=== PATIENT | male | born 1955 | race Caucasian/White ===

== ENCOUNTER 2021-12-15 17:49 | Emergency (ER) | payer OTHER, SELFPAY ==
[2021-12-15 18:06] VITALS: BP 190/102; PULSE 91; RESP 16; TEMP 36.4; O2SAT 98
--- NOTE | 2021-12-15 19:48 | XRR_ITS ---
PROCEDURE INFORMATION: Exam: XR Chest Exam date and time: 12/15/2021 7:48 PM Age: 66 years old Clinical indication: Cough and dyspnea; Additional info: Cough/ dyspnea TECHNIQUE: Imaging protocol: XR of the chest. Views: 1 view. COMPARISON: No relevant prior studies available. FINDINGS: Lungs: Unremarkable. No consolidation. Pleural spaces: Unremarkable. No pleural effusion. No pneumothorax. Heart/Mediastinum: Unremarkable. No cardiomegaly. Bones/joints: Unremarkable. XR/XR chest 1V portable [id number] IMPRESSION: No acute findings.
--- NOTE | 2021-12-15 19:53 | PC.NURSE ---
patient reports mild SOB starting today and states is here for COVID 19 test. denies other s/s. speech clear, sentences complete, respirations even equal and unlabored. NAD.
--- NOTE | 2021-12-15 20:02 | PC.NURSE ---
patient refused Tylenol.
--- NOTE | 2021-12-15 20:07 | ED_ITS ---
HPI - General Adult General: Chief complaint: COVID symptoms Stated complaint: covid exposure, sob Time Seen by Provider: 12/15/21 19:48 History of Present Illness: HPI: This is a [66] yo patient w/ hx of DM, HTN presenting to the ED with request for covid testing. Patient tells me that he has a new cough and is feeling light-headed and would like to be to tested for covid. Denies cough, malaise, generalized weakness, loss of taste, chest pain, N/V, diaphoresis, exertional shortness of breath, GI or other complaints. Denies any pleuritic chest pain, recent surgery/immobilization/travel, or hematemesis or hx of VTE in the past. Onset: earelier today Duration: ongoing today Location: home Severity: None Associated symptoms: Deny chest pain, dyspnea, nausea, rash, palpitations or vomiting Review of Systems Const: Denies: fever(s) or chills Eyes: Denies: change in vision ENMT: Denies: mouth pain Card: Denies: chest pain or palpitations Resp: Denies: dyspnea or non-productive cough GI: Denies: abdominal pain, nausea, vomiting or diarrhea : Denies: dysuria Musc: Denies: extremity pain Skin/Breast: Denies: rash or new lesions Neuro: Denies: weakness in extremities Psych: Reports: other (Normal mood) Marek/Lymph: Denies: easy bruising [facility] PFSH: Social History (Updated 12/15/21 @ 20:08 by Juanis Chacko MD) Alcohol intake: never Substance/Drug Use: never Physical Exam Const: COMMON NORMALS: alert HENMT: COMMON NORMALS: atraumatic HEAD & SCALP: atraumatic MOUTH: moist mucous membranes not abnormal Eye: COMMON NORMALS: EOMs intact bilaterally and conjunctivae normal CONJUNCTIVA: Yes conjunctivae normal Neck/C-Spine: COMMON NORMALS: full ROM and supple Resp: COMMON NORMALS: normal respiratory effort and clear to auscultation bilaterally AUSCULTATION: clear to auscultation bilaterally Cardio: COMMON NORMALS: regular rate RATE: regular rate GI: COMMON NORMALS: Soft to palpation and non-tender PALPATION: Yes Soft to palpation Extremity: COMMON NORMALS: full ROM Neuro: SENSORIUM/ORIENTATION: Yes alert MOTOR EXAM: No Abnormal motor strength present and Other motor observations present (no focal motor deficits) Psych: COMMON NORMALS: speech normal SPEECH: Yes normal speech MOOD & AFFECT: Yes euthymic mood Course Vital Signs: Vital signs: Vital Signs Temperature 97.6 F 12/15/21 18:06 Pulse Rate 91 12/15/21 18:06 Respiratory Rate 16 12/15/21 18:06 Blood Pressure 190/102 12/15/21 18:06 Pulse Oximetry 98 12/15/21 18:06 MDM - General Adult Medical Decision Making [66]yo patient presenting to the ED with request for covid test. HDS, no signs of hyoxia or lung findings. Workup: COVID antigen with PCR send out Intervention: Reassess [8:08pm] On reassessment, patient continues to in in respiratory distress. No signs of hypoxia. On ambulation, patient continues to have persistent O2 sat > 95%. Patient has been swabbed for the COVID PCR and has been formed that patient will have access to information on the patient portal. I have offered patient additional testing for other pathology today for possible cardiac and neurological causes of lightheadedness given his risk factors. However upon hearing this, patient refused to be evaluated in the emergency room and states that I just want to be tested for Covid and I want to go home. I have explained the risk of no further work-up today which include possible CA, possible stroke, even and other pathologies. Patient verbalized understanding that we not testing him for other pathology at this time. Patient is aware that the COVID PCR will come back in the next few days. Disposition: Discharge. Strict return instructions discussed at bedside including any signs of respiratory distress, dehydration, persistent fever, or any new or concerning symptoms. Patient in agreement with the plan and reassures me that the patient will follow up a primary care provider in 24-48 hrs for revaluation for any concerns or other issues. Lab Data Radiology Impressions Chest X-Ray 12/15/21 19:48 IMPRESSION: No acute findings. Laboratory Results Nasal/Oral COVID-19 PCR Cancelled 12/15/21 19:58 SARS-CoV-2 Ag (Rapid) Negative (Negative) 12/15/21 19:58 Discharge Plan Discharge Patient Disposition: Home Clinical Impression: Cough, Dyspnea Condition: Stable Discharge Orders: Discharge ED (Routine); Ordered 12/15/21 Ordered By: Yijia Mu Discharge Diet: Advance as tolerated Discharge Activity: Increase activity as tolerated Activity Restrictions/Additional Instructions: Come back to the emergency room if your symptoms worsen, have any shortness of breath, fever/chills, dehydration, inability tolerate food and drinks, any difficulty breathing, or any new or concerning complaints. Coding Level of Care Code ED Public Speaker for Devin Fwsadia Exam Comprehensive
[2021-12-15 20:33] LABS: SARS Covid-2 Antigen Negative (Negative)
[2021-12-18 17:56] LABS: Quest SARS-CoV-2 RNA NOT DETECTED (NOT DETECTED)
--- NOTE | 2021-12-19 14:21 | PC.NURSE ---
Notified of (-) COVID
== END 2021-12-15 20:36 | disposition home or self-care (01) ==
PROVIDERS: Emergency Provider Emergency Medicine
DX: R05.9 Cough, unspecified (principal); R06.00 Dyspnea, unspecified; Z20.822 Contact with and (suspected) exposure to COVID-19
CPT/HCPCS: 71045; 87426; 87635; 99283

== ENCOUNTER 2022-01-11 17:34 | Emergency (ER) | payer OTHER, SELFPAY ==
[2022-01-11 17:51] VITALS: BP 159/100; PULSE 96; RESP 18; TEMP 36.5; O2SAT 99; BMI 29.7
--- NOTE | 2022-01-11 21:36 | XRR_ITS ---
PROCEDURE INFORMATION: Exam: XR Chest Exam date and time: 01/11/2022 9:36 PM Age: 66 years old Clinical indication: Cough and shortness of breath; Patient HX: Cough with SOB. ; Additional info: Cough, SOB TECHNIQUE: Imaging protocol: XR of the chest. Views: 1 view. COMPARISON: 1. CR (CHEST, ) 12/15/2021 8:16 PM 2. Minimally increased peripheral pulmonary opacities bilaterally suggesting possible mild bilateral pneumonia. FINDINGS: Lungs: Unremarkable. No consolidation. Pleural spaces: Unremarkable. No pleural effusion. No pneumothorax. Heart/Mediastinum: Unremarkable. No cardiomegaly. Bones/joints: Unremarkable. XR/XR chest 1V portable [id number] IMPRESSION: Minimally increased peripheral pulmonary opacities bilaterally suggesting possible mild bilateral pneumonia.
--- NOTE | 2022-01-11 21:48 | ED_ITS ---
Documented by User: NICOLE De Paz 01/12/22 00:58 HPI - Nausea/Vomiting/Diarrhea General: Chief complaint: Nausea/Vomiting/Diarrhea Stated complaint: cough, sob Time Seen by Provider: 01/11/22 21:17 History of Present Illness: Patient states he has been sick for the last couple weeks. Patient states he did have a Covid test done 2 weeks ago was nega tive. Patient also says that he has been nauseated with some dry heaves over the last couple weeks had a little bit of diarrhea. No abdominal discomfort. Also been short of breath with a cough. Patient says he does not have insurance and that he needs to have Metformin prescription refilled. He says blood sugars when he has checked them over the last few months have been in the 160 the 190 range at times. Associated nausea: Yes Associated symtoms: Reports nausea; Denies chest pain or headache(s) Review of Systems Const: Denies: fever(s), chills or body aches Eyes: Denies: eye discomfort ENMT: Denies: throat pain Card: Denies: chest pain Resp: Reports: dyspnea GI: Reports: abdominal pain, nausea and vomiting Skin/Breast: Denies: rash Neuro: Denies: headache(s) Psych: Denies: depression or suicidal ideation [facility] ED PFSH: Social History (Updated 12/15/21 @ 20:08 by Juanis Chacko MD) Alcohol intake: never Physical Exam Const: COMMON NORMALS: no acute distress, patient oriented x3 and alert HENMT: COMMON NORMALS: normocephalic and external ears normal HEAD & SCALP: normocephalic EXTERNAL EAR: Yes external ears normal Eye: COMMON NORMALS: EOMs intact bilaterally Neck/C-Spine: COMMON NORMALS: no JVD Resp: COMMON NORMALS: normal respiratory effort and No use of accessory muscles Cardio: COMMON NORMALS: no JVD GI: INSPECTION: Yes normal to inspection Extremity: COMMON NORMALS: normal to inspection and full ROM Neuro: COMMON NORMALS: patient oriented x3 SENSORIUM/ORIENTATION: Yes alert Psych: COMMON NORMALS: mental status grossly normal Skin: COMMON NORMALS: no rashes or lesions noted GENERAL SKIN EXAM: no rashes or lesions noted Course Vital Signs: Vital signs: Vital Signs Temperature 97.7 F 01/11/22 17:51 Pulse Rate 98 01/12/22 00:20 Respiratory Rate 18 01/12/22 00:20 Blood Pressure 155/92 01/12/22 00:20 Pulse Oximetry 98 01/12/22 00:20 MDM - Nausea/Vomiting/Diarrhea Medical Decision Making Patient is making decision to leave AMA. I have shared patient's lab results and radiology results patient told that he has pneumonia and they also has acute kidney failure and that his kidneys are working at 1/5 are normal. Patient refuses IV fluids refuses admission to the hospital and wants to go home. I spoke with patient's friend who is on his PHI and also spoke to patient x2 and reiterated the need to be in hospital to have kidneys evaluated closely. Patient still refuses. I shared with Dr. Cooney patient's case. When I made a follow-up appointment at the [facility] for this week for patient given note they should be off work at least a week and strict instructions to follow-up here if he has worsening symptoms patient signed AMA form. I called patient at [facility] notify him that his Covid test was positive. I encourage patient to purchase a pulse oximeter and check his oxygen level at home. Offeredpatient monoclonal antibody if if he wanted to come back in, patient declined. Lab Data : 01/11/22 22:45 01/11/22 22:45 Radiology Impressions Chest X-Ray 01/11/22 21:36 IMPRESSION: Minimally increased peripheral pulmonary opacities bilaterally suggesting possible mild bilateral pneumonia. Laboratory Results WBC 2.7 10^3/uL (4.0-10.0) L 01/11/22 22:45 RBC 3.97 10^6/uL (4.1-5.3) L 01/11/22 22:45 Hgb 11.8 g/dL (11.7-16.6) 01/11/22 22:45 Hct 36.7 % (42.0-52.0) L 01/11/22 22:45 MCV 92.4 fl (80-94) 01/11/22 22:45 MCH 29.7 pg (28.0-34.0) 01/11/22 22:45 MCHC 32.2 g/dL (30.0-36.0) 01/11/22 22:45 RDW 13.7 % (12.1-15.1) 01/11/22 22:45 Plt Count 156 10^3/cmm (130-400) 01/11/22 22:45 MPV 11.0 fL (7.4-10.4) H 01/11/22 22:45 Neut % (Auto) 74.7 % 01/11/22 22:45 Lymph % (Auto) 11.7 % 01/11/22 22:45 Ceiba % (Auto) 12.4 % 01/11/22 22:45 Eos % (Auto) 0.4 % 01/11/22 22:45 Baso % (Auto) 0.4 % 01/11/22:45 Neut # (Auto) 2.05 10^3/uL (1.8-7.7) 01/11/22:45 Lymph # (Auto) 0.3 10^3/uL (0.8-4.8) L 01/11/22:45 Ceiba # (Auto) 0.3 10^3/uL (0.2-0.9) 01/11/22 22:45 Eos # (Auto) 0.0 10^3/uL (0.0-0.8) 01/11/22:45 Baso # (Auto) 0.0 10^3/uL (0.0-0.1) 01/11/22:45 Nucleated RBC % (auto) 0 % 01/11/22:45 Nucleated RBCs # 0.0 /100WBC 01/11/22 22:45 Sodium 137 mmol/L (136-145) 01/11/22 22:45 Potassium 4.6 mmol/L (3.5-5.1) 01/11/22:45 Chloride 102 mmol/L (98-107) 01/11/22 22:45 Carbon Dioxide 17 mmol/L (22-29) L 01/11/22 22:45 Anion Gap 22.6 (5-19) H 01/11/22 22:45 BUN 59 mg/dL (8-23) H 01/11/22 22:45 Creatinine 5.6 mg/dL (0.7-1.2) H* 01/11/22 22:45 GFR Calculation 10.3 mL/min (90-130) L 01/11/22 22:45 Glucose 139 mg/dL (65-115) H 02/25/22 22:45 Calculated Osmolality 303 mOsm/kg (285-295) H 01/11/22 22:45 Calcium 8.2 mg/dL (8.5-10.5) L 01/11/22 22:45 Total Bilirubin 0.3 mg/dL (0.15-1.2) 01/11/22 22:45 AST 14 U/L (0-40) 01/11/22 22:45 ALT 8 U/L (0-41) 01/11/22 22:45 Alkaline Phosphatase 130 IU/L (40-130) 01/11/22 22:45 Total Protein 7.0 g/dL (6.6-8.7) 01/11/22 22:45 Albumin 4.1 g/dL (3.5-5.2) 01/11/22 22:45 Globulin 2.9 g/dL (1.3-4.6) 01/11/22 22:45 Lipase 58 U/L (13-60) 01/11/22 22:45 Urine Color Yellow (Yellow) 01/11/22 23:20 Urine Appearance Clear (CLEAR) 01/11/22 23:20 Urine pH 5 (5-7) 01/11/22 23:20 Ur Specific Grover 1.015 (1.005-1.030) 01/11/22 23:20 Urine Protein 3+ (Negative) H 01/11/22 23:20 Urine Glucose (UA) Norm (Normal) 01/11/22 23:20 Urine Ketones Negative (Negative) 01/11/22 23:20 Urine Blood Neg (Negative) 01/11/22 23:20 Urine Nitrate Negative (Negative) 01/11/22 23:20 Urine Bilirubin Neg (Negative) 01/11/22 23:20 Urine Urobilinogen Norm mg/dL (Negative) 01/11/22 23:20 Ur Leukocyte Esterase Negative (Negative) 01/11/22 23:20 Urine RBC 0-4 /hpf (0-2) H 01/11/22 23:20 Urine WBC 0-4 /hpf (0-5) H 01/11/22 23:20 Ur Squamous Epith Cells 0-4 /hpf (0-5) H 01/11/22 23:20 Amorphous Sediment 1+ /hpf 01/11/22 23:20 Urine Bacteria Trace /hpf (NONE) 01/11/22 23:20 Coronavirus 229E (PCR) Not detected (NOT DETECT) 01/11/22 22:40 Influenza Type A Ag Negative (Negative) 01/11/22 22:40 Influenza Type B Ag Negative (Negative) 01/11/22 22:40 SARS-CoV-2 (PCR) Detected (NOT DETECT) A 01/11/22 22:40 Discharge Plan Discharge Patient Disposition: Left Against Medical Advice Clinical Impression: Pneumonia, Acute kidney failure, COVID-19 Condition: Stable Prescriptions: New Zithromax Z-Lionel 250 mg tablet See Rx Instructions .ROUTE .COMPLEX Qty: 6 0RF Rx Instructions: take 500 mg today (day 1), then 250 mg for 4 days (days 2-5) Discharge Orders: Discharge ED (Routine); Ordered 01/12/22 Ordered By: Ross Stevens Activity Restrictions/Additional Instructions: Make sure you follow-up in the clinic this coming week and have your kidneys rechecked. Also needs repeat checks x-ray. Make sure you drink plenty of fluids. If you have worsening symptoms please return to the ER. Stand Alone Forms: Work/School Release Coding Level of Care Code ED Engine Inspector for Chg Fwd Exam Comprehensive Documented by User: Agustín Cooney DO 01/12/22 01:15 HPI - Nausea/Vomiting/Diarrhea General: Chief complaint: Nausea/Vomiting/Diarrhea Stated complaint: cough, sob Time Seen by Provider: 01/11/22 21:17 PFSH ED PFSH: Social History (Updated 12/15/21 @ 20:08 by Juanis Chacko MD) Alcohol intake: never Course Vital Signs: Vital signs: Vital Signs Temperature 97.7 F 01/11/22 17:51 Pulse Rate 98 01/12/22 00:20 Respiratory Rate 18 01/12/22 00:20 Blood Pressure 155/92 01/12/22 00:20 Pulse Oximetry 98 01/12/22 00:20 MDM - Nausea/Vomiting/Diarrhea Medical Decision Making Patient is making decision to leave AMA. I have shared patient's lab results and radiology results patient told that he has pneumonia and they also has acute kidney failure and that his kidneys are working at 1/5 are normal. Patient refuses IV fluids refuses admission to the hospital and wants to go home. I spoke with patient's friend who is on his PHI and also spoke to patient x2 and reiterated the need to be in hospital to have kidneys evaluated closely. Patient still refuses. I shared with Dr. Cooney patient's case. When I made a follow-up appointment at the [facility] for this week for patient given note they should be off work at least a week and strict instructions to follow-up here if he has worsening symptoms patient signed AMA form. I called patient at [phone] notify him that his Covid test was positive. I encourage patient to purchase a pulse oximeter and check his oxygen level at home. Offeredpatient monoclonal antibody if if he wanted to come back in, patient declined. This patient was originally seen by NICOLE Stovall.? I agree with his history, evaluation, and treatment. Patient was urged multiple times to allow us to treat him in the hospital for acute renal failure, bilateral pneumonia, and likely Covid, later turning positive. He continued to adamantly decline. Lab Data : 01/11/22 22:45 01/11/22 22:45 Radiology Impressions Chest X-Ray 01/11/22 21:36 IMPRESSION: Minimally increased peripheral pulmonary opacities bilaterally suggesting possible mild bilateral pneumonia. Laboratory Results WBC 2.7 10^3/uL (4.0-10.0) L 01/11/22 22:45 RBC 3.97 10^6/uL (4.1-5.3) L 01/11/22 22:45 Hgb 11.8 g/dL (11.7-16.6) 01/11/22 22:45 Hct 36.7 % (42.0-52.0) L 01/11/22 22:45 MCV 92.4 fl (80-94) 01/11/22 22:45 MCH 29.7 pg (28.0-34.0) 01/11/22 22:45 MCHC 32.2 g/dL (30.0-36.0) 01/11/22 22:45 RDW 13.7 % (12.1-15.1) 01/11/22 22:45 Plt Count 156 10^3/cmm (130-400) 01/11/22 22:45 MPV 11.0 fL (7.4-10.4) H 01/11/22 22:45 Neut % (Auto) 74.7 % 01/11/22 22:45 Lymph % (Auto) 11.7 % 01/11/22 22:45 Ceiba % (Auto) 12.4 % 01/11/22 22:45 Eos % (Auto) 0.4 % 01/11/22 22:45 Baso % (Auto) 0.4 % 01/11/22:45 Neut # (Auto) 2.05 10^3/uL (1.8-7.7) 01/11/22:45 Lymph # (Auto) 0.3 10^3/uL (0.8-4.8) L 01/11/22:45 Ceiba # (Auto) 0.3 10^3/uL (0.2-0.9) 01/11/22 22:45 Eos # (Auto) 0.0 10^3/uL (0.0-0.8) 01/11/22:45 Baso # (Auto) 0.0 10^3/uL (0.0-0.1) 01/11/22:45 Nucleated RBC % (auto) 0 % 01/11/22:45 Nucleated RBCs # 0.0 /100WBC 01/11/22:45 Sodium 137 mmol/L (136-145) 01/11/22:45 Potassium 4.6 mmol/L (3.5-5.1) 01/11/22 22:45 Chloride 102 mmol/L (98-107) 01/11/22 22:45 Carbon Dioxide 17 mmol/L (22-29) L 01/11/22 22:45 Anion Gap 22.6 (5-19) H 01/11/22 22:45 BUN 59 mg/dL (8-23) H 01/11/22 22:45 Creatinine 5.6 mg/dL (0.7-1.2) H* 01/11/22 22:45 GFR Calculation 10.3 mL/min (90-130) L 01/11/22 22:45 Glucose 139 mg/dL (65-115) H 01/11/22 22:45 Calculated Osmolality 303 mOsm/kg (285-295) H 01/11/22 22:45 Calcium 8.2 mg/dL (8.5-10.5) L 01/11/22 22:45 Total Bilirubin 0.3 mg/dL (0.15-1.2) 01/11/22 22:45 AST 14 U/L (0-40) 01/11/22 22:45 ALT 8 U/L (0-41) 01/11/22 22:45 Alkaline Phosphatase 130 IU/L (40-130) 01/11/22 22:45 Total Protein 7.0 g/dL (6.6-8.7) 01/11/22 22:45 Albumin 4.1 g/dL (3.5-5.2) 01/11/22 22:45 Globulin 2.9 g/dL (1.3-4.6) 01/11/22 22:45 Lipase 58 U/L (13-60) 01/11/22 22:45 Urine Color Yellow (Yellow) 01/11/22 23:20 Urine Appearance Clear (CLEAR) 01/11/22 23:20 Urine pH 5 (5-7) 01/11/22 23:20 Ur Specific Grover 1.015 (1.005-1.030) 01/11/22 23:20 Urine Protein 3+ (Negative) H 01/11/22 23:20 Urine Glucose (UA) Norm (Normal) 01/11/22 23:20 Urine Ketones Negative (Negative) 01/11/22 23:20 Urine Blood Neg (Negative) 01/11/22 23:20 Urine Nitrate Negative (Negative) 01/11/22 23:20 Urine Bilirubin Neg (Negative) 01/11/22 23:20 Urine Urobilinogen Norm mg/dL (Negative) 01/11/22 23:20 Ur Leukocyte Esterase Negative (Negative) 01/11/22 23:20 Urine RBC 0-4 /hpf (0-2) H 01/11/22 23:20 Urine WBC 0-4 /hpf (0-5) H 01/11/22 23:20 Ur Squamous Epith Cells 0-4 /hpf (0-5) H 01/11/22 23:20 Amorphous Sediment 1+ /hpf 01/11/22 23:20 Urine Bacteria Trace /hpf (NONE) 01/11/22 23:20 Coronavirus 229E (PCR) Not detected (NOT DETECT) 01/11/22 22:40 Influenza Type A Ag Negative (Negative) 01/11/22 22:40 Influenza Type B Ag Negative (Negative) 01/11/22 22:40 SARS-CoV-2 (PCR) Detected (NOT DETECT) A 01/11/22 22:40 Discharge Plan Discharge Patient Disposition: Left Against Medical Advice Clinical Impression: Pneumonia, Acute kidney failure, COVID-19 Condition: Stable Prescriptions: New Zithromax Z-Lionel 250 mg tablet See Rx Instructions .ROUTE .COMPLEX Qty: 6 0RF Rx Instructions: take 500 mg today (day 1), then 250 mg for 4 days (days 2-5) Discharge Orders: Discharge ED (Routine); Ordered 01/12/22 Ordered By: Ross Stevens Activity Restrictions/Additional Instructions: Make sure you follow-up in the clinic this coming week and have your kidneys rechecked. Also needs repeat checks x-ray. Make sure you drink plenty of fluids. If you have worsening symptoms please return to the ER. Stand Alone Forms: Work/School Release Coding Level of Care Code ED Engine Inspector for Devin Fwd Exam Comprehensive
[2022-01-11] MEDS: ondansetron 2 mg/ML SDV 2 mL 4 MG IM (22:13)
[2022-01-11 22:35] VITALS: BP 155/96; PULSE 86; RESP 18; O2SAT 98
[2022-01-11 22:59] LABS: Basophils % 0.4 %; Eosinophils % 0.4 %; Hematocrit 36.7 % (42.0-52.0); Hemoglobin 11.8 g/dL (11.7-16.6); Lymphocytes # 0.3 10^3/uL (0.8-4.8); Lymphocytes % 11.7 %; Mean Corpuscular HGB Conc 32.2 g/dL (30.0-36.0); Mean Corpuscular Hemoglobin 29.7 pg (28.0-34.0); Mean Corpuscular Volume 92.4 fl (80-94); Monocytes # 0.3 10^3/uL (0.2-0.9); Monocytes % 12.4 %; Neutrophils # 2.05 10^3/uL (1.8-7.7); Neutrophils % 74.7 %; Nucleated Red Blood Cells % 0 %; Platelet Count 156 10^3/cmm (130-400); Red Blood Count 3.97 10^6/uL (4.1-5.3); Red Cell Distribution Width 13.7 % (12.1-15.1); White Blood Count 2.7 10^3/uL (4.0-10.0)
[2022-01-11 23:16] LABS: Influenza A by IFA Negative (Negative); Influenza B by IFA Negative (Negative)
[2022-01-11 23:17] LABS: Alanine Aminotransferase 8 U/L (0-41); Albumin Level 4.1 g/dL (3.5-5.2); Alkaline Phosphatase 130 IU/L (40-130); Anion Gap 22.6 (5-19); Aspartate Amino Transferase 14 U/L (0-40); Blood Urea Nitrogen 59 mg/dL (8-23); Calcium 8.2 mg/dL (8.5-10.5); Carbon Dioxide 17 mmol/L (22-29); Chloride 102 mmol/L (98-107); Globulin 2.9 g/dL (1.3-4.6); Glomerular Filtration Rate 10.3 mL/min (90-130); Glucose 139 mg/dL (65-115); Lipase 58 U/L (13-60); Osmolality Calculated 303 mOsm/kg (285-295); Potassium 4.6 mmol/L (3.5-5.1); Sodium 137 mmol/L (136-145); Total Bilirubin 0.3 mg/dL (0.15-1.2)
[2022-01-11] MEDS: azithromycin 250 mg Tablet 500 MG PO (23:50)
[2022-01-11] MEDS: dexamethasone 4 mg Tablet 10 MG PO (23:50)
[2022-01-11 23:59] LABS: Add Urine Microscopic? YES; Bilirubin Urine Neg (Negative); Blood Urine Neg (Negative); Glucose Urine UA Norm (Normal); Ketones Urine Negative (Negative); Leukocyte Esterase Urine Negative (Negative); Nitrate Urine Negative (Negative); Protein Urine 3+ (Negative); Specific Gravity, Urine 1.015 (1.005-1.030); Urine Appearance Clear (CLEAR); Urine Color Yellow (Yellow); Urobilinogen Urine Norm (Negative); pH Urine 5 (5-7)
[2022-01-12 00:03] LABS: Add Urine Culture? No; Amorphous Sediment Urine 1+ /hpf; Bacteria Urine TRACE /hpf; RBC Urine 0-4 /hpf (0-2); Squamous Epithelial Cell Urine 0-4 /hpf (0-5); WBC Urine 0-4 /hpf (0-5)
[2022-01-12 00:20] VITALS: BP 155/92; PULSE 98; RESP 18; O2SAT 98
[2022-01-12 00:37] LABS: Adenovirus Not Detected (NOT DETECT); Chlamydia Pneumoniae Not Detected (NOT DETECT); Coronavirus 229E,HKU1,NL63,OC4 Not Detected (NOT DETECT); Human Metapneumovirus Not Detected (NOT DETECT); Human Rhinovirus/Enterovirus Not Detected (NOT DETECT); Influenza A Not Detected (NOT DETECT); Influenza A H1 Not Detected (NOT DETECT); Influenza A H1-2009 Not Detected (NOT DETECT); Influenza A H3 Not Detected (NOT DETECT); Influenza B Not Detected (NOT DETECT); Mycoplasma Pneumoniae Not Detected (NOT DETECT); Parainfluenza Virus Type 1 Not Detected (NOT DETECT); Parainfluenza Virus Type 2 Not Detected (NOT DETECT); Parainfluenza Virus Type 3 Not Detected (NOT DETECT); Parainfluenza Virus Type 4 Not Detected (NOT DETECT); Respiratory Syncytial Virus A Not Detected (NOT DETECT); Respiratory Syncytial Virus B Not Detected (NOT DETECT); SARS-COV-2 Detected (NOT DETECT)
--- NOTE | 2022-01-16 12:10 | DCPLANNER ---
purchasing manager/sales had message to speak with patient about getting established with a primary care physician. purchasing manager/sales was unable to speak with patient at this time and unable to leave a voicemail for patient.
== END 2022-01-12 00:22 | disposition left against medical advice (07) ==
PROVIDERS: Emergency Provider Nurse Practitioner Family
DX: U07.1 COVID-19 (principal); J18.9 Pneumonia, unspecified organism; N17.9 Acute kidney failure, unspecified; Z53.21 Procedure and treatment not carried out due to patient leaving prior to being seen by health care provider
CPT/HCPCS: 36415; 71045; 80053; 81001; 81003; 83690; 85025; 87635; 87804; 96372; 99283; J2405; J8540; Q0144

== ENCOUNTER 2022-02-01 18:21 | Inpatient (IN) | payer SELFPAY ==
[2022-02-01] VITALS (7 sets, daily range): BP systolic 114–141; BP diastolic 71–89; PULSE 80–120; RESP 16–20; TEMP 36.3–36.4; O2SAT 95–99; BMI 27.7
--- NOTE | 2022-02-01 18:44 | XRR_ITS ---
PROCEDURE INFORMATION: Exam: XR Chest Exam date and time: 02/01/2022 5:54 PM Age: 66 years old Clinical indication: Shortness of breath; Additional info: SOB TECHNIQUE: Imaging protocol: XR of the chest. Views: 1 view. COMPARISON: CR (CHEST, ) 01/11/2022 9:58 PM FINDINGS: Lungs: Bibasilar left greater than right atelectasis versus minimal infiltrate. Pleural spaces: Unremarkable. No pleural effusion. No pneumothorax. Heart/Mediastinum: Unremarkable. No cardiomegaly. Bones/joints: Unremarkable. XR/XR chest 1V portable [id number] IMPRESSION: Bibasilar left greater than right atelectasis versus minimal infiltrate.
--- NOTE | 2022-02-01 19:05 | W.ED.SOB ---
HPI - SOB/Dyspnea General: Chief Complaint: Shortness of Breath/Dyspnea Stated Complaint: SOB Time Seen by Provider: 02/01/22 18:43 Source: patient Mode of arrival: ambulatory Limitations: no limitations History of Present Illness: HPI Narrative: 66-year-old male who states that over the last 2 weeks has been having some increasing shortness of breath with exertion. Mild cough denies any fever. States he has no history of heart or lung disease that he knows of is not a smoker. Denies any pain says at rest he has minimal dyspnea he has had some tachycardia and palpitations his pulse ox here is 100% on room air. Denies any recent injury. Associated symptoms: Deny abdominal pain, chest pain, fever(s), nausea or vomiting Review of Systems Const: Denies: fever(s), chills, body aches or change in appetite Eyes: Denies: blurry vision or eye discomfort ENMT: Denies: throat pain or dental pain Card: Denies: chest pain Resp: Reports: dyspnea GI: Denies: abdominal pain, nausea, vomiting or diarrhea : Denies: dysuria Musc: Denies: neck pain or back pain Skin/Breast: Denies: rash Neuro: Denies: headache(s) Psych: Denies: depression Marek/Lymph: Denies: easy bruising All/Imm: Denies: urticaria PFS ED PFSH: Medical History (Updated 02/01/22 @ 21:01 by Keely Alonzo MD) Hypertension Social History Alcohol intake: never Physical Exam Const: COMMON NORMALS: patient oriented x3 GENERAL APPEARANCE: in distress and ill appearing HENMT: COMMON NORMALS: normocephalic and atraumatic HEAD & SCALP: normocephalic and atraumatic Eye: COMMON NORMALS: Equal, round and reactive pupils present and EOMs intact bilaterally PUPIL: Yes Equal, round and reactive pupils present Neck/C-Spine: COMMON NORMALS: full ROM and supple Chest: COMMONS NORMALS: normal inspection of the chest and normal palpation of entire chest wall Resp: COMMON NORMALS: normal respiratory effort, No retractions, No use of accessory muscles and clear to auscultation bilaterally AUSCULTATION: clear to auscultation bilaterally Cardio: COMMON NORMALS: regular rhythm and No murmurs present (Cardio) RATE: tachycardic RHYTHM: regular rhythm GI: COMMON NORMALS: Normal to inspection, nondistended, normoactive bowel sounds present, Soft to palpation, non-tender and no masses PALPATION: Yes Soft to palpation Extremity: COMMON NORMALS: full ROM NARRATIVE EXTREMITY EXAM: 2+ edema Neuro: COMMON NORMALS: patient oriented x3, moves all extremities and no focal motor deficits Psych: COMMON NORMALS: mental status grossly normal, Normal thought process present and cooperative THOUGHT PROCESS: Normal thought process present Skin: COMMON NORMALS: no rashes or lesions noted and no wounds GENERAL SKIN EXAM: no rashes or lesions noted Course Vital Signs: Vital signs: Vital Signs Temperature 97.3 F L 02/01/22 18:33 Pulse Rate 103 H 02/01/22 20:08 Respiratory Rate 20 H 02/01/22 20:08 Blood Pressure 114/79 02/01/22 20:08 Pulse Oximetry 98 02/01/22 20:08 MDM - SOB/Dyspnea Medical Decision Making Patient presents here with acute on chronic kidney injury also fluid overload likely due to his renal failure. Spoke to hospitalist will admit to ICU at this time his potassium is normal does have some acidosis spoke to nephrology who is consulted as well. Patient's vital signs here been stable he is not requiring any oxygen. Lab Data : 02/01/22 19:05 02/01/22 19:05 Labs/Radiology: Radiology Impressions Chest X-Ray 02/01/22 18:44 IMPRESSION: Bibasilar left greater than right atelectasis versus minimal infiltrate. Laboratory Results WBC 6.0 10^3/uL (4.0-10.0) 02/01/22 19:05 RBC 4.16 10^6/uL (4.1-5.3) 02/01/22 19:05 Hgb 12.2 g/dL (11.7-16.6) 02/01/22 19:05 Hct 36.5 % (42.0-52.0) L 02/01/22 19:05 MCV 87.7 fl (80-94) 02/01/22 19:05 MCH 29.3 pg (28.0-34.0) 02/01/22 19:05 MCHC 33.4 g/dL (30.0-36.0) 02/01/22 19:05 RDW 13.6 % (12.1-15.1) 02/01/22 19:05 Plt Count 319 10^3/cmm (130-400) 02/01/22 19:05 MPV 10.2 fL (7.4-10.4) 02/01/22 19:05 Neut % (Auto) 81.7 % 02/01/22 19:05 Lymph % (Auto) 7.9 % 02/01/22 19:05 [place] % (Auto) 7.9 % 02/01/22 19:05 Eos % (Auto) 0.8 % 02/01/22 19:05 Baso % (Auto) 1.5 % 02/01/22 19:05 Neut # (Auto) 4.88 10^3/uL (1.8-7.7) 02/01/22 19:05 Lymph # (Auto) 0.5 10^3/uL (0.8-4.8) L 02/01/22 19:05 [place] # (Auto) 0.5 10^3/uL (0.2-0.9) 02/01/22 19:05 Eos # (Auto) 0.1 10^3/uL (0.0-0.8) 02/01/22 19:05 Baso # (Auto) 0.1 10^3/uL (0.0-0.1) 02/01/22 19:05 Nucleated RBC % (auto) 0 % 02/01/22 19:05 Nucleated RBCs # 0.0 /100WBC 02/01/22 19:05 D-Dimer 7.67 ug/mIFEU (0-0.59) H 02/01/22 19:05 Sodium 131 mmol/L (136-145) L 02/01/22 19:05 Potassium 5.0 mmol/L (3.5-5.1) 02/01/22 19:05 Chloride 95 mmol/L (98-107) L 02/01/22 19:05 Carbon Dioxide 13 mmol/L (22-29) L 02/01/22 19:05 Anion Gap 28.0 (5-19) H 02/01/22 19:05 BUN 124 mg/dL (8-23) H* D 02/01/22 19:05 Creatinine 10.7 mg/dL (0.7-1.2) H* 02/01/22 19:05 GFR Calculation 4.9 mL/min (90-130) L 02/01/22 19:05 Glucose 172 mg/dL (65-115) H 02/01/22 19:05 Calculated Osmolality 316 mOsm/kg (285-295) H 02/01/22 19:05 Calcium 8.5 mg/dL (8.5-10.5) 02/01/22 19:05 Total Bilirubin 0.4 mg/dL (0.15-1.2) 02/01/22 19:05 AST 15 U/L (0-40) 02/01/22 19:05 ALT 15 U/L (0-41) 02/01/22 19:05 Alkaline Phosphatase 128 IU/L (40-130) 02/01/22 19:05 Troponin T Baseline 79 ng/L (0-15) H 02/01/22 19:05 NT-Pro-B Natriuret Pep 47429 pg/mL (0-125) H 02/01/22 19:05 Total Protein 8.0 g/dL (6.6-8.7) 02/01/22 19:05 Albumin 3.9 g/dL (3.5-5.2) 02/01/22 19:05 Globulin 4.1 g/dL (1.3-4.6) 02/01/22 19:05 EKG Data EKG 1: I personally reviewed and interpreted this EKG as follows: EKG Interpretation Date: 02/01/22 EKG interpretation time: 20:01 Interpretation: sinus tach hr [address] or t wave abnormalities qrs 100 qtc 397 Critical Care Time Critical Care Time: Critical Care Time: Yes Total Critical Care Time: 35 Attestation: The high probability of a clinically significant, sudden or life threatening deterioration of the patient's [renal, pulm] system(s) required my full and direct attention, intervention and personal management. The critical care time is as shown. 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
[2022-02-01 19:20] LABS: Basophils # 0.1 10^3/uL (0.0-0.1); Basophils % 1.5 %; Eosinophils # 0.1 10^3/uL (0.0-0.8); Eosinophils % 0.8 %; Hematocrit 36.5 % (42.0-52.0); Hemoglobin 12.2 g/dL (11.7-16.6); Lymphocytes # 0.5 10^3/uL (0.8-4.8); Lymphocytes % 7.9 %; Mean Corpuscular HGB Conc 33.4 g/dL (30.0-36.0); Mean Corpuscular Hemoglobin 29.3 pg (28.0-34.0); Mean Corpuscular Volume 87.7 fl (80-94); Mean Platelet Volume 10.2 fL (7.4-10.4); Monocytes # 0.5 10^3/uL (0.2-0.9); Monocytes % 7.9 %; Neutrophils # 4.88 10^3/uL (1.8-7.7); Neutrophils % 81.7 %; Nucleated Red Blood Cells % 0 %; Platelet Count 319 10^3/cmm (130-400); Red Blood Count 4.16 10^6/uL (4.1-5.3); Red Cell Distribution Width 13.6 % (12.1-15.1)
[2022-02-01 19:41] LABS: D Dimer 7.67 ug/mIFEU (0-0.59)
[2022-02-01 19:46] LABS: Troponin(5th) Baseline 79 ng/L (0-15)
[2022-02-01 19:53] LABS: Alanine Aminotransferase 15 U/L (0-41); Albumin Level 3.9 g/dL (3.5-5.2); Alkaline Phosphatase 128 IU/L (40-130); Aspartate Amino Transferase 15 U/L (0-40); Calcium 8.5 mg/dL (8.5-10.5); Carbon Dioxide 13 mmol/L (22-29); Chloride 95 mmol/L (98-107); Globulin 4.1 g/dL (1.3-4.6); Glomerular Filtration Rate 4.9 mL/min (90-130); Glucose 172 mg/dL (65-115); NT Pro B Type Natriuretic Pept 24657 pg/mL (0-125); Sodium 131 mmol/L (136-145); Total Bilirubin 0.4 mg/dL (0.15-1.2)
[2022-02-01 20:01] LABS: Osmolality Calculated 316 mOsm/kg (285-295)
[2022-02-01 20:02] LABS: Blood Urea Nitrogen 124 mg/dL (8-23)
--- NOTE | 2022-02-01 20:44 | ECG_ITS ---
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 Measurements Intervals [place] Rate: 104 P: 31 RI: 147 QRS: -4 QRSD: 100 T: 134 QT: 337 QTc: 444 Interpretive Statements SINUS TACHYCARDIA LEFT VENTRICULAR HYPERTROPHY AND ST-T CHANGE [VOLTAGE CRITERIA PLUS ST/T ABNORMALITY] No previous ECG available for comparison Electronically Signed On 02-01-2022 22:47:29 CDT by Lester Moya M.D. [id number]
--- NOTE | 2022-02-01 21:32 | PM.HP ---
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 Has been dyspneic on exertion. Having mild cough. Came to ER for evaluation due to persistent fatigability. And presentation blood pressure 119/77, heart rate initially 120, down to 103. Saturation is 98% on room air. CBC unremarkable. D-dimer noted elevated 7.67. On chemistries noted to have worsening renal function, creatinine up to 10.7, BUN 124. Prior creatinine was 5.6, BUN 59 back on 01/11/2020. Potassium is 5. Bicarbonate 13 creatinine continue. Baseline troponin 79. Chest x-ray with bibasilar left greater than right atelectasis versus minimal infiltrate. He states previously did not want to initiate hemodialysis, but currently states he is considering proceeding with it. Review of Systems Const: Reports: fatigue; Denies: fever(s), chills or body aches Eyes: Denies: change in vision or eye redness ENMT: Denies: throat pain, oral sores or ear or mastoid pain Card: Reports: dyspnea on exertion; Denies: chest pain, edema or pre-syncope Resp: Reports: dyspnea; Denies: productive cough, change in phlegm color or hemoptysis GI: Denies: abdominal pain, nausea, vomiting, diarrhea, constipation, hematochezia or melena : Denies: flank pain, difficulty urinating, urinary frequency or hematuria Musc: Denies: back pain, joint swelling or joint redness Skin/Breast: Denies: rash, sores or new lesions Neuro: Denies: headache(s), numbness in extremities, weakness in extremities, dizziness, confusion or seizure-like activity Endo: Denies: polyuria or polydipsia Marek/Lymph: Denies: easy bleeding or purpura All/Imm: Denies: urticaria, throat swelling or tongue swelling Medications/Allergies Home Medications Medication Instructions Recorded Confirmed Last Taken Type azithromycin 250 mg tablet See Rx Instructions .ROUTE 01/12/22 Unknown Rx (Zithromax Z-Lionel) .COMPLEX #6 tab Allergies Allergy/AdvReac Type Severity Reaction Status Date / Time No Known Allergies Allergy Verified 12/15/21 18:08 PFSH Acute PFSH: Medical History CKD (chronic kidney disease) Hypertension Surgical History No pertinent past surgical history Family History Other No significant family history Social History (Updated 02/01/22 @ 21:38 by Isac Lua MD) Smoking and tobacco status: never smoked Alcohol intake: never Substance/Drug Use: never Lives independently: Yes Household members: none Marital status details: Rather estranged with daughter Current occupational status: other Details: Recently employed, stopped working when started feeling unwell several wks Vitals/I&O/Wt Last Vital Signs Temp 97.3 F L 02/01/22 18:33 Pulse 103 H 02/01/22 20:08 Resp 20 H 02/01/22 20:08 BP 114/79 02/01/22 20:08 Pulse Ox 98 02/01/22 20:08 Weight last 48 hrs Weight 90.265 kg Physical Exam Const: COMMON NORMALS: no acute distress and patient oriented x3 GENERAL APPEARANCE: frail appearing OTHER: [place] Generally weak HENMT: COMMON NORMALS: oropharynx normal Neck/C-Spine: COMMON NORMALS: no JVD Resp: COMMON NORMALS: normal respiratory effort and clear to auscultation bilaterally AUSCULTATION: clear to auscultation bilaterally Cardio: COMMON NORMALS: no JVD, regular rhythm, S1 normal heart sound present, S2 normal heart sound present and No murmurs present (Cardio) RHYTHM: regular rhythm HEART SOUNDS: S1 normal heart sound present and S2 normal heart sound present GI: COMMON NORMALS: Normal to inspection, nondistended, normoactive bowel sounds present, Soft to palpation and non-tender PALPATION: Yes Soft to palpation Extremity: COMMON NORMALS: no joint enlargement and no pedal edema Neuro: COMMON NORMALS: patient oriented x3 and moves all extremities Skin: COMMON NORMALS: no rashes or lesions noted GENERAL SKIN EXAM: no rashes or lesions noted Data : 02/01/22 19:05 02/01/22 19:05 Micro: Microbiology 02/01/22 20:48 Blood Culture - Preliminary Blood SPECIMEN COLLECTED 02/01/22 20:40 Blood Culture - Preliminary Blood SPECIMEN COLLECTED A&P Assessment and plan (1) Acute kidney injury superimposed on CKD: Creatinine up to 10.7, BUN 124. Metabolic acidosis with bicarb 13, and a 28. Potassium is 5. BUN is elevated but this is unreliable in the setting of renal failure. Does not appear fluid overloaded at this time. Appreciate nephrology consultation, no urgent hemodialysis tonight, pending more detailed assessment tomorrow. Status: Acute (2) Elevated d-dimer: Discussed with him and his friend, this may be secondary to renal failure, however, cannot exclude PE given recent immobility, dyspnea, tachycardia, so blood pressure. Discussed options going forward, he is agreeable for empiric anticoagulation with heparin drip at this time. Assessment additionally with VQ scan when it becomes available tomorrow, not risking CT angiogram at this time. Additionally will assess with TTE, venous duplex. Status: Acute (3) Tachycardia: Additional assessment possible PE as above. Possibly metabolic driven with acute on chronic renal failure. Status: Acute (4) Pulmonary infiltrate on chest x-ray: Nonspecific pulmonary traits on chest x-ray. Possibly recovering from pneumonia, states completed Z-Lionel a week ago. He is afebrile, no leukocytosis. Mild if any cough residual. Possibly residual infiltrates. Possible atelectasis. Requested I-S. Additional work-up for possible PE as above. Status: Acute (5) Metabolic acidosis: Secondary acute on chronic renal failure. Pending nephrology assessment with consideration of initiation of dialysis which she states now would consider. Status: Acute (6) Troponin level elevated: Denies chest pain or pressure. Complete troponin EKG series. Suspect currently is demand ischemia also in the setting of acute on chronic renal failure. With history of hypertension, with renal failure, once out of acute illness consider additional risk stratification. Status: Acute Plan History of HTN History of CKD Physical deconditioning: Recently has been very weak, deconditioned, once renal failure is being addressed, consider also obtaining PT assessment. He had to stop working several weeks ago. 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 Attestations Medical Necessity Statement*: Admission of over 2 midnights is anticipated for assessment of management of acute on chronic renal failure, likely needing dialysis, metabolic acidosis, assessment for possible PE, additional assessment of deconditioning and functional capacity, disposition planning. Coding Level of Care Code Acute Manganese Heater for g Fwd Exam Comprehensive Diagnoses Acute kidney injury superimposed on CKD N17.9; N18.9 Elevated d-dimer R79.89 Tachycardia R00.0 Pulmonary infiltrate on chest x-ray R91.8 Metabolic acidosis E87.2 Troponin level elevated R77.8
[2022-02-01 21:37] LABS: Troponin 5 2HR 80.31 ng/L (0-15)
[2022-02-01 21:38] LABS: Troponin 5 2HR Delta 1.31 ABS# (0-10)
--- NOTE | 2022-02-01 23:45 | PC.NURSE ---
Personal Belongings Belongings include: pants, shirt, socks, shoes, cell phone, keys, comb, and money. Money amount $108.00, compromised of 5 twenty dollar bills, 1 five dollar bill, and 3 one dollar bills. Nurse asked several times if patient wanted money secured in pyxis, patient denied and stated he wanted it left with him. Money left at patient bedside in patient's pants pocket, per request.
[2022-02-02] VITALS (45 sets, daily range): BP systolic 120–151; BP diastolic 73–99; PULSE 70–102; RESP 12–26; TEMP 36.1–36.8; O2SAT 93–100; BMI 21.9
--- NOTE | 2022-02-02 00:20 | PC.NURSE ---
Physician Communication Order received from Dr. Lua to perform bladder scan now. Bladder scan completed resulting in >706ml of urine detected. Dr. Lua notified and order received to place a robb catheter. Robb catheter placed with a return of 450 ml of urine. Patient tolerated procedure well with mild complaints of discomfort. CAUTI education provided; patient verbalized understanding.
[2022-02-02] MEDS: heparin drip 25,000 UNIT/500 ML PREMIX 25 UNIT IV (00:37)
--- NOTE | 2022-02-02 00:44 | ECG_ITS ---
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 Measurements Intervals [place] Rate: 83 P: 48 SC: 148 QRS: 13 QRSD: 102 T: 176 QT: 384 QTc: 453 Interpretive Statements SINUS RHYTHM ST DEVIATION AND MODERATE T-WAVE ABNORMALITY, CONSIDER ANTEROLATERAL ISCHEMIA [-0.1+ mV T-WAVE IN V3-V6] Compared to ECG 02/01/2022 20:01:10 T-wave abnormality now present Possible ischemia now present Sinus tachycardia no longer present Left ventricular hypertrophy no longer present ST (T wave) deviation no longer present Electronically Signed On 02-03-2022 17:30:18 CDT by Janeen Morales M.D. [email or web address]
[2022-02-02] MEDS: heparin 5,000 unit/mL INJ 1 mL IV ×2 (00:46→12:28)
[2022-02-02] MEDS: acetaminophen 325 mg Tablet 650 MG PO ×3 (00:47→16:09)
[2022-02-02 01:09] LABS: Troponin 5 6HR 81.29 ng/L (0-15)
[2022-02-02 01:19] LABS: Troponin 5 6HR Delta 2.29 ng/L (0-12)
--- NOTE | 2022-02-02 05:30 | USR_ITS ---
PROCEDURE INFORMATION: Exam: US Retroperitoneal; Complete; Kidneys and Bladder Exam date and time: 02/02/2022 7:14 AM Age: 66 years old Clinical indication: Abnormal findings; Abnormal lab test; Abnormal kidney function lab tests; Abdominal tenderness; Additional info: Renal failure TECHNIQUE: Imaging protocol: Real-time ultrasound of the retroperitoneum with image documentation. Complete exam focused on the kidneys and bladder. COMPARISON: No relevant prior studies available. FINDINGS: Right kidney: Normal. No stones. No hydronephrosis. 4.9 cm x 4.5 cm x 8.3 cm Left kidney: Normal. No stones. No hydronephrosis. 8.17 cm x 4.7 cm x 3.7 cm a are Urinary bladder: Decompressed. US/US renal BI* [id number] IMPRESSION: 1. Unremarkable kidneys . 2. Urinary bladder is decompressed.
--- NOTE | 2022-02-02 05:35 | PC.NURSE ---
NPO During telenephrology consult, verbal order received for NPO diet from Dr. Del Toro. Order placed and patient educated on NPO status; patient verbalized understanding.
[2022-02-02] MEDS: lactated ringers 1,000 ML 75 ML IV ×2 (06:03→20:34)
[2022-02-02 07:24] LABS: Creatinine Urine, Random 128 mg/dL (39-259)
[2022-02-02 07:31] LABS: Add Urine Microscopic? YES; Bilirubin Urine Neg (Negative); Blood Urine Trace (Negative); Glucose Urine UA Norm (Normal); Ketones Urine Negative (Negative); Leukocyte Esterase Urine Negative (Negative); Nitrate Urine Negative (Negative); Protein Urine 1+ (Negative); Specific Gravity, Urine 1.025 (1.005-1.030); Urine Appearance Clear (CLEAR); Urine Color Yellow (Yellow); Urobilinogen Urine Norm (Negative); pH Urine 5 (5-7)
[2022-02-02 07:32] LABS: Add Urine Culture? No; Amorphous Sediment Urine 1+ /hpf; Bacteria Urine TRACE /hpf; RBC Urine RARE /hpf (0-2)
--- NOTE | 2022-02-02 07:33 | PC.NURSE ---
Labwork/Heparin drip Lab personnel and several nurses attempted to draw blood for morning labs unsuccessfully. Dr. Lua notified of being unable to complete morning labs, including a PTT ordered per protocol for patient's heparin drip. Verbal order received to pause heparin drip due to no PTT result. Heparin drip paused.
--- NOTE | 2022-02-02 08:00 | XRR_ITS ---
PROCEDURE INFORMATION: Exam: XR Thoracic Spine Exam date and time: 02/02/2022 9:56 AM Age: 66 years old Clinical indication: Pain in thoracic spine TECHNIQUE: Imaging protocol: XR of the thoracic spine. Views: 3 views. COMPARISON: CR (CHEST, ) 02/01/2022 5:54 PM FINDINGS: Bones/joints: There is osteopenia and osteoarthritis seen. No acute bone abnormalities seen. Normal alignment. Soft tissues: Unremarkable. XR/XR thoracic spine 3V* [id number] IMPRESSION: 1. Dorsal spine osteopenia and osteoarthritis. 2. Otherwise No acute bone abnormality.
--- NOTE | 2022-02-02 08:00 | XRR_ITS ---
PROCEDURE INFORMATION: Exam: XR Lumbosacral Spine Exam date and time: 02/02/2022 9:56 AM Age: 66 years old Clinical indication: Low back pain TECHNIQUE: Imaging protocol: XR of the lumbosacral spine. Views: 2 or 3 views. COMPARISON: US renal BI* [id number] 02/02/2022 7:14 AM FINDINGS: Bones/joints: Normal. No acute fracture. Normal alignment. Soft tissues: Unremarkable. XR/XR lumbar spine 2-3V* [id number] IMPRESSION: No acute findings.
[2022-02-02] MEDS: sodium bicarbonate 650 mg Tablet PO ×3 (09:17→20:02)
[2022-02-02] MEDS: tamsulosin 0.4 mg Capsule PO (09:17)
[2022-02-02 09:18] LABS: Urine Random Sodium 20 mmol/L
--- NOTE | 2022-02-02 09:50 | PC.NURSE ---
Right peripheral IV inserted, US guided by ED nurse.
[2022-02-02 11:12] LABS: Basophils # 0.1 10^3/uL (0.0-0.1); Basophils % 1.1 %; Eosinophils % 0.5 %; Hemoglobin 11.4 g/dL (11.7-16.6); Lymphocytes # 0.5 10^3/uL (0.8-4.8); Lymphocytes % 8.3 %; Mean Corpuscular HGB Conc 32.6 g/dL (30.0-36.0); Mean Corpuscular Hemoglobin 29.1 pg (28.0-34.0); Mean Corpuscular Volume 89.3 fl (80-94); Mean Platelet Volume 11.1 fL (7.4-10.4); Monocytes # 0.5 10^3/uL (0.2-0.9); Monocytes % 8.5 %; Neutrophils # 4.52 10^3/uL (1.8-7.7); Neutrophils % 81.2 %; Nucleated Red Blood Cells % 0 %; Platelet Count 245 10^3/cmm (130-400); Red Blood Count 3.92 10^6/uL (4.1-5.3); Red Cell Distribution Width 13.9 % (12.1-15.1); White Blood Count 5.6 10^3/uL (4.0-10.0)
[2022-02-02 11:19] LABS: Partial Thromboplastin Time 27.7 SECONDS (23.9-36.7)
--- NOTE | 2022-02-02 11:41 | P.CONIM_ITS ---
Providers/Reason For Consult Consulting Physician/Specialty*: Nephrology Reason for Consult*: Renal Failure Attending Physician: Real Ortega DO History of Present Illness History of Present Illness Thank for consultation, today had the pleasure reviewing this 66-year-old gentleman for evaluation of renal failure. He presented to our facility yesterday evening with general fatigue, malaise, progressive deterioration for the last couple of weeks. Recently had an upper respiratory tract infection requiring a Z-Lionel but otherwise has been no recent changes to medications, fvia-oxd-gbhvydk medications, exposures or any new or potentially nephrotoxic substances. In December he had presented to the emergency room after feeling unwell for a week was noted that he was hypoglycemic at that time. Notable labs demonstrated a serum creatinine of 5.6 mg/dL, he signed out AGAINST MEDICAL ADVICE on that one occasion. On presentation he had an elevated serum creatinine of 10.7 mg/dL, bicarb of 13, potassium 5. No extremity edema, shortness of breath or other hypervolemic symptoms. Apart from his generalized fatigue and malaise, no other specific uremic symptoms including myoclonus, dysgeusia, nausea or vomiting, confusion etc. In the ICU a Ramos catheter was placed, now 800 mL drained. Hemodynamics are stable, last blood pressure 126/75. Renal ultrasound scan demonstrated relatively unremarkable kidneys with no evidence of obstruction. Medications/Allergies Home Medications Medication Instructions Recorded Confirmed Last Taken Type No Known Home Medications 02/02/22 02/02/22 Unknown History Allergies Allergy/AdvReac Type Severity Reaction Status Date / Time No Known Allergies Allergy Verified 12/15/21 18:08 Current Medications Generic Name Dose Route Start Last Admin Trade Name Avery PRN Reason Stop Dose Admin Acetaminophen 650 mg 02/01/22 23:28 02/02/22 09:16 Acetaminophen 325 Mg Tablet PO 650 mg Q6H PRN Administration Mild/Mod Pain Or Temp >/= 101 Heparin Sodium (Porcine) 0 unit 02/01/22 23:28 02/02/22 00:46 Heparin 5,000 Unit/Ml Inj 1 Ml IV 4,500 unit PRN PRN Administration Heparin weight-base protocol Protocol Heparin Sodium/Sodium Chloride 25,000 unit in 500 mls @ 0 mls/hr 02/01/22 23:28 02/02/22 06:55 Heparin Drip IV 0 unit/kg/hr .Q0M MARQUEZ 0 mls/hr Titration Protocol Per Protocol Lactated Ringer's 1,000 mls @ 75 mls/hr 02/02/22 05:30 02/02/22 06:54 Lactated Ringers IV 75 mls/hr .[id number] MARQUEZ Infusion Sodium Bicarbonate 650 mg 02/02/22 09:00 02/02/22 09:17 Sodium Bicarbonate 650 Mg Tablet PO 650 mg TID MARQUEZ Administration Tamsulosin HCl 0.4 mg 02/02/22 09:00 02/02/22 09:17 Tamsulosin 0.4 Mg Capsule PO 0.4 mg DAILY MARQUEZ Administration PFSH Acute PFSH: Medical History CKD (chronic kidney disease) Hypertension Surgical History No pertinent past surgical history Family History Other No significant family history Social History (Updated 02/01/22 @ 21:38 by Isac Lua MD) Smoking and tobacco status: never smoked Alcohol intake: never Lives independently: Yes Household members: none Marital status details: Rather estranged with daughter Current occupational status: other Details: Recently employed, stopped working when started feeling unwell several wks Vitals/I&O/Wt Last Vital Signs Temp 97.6 F 02/02/22 04:00 Pulse 75 02/02/22 07:00 Resp 15 02/02/22 06:30 BP 126/75 02/02/22 07:00 Pulse Ox 99 02/02/22 07:00 02/01/22 02/02/22 02/02/22 22:59 06:59 14:59 Intake Total 638.75 / 638.75 Output Total 800 / 800 Balance -161.25 / -161.25 Weight last 48 hrs Weight 71.486 kg Weight 90.265 kg Physical Exam Urinary Catheter Management: Ramos: Cath Placed During This Visit: yes Reason for Continuing Indwelling Catheter: Accurate Measurement of Urinary Output in Critically Ill Patients Urinary Catheter Date of Insertion: 02/02/22 Urinary Catheter Time of Insertion: 01:41 Data : 02/02/22 10:49 02/01/22 19:05 Micro: Microbiology 02/01/22 20:48 Blood Culture - Preliminary Blood SPECIMEN COLLECTED 02/01/22 20:40 Blood Culture - Preliminary Blood SPECIMEN COLLECTED A&P Assessment and plan (1) Acute kidney injury superimposed on CKD: Status: Acute Plan 1. Renal failure Most likely diagnosis is longstanding obstructive uropathy, however, I would have expected to have seen some evidence of this on the renal ultrasound scan although this is after Ramos catheter would have decompressed urinary system. His lab work in December demonstrated a serum creatinine of 5 EGFR of 10 mL/min, this is not reassuring may indicate an advanced chronic kidney disease. There may be an element of prerenal azotemia and I do think it is worth giving some gentle IV hydration. No acute indication for dialysis, I do wish to give him an opportunity to recover from renal function without dialysis. Close monitoring, strict ins and outs, daily renal panel. No additional imaging is required Urinalysis with urinary sodium, creatinine, fractional excretion of sodium, uric acid, TSH, CPK to be done. Dose medication for GFR less than 15 Avoid usual nephrotoxic agents 2. Chemistry Significant anion gap metabolic acidosis, likely secondary to uremia. Will check lactic acid. We will give some sodium bicarb orally lactated Ringer's IV fluid. 3. Obstructive uropathy Catheter is currently in place We will check PSA He may have to leave his Ramos catheter in for some time. Thank for consultation, as always it is a pleasure to follow these patients with you Greater than 25 minutes spent in evaluation and management of his care Noe Del Toro MD, nephro Coding Level of Care Code Acute Occupational Therapy Technician for Devin Murray Diagnoses Acute kidney injury superimposed on CKD N17.9; N18.9
[2022-02-02 11:49] LABS: Alanine Aminotransferase 13 U/L (0-41); Albumin Level 3.6 g/dL (3.5-5.2); Alkaline Phosphatase 119 IU/L (40-130); Calcium 8.3 mg/dL (8.5-10.5); Carbon Dioxide 13 mmol/L (22-29); Chloride 97 mmol/L (98-107); Creatine Phosphokinase 55 U/L (39-308); Globulin 3.8 g/dL (1.3-4.6); Glucose 90 mg/dL (65-115); Sodium 131 mmol/L (136-145); Total Bilirubin 0.4 mg/dL (0.15-1.2); Total Protein 7.4 g/dL (6.6-8.7); Uric Acid 13.2 mg/dL (3.4-7.0)
--- NOTE | 2022-02-02 11:50 | PC.NURSE ---
Family and/or friend on contact list contacted per Dr Ortega's request. Spoke with his friend Susana Villarreal, she stated she just went by a couple times here lately to check on him and encouraged him to seek medical treatment, otherwise she does not know much about his history. She is at work at this time. His Aunt,Taylor Dunn, called. Spoke with her, pt has been sick for a while she and his daughter has been trying to get him to go to doctor for a while. He is usually quick thinking and clear minded per Aunt. His daughter is Nell Zhong, lives near [facility] in [place]. Phone number: [phone]
--- NOTE | 2022-02-02 12:17 | P.PN_ITS ---
Subjective Subjective: Pt is poor historian. Talked with aunt Marry Dunn from [place] who calls every couple of weeks. She states she has been trying to get pt to go to hospital or doctor for weeks. Daughter is in [facility]. Appearently she also has been trying. She tells us his poor cognition is new and normally he is sharp. Pt compains of back pain that is better now Vitals/I&O/Wt Last Vital Signs Temp 97.6 F 02/02/22 04:00 Pulse 75 02/02/22 07:00 Resp 15 02/02/22 06:30 BP 126/75 02/02/22 07:00 Pulse Ox 99 02/02/22 07:00 02/01/22 02/02/22 02/02/22 22:59 06:59 14:59 Intake Total 638.75 / 638.75 0 / 0 Output Total 800 / 800 Balance -161.25 / -161.25 0 / 0 Weight last 48 hrs Weight 71.486 kg Weight 90.265 kg Physical Exam Urinary Catheter Management: Robb: Cath Placed During This Visit: yes Reason for Continuing Indwelling Catheter: Accurate Measurement of Urinary Output in Critically Ill Patients Urinary Catheter Date of Insertion: 02/02/22 Urinary Catheter Time of Insertion: 01:41 Data : 02/02/22 10:49 02/02/22 10:49 Micro: Microbiology 02/01/22 20:48 Blood Culture - Preliminary Blood SPECIMEN COLLECTED 02/01/22 20:40 Blood Culture - Preliminary Blood SPECIMEN COLLECTED A&P Assessment and plan (1) Acute kidney injury: New. Renal US shows normal kidneys. D/W Dr. Del Toro, suspect obstructive disorder. Maintain robb and urology consult. No need for HD. Status: Acute (2) Hypertension: ? pt not on home meds Status: Acute (3) Diabetes: per history? Pt not on any home meds Status: Acute (4) Pulmonary infiltrate on chest x-ray: vs atelectasis. no abx for now. breathing treatments, IS Status: Acute (5) DVT of lower extremity (deep venous thrombosis): likely secondary to history of covid. due to MIKHAIL left with heparin iv. Once kidneys are improving may change to dose adjusted lovenox. Status: Acute (6) History of COVID-19: Dx 01/11 howver, pt left AMA and never knew final PCR result. Status: Acute (7) Acute confusion: cognitive dsyfunction likely from MIKHAIL anticipate improvement Status: Acute Plan Hydration robb, likely discharge with robb urology consult inpt vs outpt thoracic and lumbar spine no acute disease, osteopenia and DJD heparin gtt for DVT ? PE,no need for definitive diagnosis since treating with AC, would likely treat for 6 months. Attestations Medical Necessity Statement*: acute confusion, blood clots and MIKHAIL, concern for acute deterioation or sudden Coding Level of Care Code Acute Heater Furnace for g Fwd Diagnoses Acute kidney injury N17.9 Hypertension I10 Diabetes E11.9 Pulmonary infiltrate on chest x-ray R91.8 DVT of lower extremity (deep venous thrombosis) I82.409 History of COVID-19 Z86.16 Acute confusion R41.0
[2022-02-02 12:36] LABS: Osmolality Calculated 310 mOsm/kg (285-295)
[2022-02-02 12:37] LABS: Anion Gap 26.3 (5-19); Aspartate Amino Transferase 14 U/L (0-40); Potassium 5.3 mmol/L (3.5-5.1)
[2022-02-02 12:39] LABS: Blood Urea Nitrogen 121 mg/dL (8-23); Phosphorus 9.3 mg/dL (2.5-4.5)
[2022-02-02] MEDS: lactated ringers 1,000 ML 250 ML IV (16:03)
--- NOTE | 2022-02-02 18:23 | PC.NURSE ---
Shift Note: Pt has rested in bed throughout shift. Spinal xrays completed. Pt has complained on back pain today, Acetaminophen administered twice. ED nurse came to ICU this am and new IV established, able to get labs from IV site. Heparin gtt restarted. Friends and Aunt listed on contact info, called and updated about pt's condition. Poor urine output 200ml but clear with no sediment noted. Frequent safety and comfort rounds continue. Orders and/or nursing care completed as indicated. Patient monitored for response to intervention and treatment(s). Education provided includes sodium bicarb, acetaminophen, Flomax and IS use.. Patient and/or advertising sales representative verbalized understanding of medications and plan of care. Pt needs reinforcement. Will continue to monitor.
--- NOTE | 2022-02-02 20:25 | PC.NURSE ---
Lactated Ringers Order for Lactated Ringer's to administer at 250 ml/hour had a duration of [address] Del Toro contacted for further fluid orders. Verbal order received for lactated ringer's to administer at 75 ml/hr continuously. Medication administered per JAN.
[2022-02-02 21:34] LABS: Partial Thromboplastin Time > 250.0 SECONDS (23.9-36.7)
--- NOTE | 2022-02-02 21:41 | PC.NURSE ---
PTT/Heparin Drip At 2009, patient's ptt result came back critical at >250. Dr. Lua notified; verbal order received to redraw ptt now and pause heparin drip until further results. New ptt draw resulted critically at >250 once again at 2133. Dr. Lua notified of verified result and telephone order received to continue to hold heparin drip and redraw ptt in 4 hours. Orders carried out as indicated.
--- NOTE | 2022-02-02 23:28 | USCV_ITS ---
Robert Montano Age: 66 Gender: M : 1955 Exam Date: 02/02/2022 07:27 Ordering Phys: Isac Lua MD Technologist: Exam Location: [facility] Indication: bilat edema PROCEDURES: The venous duplex Doppler examination of both lower extremities was performed in the standard fashion. The following venous structures were evaluated: common femoral vein, profunda vein, proximal portion of the greater saphenous vein, superficial femoral vein, and the popliteal vein. In addition, the posterior tibial and peroneal trunk were evaluated. FINDINGS: Rt leg dvt in rt femoral vein. lt leg had old dvt in lt fem vein with recanalazion Right femoral venous wound with noncompressible Echodensities are noted in the left femoral vein with partial compressibility. Other veins were found to be easily compressible with the spontaneous blood flow CONCLUSIONS 1.Features of possible acute deep veins thrombosis involving the right femoral vein causing total occlusion. The popliteal, peroneal and posterior tibial veins were found to be patent. 2. Features suggestive of old venous thrombosis with some recanalization the left femoral vein. The popliteal, peroneal and the posterior tibial veins on the left leg were found to be patent. No similar previous studies available for comparison Dr Janeen Morales MD [facility] (Electronically Signed) Final Date: 02 February 2022 12:41 S
--- NOTE | 2022-02-02 23:28 | USCV_ITS ---
Robert Montano Age: 66 Gender: M : 1955 Exam Date: 02/02/2022 07:01 Ordering Phys: Isac Lua MD Technologist: Exam Location: [facility] Indication: elevated d dimer BP: 126 / 75 HR: 79 Rhythm: Sinus Technical Quality: Adequate MEASUREMENTS (Male / Female) Normal Values 2D ECHO LV Diastolic Diameter PLAX 4.5 cm 4.2 - 5.9 / 3.9 - 5.3 cm LV Systolic Diameter PLAX 3.2 cm IVS Diastolic Thickness 0.9 cm 0.6 - 1.0 / 0.6 - 0.9 cm IVS Systolic Thickness 1.5 cm LVPW Diastolic Thickness 1.1 cm 0.6 - 1.0 / 0.6 - 0.9 cm LVPW Systolic Thickness 1.3 cm LVOT Diameter 2.1 cm LV Ejection Fraction 2D Teich 56.9 % LV Ejection Fraction MOD 2C 51.1 % LV Ejection Fraction 2C AL 51.1 % LA Diameter 4.5 cm Aorta at Sinotubular Diameter 3.1 cm M-MODE Aortic Annulus Diameter 3.6 cm LA Ao Ratio MM 1.2 MV E Point Septal Separation 1.7 cm DOPPLER AV Peak Velocity 110.0 cm/s LVOT Peak Velocity 86.0 cm/s AV Area Cont Eq vti 3.0 cm squared AV Area Cont Eq pk 2.7 cm squared MV Area PHT 5.0 cm squared Mitral E to A Ratio 0.5 MV E' Velocity 24.0 cm/s Mitral E to MV E' Ratio 6.7 Mitral E to LV E' Lateral Ratio 5.6 Mitral E to LV E' Septal Ratio 8.4 TR Peak Velocity 73.0 cm/s TR Peak Gradient 2.1 mmHg FINDINGS Left Ventricle Mild left ventricular hypertrophy. Diffuse hypokinesia of the left ventricle with an ejection fraction of around 40%.Grade I/IV diastolic dysfunction (abnormal relaxation filling pattern), normal to mildly elevated filling pressures. Right Ventricle The right ventricle is normal in size and function. Right Atrium The right atrium is normal in size. Left Atrium Mildly increased left atrial size. Mitral Valve Thickened mitral valve. Mild mitral annular calcification. Aortic Valve Thickened aortic valve. Tricuspid Valve No gross abnormalities noted Pulmonic Valve Pulmonic valve not well visualized. Pericardium Normal pericardium without effusion. Aorta Normal ascending aorta dimension. CONCLUSIONS Diffuse hypokinesia of the left ventricle with an ejection fraction of around 40%.Grade I/IV diastolic dysfunction (abnormal relaxation filling pattern), normal to mildly elevated filling pressures. Mild concentric left tubular hypertrophy Thickened aortic and mitral valves. There is no pericardial effusion. There are no intracardiac masses. No previous study is available for comparison. Dr Janeen Morales MD [facility] (Electronically Signed) Final Date: 02 February 2022 12:07 S
[2022-02-03] VITALS (24 sets, daily range): BP systolic 111–149; BP diastolic 60–84; PULSE 69–92; RESP 10–25; TEMP 36.4–36.5; O2SAT 94–97; BMI 22.6
[2022-02-03] MEDS: acetaminophen 325 mg Tablet 650 MG PO ×3 (00:05→10:17)
[2022-02-03 02:38] LABS: Partial Thromboplastin Time 40.9 SECONDS (23.9-36.7)
[2022-02-03 02:45] LABS: Calcium 7.7 mg/dL (8.5-10.5); Carbon Dioxide 16 mmol/L (22-29); Chloride 101 mmol/L (98-107); Glomerular Filtration Rate 5.3 mL/min (90-130); Glucose 92 mg/dL (65-115); Osmolality Calculated 309 mOsm/kg (285-295); Sodium 133 mmol/L (136-145)
[2022-02-03 02:47] LABS: Blood Urea Nitrogen 107 mg/dL (8-23)
--- NOTE | 2022-02-03 03:05 | PC.NURSE ---
Heparin Drip Patient's PTT resulted at 40.9. Dr. Lua contacted for further orders; telephone order received to restart heparin drip at 13 units/kg/hr with no bolus. Medication restarted per JAN.
[2022-02-03 04:15] LABS: Glucose Point of Care 87 mg/dL (70-110)
[2022-02-03] MEDS: heparin drip 25,000 UNIT/500 ML PREMIX 23.47 UNIT IV (06:47)
--- NOTE | 2022-02-03 07:12 | PM.PN ---
Subjective Subjective: denies symptoms. sob. weak. nausea. no garcia or cp Medications: Reviewed: Yes Medication Review Details: Current Medications Acetaminophen (Acetaminophen 325 Mg Tablet) 650 mg PO Q6H PRN PRN Reason: Mild/Mod Pain Or Temp >/= 101 Last Admin: 02/03/22 06:05 Dose: 650 mg Documented by: Albuterol/Ipratropium (Ipratropium-Albuterol 3 Ml Neb) 3 ml INHALATION Q6H PRN PRN Reason: SHORTNESS OF BREATH Heparin Sodium (Porcine) (Heparin 5,000 Unit/Ml Inj 1 Ml) 0 unit IV PRN PRN; Protocol PRN Reason: Heparin weight-base protocol Last Admin: 02/02/22 12:28 Dose: 4,500 unit Documented by: Heparin Sodium/Sodium Chloride (Heparin Drip) 25,000 unit in 500 mls @ 0 mls/hr IV .Q0M [facility]; Protocol Last Admin: 02/03/22 06:47 Dose: 13 unit/kg/hr, 23.47 mls/hr Documented by: Lactated Ringer's (Lactated Ringers) 1,000 mls @ 75 mls/hr IV .[id number] [facility] Last Admin: 02/02/22 20:34 Dose: 75 mls/hr Documented by: Sodium Bicarbonate (Sodium Bicarbonate 650 Mg Tablet) 650 mg PO TID [facility] Last Admin: 02/02/22 20:02 Dose: 650 mg Documented by: Tamsulosin HCl (Tamsulosin 0.4 Mg Capsule) 0.4 mg PO DAILY [facility] Last Admin: 02/02/22 09:17 Dose: 0.4 mg Documented by: Vitals/I&O/Wt Last Vital Signs Temp 97.7 F 02/03/22 04:00 Pulse 80 02/03/22 06:00 Resp 15 02/03/22 06:00 BP 131/75 02/03/22 06:00 Pulse Ox 97 02/03/22 06:00 02/02/22 02/03/22 02/03/22 22:59 06:59 14:59 Intake Total 2290.75 / 3050.75 270.5 / 3321.25 Output Total 200 / 200 775 / 975 Balance 2090.75 / 2850.75 -504.5 / 2346.25 Weight last 48 hrs Weight 73.482 kg Weight 71.486 kg Weight 90.265 kg Physical Exam Narrative: comfortable in bed, NARD vss heent- nc/at, eomi, anicteric neck- no jvp lung wheezes, crackles heart- reg, no rub abd soft, nt, nd, +bs ext no edema neuro- a,a, o x 3, no asterixis Urinary Catheter Management: Ramos: Cath Placed During This Visit: yes Reason for Continuing Indwelling Catheter: Accurate Measurement of Urinary Output in Critically Ill Patients Urinary Catheter Date of Insertion: 02/02/22 Urinary Catheter Time of Insertion: 01:41 Data : 02/02/22 10:49 02/03/22 01:50 Micro: Microbiology 02/01/22 20:48 Blood Culture - Preliminary Blood NEGATIVE TO DATE 02/01/22 20:40 Blood Culture - Preliminary Blood NEGATIVE TO DATE A&P Assessment and plan (1) MIKHAIL (acute kidney injury): see below Status: Acute Plan 66 yr old male 1. progressive renal failure- likely ESRD. i recommended to start dialysis -renal us 8.3 cm kidneys low ur na and wbc in urine -cr was 5.6 in dec 2021. cr now 10- likely esrd -if pt consents to dialysis then please cll surgeron for permacath 2. hgb okay for esrd 3. check vit d, pth. add phos binders 4 monitor bp 5. met acidosis d/c ivf and cont po bicarb seen and examined w/ RN telehealth visit- seen and examined w/ RN time spent 30 min Attestations Medical Necessity Statement*: mikhail to ESRD Time Spent in Patient Care: 16 - 35 minutes (>than 50% of time spent in counselling and/or direct pt care on unit). Coding Level of Care Code Acute Softlines Supervisor for Devin Murray Diagnoses MIKHAIL (acute kidney injury) N17.9
[2022-02-03] MEDS: tamsulosin 0.4 mg Capsule PO (08:57)
[2022-02-03] MEDS: sevelamer 800 mg Tablet 1600 MG PO ×3 (08:57→20:54)
[2022-02-03] MEDS: sodium bicarbonate 650 mg Tablet PO ×3 (08:57→20:54)
--- NOTE | 2022-02-03 09:08 | PC.NURSE ---
Attempted to called patient's aunt to dialysis consent, unable to reach at this time.
--- NOTE | 2022-02-03 09:09 | PC.NURSE ---
Dialysis consent Dr. Wilson explaining and asking patient if he would consent to dialysis. Patient indicates multiple times that he doesn't want dialysis unless it is absolutely needed but ultimately refused. Patient is confused to date and time. Attempting to call next of kin.
[2022-02-03 10:11] LABS: Basophils # 0.1 10^3/uL (0.0-0.1); Basophils % 1.1 %; Eosinophils % 0.7 %; Hematocrit 31.4 % (42.0-52.0); Hemoglobin 10.5 g/dL (11.7-16.6); Lymphocytes # 0.4 10^3/uL (0.8-4.8); Lymphocytes % 6.9 %; Mean Corpuscular HGB Conc 33.4 g/dL (30.0-36.0); Mean Corpuscular Hemoglobin 29.2 pg (28.0-34.0); Mean Corpuscular Volume 87.5 fl (80-94); Mean Platelet Volume 10.7 fL (7.4-10.4); Monocytes # 0.6 10^3/uL (0.2-0.9); Monocytes % 10.6 %; Neutrophils # 4.39 10^3/uL (1.8-7.7); Neutrophils % 80.2 %; Nucleated Red Blood Cells % 0 %; Platelet Count 208 10^3/cmm (130-400); Red Blood Count 3.59 10^6/uL (4.1-5.3); Red Cell Distribution Width 13.7 % (12.1-15.1); White Blood Count 5.5 10^3/uL (4.0-10.0)
[2022-02-03 10:34] LABS: Partial Thromboplastin Time 108.9 SECONDS (23.9-36.7)
[2022-02-03 10:41] LABS: Uric Acid 11.6 mg/dL (3.4-7.0)
--- NOTE | 2022-02-03 11:00 | PC.NURSE ---
Refused dialysis Both patient and aunt, Taylor Dunn, refused dialysis at this time. This nurse personally called and spoke with patient's aunt and explained in detail the severity of not receiving dialysis. Both patient aunt verbalized understanding that without dialysis the patient could .
[2022-02-03 11:05] LABS: Hepatitis C Virus Antibody Non-Reactive (Nonreactive)
--- NOTE | 2022-02-03 13:09 | P.PN_ITS ---
Subjective Subjective: Patient was seen and examined this morning, continues to be alert awake oriented to self, denies any shortness of breath, chest pain nausea vomiting, was complaining of back pain. 1L urine output in last 24 hours , BUN and serum creatinine is slowly improving. Family was reached out today, regarding his poor prognosis without being on dialysis. They are currently of the opinion that he do not want to be on dialysis. Medications: Medication Review Details: Generic Name Dose Route Start Last Admin Trade Name Avery PRN Reason Stop Dose Admin Acetaminophen 650 mg 02/01/22 23:28 02/03/22 10:17 Acetaminophen 32 5 Mg Tablet PO 650 mg Q6H PRN Administration Mild/Mod Pain Or Temp >/= 101 Sevelamer Carbonat e 1,600 mg 02/03/22 09:00 02/03/22 08:57 Sevelamer 800 Mg Tablet PO 1,600 mg TID MARQUEZ Administration Sodium Bicarbonate 650 mg 02/02/22 09:00 02/03/22 08:57 Sodium Bicarbona te 650 Mg Tablet PO 650 mg TID MARQUEZ Administration Tamsulosin HCl 0.4 mg 02/02/22 09:00 02/03/22 08:57 Tamsulosin 0.4 M g Capsule PO 0.4 mg DAILY MARQUEZ Administration Vitals/I&O/Wt Last Vital Signs Temp 97.7 F 02/03/22 04:00 Pulse 74 02/03/22 12:00 Resp 12 02/03/22 12:00 BP 124/72 02/03/22 12:00 Pulse Ox 97 02/03/22 12:00 02/02/22 02/03/22 02/03/22 22:59 06:59 14:59 Intake Total 2290.75 / 3050.75 270.5 / 3321.25 318.524 / 318.524 Output Total 200 / 200 775 / 975 Balance 2090.75 / 2850.75 -504.5 / 2346.25 318.524 / 318.524 Weight last 48 hrs Weight 73.482 kg Weight 71.486 kg Weight 90.265 kg Physical Exam Narrative: Alert awake oriented not in acute distress. HENMT: COMMON NORMALS: normocephalic and atraumatic HEAD & SCALP: normocephalic and atraumatic Chest: CHEST: Yes Symmetrical chest wall rise Resp: COMMON NORMALS: normal respiratory effort, No retractions, No use of accessory muscles and clear to auscultation bilaterally EFFORT & INSPECTION: Yes symmetric chest movement AUSCULTATION: clear to auscultation bilaterally Cardio: COMMON NORMALS: regular rate, regular rhythm, S1 normal heart sound present, S2 normal heart sound present, No gallops present (Cardio), No murmurs present (Cardio), No rub (Cardio) and Peripheral pulses 2+ throughout RATE: regular rate RHYTHM: regular rhythm HEART SOUNDS: S1 normal heart sound present and S2 normal heart sound present PERIPHERAL PULSES: Peripheral pulses 2+ throughout GI: COMMON NORMALS: Normal to inspection, nondistended, normoactive bowel sounds present, Soft to palpation, non-tender, No hepatosplenomegaly present and no masses AUSCULTATION: Yes normoactive bowel sounds PALPATION: Yes Soft to palpation and Yes No hepatosplenomegaly present RECTAL EXAM: Yes deferred Extremity: COMMON NORMALS: no clubbing, cyanosis or edema and no pedal edema Urinary Catheter Management: Robb: Cath Placed During This Visit: yes Reason for Continuing Indwelling Catheter: Accurate Measurement of Urinary Output in Critically Ill Patients Urinary Catheter Date of Insertion: 02/02/22 Urinary Catheter Time of Insertion: 01:41 Data : 02/03/22 09:57 02/03/22 01:50 Micro: Microbiology 02/01/22 20:48 Blood Culture - Preliminary Blood NEGATIVE TO DATE 02/01/22 20:40 Blood Culture - Preliminary Blood NEGATIVE TO DATE A&P Assessment and plan (1) Acute kidney injury: New. Renal US shows normal kidneys. D/W Dr. Del Toro, suspect obstructive disorder. Maintain robb and urology consult. No need for HD. Status: Acute (2) Hypertension: ? pt not on home meds Status: Acute (3) Diabetes: per history? Pt not on any home meds Status: Acute (4) Pulmonary infiltrate on chest x-ray: vs atelectasis. no abx for now. breathing treatments, IS Status: Acute (5) DVT of lower extremity (deep venous thrombosis): likely secondary to history of covid. due to MIKHAIL left with heparin iv. Once kidneys are improving may change to dose adjusted lovenox. Status: Acute (6) History of COVID-19: Dx 01/11 howver, pt left AMA and never knew final PCR result. Status: Acute (7) Acute confusion: cognitive dsyfunction likely from MIKHAIL anticipate improvement Status: Acute Plan 66 y o m with pmh hypertension , CKD stage IV , COVID-19 was brought in with chief complaint of persistent fatigability. Currently being managed for. #MIKHAIL on worsening CKD stage IV : Likely end-stage renal disease: Renal ultrasound: Unremarkable kidneys . Monitor BMP Continue sodium bicarbonate tablets 60 mg p.o. 3 times daily Continue Renvela 1600 mg po TID Monitor intake output charting Avoid nephrotoxic's Currently Robb in place Family has decided against dialysis We will give a voiding trial prior to discharge #Acute DVT: Bilateral lower extremity Doppler vein: Rt leg dvt in rt femoral vein.? lt leg had old dvt in lt fem ?vein with recanalazion. Initially on heparin drip, has been discontinued Currently on Eliquis. Will need at least 6 months of anticoagulation #CODE STATUS: Full code #DVT PPX : Needed on Eliquis Attestations Medical Necessity Statement*: Patient is in hospital for management of end- stage renal disease Time Spent in Patient Care: Greater than 35 minutes (>than 50% of time spent in counselling and/or direct pt care on unit) . Critical Care Time: 40 Other Attestations: The high probability of a clinically significant, sudden or life threatening deterioration of the patient's [] system(s) required my full and direct attention, intervention and personal management. The critical care time is as shown. This time is in addition to time spent performing any reported procedures but includes the following: [x] Data and vital sign review and interpretation [x] Patient assessment, examination and intervention [x] Documentation [x] Medication orders and management Coding Level of Care Code Acute Cable Tool Driller for [facility] Fwd Exam Detailed Diagnoses Acute kidney injury N17.9 Hypertension I10 Diabetes E11.9 Pulmonary infiltrate on chest x-ray R91.8 DVT of lower extremity (deep venous thrombosis) I82.409 History of COVID-19 Z86.16 Acute confusion R41.0
[2022-02-03] MEDS: ondansetron 2 mg/ML SDV 2 mL 4 MG IVP (20:54)
[2022-02-03] MEDS: apixaban 5 mg Tablet 10 MG PO (20:57)
[2022-02-04] VITALS (30 sets, daily range): BP systolic 103–148; BP diastolic 65–86; PULSE 72–107; RESP 10–25; TEMP 36.6–37.1; O2SAT 94–98
[2022-02-04] MEDS: acetaminophen 325 mg Tablet 650 MG PO ×2 (01:24→08:20)
[2022-02-04 04:31] LABS: Basophils # 0.1 10^3/uL (0.0-0.1); Eosinophils % 0.2 %; Hematocrit 30.7 % (42.0-52.0); Hemoglobin 9.9 g/dL (11.7-16.6); Lymphocytes # 0.4 10^3/uL (0.8-4.8); Mean Corpuscular HGB Conc 32.2 g/dL (30.0-36.0); Mean Corpuscular Hemoglobin 28.7 pg (28.0-34.0); Monocytes # 0.5 10^3/uL (0.2-0.9); Monocytes % 8.3 %; Neutrophils # 5.07 10^3/uL (1.8-7.7); Neutrophils % 84.2 %; Nucleated Red Blood Cells % 0 %; Platelet Count 217 10^3/cmm (130-400); Red Blood Count 3.45 10^6/uL (4.1-5.3); Red Cell Distribution Width 13.7 % (12.1-15.1)
[2022-02-04 05:09] LABS: Alanine Aminotransferase 12 U/L (0-41); Albumin Level 3.1 g/dL (3.5-5.2); Alkaline Phosphatase 110 IU/L (40-130); Anion Gap 19.4 (5-19); Aspartate Amino Transferase 12 U/L (0-40); Calcium 7.7 mg/dL (8.5-10.5); Calcium 7.9 mg/dL (8.5-10.5); Carbon Dioxide 17 mmol/L (22-29); Chloride 95 mmol/L (98-107); Globulin 3.3 g/dL (1.3-4.6); Glomerular Filtration Rate 5.7 mL/min (90-130); Glucose 74 mg/dL (65-115); Magnesium 1.9 mg/dL (1.7-2.3); Osmolality Calculated 294 mOsm/kg (285-295); Phosphorus 7.5 mg/dL (2.5-4.5); Potassium 5.4 mmol/L (3.5-5.1); Sodium 126 mmol/L (136-145); Total Bilirubin 0.3 mg/dL (0.15-1.2); Total Protein 6.4 g/dL (6.6-8.7)
[2022-02-04 05:12] LABS: Parathyroid Hormone 293.9 pg/mL (15-65)
[2022-02-04 05:21] LABS: Blood Urea Nitrogen 105 mg/dL (8-23)
[2022-02-04 05:28] LABS: Ferritin 902 ng/mL (30-400); Iron 44 ug/dL (59-158); Percent Saturation 42.7 % (20-50); Total Iron Binding Capacity 103 mcg/dl; Unsaturated Iron Binding 59 ug/dL (112-347)
[2022-02-04 05:44] LABS: 25 Hydroxy Vitamin D 6 ng/mL (30-100)
[2022-02-04] MEDS: apixaban 5 mg Tablet 10 MG PO (08:20)
[2022-02-04] MEDS: sevelamer 800 mg Tablet 1600 MG PO ×3 (08:20→21:12)
[2022-02-04] MEDS: tamsulosin 0.4 mg Capsule PO (08:20)
[2022-02-04] MEDS: sodium bicarbonate 650 mg Tablet PO ×3 (08:20→21:12)
[2022-02-04] MEDS: insulin regular-human 5 UNIT in SYRINGE 1 EACH IVP (09:08)
[2022-02-04] MEDS: oxyCODONE-APAP 5-325 mg Tablet 1 TAB PO ×3 (09:20→21:14)
--- NOTE | 2022-02-04 09:31 | PC.NURSE ---
Refused dialysis This nurse was in room with both Dr. Khoury and Dr. Wilson during morning rounds. Patient was offered dialysis both times and refused both times. Patient AAOx3 (doesn't know year but knows it is January and is Friday).
--- NOTE | 2022-02-04 09:33 | PM.PN ---
Subjective Subjective: weak, sob, nausea, itching, poor appetite Medications: Reviewed: Yes Medication Review Details: Current Medications Acetaminophen (Acetaminophen 325 Mg Tablet) 650 mg PO Q6H PRN PRN Reason: Mild/Mod Pain Or Temp >/= 101 Last Admin: 02/04/22 08:20 Dose: 650 mg Documented by: Albuterol/Ipratropium (Ipratropium-Albuterol 3 Ml Neb) 3 ml INHALATION Q6H PRN PRN Reason: SHORTNESS OF BREATH Apixaban (Apixaban 5 Mg Tablet) 10 mg PO BID@0900,2100 [facility] Last Admin: 02/04/22 08:20 Dose: 10 mg Documented by: Ondansetron HCl (Ondansetron 2 Mg/Ml Sdv 2 Ml) 4 mg IVP Q4H PRN PRN Reason: NAUSEA AND VOMITING Last Admin: 02/03/22 20:54 Dose: 4 mg Documented by: Oxycodone/Acetaminophen (Oxycodone-Apap 5-325 Mg Tablet) 1 tab PO Q6H PRN PRN Reason: MODERATE PAIN Last Admin: 02/04/22 09:20 Dose: 1 tab Documented by: Sevelamer Carbonate (Sevelamer 800 Mg Tablet) 1,600 mg PO TID [facility] Last Admin: 02/04/22 08:20 Dose: 1,600 mg Documented by: Sodium Bicarbonate (Sodium Bicarbonate 650 Mg Tablet) 650 mg PO TID [facility] Last Admin: 02/04/22 08:20 Dose: 650 mg Documented by: Tamsulosin HCl (Tamsulosin 0.4 Mg Capsule) 0.4 mg PO DAILY [facility] Last Admin: 02/04/22 08:20 Dose: 0.4 mg Documented by: Vitals/I&O/Wt Last Vital Signs Temp 98.6 F 02/04/22 05:15 Pulse 97 02/04/22 08:47 Resp 20 H 02/04/22 09:20 BP 141/67 02/04/22 08:00 Pulse Ox 96 02/04/22 09:20 02/03/22 02/04/22 02/04/22 22:59 06:59 14:59 Intake Total 520 / 900.535 420 / 420 Output Total 625 / 625 400 / 1025 Balance -105 / 275.535 -400 / -124.465 420 / 420 Weight last 48 hrs Weight 73.482 kg Physical Exam Narrative: comfortable in bed, NARD vss heent- nc/at, eomi, anicteric neck- no jvp lung wheezes, crackles at bases heart- reg, no rub abd soft, nt, nd, +bs ext no edema neuro- a,a, o x 3, no asterixis Urinary Catheter Management: Ramos: Cath Placed During This Visit: yes Reason for Continuing Indwelling Catheter: Accurate Measurement of Urinary Output in Critically Ill Patients Urinary Catheter Date of Insertion: 02/02/22 Urinary Catheter Time of Insertion: 01:41 Data : 02/04/22 03:47 02/04/22 03:47 A&P Assessment and plan (1) MIKHAIL (acute kidney injury): see below Status: Acute Plan 66 yr old male 1. progressive renal failure- likely ESRD. i discussed w/ the pt the benefits of dialysis -yesterday he and his family nia no. -this morning, as pt is sob, weak, nausea- he is now considering dialysis -renal us 8.3 cm kidneys low ur na and wbc in urine -cr was 5.6 in dec 2021. cr 10-improved to 9.3 mg/dl- likely esrd vs CKD stage 5 -if pt consents to dialysis then please call surgeon for permacath 2. hgb okay for esrd percent sat 42%, ferritin 902 3. check vit d, pth. add phos binders 4 monitor bp- stable 5. met acidosis - cont po bicarb 6. hyponatremia- from renal failure- monitor 7. hyperuricemia- allopurinol seen and examined w/ RN telehealth visit- seen and examined w/ RN time spent 30 min Attestations Medical Necessity Statement*: per medicine- renal failure, hyponatremia, hyperkalemia Time Spent in Patient Care: 16 - 35 minutes (>than 50% of time spent in counselling and/or direct pt care on unit). Coding Level of Care Code Acute Manufacturing Lab Technician for [facility] Diagnoses MIKHAIL (acute kidney injury) N17.9
--- NOTE | 2022-02-04 09:53 | PC.CHAP ---
Pastoral Care Encounter/Spiritual Assessment Type of Contact [] Declined wheat cleaner visit [] Patient/Family/Request visit [] Outpatient visit [] Follow-up visit [] Physician referral [] Code/Alert [x] Routine visit [] Staff referral [] Actively dying [] Patient sleeping [] Family support [] [] Out of room [] Palliative care [] [] Receiving care in room [] Pre-surgical visit [] Trauma [] Long length of stay [x] ICU visit [] Other: Relational/Emotional Strength [] Patient feels connected with others/family/visitors/staff [] Distress [] Loneliness/isolation [] Abandonment Spirituality of Patient [] Person of Twila [] Attends Roman Catholic of their Twila [] Believes in Prayer [] Reads Bible or Worship materials [] There are Spiritual issues to be addressed Metal Treater Interventions [x] Prayer [x] Active listening [x] Non-anxious presence [x] Spiritual/emotional support [] Crisis/trauma care [] Spiritual counseling [] Bereavement support [] Provided bereavement packet [] Provided Bible/devotional materials [] Provided toy/stuffed animal, coloring book to patient or family member [] Provided Communion [] Anointing/[place] [] Salvation [x] Completed spiritual assessment [] Other: Impact on Illness or Injury [] Angry [] Fearful [] Anxious [] Often cries [] Exhaustion [] Unable to work [] Unable to attend scientologist [] Unable to walk/stand [] Unable to read [] Unable to drive [] Unable to eat/drink [] Unable to sleep [] Unable to be with family [] Patient intubated [] Other: Summary setting up in chair... seems a little fearful.. wants to go home.. Time spent with patient 5 min
--- NOTE | 2022-02-04 11:12 | PM.PN ---
Subjective Subjective: Patient was seen and examined this morning, was complaining of back pain, looks fatigued, is drowsy, Possibility of dialysis was again discussed with him, currently denying dialysis. Medications: Medication Review Details: Generic Name Dose Route Start Last Admin Trade Name Avery PRN Reason Stop Dose Admin Acetaminophen 650 mg 02/01/22 23:28 02/03/22 10:17 Acetaminophen 32 5 Mg Tablet PO 650 mg Q6H PRN Administration Mild/Mod Pain Or Temp >/= 101 Sevelamer Carbonat e 1,600 mg 02/03/22 09:00 02/03/22 08:57 Sevelamer 800 Mg Tablet PO 1,600 mg TID MARQUEZ Administration Sodium Bicarbonate 650 mg 02/02/22 09:00 02/03/22 08:57 Sodium Bicarbona te 650 Mg Tablet PO 650 mg TID MARQUEZ Administration Tamsulosin HCl 0.4 mg 02/02/22 09:00 02/03/22 08:57 Tamsulosin 0.4 M g Capsule PO 0.4 mg DAILY MARQUEZ Administration Vitals/I&O/Wt Last Vital Signs Temp 98.6 F 02/04/22 05:15 Pulse 99 02/04/22 10:00 Resp 18 02/04/22 10:00 BP 137/79 02/04/22 10:00 Pulse Ox 94 02/04/22 10:00 02/03/22 02/04/22 02/04/22 22:59 06:59 14:59 Intake Total 520 / 900.535 420 / 420 Output Total 625 / 625 400 / 1025 Balance -105 / 275.535 -400 / -124.465 420 / 420 Weight last 48 hrs Weight 73.482 kg Physical Exam Narrative: Alert awake oriented not in acute distress. HENMT: COMMON NORMALS: normocephalic and atraumatic HEAD & SCALP: normocephalic and atraumatic Chest: CHEST: Yes Symmetrical chest wall rise Resp: COMMON NORMALS: normal respiratory effort, No retractions, No use of accessory muscles and clear to auscultation bilaterally EFFORT & INSPECTION: Yes symmetric chest movement AUSCULTATION: clear to auscultation bilaterally Cardio: COMMON NORMALS: regular rate, regular rhythm, S1 normal heart sound present, S2 normal heart sound present, No gallops present (Cardio), No murmurs present (Cardio), No rub (Cardio) and Peripheral pulses 2+ throughout RATE: regular rate RHYTHM: regular rhythm HEART SOUNDS: S1 normal heart sound present and S2 normal heart sound present PERIPHERAL PULSES: Peripheral pulses 2+ throughout GI: COMMON NORMALS: Normal to inspection, nondistended, normoactive bowel sounds present, Soft to palpation, non-tender, No hepatosplenomegaly present and no masses AUSCULTATION: Yes normoactive bowel sounds PALPATION: Yes Soft to palpation and Yes No hepatosplenomegaly present RECTAL EXAM: Yes deferred Extremity: COMMON NORMALS: no clubbing, cyanosis or edema and no pedal edema Urinary Catheter Management: Robb: Cath Placed During This Visit: yes Reason for Continuing Indwelling Catheter: Accurate Measurement of Urinary Output in Critically Ill Patients Urinary Catheter Date of Insertion: 02/02/22 Urinary Catheter Time of Insertion: 01:41 Data : 02/04/22 03:47 02/04/22 03:47 A&P Assessment and plan (1) Acute kidney injury: New. Renal US shows normal kidneys. D/W Dr. Del Toro, suspect obstructive disorder. Maintain robb and urology consult. No need for HD. Status: Acute (2) Hypertension: ? pt not on home meds Status: Acute (3) Diabetes: per history? Pt not on any home meds Status: Acute (4) Pulmonary infiltrate on chest x-ray: vs atelectasis. no abx for now. breathing treatments, IS Status: Acute (5) DVT of lower extremity (deep venous thrombosis): likely secondary to history of covid. due to MIKHAIL left with heparin iv. Once kidneys are improving may change to dose adjusted lovenox. Status: Acute (6) History of COVID-19: Dx 01/11 howver, pt left AMA and never knew final PCR result. Status: Acute (7) Acute confusion: cognitive dsyfunction likely from MIKHAIL anticipate improvement Status: Acute Plan 66 y o m with pmh hypertension , CKD stage IV , COVID-19 was brought in with chief complaint of persistent fatigability. Currently being managed for. #MIKHAIL on worsening CKD stage IV : Likely end-stage renal disease: Renal ultrasound: Unremarkable kidneys . Monitor BMP Continue sodium bicarbonate tablets 60 mg p.o. 3 times daily Continue Renvela 1600 mg po TID Monitor intake output charting Avoid nephrotoxic's Currently Robb in place Family has decided against dialysis We will give a voiding trial prior to discharge #Hyponatremia: Likely secondary to underlying end-stage renal disease Continue to monitor BMP Encourage p.o. intake #Hyperkalemia: Gave dextrose and insulin Monitor BMP #Anemia of renal disease: Serum iron 44 , TIBC 103 , percent saturation: 42 , serum ferritin 902 Continue to monitor hemoglobin #Vitamin D deficiency:: 25 hydroxy vitamin D: 6 Will initiate vitamin D replacement #Acute DVT: Bilateral lower extremity Doppler vein: Rt leg dvt in rt femoral vein.? lt leg had old dvt in lt fem ?vein with recanalazion. Initially on heparin drip, has been discontinued Currently on Eliquis. Will need at least 6 months of anticoagulation #DVT PPX : Needed on Eliquis #Disposition: Patient wants to return to home.He stays alone, extremely weak and frail. Physical therapy evaluation ordered. #CODE STATUS: Full code Attestations Medical Necessity Statement*: Patient is to be in hospital for management of above defined problems. Time Spent in Patient Care: Greater than 35 minutes (>than 50% of time spent in counselling and/or direct pt care on unit). Coding Level of Care Code Acute Hazmat Technician for [facility] Fwd Exam Detailed Diagnoses Acute kidney injury N17.9 Hypertension I10 Diabetes E11.9 Pulmonary infiltrate on chest x-ray R91.8 DVT of lower extremity (deep venous thrombosis) I82.409 History of COVID-19 Z86.16 Acute confusion R41.0
--- NOTE | 2022-02-04 15:40 | PC.PT ---
Despite encouragement patient declines out of bed at this time, and not agreeable to later today either, will reattempt tomorrow, states he is too weak, discussed will not get stronger staying in the bed.
[2022-02-04] MEDS: apixaban 5 mg Tablet PO (21:12)
[2022-02-04] MEDS: ondansetron 2 mg/ML SDV 2 mL 4 MG IVP (21:18)
--- NOTE | 2022-02-04 21:31 | PC.NURSE ---
Patient is nausated right after taking evening pills. Asked if the pills felt like they were stuck. Patient was sure that was not the case. Asked if it was due to not having anything on his stomach and once again he stated no. Dispite being nauseated he wanted his pain pill. He is down at the bottom of the bed complaining of back pain. Offered to pull him up to the top of bed and turn him and once again he refused. Asked if there was anything he need and he reported no.
[2022-02-05] VITALS (21 sets, daily range): BP systolic 113–153; BP diastolic 63–90; PULSE 70–95; RESP 14–23; TEMP 36.8–37.3; O2SAT 89–95; BMI 23.5
[2022-02-05] MEDS: ondansetron 2 mg/ML SDV 2 mL 4 MG IVP ×3 (02:53→13:22)
[2022-02-05] MEDS: oxyCODONE-APAP 5-325 mg Tablet 1 TAB PO ×2 (02:58→20:18)
[2022-02-05 05:12] LABS: Basophils % 0.4 %; Eosinophils # 0.1 10^3/uL (0.0-0.8); Eosinophils % 0.7 %; Hematocrit 29.9 % (42.0-52.0); Hemoglobin 9.8 g/dL (11.7-16.6); Lymphocytes # 0.3 10^3/uL (0.8-4.8); Lymphocytes % 4.4 %; Mean Corpuscular HGB Conc 32.8 g/dL (30.0-36.0); Mean Corpuscular Hemoglobin 28.7 pg (28.0-34.0); Mean Corpuscular Volume 87.7 fl (80-94); Monocytes # 0.7 10^3/uL (0.2-0.9); Monocytes % 10.1 %; Neutrophils # 6.14 10^3/uL (1.8-7.7); Neutrophils % 84.1 %; Nucleated Red Blood Cells % 0 %; Platelet Count 223 10^3/cmm (130-400); Red Blood Count 3.41 10^6/uL (4.1-5.3); Red Cell Distribution Width 13.8 % (12.1-15.1); White Blood Count 7.3 10^3/uL (4.0-10.0)
[2022-02-05 05:35] LABS: Alanine Aminotransferase 9 U/L (0-41); Albumin Level 2.9 g/dL (3.5-5.2); Alkaline Phosphatase 110 IU/L (40-130); Anion Gap 20.8 (5-19); Aspartate Amino Transferase 11 U/L (0-40); Calcium 8.1 mg/dL (8.5-10.5); Carbon Dioxide 18 mmol/L (22-29); Chloride 98 mmol/L (98-107); Globulin 3.7 g/dL (1.3-4.6); Glomerular Filtration Rate 6.5 mL/min (90-130); Glucose 124 mg/dL (65-115); Magnesium 1.8 mg/dL (1.7-2.3); Osmolality Calculated 308 mOsm/kg (285-295); Phosphorus 5.9 mg/dL (2.5-4.5); Potassium 5.8 mmol/L (3.5-5.1); Sodium 131 mmol/L (136-145); Total Bilirubin 0.3 mg/dL (0.15-1.2); Total Protein 6.6 g/dL (6.6-8.7)
[2022-02-05 05:42] LABS: Blood Urea Nitrogen 109 mg/dL (8-23)
--- NOTE | 2022-02-05 07:56 | PM.PN ---
Subjective Subjective: feeling better. no n/v/d. is urinating w/ robb. no garcia or cp Medications: Reviewed: Yes Medication Review Details: Current Medications Acetaminophen (Acetaminophen 325 Mg Tablet) 650 mg PO Q6H PRN PRN Reason: Mild/Mod Pain Or Temp >/= 101 Last Admin: 02/04/22 08:20 Dose: 650 mg Documented by: Albuterol/Ipratropium (Ipratropium-Albuterol 3 Ml Neb) 3 ml INHALATION Q6H PRN PRN Reason: SHORTNESS OF BREATH Apixaban (Apixaban 5 Mg Tablet) 5 mg PO BID@0900,2100 [facility] Last Admin: 02/04/22 21:12 Dose: 5 mg Documented by: Ondansetron HCl (Ondansetron 2 Mg/Ml Sdv 2 Ml) 4 mg IVP Q4H PRN PRN Reason: NAUSEA AND VOMITING Last Admin: 02/05/22 02:53 Dose: 4 mg Documented by: Oxycodone/Acetaminophen (Oxycodone-Apap 5-325 Mg Tablet) 1 tab PO Q6H PRN PRN Reason: MODERATE PAIN Last Admin: 02/05/22 02:58 Dose: 1 tab Documented by: Sevelamer Carbonate (Sevelamer 800 Mg Tablet) 1,600 mg PO TID [facility] Last Admin: 02/04/22 21:12 Dose: 1,600 mg Documented by: Sodium Bicarbonate (Sodium Bicarbonate 650 Mg Tablet) 650 mg PO TID [facility] Last Admin: 02/04/22 21:12 Dose: 650 mg Documented by: Tamsulosin HCl (Tamsulosin 0.4 Mg Capsule) 0.4 mg PO DAILY [facility] Last Admin: 02/04/22 08:20 Dose: 0.4 mg Documented by: Vitals/I&O/Wt Last Vital Signs Temp 98.5 F 02/05/22 00:00 Pulse 79 02/05/22 06:00 Resp 23 H 02/05/22 06:00 BP 139/75 02/05/22 06:00 Pulse Ox 92 02/05/22 06:00 02/04/22 02/05/22 02/05/22 22:59 06:59 14:59 Intake Total 480 / 950.05 Output Total 625 / 625 400 / 1025 Balance -145 / 325.05 -400 / -74.95 Weight last 48 hrs Weight 74.843 kg Physical Exam Narrative: comfortable in bed, NARD vss heent- nc/at, eomi, anicteric neck- no jvp lung- dec b/l wheezes heart- reg, no rub abd soft, nt, nd, +bs ext no edema neuro- a,a, o x 3, no asterixis Urinary Catheter Management: Robb: Cath Placed During This Visit: yes Reason for Continuing Indwelling Catheter: Acute Urinary Retention or Obstruction Urinary Catheter Date of Insertion: 02/02/22 Urinary Catheter Time of Insertion: 01:41 Data : 02/05/22 04:26 02/05/22 04:26 A&P Assessment and plan (1) MIKHAIL (acute kidney injury): see below Status: Acute Plan 66 yr old male 1. progressive renal failure- from obstructive uropathy -pt wants to avoid dialysis -renal us 8.3 cm kidneys low ur na and wbc in urine -cr was 5.6 in dec 2021. cr 10-improved to89.3 mg/dl- likely CKD stage 5 -will use lasix as needed 1b. hyperkalemia- rx w/ kayexalate and low k diet 2. hgb okay for ckd stage 5 percent sat 42%, ferritin 902 3. replace vit d, -repeat pth in 6 weeks -phos improving, as cr improves and w/ phos binders 4 monitor bp- stable 5. met acidosis - cont po bicarb 6. hyponatremia- from renal failure- monitor- is improving 7. hyperuricemia- allopurinol seen and examined w/ RN telehealth visit- seen and examined w/ RN time spent 30 min Attestations Medical Necessity Statement*: per medicine- mikhail, hyperkalemia Time Spent in Patient Care: 16 - 35 minutes (>than 50% of time spent in counselling and/or direct pt care on unit). Coding Level of Care Code Acute Machine Zipper Trimmer for [facility] Diagnoses MIKHAIL (acute kidney injury) N17.9
[2022-02-05] MEDS: sodium polystyrene sulfonate 15 gm/60 mL Btl 30 GM PO (08:25)
[2022-02-05] MEDS: FUROsemide 10 mg/mL SDV 2mL 20 MG IVP (08:27)
[2022-02-05] MEDS: apixaban 5 mg Tablet PO ×2 (09:50→20:18)
[2022-02-05] MEDS: sevelamer 800 mg Tablet 1600 MG PO ×3 (09:50→20:18)
[2022-02-05] MEDS: allopurinol 100 mg Tablet PO (09:50)
[2022-02-05] MEDS: tamsulosin 0.4 mg Capsule PO (09:51)
[2022-02-05] MEDS: sodium bicarbonate 650 mg Tablet PO ×3 (09:51→20:18)
--- NOTE | 2022-02-05 13:54 | P.PN_ITS ---
Subjective Subjective: Patient was seen and examined this morning, was complaining of significant weakness, because of which she has not been able to participate with physical therapy. Medications: Medication Review Details: Generic Name Dose Route Start Last Admin Trade Name Avery PRN Reason Stop Dose Admin Acetaminophen 650 mg 02/01/22 23:28 02/03/22 10:17 Acetaminophen 32 5 Mg Tablet PO 650 mg Q6H PRN Administration Mild/Mod Pain Or Temp >/= 101 Sevelamer Carbonat e 1,600 mg 02/03/22 09:00 02/03/22 08:57 Sevelamer 800 Mg Tablet PO 1,600 mg TID MARQUEZ Administration Sodium Bicarbonate 650 mg 02/02/22 09:00 02/03/22 08:57 Sodium Bicarbona te 650 Mg Tablet PO 650 mg TID MARQUEZ Administration Tamsulosin HCl 0.4 mg 02/02/22 09:00 02/03/22 08:57 Tamsulosin 0.4 M g Capsule PO 0.4 mg DAILY MARQUEZ Administration Vitals/I&O/Wt Last Vital Signs Temp 98.5 F 02/05/22 12:00 Pulse 86 02/05/22 12:00 Resp 16 02/05/22 12:00 BP 137/86 02/05/22 12:00 Pulse Ox 95 02/05/22 12:00 02/04/22 02/05/22 02/05/22 22:59 06:59 14:59 Intake Total 480 / 950.05 160 / 160 Output Total 625 / 625 400 / 1025 0 / 0 Balance -145 / 325.05 -400 / -74.95 160 / 160 Weight last 48 hrs Weight 74.843 kg Physical Exam Narrative: Alert awake oriented not in acute distress. HENMT: COMMON NORMALS: normocephalic and atraumatic HEAD & SCALP: normocephalic and atraumatic Chest: CHEST: Yes Symmetrical chest wall rise Resp: COMMON NORMALS: normal respiratory effort, No retractions, No use of accessory muscles and clear to auscultation bilaterally EFFORT & INSPECTION: Yes symmetric chest movement AUSCULTATION: clear to auscultation bilaterally Cardio: COMMON NORMALS: regular rate, regular rhythm, S1 normal heart sound present, S2 normal heart sound present, No gallops present (Cardio), No murmurs present (Cardio), No rub (Cardio) and Peripheral pulses 2+ throughout RATE: regular rate RHYTHM: regular rhythm HEART SOUNDS: S1 normal heart sound present and S2 normal heart sound present PERIPHERAL PULSES: Peripheral pulses 2+ throughout GI: COMMON NORMALS: Normal to inspection, nondistended, normoactive bowel sounds present, Soft to palpation, non-tender, No hepatosplenomegaly present and no masses AUSCULTATION: Yes normoactive bowel sounds PALPATION: Yes Soft to palpation and Yes No hepatosplenomegaly present RECTAL EXAM: Yes deferred Extremity: COMMON NORMALS: no clubbing, cyanosis or edema and no pedal edema Urinary Catheter Management: Robb: Cath Placed During This Visit: yes Reason for Continuing Indwelling Catheter: Acute Urinary Retention or Obstruction Urinary Catheter Date of Insertion: 02/02/22 Urinary Catheter Time of Insertion: 01:41 Data : 02/05/22 04:26 02/05/22 04:26 A&P Assessment and plan (1) Acute kidney injury: New. Renal US shows normal kidneys. D/W Dr. Del Toro, suspect obstructive disorder. Maintain robb and urology consult. No need for HD. Status: Acute (2) Hypertension: ? pt not on home meds Status: Acute (3) Diabetes: per history? Pt not on any home meds Status: Acute (4) Pulmonary infiltrate on chest x-ray: vs atelectasis. no abx for now. breathing treatments, IS Status: Acute (5) DVT of lower extremity (deep venous thrombosis): likely secondary to history of covid. due to MIKHAIL left with heparin iv. Once kidneys are improving may change to dose adjusted lovenox. Status: Acute (6) History of COVID-19: Dx 01/11 howver, pt left AMA and never knew final PCR result. Status: Acute (7) Acute confusion: cognitive dsyfunction likely from MIKHAIL anticipate improvement Status: Acute Plan 66 y o m with pmh hypertension , CKD stage IV , COVID-19 was brought in with chief complaint of persistent fatigability. Currently being managed for. #MIKHAIL on worsening CKD stage IV : Likely end-stage renal disease: Renal ultrasound: Unremarkable kidneys . Monitor BMP Continue sodium bicarbonate tablets 60 mg p.o. 3 times daily Continue Renvela 1600 mg po TID Monitor intake output charting Avoid nephrotoxic's Currently Robb in place Family has decided against dialysis We will give a voiding trial prior to discharge #Hyponatremia: Likely secondary to underlying end-stage renal disease Continue to monitor BMP Encourage p.o. intake #Hyperkalemia: Has received Kayexalate Monitor BMP #History of gout: Allopurinol 100 mg p.o. daily #Anemia of renal disease: Serum iron 44 , TIBC 103 , percent saturation: 42 , serum ferritin 902 Continue to monitor hemoglobin #Vitamin D deficiency:: 25 hydroxy vitamin D: 6 Will initiate vitamin D replacement #Acute DVT: Bilateral lower extremity Doppler vein: Rt leg dvt in rt femoral vein.? lt leg had old dvt in lt fem ?vein with recanalazion. Initially on heparin drip, has been discontinued Currently on Eliquis. Will need at least 6 months of anticoagulation #DVT PPX : Needed on Eliquis #Disposition: Patient wants to return to home.He stays alone, extremely weak and frail.Patient has no insurance, not want to go to [facility], wants to go home. Please see social work case manager notes for details regarding disposition.Physical therapy evaluation ordered. #CODE STATUS: Full code Attestations Medical Necessity Statement*: Patient is to be in hospital for management of above defined problems. Time Spent in Patient Care: Greater than 35 minutes (>than 50% of time spent in counselling and/or direct pt care on unit) . Coding Level of Care Code Acute Corrective Therapy Aide Teacher for Devin Fwsadia Exam Detailed Diagnoses Acute kidney injury N17.9 Hypertension I10 Diabetes E11.9 Pulmonary infiltrate on chest x-ray R91.8 DVT of lower extremity (deep venous thrombosis) I82.409 History of COVID-19 Z86.16 Acute confusion R41.0
--- NOTE | 2022-02-05 15:58 | PC.NURSE ---
1430 Got patient up to bedside commode, says needs to have a BM. Sat there approx. 10 minutes and unable to have any results. Dave from PT here to ambulate patient, patient refused, saying he's just too exhausted and wore out to walk, even after much encouragement. Back to bed, having nausea.
[2022-02-05 16:38] LABS: Anti-Nuclear Antibody Screen NEGATIVE (NEGATIVE)
[2022-02-05 21:26] LABS: Glucose Point of Care 159 mg/dL (70-110)
[2022-02-06] VITALS (10 sets, daily range): BP systolic 143–156; BP diastolic 76–84; PULSE 80–97; RESP 16–19; TEMP 36.5–37; O2SAT 92–95
[2022-02-06 05:53] LABS: Basophils % 0.7 %; Eosinophils # 0.1 10^3/uL (0.0-0.8); Eosinophils % 1.5 %; Hematocrit 30.6 % (42.0-52.0); Hemoglobin 10.2 g/dL (11.7-16.6); Lymphocytes # 0.5 10^3/uL (0.8-4.8); Mean Corpuscular HGB Conc 33.3 g/dL (30.0-36.0); Mean Corpuscular Hemoglobin 29.6 pg (28.0-34.0); Mean Corpuscular Volume 88.7 fl (80-94); Mean Platelet Volume 10.8 fL (7.4-10.4); Monocytes # 0.7 10^3/uL (0.2-0.9); Monocytes % 11.4 %; Neutrophils # 4.64 10^3/uL (1.8-7.7); Neutrophils % 77.6 %; Nucleated Red Blood Cells % 0 %; Platelet Count 241 10^3/cmm (130-400); Red Blood Count 3.45 10^6/uL (4.1-5.3); Red Cell Distribution Width 14.1 % (12.1-15.1)
[2022-02-06 06:08] LABS: Glucose Point of Care 108 mg/dL (70-110)
[2022-02-06 06:08] LABS: Alanine Aminotransferase 9 U/L (0-41); Albumin Level 3.1 g/dL (3.5-5.2); Alkaline Phosphatase 106 IU/L (40-130); Anion Gap 19.2 (5-19); Aspartate Amino Transferase 9 U/L (0-40); Calcium 8.3 mg/dL (8.5-10.5); Carbon Dioxide 21 mmol/L (22-29); Chloride 97 mmol/L (98-107); Globulin 3.4 g/dL (1.3-4.6); Glomerular Filtration Rate 6.1 mL/min (90-130); Glucose 96 mg/dL (65-115); Magnesium 1.8 mg/dL (1.7-2.3); Osmolality Calculated 307 mOsm/kg (285-295); Phosphorus 6.9 mg/dL (2.5-4.5); Potassium 5.2 mmol/L (3.5-5.1); Sodium 132 mmol/L (136-145); Total Bilirubin 0.4 mg/dL (0.15-1.2); Total Protein 6.5 g/dL (6.6-8.7)
[2022-02-06 06:12] LABS: Blood Urea Nitrogen 105 mg/dL (8-23)
[2022-02-06] MEDS: sodium bicarbonate 650 mg Tablet PO ×3 (10:35→21:03)
[2022-02-06] MEDS: allopurinol 100 mg Tablet PO (10:35)
[2022-02-06] MEDS: sevelamer 800 mg Tablet 1600 MG PO ×3 (10:35→21:04)
[2022-02-06] MEDS: tamsulosin 0.4 mg Capsule PO (10:35)
[2022-02-06] MEDS: apixaban 5 mg Tablet PO ×2 (10:35→21:03)
--- NOTE | 2022-02-06 12:38 | P.PN_ITS ---
Subjective Subjective: states he feels better and wants to go home. denies n/v/f/c/garcia/d/sob Medications: Reviewed: Yes Medication Review Details: Current Medications Acetaminophen (Acetaminophen 325 Mg Tablet) 650 mg PO Q6H PRN PRN Reason: Mild/Mod Pain Or Temp >/= 101 Last Admin: 02/04/22 08:20 Dose: 650 mg Documented by: Albuterol/Ipratropium (Ipratropium-Albuterol 3 Ml Neb) 3 ml INHALATION Q6H PRN PRN Reason: SHORTNESS OF BREATH Allopurinol (Allopurinol 100 Mg Tablet) 100 mg PO DAILY [facility] Last Admin: 02/06/22 10:35 Dose: 100 mg Documented by: Apixaban (Apixaban 5 Mg Tablet) 5 mg PO BID@0900,2100 [facility] Last Admin: 02/06/22 10:35 Dose: 5 mg Documented by: Ondansetron HCl (Ondansetron 2 Mg/Ml Sdv 2 Ml) 4 mg IVP Q4H PRN PRN Reason: NAUSEA AND VOMITING Last Admin: 02/05/22 13:22 Dose: 4 mg Documented by: Oxycodone/Acetaminophen (Oxycodone-Apap 5-325 Mg Tablet) 1 tab PO Q6H PRN PRN Reason: MODERATE PAIN Last Admin: 02/05/22 20:18 Dose: 1 tab Documented by: Sevelamer Carbonate (Sevelamer 800 Mg Tablet) 1,600 mg PO TID [facility] Last Admin: 02/06/22 10:35 Dose: 1,600 mg Documented by: Sodium Bicarbonate (Sodium Bicarbonate 650 Mg Tablet) 650 mg PO TID [facility] Last Admin: 02/06/22 10:35 Dose: 650 mg Documented by: Tamsulosin HCl (Tamsulosin 0.4 Mg Capsule) 0.4 mg PO DAILY [facility] Last Admin: 02/06/22 10:35 Dose: 0.4 mg Documented by: Vitals/I&O/Wt Last Vital Signs Temp 97.7 F 02/06/22 04:00 Pulse 84 02/06/22 11:44 Resp 18 02/06/22 11:44 BP 148/76 02/06/22 11:44 Pulse Ox 93 02/06/22 11:44 02/05/22 02/06/22 02/06/22 22:59 06:59 14:59 Intake Total 560 / 720 550 / 1270 Output Total 975 / 975 350 / 1325 Balance -415 / -255 200 / -55 Weight last 48 hrs Weight 76.748 kg Weight 76.566 kg Weight 74.843 kg Physical Exam Narrative: comfortable in bed, NARD vss heent- nc/at, eomi, anicteric neck- no jvp lung- rt wheezes, left clear heart- reg, no rub abd soft, nt, nd, +bs ext no edema neuro- a,a, o x 3, no asterixis Urinary Catheter Management: Ramos: Cath Placed During This Visit: yes Reason for Continuing Indwelling Catheter: Acute Urinary Retention or Obstruction Urinary Catheter Date of Insertion: 02/02/22 Urinary Catheter Time of Insertion: 01:41 Data : 02/06/22 05:30 02/06/22 05:30 A&P Assessment and plan (1) MIKHAIL (acute kidney injury): see below Status: Acute Plan 66 yr old male 1. progressive renal failure/ CKD stage 5- from obstructive uropathy -pt wants to avoid dialysis- he understands that he may without dialysis -renal us 8.3 cm kidneys low ur na and wbc in urine -cr was 5.6 in dec 2021. cr 10-improved to 8.3 now up to 8.8 mg/dl- likely CKD stage 5 -hold lasix for now 1b. hyperkalemia- improving w/ kayexalate and low k diet 2. hgb okay for ckd stage 5 percent sat 42%, ferritin 902 3. replace vit d, -repeat pth in 6 weeks -phos improving, as cr improves and w/ phos binders 4 htn- avoid edilberto-i/ arb 5. met acidosis - cont po bicarb 6. hyponatremia- from renal failure- monitor- is improving 8. DVT of lower extrmeities- NOAC h/o COVID 7. hyperuricemia- allopurinol as pt does not want HD, he understands that he may w/o HD- renal okay for d/c seen and examined w/ RN telehealth visit- seen and examined w/ RN time spent 30 min Attestations Medical Necessity Statement*: per medicine Time Spent in Patient Care: 16 - 35 minutes (>than 50% of time spent in counselling and/or direct pt care on unit) . Coding Level of Care Code Acute Flight Control Manager for Chg Fwd Diagnoses MIKHAIL (acute kidney injury) N17.9
[2022-02-06] MEDS: amlodipine 5 mg Tablet 2.5 MG PO (13:26)
[2022-02-06 17:08] LABS: Glucose Point of Care 128 mg/dL (70-110)
[2022-02-06 21:03] LABS: Glucose Point of Care 227 mg/dL (70-110)
--- NOTE | 2022-02-06 21:52 | P.PN_ITS ---
Subjective Subjective: Fells better, adamant to go home,have encouraged him to work with PT. Medications: Medication Review Details: Generic Name Dose Route Start Last Admin Trade Name Avery PRN Reason Stop Dose Admin Acetaminophen 650 mg 02/01/22 23:28 02/03/22 10:17 Acetaminophen 32 5 Mg Tablet PO 650 mg Q6H PRN Administration Mild/Mod Pain Or Temp >/= 101 Sevelamer Carbonat e 1,600 mg 02/03/22 09:00 02/03/22 08:57 Sevelamer 800 Mg Tablet PO 1,600 mg TID MARQUEZ Administration Sodium Bicarbonate 650 mg 02/02/22 09:00 02/03/22 08:57 Sodium Bicarbona te 650 Mg Tablet PO 650 mg TID MARQUEZ Administration Tamsulosin HCl 0.4 mg 02/02/22 09:00 02/03/22 08:57 Tamsulosin 0.4 M g Capsule PO 0.4 mg DAILY MARQUEZ Administration Vitals/I&O/Wt Last Vital Signs Temp 98.0 F 02/06/22 20:00 Pulse 97 02/06/22 20:00 Resp 19 H 02/06/22 20:00 BP 146/76 02/06/22 20:00 Pulse Ox 95 02/06/22 20:00 02/06/22 02/06/22 02/06/22 06:59 14:59 22:59 Intake Total 550 / 1270 360 / 360 340 / 700 Output Total 350 / 1325 600 / 600 100 / 700 Balance 200 / -55 -240 / -240 240 / 0 Weight last 48 hrs Weight 76.748 kg Weight 76.566 kg Weight 74.843 kg Physical Exam Narrative: Alert awake oriented not in acute distress. HENMT: COMMON NORMALS: normocephalic and atraumatic HEAD & SCALP: normocephalic and atraumatic Chest: CHEST: Yes Symmetrical chest wall rise Resp: COMMON NORMALS: normal respiratory effort, No retractions, No use of accessory muscles and clear to auscultation bilaterally EFFORT & INSPECTION: Yes symmetric chest movement AUSCULTATION: clear to auscultation bilaterally Cardio: COMMON NORMALS: regular rate, regular rhythm, S1 normal heart sound present, S2 normal heart sound present, No gallops present (Cardio), No murmurs present (Cardio), No rub (Cardio) and Peripheral pulses 2+ throughout RATE: regular rate RHYTHM: regular rhythm HEART SOUNDS: S1 normal heart sound present and S2 normal heart sound present PERIPHERAL PULSES: Peripheral pulses 2+ throughout GI: COMMON NORMALS: Normal to inspection, nondistended, normoactive bowel sounds present, Soft to palpation, non-tender, No hepatosplenomegaly present and no masses AUSCULTATION: Yes normoactive bowel sounds PALPATION: Yes Soft to palpation and Yes No hepatosplenomegaly present RECTAL EXAM: Yes deferred Extremity: COMMON NORMALS: no clubbing, cyanosis or edema and no pedal edema Urinary Catheter Management: Robb: Cath Placed During This Visit: yes Reason for Continuing Indwelling Catheter: Acute Urinary Retention or Obstruction Urinary Catheter Date of Insertion: 02/02/22 Urinary Catheter Time of Insertion: 01:41 Data : 02/06/22 05:30 02/06/22 05:30 Micro: Microbiology 02/01/22 20:48 Blood Culture - Final Blood NO GROWTH AFTER 5 DAYS 02/01/22 20:40 Blood Culture - Final Blood NO GROWTH AFTER 5 DAYS A&P Assessment and plan (1) Acute kidney injury: New. Renal US shows normal kidneys. D/W Dr. Del Toro, suspect obstructive disorder. Maintain robb and urology consult. No need for HD. Status: Acute (2) Hypertension: ? pt not on home meds Status: Acute (3) Diabetes: per history? Pt not on any home meds Status: Acute (4) Pulmonary infiltrate on chest x-ray: vs atelectasis. no abx for now. breathing treatments, IS Status: Acute (5) DVT of lower extremity (deep venous thrombosis): likely secondary to history of covid. due to MIKHAIL left with heparin iv. Once kidneys are improving may change to dose adjusted lovenox. Status: Acute (6) History of COVID-19: Dx 01/11 howver, pt left AMA and never knew final PCR result. Status: Acute (7) Acute confusion: cognitive dsyfunction likely from MIKHAIL anticipate improvement Status: Acute Plan 66 y o m with pmh hypertension , CKD stage IV , COVID-19 was brought in with chief complaint of persistent fatigability. Currently being managed for. #MIKHAIL on worsening CKD stage IV : Likely end-stage renal disease: Renal ultrasound: Unremarkable kidneys . Monitor BMP Continue sodium bicarbonate tablets 60 mg p.o. 3 times daily Continue Renvela 1600 mg po TID Monitor intake output charting Avoid nephrotoxic's Currently Robb in place Family has decided against dialysis We will give a voiding trial prior to discharge #Hyponatremia: Likely secondary to underlying end-stage renal disease Continue to monitor BMP Encourage p.o. intake #Hyperkalemia: Has received Kayexalate Monitor BMP #History of gout: Allopurinol 100 mg p.o. daily #Anemia of renal disease: Serum iron 44 , TIBC 103 , percent saturation: 42 , serum ferritin 902 Continue to monitor hemoglobin #Vitamin D deficiency:: 25 hydroxy vitamin D: 6 Will initiate vitamin D replacement #Acute DVT: Bilateral lower extremity Doppler vein: Rt leg dvt in rt femoral vein.? lt leg had old dvt in lt fem ?vein with recanalazion. Initially on heparin drip, has been discontinued Currently on Eliquis. Will need at least 6 months of anticoagulation #DVT PPX : Needed on Eliquis #Disposition: Patient wants to return to home.He stays alone, extremely weak and frail.Patient has no insurance, not want to go to [facility], wants to go home. Please see social work manager notes for details regarding disposition.Physical therapy evaluation ordered. #CODE STATUS:Limited Resuscitation Attestations Medical Necessity Statement*: Patient needs to be in hospital for the managment of above defined problems. Coding Level of Care Code Acute Measurement Department Chief Clerk for Devin Murray Diagnoses Acute kidney injury N17.9 Hypertension I10 Diabetes E11.9 Pulmonary infiltrate on chest x-ray R91.8 DVT of lower extremity (deep venous thrombosis) I82.409 History of COVID-19 Z86.16 Acute confusion R41.0
[2022-02-07] VITALS: BP 112/73; PULSE 83; RESP 17; TEMP 36.6; O2SAT 97
[2022-02-07 04:00] VITALS: BP 157/83; PULSE 81; RESP 19; TEMP 36.4; O2SAT 96
[2022-02-07] MEDS: ondansetron 2 mg/ML SDV 2 mL 4 MG IVP (05:23)
[2022-02-07 05:32] LABS: Basophils % 0.7 %; Eosinophils # 0.1 10^3/uL (0.0-0.8); Hemoglobin 9.8 g/dL (11.7-16.6); Lymphocytes # 0.5 10^3/uL (0.8-4.8); Lymphocytes % 7.8 %; Mean Corpuscular HGB Conc 32.7 g/dL (30.0-36.0); Mean Corpuscular Hemoglobin 28.7 pg (28.0-34.0); Mean Corpuscular Volume 87.7 fl (80-94); Mean Platelet Volume 10.3 fL (7.4-10.4); Monocytes # 0.7 10^3/uL (0.2-0.9); Monocytes % 11.3 %; Neutrophils # 4.77 10^3/uL (1.8-7.7); Neutrophils % 77.7 %; Nucleated Red Blood Cells % 0 %; Platelet Count 257 10^3/cmm (130-400); Red Blood Count 3.42 10^6/uL (4.1-5.3); Red Cell Distribution Width 13.7 % (12.1-15.1); White Blood Count 6.1 10^3/uL (4.0-10.0)
[2022-02-07 05:49] LABS: Alanine Aminotransferase 7 U/L (0-41); Albumin Level 2.7 g/dL (3.5-5.2); Alkaline Phosphatase 100 IU/L (40-130); Anion Gap 18.8 (5-19); Aspartate Amino Transferase 9 U/L (0-40); Carbon Dioxide 22 mmol/L (22-29); Chloride 93 mmol/L (98-107); Globulin 3.9 g/dL (1.3-4.6); Glomerular Filtration Rate 6.6 mL/min (90-130); Glucose 135 mg/dL (65-115); Magnesium 1.6 mg/dL (1.7-2.3); Osmolality Calculated 300 mOsm/kg (285-295); Phosphorus 5.1 mg/dL (2.5-4.5); Potassium 4.8 mmol/L (3.5-5.1); Sodium 129 mmol/L (136-145); Total Bilirubin 0.3 mg/dL (0.15-1.2); Total Protein 6.6 g/dL (6.6-8.7)
[2022-02-07 05:53] LABS: Blood Urea Nitrogen 96 mg/dL (8-23)
[2022-02-07 06:20] LABS: Glucose Point of Care 141 mg/dL (70-110)
--- NOTE | 2022-02-07 07:38 | P.PN_ITS ---
Subjective Subjective: weak, but improving. no n/v/f/c/garcia/d/leg pains Medications: Reviewed: Yes Medication Review Details: Current Medications Acetaminophen (Acetaminophen 325 Mg Tablet) 650 mg PO Q6H PRN PRN Reason: Mild/Mod Pain Or Temp >/= 101 Last Admin: 02/04/22 08:20 Dose: 650 mg Documented by: Albuterol/Ipratropium (Ipratropium-Albuterol 3 Ml Neb) 3 ml INHALATION Q6H PRN PRN Reason: SHORTNESS OF BREATH Allopurinol (Allopurinol 100 Mg Tablet) 100 mg PO DAILY [facility] Last Admin: 02/06/22 10:35 Dose: 100 mg Documented by: Amlodipine Besylate (Amlodipine 5 Mg Tablet) 2.5 mg PO DAILY [facility] Last Admin: 02/06/22 13:26 Dose: 2.5 mg Documented by: Apixaban (Apixaban 5 Mg Tablet) 5 mg PO BID@0900,2100 [facility] Last Admin: 02/06/22 21:03 Dose: 5 mg Documented by: Ondansetron HCl (Ondansetron 2 Mg/Ml Sdv 2 Ml) 4 mg IVP Q4H PRN PRN Reason: NAUSEA AND VOMITING Last Admin: 02/07/22 05:23 Dose: 4 mg Documented by: Oxycodone/Acetaminophen (Oxycodone-Apap 5-325 Mg Tablet) 1 tab PO Q6H PRN PRN Reason: MODERATE PAIN Last Admin: 02/05/22 20:18 Dose: 1 tab Documented by: Sevelamer Carbonate (Sevelamer 800 Mg Tablet) 1,600 mg PO TID [facility] Last Admin: 02/06/22 21:04 Dose: 1,600 mg Documented by: Sodium Bicarbonate (Sodium Bicarbonate 650 Mg Tablet) 650 mg PO TID [facility] Last Admin: 02/06/22 21:03 Dose: 650 mg Documented by: Tamsulosin HCl (Tamsulosin 0.4 Mg Capsule) 0.4 mg PO DAILY [facility] Last Admin: 02/06/22 10:35 Dose: 0.4 mg Documented by: Vitals/I&O/Wt Last Vital Signs Temp 97.5 F L 02/07/22 04:00 Pulse 81 02/07/22 04:00 Resp 19 H 02/07/22 04:00 BP 157/83 02/07/22 04:00 Pulse Ox 96 02/07/22 04:00 02/06/22 02/07/22 02/07/22 22:59 06:59 14:59 Intake Total 340 / 700 700 / 1400 Output Total 100 / 700 Balance 240 / 0 700 / 700 Weight last 48 hrs Weight 76.476 kg Weight 76.748 kg Weight 76.566 kg Physical Exam Narrative: comfortable, sitting up, NARD vss heent- nc/at, eomi, anicteric neck- no jvp lung- clear b/l heart- reg, no rub abd soft, nt, nd, +bs ext no edema neuro- a,a, o x 3, no asterixis Urinary Catheter Management: Ramos: Cath Placed During This Visit: yes Reason for Continuing Indwelling Catheter: Acute Urinary Retention or Obstructio n Urinary Catheter Date of Insertion: 02/02/22 Urinary Catheter Time of Insertion: 01:41 Data : 02/07/22 05:10 02/07/22 05:10 Micro: Microbiology 02/01/22 20:48 Blood Culture - Final Blood NO GROWTH AFTER 5 DAYS 02/01/22 20:40 Blood Culture - Final Blood NO GROWTH AFTER 5 DAYS A&P Assessment and plan (1) MIKHAIL (acute kidney injury): see below Status: Acute Plan 66 yr old male 1. progressive renal failure/ CKD stage 5- from obstructive uropathy -pt wants to avoid dialysis- he understands that he may without dialysis -renal us 8.3 cm kidneys low ur na and wbc in urine -cr was 5.6 in dec 2021. cr 10-improved to 8.2 mg/dl- likely CKD stage 5 -no emergent need for HD 2. hyperkalemia- improved w/ kayexalate and low k diet 3. hgb okay for ckd stage 5 percent sat 42%, ferritin 902 -if hgb drops below 9, then ITALO 4. replace vit d, -repeat pth in 6 weeks -phos improving, as cr improves and w/ phos binders 5. replace magnesium 6 htn- avoid edilberto-i/ arb -start norvasc 5 mg daily 7. met acidosis - cont po bicarb 8. hyponatremia- from renal failure- monitor- and free water restrict 9. DVT of lower extrmeities- NOAC 10 .h/o COVID 11. hyperuricemia- allopurinol as pt does not want HD, he understands the risks of not having dialysis- renal okay for d/c seen and examined w/ RN telehealth visit- seen and examined w/ RN time spent 30 min Attestations Medical Necessity Statement*: per medicine Time Spent in Patient Care: 16 - 35 minutes (>than 50% of time spent in counselling and/or direct pt care on unit) . Coding Level of Care Code Acute Field Support Engineer for Devin Murray Diagnoses MIKHAIL (acute kidney injury) N17.9
[2022-02-07 08:00] VITALS: BP 129/80; PULSE 90; RESP 18; TEMP 36.9; O2SAT 93
[2022-02-07] MEDS: sevelamer 800 mg Tablet 1600 MG PO ×2 (08:07→16:34)
[2022-02-07] MEDS: allopurinol 100 mg Tablet PO (08:07)
[2022-02-07] MEDS: sodium bicarbonate 650 mg Tablet PO ×2 (08:08→16:34)
[2022-02-07] MEDS: apixaban 5 mg Tablet PO (08:08)
[2022-02-07] MEDS: amlodipine 5 mg Tablet PO (08:08)
[2022-02-07] MEDS: tamsulosin 0.4 mg Capsule PO (08:08)
[2022-02-07 08:11] VITALS: PULSE 82; RESP 16; O2SAT 93
--- NOTE | 2022-02-07 10:11 | P.DS_ITS ---
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 Has been dyspneic on exertion.? Having mild cough.? Came to ER for evaluation due to persistent fatigability.? And presentation blood pressure 119/77, heart rate initially 120, down to 103.? Saturation is 98% on room air.? CBC unremarkable.? D-dimer noted elevated 7.67.? On chemistries noted to have worsening renal function, creatinine up to 10.7, BUN 124.? Prior creatinine was 5.6, BUN 59 back on 01/11/2020.? Potassium is 5.? Bicarbonate 13 creatinine continue. Baseline troponin 79. Chest x-ray with bibasilar left greater than right atelectasis versus minimal infiltrate. Hospital course: During the hospital stay patient was managed for MIKHAIL and progressively worsening CKD stage V, with progressive renal failure 2/2 obstructive uropathy, during the hospital stay patient was advised to undergo hemodialysis, due to overall poor prognosis without hemodialysis, patient is not agreeable to go on dialysis He understands the risk associated with it, patient was continued on conservative management, No emergent need for hemodialysis, serum creatinine was improving, hyperkalemia correction was undertaken, other electrolyte abnormality correction was also done, patient was started on p.o. bicarb as well as sevelamer, for metabolic acidosis as well as hyperphosphatemia, Patient was also started on oral vitamin D supplement for vitamin D deficiency, patient was also diagnosed with acute DVT during the hospital stay: Bilateral lower extremity Doppler vein: Rt leg dvt in rt femoral vein.? lt leg had old dvt in lt fem ?vein with recanalazion.Initially on heparin drip, which was later discontinued and he was switched to Eliquis. He was discharged on p.o. Eliquis 5 mg twice daily for 6 months. Patient was adamant on going home, he was working with physical therapy, was requiring a walker, currently he is weak, Possibility of prison placement was discussed with him but due to multiple challenges and patient's wish to go home, group home placement was not achieved. Patient is being discharged to home.He will follow with his primary care physician as well as nephrology as an outpatient. Physical Exam Narrative: Alert awake oriented not in acute distress. HENMT: COMMON NORMALS: normocephalic and atraumatic HEAD & SCALP: normocephalic and atraumatic Chest: CHEST: Yes Symmetrical chest wall rise Resp: COMMON NORMALS: normal respiratory effort, No retractions, No use of accessory muscles and clear to auscultation bilaterally EFFORT & INSPECTION: Yes symmetric chest movement AUSCULTATION: clear to auscultation bilaterally Cardio: COMMON NORMALS: regular rate, regular rhythm, S1 normal heart sound present, S2 normal heart sound present, No gallops present (Cardio), No murmurs present (Cardio), No rub (Cardio) and Peripheral pulses 2+ throughout RATE: regular rate RHYTHM: regular rhythm HEART SOUNDS: S1 normal heart sound present and S2 normal heart sound present PERIPHERAL PULSES: Peripheral pulses 2+ throughout GI: COMMON NORMALS: Normal to inspection, nondistended, normoactive bowel sounds present, Soft to palpation, non-tender, No hepatosplenomegaly present and no masses AUSCULTATION: Yes normoactive bowel sounds PALPATION: Yes Soft to palpation and Yes No hepatosplenomegaly present RECTAL EXAM: Yes deferred Extremity: COMMON NORMALS: no clubbing, cyanosis or edema and no pedal edema Urinary Catheter Management: Ramos: Cath Placed During This Visit: yes Reason for Continuing Indwelling Catheter: Acute Urinary Retention or Obstruction Urinary Catheter Date of Insertion: 02/02/22 Urinary Catheter Time of Insertion: 01:41 Discharge Data Studies Completed and Pending Completed Studies During Hospitalization Category Date Time Status XR chest 1V portable [id number] Stat Exams 02/01/22 18:44 Completed XR lumbar spine 2-3V* [id number] Routine Exams 02/02/22 08:00 Completed XR thoracic spine 3V* [id number] Routine Exams 02/02/22 08:00 [place] [id number] Routine Ultrasound 02/02/22 23:28 Completed CV. echo complete* [id number] Routine Ultrasound 02/02/22 23:28 Completed US renal BI* [id number] Urgent Ultrasound 02/02/22 05:30 Completed Pending at discharge Category Date Time Status DERECK Screen w/ Reflex Routine Lab 02/03/22 09:57 Results Anti-Neutrophil Cytoplasmic AB Routine Lab 02/03/22 09:57 Results Complete Blood Count w/Auto AM LABS Lab 02/08/22 04:00 Ordered Complete Blood Count w/Auto AM LABS Lab 02/09/22 04:00 Ordered Comprehensive Metabolic Panel AM LABS Lab 02/08/22 04:00 Ordered Comprehensive Metabolic Panel AM LABS Lab 02/09/22 04:00 Ordered Glomerular Basement AB IGG Routine Lab 02/03/22 09:57 Results Magnesium AM LABS Lab 02/08/22 04:00 Ordered Magnesium AM LABS Lab 02/09/22 04:00 Ordered Phosphorus AM LABS Lab 02/08/22 04:00 Ordered Phosphorus AM LABS Lab 02/09/22 04:00 Ordered Radiology Impressions Chest X-Ray 02/01/22 18:44 IMPRESSION: Bibasilar left greater than right atelectasis versus minimal infiltrate. Renal Ultrasound 02/02/22 05:30 IMPRESSION: 1. Unremarkable kidneys . 2. Urinary bladder is decompressed. Lumbar Spine X-Ray 02/02/22 08:00 IMPRESSION: No acute findings. Thoracic Spine X-Ray 02/02/22 08:00 IMPRESSION: 1. Dorsal spine osteopenia and osteoarthritis. 2. Otherwise No acute bone abnormality. Laboratory Results WBC 6.1 10^3/uL (4.0-10.0) 02/07/22 05:10 RBC 3.42 10^6/uL (4.1-5.3) L 02/07/22 05:10 Hgb 9.8 g/dL (11.7-16.6) L 02/07/22 05:10 Hct 30.0 % (42.0-52.0) L 02/07/22 05:10 MCV 87.7 fl (80-94) 02/07/22 05:10 MCH 28.7 pg (28.0-34.0) 02/07/22 05:10 MCHC 32.7 g/dL (30.0-36.0) 02/07/22 05:10 RDW 13.7 % (12.1-15.1) 02/07/22 05:10 Plt Count 257 10^3/cmm (130-400) 02/07/22 05:10 MPV 10.3 fL (7.4-10.4) 02/07/22 05:10 Neut % (Auto) 77.7 % 02/07/22 05:10 Lymph % (Auto) 7.8 % 02/07/22 05:10 [place] % (Auto) 11.3 % 02/07/22 05:10 Eos % (Auto) 2.0 % 02/07/22 05:10 Baso % (Auto) 0.7 % 02/07/22 05:10 Neut # (Auto) 4.77 10^3/uL (1.8-7.7) 02/07/22 05:10 Lymph # (Auto) 0.5 10^3/uL (0.8-4.8) L 02/07/22 05:10 [place] # (Auto) 0.7 10^3/uL (0.2-0.9) 02/07/22 05:10 Eos # (Auto) 0.1 10^3/uL (0.0-0.8) 02/07/22 05:10 Baso # (Auto) 0.0 10^3/uL (0.0-0.1) 02/07/22 05:10 Nucleated RBC % (auto) 0 % 02/07/22 05:10 Nucleated RBCs # 0.0 /100WBC 02/07/22 05:10 APTT 108.9 SECONDS (23.9-36.7) H D 02/03/22 09:57 D-Dimer 7.67 ug/mIFEU (0-0.59) H 02/01/22 19:05 Sodium 129 mmol/L (136-145) L 02/07/22 05:10 Potassium 4.8 mmol/L (3.5-5.1) 02/07/22 05:10 Chloride 93 mmol/L (98-107) L 02/07/22 05:10 Carbon Dioxide 22 mmol/L (22-29) 02/07/22 05:10 Anion Gap 18.8 (5-19) 02/07/22 05:10 BUN 96 mg/dL (8-23) H* 02/07/22 05:10 Creatinine 8.2 mg/dL (0.7-1.2) H* 02/07/22 05:10 GFR Calculation 6.6 mL/min (90-130) L 02/07/22 05:10 Glucose 135 mg/dL (65-115) H 02/07/22 05:10 POC Glucose 141 mg/dL (70-110) H 02/07/22 06:13 Calculated Osmolality 300 mOsm/kg (285-295) H 02/07/22 05:10 Uric Acid 11.6 mg/dL (3.4-7.0) H 02/03/22 09:57 Calcium 8.0 mg/dL (8.5-10.5) L 02/07/22 05:10 Phosphorus 5.1 mg/dL (2.5-4.5) H 02/07/22 05:10 Magnesium 1.6 mg/dL (1.7-2.3) L 02/07/22 05:10 Iron 44 ug/dL (59-158) L 02/04/22 03:47 TIBC 103 mcg/dl 02/04/22 03:47 % Saturation 42.7 % (20-50) 02/04/22 03:47 Unsat Iron Binding 59 ug/dL (112-347) L 02/04/22 03:47 Ferritin 902 ng/mL (30-400) H 02/04/22 03:47 Total Bilirubin 0.3 mg/dL (0.15-1.2) 02/07/22 05:10 AST 9 U/L (0-40) 02/07/22 05:10 ALT 7 U/L (0-41) 02/07/22 05:10 Alkaline Phosphatase 100 IU/L (40-130) 02/07/22 05:10 Creatine Kinase 55 U/L (39-308) 02/02/22 10:49 Troponin T Baseline 79 ng/L (0-15) H 02/01/22 19:05 Troponin T 120 Minute 80.31 ng/L (0-15) H 02/01/22 20:40 Delta Troponin T 1.31 ABS# (0-10) 02/01/22 20:40 Troponin T Hi Sens 6Hr 81.29 ng/L (0-15) H 02/02/22 00:30 Troponin T Hi Sens 6Hr Delta 2.29 ng/L (0-12) 02/02/22 00:30 NT-Pro-B Natriuret Pep 14228 pg/mL (0-125) H 02/01/22 19:05 Total Protein 6.6 g/dL (6.6-8.7) 02/07/22 05:10 Albumin 2.7 g/dL (3.5-5.2) L 02/07/22 05:10 Globulin 3.9 g/dL (1.3-4.6) 02/07/22 05:10 Prostate Specific Ag 1.450 ng/mL (0-4) 02/02/22 10:49 25-OH Vitamin D Total 6 ng/mL (30-100) L 02/04/22 03:47 TSH 1.20 uIU/mL (0.27-4.20) 02/02/22 10:49 PTH Intact 293.9 pg/mL (15-65) H 02/04/22 03:47 Calcium (PTH Intact) 7.7 mg/dL (8.5-10.5) L 02/04/22 03:47 Urine Color Yellow (Yellow) 02/02/22 06:10 Urine Appearance Clear (CLEAR) 02/02/22 06:10 Urine pH 5 (5-7) 02/02/22 06:10 Ur Specific [place] 1.025 (1.005-1.030) 02/02/22 06:10 Urine Protein 1+ (Negative) H 02/02/22 06:10 Urine Glucose (UA) Norm (Normal) 02/02/22 06:10 Urine Ketones Negative (Negative) 02/02/22 06:10 Urine Blood Trace (Negative) H 02/02/22 06:10 Urine Nitrate Negative (Negative) 02/02/22 06:10 Urine Bilirubin Neg (Negative) 02/02/22 06:10 Urine Urobilinogen Norm mg/dL (Negative) 02/02/22 06:10 Ur Leukocyte Esterase Negative (Negative) 02/02/22 06:10 Urine RBC Rare /hpf (0-2) 02/02/22 06:10 Urine WBC 10-15 /hpf (0-5) H 02/02/22 06:10 Ur Squamous Epith Cells None /hpf (0-5) 02/02/22 06:10 Amorphous Sediment 1+ /hpf 02/02/22 06:10 Urine Bacteria Trace /hpf (NONE) 02/02/22 06:10 Ur Random Sodium 20 mmol/L 02/02/22 06:10 Urine Creatinine 128 mg/dL (39-259) 02/02/22 06:10 DERECK Screen Negative (NEGATIVE) 02/03/22 09:57 Hepatitis C Antibody Non-reactive (Nonreactive) 02/03/22 09:57 Vitals Last Vital Signs Temp 98.4 F 02/07/22 08:00 Pulse 82 02/07/22 08:11 Resp 16 02/07/22 08:11 BP 129/80 02/07/22 08:00 Pulse Ox 93 02/07/22 08:11 Discharge Plan Discharge Patient Disposition: Home Condition: Fair Prescriptions: New amlodipine 5 mg Tablet 5 mg PO DAILY 30 Days Qty: 30 3RF allopurinol 100 mg Tablet 100 mg PO DAILY 30 Days Qty: 30 3RF tamsulosin 0.4 mg Capsule 0.4 mg PO DAILY 30 Days Qty: 30 0RF sodium bicarbonate 650 mg Tablet 650 mg PO TID 30 Days Qty: 90 3RF sevelamer carbonate 800 mg Tablet 1,600 mg PO TID 30 Days Qty: 180 3RF Eliquis 5 mg Tablet 5 mg PO BID@0900,2100 30 Days Qty: 60 3RF cholecalciferol (vitamin D3) 125 mcg (5,000 unit) capsule 125 mcg PO DAILY 30 Days Qty: 30 1RF Discharge Orders: Discharge Order (Routine); Ordered 02/07/22 Ordered By: Jim Wilson Referrals: Jhon Braun MD [Referring] - 2 weeks Lynne Mccann FNP [Nurse Practitioner] - 02/21/22 1:00 pm Discharge Activity: Increase activity as tolerated Patient Instructions: Allopurinol (By mouth), Amlodipine (By mouth), Tamsulosin (By mouth), Sevelamer (By mouth), Sodium Bicarbonate (By mouth), Apixaban (By mouth), Deep Vein Thrombosis (DC), Opioid Safety Discharge Attestations Time Spent in Discharge Care*: greater than 30 min Specific Discharge Activities: educating patient, educating and/or supporting family/caregiver, discussing with shelter case manager/social workers/dc planners, documenting/other paperwork and evaluating patient/reviewing data Quality Metrics Clinical Quality Measures [ No reported AMI, CVA or VTE this stay] Coding Level of Care Code Acute Chg FW DC note Exam Detailed Diagnoses MIKHAIL (acute kidney injury) N17.9
[2022-02-07 13:41] LABS: Glomerular Bsmt Membrane IGG <1.0 AI
[2022-02-07 14:37] LABS: ANCA Screen NEGATIVE (NEGATIVE)
[2022-02-07 16:00] VITALS: BP 150/89; PULSE 90; RESP 18; TEMP 36.5; O2SAT 90
--- NOTE | 2022-02-07 16:43 | PC.NURSE ---
pt. refused to take coat off to do BP.
[2022-02-07 17:52] VITALS: BP 150/89; PULSE 90; RESP 18; TEMP 36.5; O2SAT 90
== END 2022-02-07 17:52 | disposition home or self-care (01) | DRG 683 ==
LOC: ER 21:01 → ICU 21:13 → MEDSURG 02-05 20:54
PROVIDERS: Internal Medicine; Internal Medicine Nephrology; Physician Assistant; Admitting Provider Internal Medicine; Emergency Provider Emergency Medicine; Visit Provider Internal Medicine
DX: N17.9 Acute kidney failure, unspecified (principal); I12.0 Hypertensive chronic kidney disease with stage 5 chronic kidney disease or end stage renal disease; E87.2 Acidosis; I82.411 Acute embolism and thrombosis of right femoral vein; E87.0 Hyperosmolality and hypernatremia; N18.5 Chronic kidney disease, stage 5; R33.9 Retention of urine, unspecified; Z87.01 Personal history of pneumonia (recurrent); M54.50 Low back pain, unspecified; M47.814 Spondylosis without myelopathy or radiculopathy, thoracic region; N13.9 Obstructive and reflux uropathy, unspecified; Z86.16 Personal history of COVID-19; Z86.718 Personal history of other venous thrombosis and embolism; R91.8 Other nonspecific abnormal finding of lung field; E87.5 Hyperkalemia; D63.1 Anemia in chronic kidney disease; Z91.19 Patient's noncompliance with other medical treatment and regimen; R73.9 Hyperglycemia, unspecified; E55.9 Vitamin D deficiency, unspecified
CPT/HCPCS: 36415; 36416; 51702; 51798; 71045; 72072; 72100; 76770; 80048; 80053; 80069; 81001; 82306; 82310; 82550; 82575; 82728; 82962; 83516; 83520; 83540; 83550; 83735; 83880; 83970; 84100; 84153; 84300; 84443; 84484; 84550; 85025; 85378; 85730; 86038; 86803; 87040; 92507; 92523; 93005; 93306; 93970; 97116; 97161; 97530; 99285; J1644; J1815; J1940; J2405; J3475; Q3014

== ENCOUNTER 2022-02-18 17:35 | Inpatient (IN) | payer MEDICAID, SELFPAY ==
[2022-02-18 17:41] VITALS: BP 111/74; PULSE 109; RESP 18; TEMP 35.9; O2SAT 99; BMI 25.0
--- NOTE | 2022-02-18 17:57 | ECG_ITS ---
[facility] Test Date: 2022-02-18 Pat Name: Robert Montano Department: Room: Gender: Male Policy Value Calculator: : 1955 Requested By: Keely Alonzo Order Number: [id number] Walt MD: Dakota Denson M.D. Measurements Intervals [place] Rate: 93 P: 45 NC: 142 QRS: 7 QRSD: 102 T: 116 QT: 362 QTc: 451 Interpretive Statements SINUS RHYTHM MODERATE T-WAVE ABNORMALITY, CONSIDER LATERAL ISCHEMIA [-0.1+ mV T-WAVE IN I/aVL/V5/V6] Compared to ECG 02/02/2022 00:50:07 No significant changes Electronically Signed On 02-19-2022 9:19:01 CDT by Dakota Denson M.D. [email or web address]
[2022-02-18 18:09] VITALS: BP 123/75; PULSE 97; RESP 16; O2SAT 99
[2022-02-18 18:10] LABS: Glucose Point of Care 165 mg/dL (70-110)
--- NOTE | 2022-02-18 18:20 | W.ED.GENADLT ---
HPI - General Adult General: Chief complaint: Weakness Stated complaint: Weakness, Kidney issues Time Seen by Provider: 02/18/22 18:01 History of Present Illness: Patient is a 66-year-old male history of CKD/ESRD presenting to the emergency room for worsening generalized weakness and concern for his kidney. Patient was recently admitted to the hospital evaluated by nephrology and discharged on 02/07/2022. At that time, patient refused to get dialyzed. However since then, patient reports increasing fatigue and finally decided to see if he can qualify for dialysis. Patient worse mild shortness of breath but denies any chest pain nausea/vomiting, diarrhea melena she is here. Patient denies any fever or chills Onset: chronic Duration:ongoing Location:home Severity:moderate/severe Associated symptoms: Deny chest pain, dyspnea, nausea, rash, palpitations or vomiting Review of Systems Const: Reports: fatigue and other (+generalized weakness); Denies: fever(s) or chills Eyes: Denies: change in vision ENMT: Denies: mouth pain Card: Denies: chest pain or palpitations Resp: Denies: dyspnea or non-productive cough GI: Denies: abdominal pain, nausea, vomiting or diarrhea : Denies: dysuria Musc: Denies: extremity pain Skin/Breast: Denies: rash or new lesions Neuro: Denies: weakness in extremities Psych: Reports: other (Normal mood) Marek/Lymph: Denies: easy bruising PFSH ED PFSH: Medical History Acute confusion Acute kidney injury Acute kidney injury superimposed on CKD MIKHAIL (acute kidney injury) CKD (chronic kidney disease) Diabetes DVT of lower extremity (deep venous thrombosis) Elevated d-dimer Fluid overload History of COVID-19 Hypertension Metabolic acidosis Pulmonary infiltrate on chest x-ray Tachycardia Troponin level elevated Surgical History No pertinent past surgical history Family History Other No significant family history Social History Smoking and tobacco status: never smoked Alcohol intake: never Lives independently: Yes Household members: none Marital status details: Rather estranged with daughter Current occupational status: other Details: Recently employed, stopped working when started feeling unwell several wks Physical Exam Const: COMMON NORMALS: alert HENMT: COMMON NORMALS: atraumatic HEAD & SCALP: atraumatic MOUTH: moist mucous membranes not abnormal Eye: COMMON NORMALS: EOMs intact bilaterally and conjunctivae normal CONJUNCTIVA: Yes conjunctivae normal Neck/C-Spine: COMMON NORMALS: full ROM and supple Resp: COMMON NORMALS: normal respiratory effort and clear to auscultation bilaterally AUSCULTATION: clear to auscultation bilaterally Cardio: COMMON NORMALS: regular rate RATE: regular rate GI: COMMON NORMALS: Soft to palpation and non-tender PALPATION: Yes Soft to palpation Extremity: COMMON NORMALS: full ROM Neuro: SENSORIUM/ORIENTATION: Yes alert MOTOR EXAM: No Abnormal motor strength present and Other motor observations present (no focal motor deficits) Psych: COMMON NORMALS: speech normal SPEECH: Yes normal speech MOOD & AFFECT: Yes euthymic mood Course Vital Signs: Vital signs: Vital Signs Temperature 96.6 F L 02/18/22 17:41 Pulse Rate 97 02/18/22 18:09 Respiratory Rate 16 02/18/22 18:09 Blood Pressure 123/75 02/18/22 18:09 Pulse Oximetry 99 02/18/22 18:09 [facility] - General Adult Medical Decision Making 66-year-old male with a history of CKD/ESRD presenting to the emergency room with dyspnea and worsening generalized weakness and fatigue. On exam, patient is AAO x3, GCS 15. Creatinine of 6.5 today. EKG not showing signs of hyperkalemia. Potassium within normal limit. Sodium of 126. Patient is agreeable to dialysis. Case was discussed with Dr. Khoury who agrees with inpatient dialysis. Disposition: admission Lab Data : 02/18/22 18:14 02/18/22 19:02 Laboratory Results WBC 7.8 10^3/uL (4.0-10.0) 02/18/22 18:14 RBC 3.80 10^6/uL (4.1-5.3) L 02/18/22 18:14 Hgb 11.1 g/dL (11.7-16.6) L 02/18/22 18:14 Hct 34.5 % (42.0-52.0) L 02/18/22 18:14 MCV 90.8 fl (80-94) 02/18/22 18:14 MCH 29.2 pg (28.0-34.0) 02/18/22 18:14 MCHC 32.2 g/dL (30.0-36.0) 02/18/22 18:14 RDW 14.1 % (12.1-15.1) 02/18/22 18:14 Plt Count 421 10^3/cmm (130-400) H 02/18/22 18:14 MPV 10.7 fL (7.4-10.4) H 02/18/22 18:14 Neut % (Auto) 81.4 % 02/18/22 18:14 Lymph % (Auto) 9.9 % 02/18/22 18:14 [place] % (Auto) 6.3 % 02/18/22 18:14 Eos % (Auto) 0.5 % 02/18/22 18:14 Baso % (Auto) 1.5 % 02/18/22 18:14 Neut # (Auto) 6.35 10^3/uL (1.8-7.7) 02/18/22 18:14 Lymph # (Auto) 0.8 10^3/uL (0.8-4.8) 02/18/22 18:14 [place] # (Auto) 0.5 10^3/uL (0.2-0.9) 02/18/22 18:14 Eos # (Auto) 0.0 10^3/uL (0.0-0.8) 02/18/22 18:14 Baso # (Auto) 0.1 10^3/uL (0.0-0.1) 02/18/22 18:14 Nucleated RBC % (auto) 0 % 02/18/22 18:14 Nucleated RBCs # 0.0 /100WBC 02/18/22 18:14 Sodium 126 mmol/L (136-145) L 02/18/22 19:02 Potassium 3.8 mmol/L (3.5-5.1) 02/18/22 19:02 Chloride 90 mmol/L (98-107) L 02/18/22 19:02 Carbon Dioxide 22 mmol/L (22-29) 02/18/22 19:02 Anion Gap 17.8 (5-19) 02/18/22 19:02 BUN 58 mg/dL (8-23) H 02/18/22 19:02 Creatinine 6.5 mg/dL (0.7-1.2) H* 02/18/22 19:02 GFR Calculation 8.7 mL/min (90-130) L 02/18/22 19:02 Glucose 137 mg/dL (65-115) H 02/18/22 19:02 POC Glucose 165 mg/dL (70-110) H 02/18/22 18:07 Calculated Osmolality 280 mOsm/kg (285-295) L 02/18/22 19:02 Calcium 8.7 mg/dL (8.5-10.5) 02/18/22 19:02 Total Bilirubin 0.4 mg/dL (0.15-1.2) 02/18/22 19:02 AST 9 U/L (0-40) 02/18/22 19:02 ALT 6 U/L (0-41) 02/18/22 19:02 Alkaline Phosphatase 123 IU/L (40-130) 02/18/22 19:02 Total Protein 7.2 g/dL (6.6-8.7) 02/18/22 19:02 Albumin 3.3 g/dL (3.5-5.2) L 02/18/22 19:02 Globulin 3.9 g/dL (1.3-4.6) 02/18/22 19:02 Discharge Plan Discharge Patient Disposition: Admitted As Inpatient Clinical Impression: ESRD needing dialysis Condition: Stable Coding Level of Care Code ED Child Support Specialist for Devin Fwd Exam Comprehensive
[2022-02-18 18:31] LABS: Basophils # 0.1 10^3/uL (0.0-0.1); Basophils % 1.5 %; Eosinophils % 0.5 %; Hematocrit 34.5 % (42.0-52.0); Hemoglobin 11.1 g/dL (11.7-16.6); Lymphocytes # 0.8 10^3/uL (0.8-4.8); Lymphocytes % 9.9 %; Mean Corpuscular HGB Conc 32.2 g/dL (30.0-36.0); Mean Corpuscular Hemoglobin 29.2 pg (28.0-34.0); Mean Corpuscular Volume 90.8 fl (80-94); Mean Platelet Volume 10.7 fL (7.4-10.4); Monocytes # 0.5 10^3/uL (0.2-0.9); Monocytes % 6.3 %; Neutrophils # 6.35 10^3/uL (1.8-7.7); Neutrophils % 81.4 %; Nucleated Red Blood Cells % 0 %; Platelet Count 421 10^3/cmm (130-400); Red Cell Distribution Width 14.1 % (12.1-15.1); White Blood Count 7.8 10^3/uL (4.0-10.0)
--- NOTE | 2022-02-18 19:13 | PC.PHAR ---
PT UNABLE TO VERIFY NAMES OF HIS MEDICATIONS. DAUGHTER STATES HE TAKES EVERYTHING THAT WAS SHOWING ON EXTERNAL MED LIST THAT WAS RECENTLY FILLED.
[2022-02-18 19:35] LABS: Alanine Aminotransferase 6 U/L (0-41); Albumin Level 3.3 g/dL (3.5-5.2); Alkaline Phosphatase 123 IU/L (40-130); Anion Gap 17.8 (5-19); Aspartate Amino Transferase 9 U/L (0-40); Blood Urea Nitrogen 58 mg/dL (8-23); Calcium 8.7 mg/dL (8.5-10.5); Carbon Dioxide 22 mmol/L (22-29); Chloride 90 mmol/L (98-107); Globulin 3.9 g/dL (1.3-4.6); Glomerular Filtration Rate 8.7 mL/min (90-130); Glucose 137 mg/dL (65-115); Osmolality Calculated 280 mOsm/kg (285-295); Potassium 3.8 mmol/L (3.5-5.1); Sodium 126 mmol/L (136-145); Total Bilirubin 0.4 mg/dL (0.15-1.2); Total Protein 7.2 g/dL (6.6-8.7)
--- NOTE | 2022-02-18 20:09 | P.CONIM_ITS ---
Providers/Reason For Consult Consulting Physician/Specialty*: deepthi bonilla md / telenephrology Reason for Consult*: CKD, hyponatremia Requesting Physician: Dr Chacko History of Present Illness History of Present Illness Robert Montano is a 66 year old male recent admission for MIKHAIL on CKD stage 5. At that point he refused HD and went home on 02/07/22 w/ a cr of 8.2. he returns now weak, lethargic, ataxia, loss of balance, + weight loss, itching, poor appetite. He states he spoke to his friends and is now accepting of dialysis. He returned to the ER. Review of Systems Narrative: weak, weight oss, poor taste, metallic taste, poor appetite, insominia, weak. 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 + diarrhea. no edema. no itching. Medications/Allergies Home Medications Medication Instructions Recorded Confirmed Last Taken Type allopurinol 100 mg tablet 100 mg PO DAILY 30 Days #30 tab 02/07/22 02/18/22 02/17/22 Rx amlodipine 5 mg tablet 5 mg PO DAILY 30 Days #30 tab 02/07/22 02/18/22 02/17/22 Rx apixaban 5 mg tablet (Eliquis) 5 mg PO BID@0900,2100 30 Days #60 02/07/22 02/18/22 02/17/22 Rx tab cholecalciferol (vitamin D3) 125 125 mcg PO DAILY 30 Days #30 cap 02/07/22 02/18/22 02/17/22 Rx mcg (5,000 unit) capsule sevelamer carbonate 800 mg tablet 1,600 mg PO TID 30 Days #180 tab 02/07/22 02/18/22 02/17/22 Rx sodium bicarbonate 650 mg tablet 650 mg PO TID 30 Days #90 tab 02/07/22 02/18/22 02/17/22 Rx tamsulosin 0.4 mg capsule 0.4 mg PO DAILY 30 Days #30 cap 02/07/22 02/18/22 02/17/22 Rx Allergies Allergy/AdvReac Type Severity Reaction Status Date / Time No Known Allergies Allergy Verified 02/18/22 19:13 PFSH Acute PFSH: Medical History (Updated 02/18/22 @ 20:15 by Rober Bonilla MD) Acute confusion Acute kidney injury Acute kidney injury superimposed on CKD MIKHAIL (acute kidney injury) CKD (chronic kidney disease) Diabetes DVT of lower extremity (deep venous thrombosis) Elevated d-dimer Fluid overload History of COVID-19 Hypertension Metabolic acidosis Pulmonary infiltrate on chest x-ray Tachycardia Troponin level elevated Surgical History No pertinent past surgical history Family History Other No significant family history Social History Smoking and tobacco status: never smoked Alcohol intake: never Lives independently: Yes Household members: none Marital status details: Rather estranged with daughter Current occupational status: other Details: Recently employed, stopped working when started feeling unwell several wks Vitals/I&O/Wt Last Vital Signs Temp 96.6 F L 02/18/22 17:41 Pulse 97 02/18/22 18:09 Resp 16 02/18/22 18:09 BP 123/75 02/18/22 18:09 Pulse Ox 99 02/18/22 18:09 Weight last 48 hrs Weight 72.575 kg Physical Exam Narrative: elderly man, comfortable in bed, NARD vss heent- nc/at, eomi, anicteric neck supple lungs clear heart reg abd soft, nt, nd, + bs ext no edema neuro- a,a, o x 3, no asterixis Data : 02/18/22 18:14 02/18/22 19:02 A&P Assessment and plan (1) Acute kidney injury superimposed on CKD: 66 yr old man 1. CKD likely stage 5. cr has improved since d/c. however, pt c/o weakness, uremia, weight loss -monitor chem 7 -attempt to collect a 24 hr ur cr clearance - hold NOAC- as pt will likely need HD soon -repeat ua -repeat renal us -may be volume depleted given hyponatremia, hgb 11 and improved bicarbonate 1b. renal- bone- mineral- metabolism- heck vit d, pth, and phosphorus 2. hyponatremia- check tsh, cortisol checj ur na osm, cr -start ivf 3. weakness as cr improving and on NOAC- consider head CT 4.? htn-BP well controlled avoid edilberto-i/ arb 5. recent DVT of lower extrmeities- -02-02-22- us-.Features of possible acute deep veins thrombosis involving the ?right femoral vein causing total occlusion.? The popliteal, ?peroneal and posterior tibial veins were found to be patent. 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 The popliteal, peroneal ?and the posterior tibial veins on the left leg were found to be ?patent. please hold NOAC as may need a dialysis catheter. can use heparin drip 6 .h/o COVID 7. hyperuricemia- check muric acid on allopurinol seen and examined w/ RN- telehealth visit informed consent for telehealth obtained time spent 50 min Status: Acute Plan see above Consult Attestations Medical Necessity Statement: renal failure, weakness Time Spent in Patient Care: Greater than 35 minutes (>than 50% of time spent in counselling and/or direct pt care on unit) . Coding Level of Care Code Acute Foreign Language Instructor for Devin Murray Diagnoses Acute kidney injury superimposed on CKD N17.9; N18.9
--- NOTE | 2022-02-18 20:22 | XRR_ITS ---
PROCEDURE INFORMATION: Exam: XR Chest Exam date and time: 02/18/2022 8:33 PM Age: 66 years old Clinical indication: Shortness of breath; Additional info: SOB TECHNIQUE: Imaging protocol: XR of the chest. Views: 2 views. COMPARISON: CR (CHEST, ) 02/01/2022 5:54 PM FINDINGS: Lungs: No acute infiltrate. Pleural spaces: Unremarkable. No pleural effusion. No pneumothorax. Heart/Mediastinum: Unremarkable. No cardiomegaly. Bones/joints: Unremarkable. Other findings: Persisting bilateral peripheral fibrosis. XR/XR chest 2V insp/exp [id number] IMPRESSION: 1. No acute findings 2. Peripheral fibrosis
[2022-02-18 20:51] VITALS: BP 142/86; PULSE 87; RESP 16; O2SAT 98
[2022-02-18 20:56] VITALS: BP 142/86; PULSE 80; RESP 16; O2SAT 98
[2022-02-18 21:07] LABS: Thyroid Stimulating Hormone 1.58 uIU/mL (0.27-4.20); Uric Acid 6.7 mg/dL (3.4-7.0)
[2022-02-18] MEDS: sodium chloride 0.9% 1,000 ML 100 ML IV (21:44)
[2022-02-18] MEDS: sevelamer 800 mg Tablet 1600 MG PO (21:45)
[2022-02-18] MEDS: sodium bicarbonate 650 mg Tablet PO (21:45)
--- NOTE | 2022-02-18 22:15 | PM.CONSULT ---
Providers/Reason For Consult Consulting Physician/Specialty*: Hospital medicine Reason for Consult*: Medical management Attending Physician: Francy Jacobs MD History of Present Illness History of Present Illness The patient is a 66-year-old male who presents with chief [place] back pain and feeling fatigued. He states he has been feeling unwell since February 07, 2022 since he was discharged from this hospital. During the hospitalization he declined hemodialysis. In the 2 weeks leading up to his hospitalization he admits to nausea, dyspnea, dyspnea on exertion, dizziness. He denies fever, rigors, vomiting, cough, wheeze, abdominal pain, diarrhea, myalgia, chest pain, lightheadedness, diaphoresis, palpitations, sense of rapid heartbeat, sensation of irregular heartbeat. He denies peripheral edema however he endorses decreased urine output. He presents for further evaluation Review of Systems General: Reports: 10 or more systems reviewed and unremarkable except in HPI and below Medications/Allergies Home Medications Medication Instructions Recorded Confirmed Last Taken Type allopurinol 100 mg tablet 100 mg PO DAILY 30 Days #30 tab 02/07/22 02/18/22 02/17/22 Rx amlodipine 5 mg tablet 5 mg PO DAILY 30 Days #30 tab 02/07/22 02/18/22 02/17/22 Rx apixaban 5 mg tablet (Eliquis) 5 mg PO BID@0900,2100 30 Days #60 02/07/22 02/18/22 02/17/22 Rx tab cholecalciferol (vitamin D3) 125 125 mcg PO DAILY 30 Days #30 cap 02/07/22 02/18/22 02/17/22 Rx mcg (5,000 unit) capsule sevelamer carbonate 800 mg tablet 1,600 mg PO TID 30 Days #180 tab 02/07/22 02/18/22 02/17/22 Rx sodium bicarbonate 650 mg tablet 650 mg PO TID 30 Days #90 tab 02/07/22 02/18/22 02/17/22 Rx tamsulosin 0.4 mg capsule 0.4 mg PO DAILY 30 Days #30 cap 02/07/22 02/18/22 02/17/22 Rx Allergies Allergy/AdvReac Type Severity Reaction Status Date / Time No Known Allergies Allergy Verified 02/18/22 19:13 Current Medications Generic Name Dose Route Start Last Admin Trade Name Freq PRN Reason Stop Dose Admin Sodium Chloride 1,000 mls @ 100 mls/hr 02/18/22 20:30 02/18/22 21:44 Sodium Chloride 0.9% IV 100 mls/hr .Q10H MARQUEZ Administration Sevelamer Carbonate 1,600 mg 02/18/22 21:29 02/18/22 21:45 Sevelamer 800 Mg Tablet PO 1,600 mg TID MARQUEZ Administration Sodium Bicarbonate 650 mg 02/18/22 21:29 02/18/22 21:45 Sodium Bicarbonate 650 Mg Tablet PO 650 mg TID MARQUEZ Administration PFSH Acute PFSH: Medical History Acute confusion Acute kidney injury Acute kidney injury superimposed on CKD MIKHAIL (acute kidney injury) CKD (chronic kidney disease) Diabetes DVT of lower extremity (deep venous thrombosis) Elevated d-dimer Fluid overload History of COVID-19 Hypertension Metabolic acidosis Pulmonary infiltrate on chest x-ray Tachycardia Troponin level elevated Surgical History No pertinent past surgical history Family History Other No significant family history Social History Smoking and tobacco status: never smoked Alcohol intake: never Lives independently: Yes Household members: none Marital status details: Rather estranged with daughter Current occupational status: other Details: Recently employed, stopped working when started feeling unwell several wks Vitals/I&O/Wt Last Vital Signs Temp 96.6 F L 02/18/22 17:41 Pulse 80 02/18/22 20:56 Resp 16 02/18/22 20:56 BP 142/86 02/18/22 20:56 Pulse Ox 98 02/18/22 20:56 Weight last 48 hrs Weight 72.575 kg Physical Exam Const: COMMON NORMALS: no acute distress, average body habitus, patient oriented x3, no limitations, healthy appearing, alert and well nourished GENERAL APPEARANCE: ill appearing HENMT: COMMON NORMALS: normocephalic, atraumatic, hearing grossly normal bilaterally, external ears normal, EAC's normal, TM's normal bilaterally, Normal external nose present, Normal nasal mucous membranes and turbinates present, moist oral mucous membranes, oropharynx normal, dentition normal and gingiva normal HEAD & SCALP: normocephalic and atraumatic FACE & SINUS: normal facial exam NOSE: Normal external nose present and Normal nasal mucous membranes and turbinates present EXTERNAL EAR: Yes external ears normal EXTERNAL AUDITORY CANAL: EAC's normal TYMPANIC MEMBRANE: TM's normal bilaterally MOUTH: Normal oral and palatal mucosa present Eye: COMMON NORMALS: Equal, round and reactive pupils present, EOMs intact bilaterally, conjunctivae normal, no scleral icterus, no papilledema, normal visual means by confrontation and fundi normal bilaterally GENERAL EYE: appearance normal, both eyes and all related structures VISUAL ACUITY: Yes acuity normal ALIGNMENT: Yes alignment normal CONJUNCTIVA: Yes conjunctivae normal SCLERA: sclerae normal CORNEA: Yes corneas normal PUPIL: Yes Equal, round and reactive pupils present DIRECT OPHTHALMOSCOPY: Yes no papilledema and Yes fundi normal bilaterally Neck/C-Spine: COMMON NORMALS: full ROM, no lymphadenopathy, supple, no meningeal signs, no JVD, Thyroid normal and No carotid bruits THYROID: Thyroid normal CERVICAL SPINE: Yes cervical ROM normal Chest: COMMONS NORMALS: normal inspection of the chest, normal palpation of entire chest wall, normal inspection of the breasts and normal palpation of the breasts Resp: COMMON NORMALS: normal respiratory effort, No retractions, No use of accessory muscles, clear to auscultation bilaterally and percussion normal AUSCULTATION: clear to auscultation bilaterally PERCUSSION: percussion normal Cardio: COMMON NORMALS: no JVD, regular rate, regular rhythm, S1 normal heart sound present, S2 normal heart sound present, No gallops present (Cardio), No clicks present (Cardio), No murmurs present (Cardio), No rub (Cardio) and Peripheral pulses 2+ throughout RATE: regular rate RHYTHM: regular rhythm HEART SOUNDS: S1 normal heart sound present and S2 normal heart sound present PERIPHERAL PULSES: Peripheral pulses 2+ throughout GI: COMMON NORMALS: Normal to inspection, nondistended, normoactive bowel sounds present, Soft to palpation, non-tender, No hepatosplenomegaly present, no masses and no bruits PALPATION: Yes Soft to palpation and Yes No hepatosplenomegaly present : COMMON NORMALS: Yes no CVA tenderness, Yes normal external exam, Yes Testes normal, Yes scrotum normal, Yes no scrotal swelling and Yes No hernias present BLADDER/KIDNEY EXAM: Yes no CVA tenderness Back/Pelvis: COMMON NORMALS: no CVA tenderness THORACIC SPINE/UPPER BACK: Yes normal to inspection LUMBAR SPINE/LOWER BACK: Yes normal to inspection Extremity: GENERAL: Yes normal exam except as noted Neuro: COMMON NORMALS: patient oriented x3 SENSORIUM/ORIENTATION: Yes alert MENINGEAL SIGNS: Yes no meningeal signs CRANIAL NERVES: Yes CN normal except as noted MOTOR EXAM: 5/5 motor strength present throughout DEEP TENDON REFLEXES: Right triceps reflex intensity grade: 2+, Left triceps reflex intensity grade: 2+, Rt Biceps (C5, C6): 2+, Left biceps reflex intensity grade: 2+, Right brachioradialis reflex intensity grade: 2+, Left brachioradialis reflex intensity grade: 2+, Right patellar reflex intensity grade: 2+, Left patellar reflex intensity grade: 2+, Right ankle reflex intensity grade: 2+ and Left ankle reflex intensity grade: 2+ PUPIL EXAM: Normal pupillary reactivity/response: bilateral, Dilated: bilateral, Pinpoint: bilateral, Mid position: bilateral, Sluggish: bilateral and Fixed/non-reactive: bilateral Psych: COMMON NORMALS: mental status grossly normal, Normal thought process present, cooperative, normal affect, speech normal, activity/motor behavior normal, denies hallucinations, denies homicidal ideation and denies suicidal ideation SPEECH: Yes normal speech THOUGHT PROCESS: Normal thought process present Skin: COMMON NORMALS: no rashes or lesions noted, no wounds, turgor normal, no jaundice, no petechiae and no mottling GENERAL SKIN EXAM: no rashes or lesions noted and turgor normal Data : 02/18/22 18:14 02/18/22 19:02 A&P Assessment and plan (1) Acute kidney injury superimposed on CKD: Status: Acute Plan End stage renal disease for which patient will likely initiate hemodialysis. Will follow up on nephrology's findings recommendations. Will monitor serum electrolytes including BMP, magnesium, phosphorus level intermittently. 25 hydroxy vitamin D level pending. Strict I/O. Daily weight. Bilateral renal ultrasound pending. IV normal saline 100 ML's per hour plus sodium bicarbonate 650 Mill grams by mouth 3 times a day plus Renvela 1600 Mill grams by mouth 3 times a day plus vitamin D 5000 international units by mouth daily Hyperparathyroidism. PTH level pending Hyponatremia. We will monitor sodium level intermittently. [place] level pending. IV normal saline at 100 ML's per hour Gout. Allopurinol 100 Mill grams by mouth daily Thrombocytosis. We will monitor platelet count intermittently BPH. Flomax 0.4 Mill grams by mouth daily Anemia, chronic, history of iron deficiency. Will monitor hemoglobin with CBC intermittently. Ferritin, iron panel, fecal occult blood pending CHF, ejection fraction 40% with grade 1 diastolic dysfunction. Echocardiogram pending Diabetes. Will check fasting glucose every before meals and at bedtime and provide insulin sliding scale Hypertension. Norvasc 5 Mill grams by mouth daily History of DVT. Oral anticoagulation being held at this time in anticipation of AV fistula versus tunneled dialysis catheter placement History of leaving AGAINST MEDICAL ADVICE Medical noncompliance as witnessed by patient leaving AGAINST MEDICAL ADVICE. The patient becomes regarding medical compliance DVT Proflex is. Bilateral JASON lucreo Consult Attestations Medical Necessity Statement: This consultation is medically necessary as witnessed by performance of this consultation report Coding Level of Care Code Acute Maintenance Department Technician for Devin Murray Diagnoses Acute kidney injury superimposed on CKD N17.9; N18.9
[2022-02-18 23:14] LABS: Hepatitis B Surface AB 3.5 (11.5-1000); Hepatitis C Virus Antibody Non-Reactive (Nonreactive)
[2022-02-18 23:18] VITALS: BP 132/76; PULSE 86; RESP 16; TEMP 37.2; O2SAT 96
--- NOTE | 2022-02-18 23:45 | PC.NURSE ---
Addendum entered by Clementine Churchill RN 02/19/22 06:25: Patient stated that I need my metformin and steroids to keep my diabetes under control. Addendum entered by Clementine Churchill RN 02/19/22 06:11: Refusing JASON Clay Original Note: Patient arrived to floor via WC with street clothes on and states, I will change later to that referring to gown. AAOx4, VSS, educated on plan of care during admission, room is clean and clutter free, no c/o pain. No skin concerns, no needs at this time. 2345: requesting pain medication for back. Physician notified and orders placed.
[2022-02-18] MEDS: HYDROcodone-acetaminophen 5-325 mg Tablet 1 TAB PO (23:52)
[2022-02-19 05:06] LABS: Basophils # 0.1 10^3/uL (0.0-0.1); Basophils % 2.2 %; Eosinophils # 0.2 10^3/uL (0.0-0.8); Eosinophils % 2.7 %; Hematocrit 30.1 % (42.0-52.0); Hemoglobin 9.4 g/dL (11.7-16.6); Lymphocytes # 0.9 10^3/uL (0.8-4.8); Lymphocytes % 14.2 %; Mean Corpuscular HGB Conc 31.2 g/dL (30.0-36.0); Mean Corpuscular Hemoglobin 29.1 pg (28.0-34.0); Mean Corpuscular Volume 93.2 fl (80-94); Mean Platelet Volume 9.8 fL (7.4-10.4); Monocytes # 0.6 10^3/uL (0.2-0.9); Monocytes % 9.5 %; Neutrophils # 4.28 10^3/uL (1.8-7.7); Neutrophils % 71.2 %; Nucleated Red Blood Cells % 0 %; Platelet Count 353 10^3/cmm (130-400); Red Blood Count 3.23 10^6/uL (4.1-5.3); Red Cell Distribution Width 13.8 % (12.1-15.1)
[2022-02-19 05:26] LABS: Alanine Aminotransferase 7 U/L (0-41); Albumin Level 2.9 g/dL (3.5-5.2); Alkaline Phosphatase 112 IU/L (40-130); Anion Gap 17.8 (5-19); Aspartate Amino Transferase 9 U/L (0-40); Blood Urea Nitrogen 55 mg/dL (8-23); Calcium 8.3 mg/dL (8.5-10.5); Carbon Dioxide 22 mmol/L (22-29); Chloride 96 mmol/L (98-107); Ferritin 648 ng/mL (30-400); Globulin 3.7 g/dL (1.3-4.6); Glomerular Filtration Rate 8.8 mL/min (90-130); Glucose 106 mg/dL (65-115); Iron 54 ug/dL (59-158); Magnesium 1.7 mg/dL (1.7-2.3); Osmolality Calculated 290 mOsm/kg (285-295); Percent Saturation 41.5 % (20-50); Phosphorus 4.7 mg/dL (2.5-4.5); Potassium 3.8 mmol/L (3.5-5.1); Sodium 132 mmol/L (136-145); Total Bilirubin 0.3 mg/dL (0.15-1.2); Total Iron Binding Capacity 130 mcg/dl; Total Protein 6.6 g/dL (6.6-8.7); Unsaturated Iron Binding 76 ug/dL (112-347)
[2022-02-19 05:33] LABS: Cortisol Random 8.13 ug/dL (2.47-19.5)
[2022-02-19 05:36] LABS: Calcium 8.2 mg/dL (8.5-10.5)
[2022-02-19 05:38] LABS: 25 Hydroxy Vitamin D 5 ng/mL (30-100)
[2022-02-19 06:06] LABS: Parathyroid Hormone 250.3 pg/mL (15-65)
[2022-02-19] MEDS: sodium chloride 0.9% 1,000 ML 100 ML IV (06:09)
[2022-02-19 08:00] VITALS: BP 149/64; PULSE 78; RESP 16; TEMP 36.8; O2SAT 96
--- NOTE | 2022-02-19 08:18 | PM.PN ---
Subjective Subjective: feels better. was on metformin at home. he is asking for steroids. no n/v/f/c/garcia/d/sob at rest Medications: Reviewed: Yes Medication Review Details: Current Medications Allopurinol (Allopurinol 100 Mg Tablet) 100 mg PO DAILY [facility] Amlodipine Besylate (Amlodipine 5 Mg Tablet) 5 mg PO DAILY [facility] Dextrose (Dextrose 50% Syringe 50 Ml) 25 ml IVP ONCE PRN; Protocol PRN Reason: hypoglycemia protocol Dextrose (Dextrose 50% Syringe 50 Ml) 50 ml IVP PRN PRN; Protocol PRN Reason: hypoglycemia protocol Glucagon (Glucagon 1 Mg/Ml Inj 1 Ml) 1 mg IM ONCE PRN; Protocol PRN Reason: Adult Acute Hypoglycemia Prot. Sodium Chloride (Sodium Chloride 0.9%) 1,000 mls @ 100 mls/hr IV .Q10H [facility] Last Admin: 02/19/22 06:09 Dose: 100 mls/hr Documented by: Dextrose ([email or web address]) 500 mls @ 100 mls/hr IV ONCE PRN; Protocol PRN Reason: Adult Acute Hypoglycemia Prot Insulin Human Lispro (Insulin Lispro 100 Unit/1 Ml) 0 unit SUBCUT AC&BEDTIME [facility]; Protocol Last Admin: 02/19/22 06:20 Dose: Not Given Documented by: Multivitamins (D-Igzchar-Rfbojaf C Tablet) 1 each PO DAILY [facility] Sevelamer Carbonate (Sevelamer 800 Mg Tablet) 1,600 mg PO TID [facility] Last Admin: 02/18/22 21:45 Dose: 1,600 mg Documented by: Sodium Bicarbonate (Sodium Bicarbonate 650 Mg Tablet) 650 mg PO TID [facility] Last Admin: 02/18/22 21:45 Dose: 650 mg Documented by: Tamsulosin HCl (Tamsulosin 0.4 Mg Capsule) 0.4 mg PO DAILY [facility] Vitamin D (Cholecalciferol (Vitamin D3) 5,000 Unit Tablet) 5,000 unit PO DAILY [facility] Vitals/I&O/Wt Last Vital Signs Temp 98.9 F 02/18/22 23:18 Pulse 86 02/18/22 23:18 Resp 16 02/18/22 23:18 BP 132/76 02/18/22 23:18 Pulse Ox 96 02/18/22 23:18 02/18/22 02/19/22 02/19/22 22:59 06:59 14:59 Intake Total 300 / 300 1041.667 / 1341.667 Output Total 0 / 0 Balance 300 / 300 1041.667 / 1341.667 Weight last 48 hrs Weight 72.575 kg Physical Exam Narrative: elderly man, comfortable in bed, NARD vss heent- nc/at, eomi, anicteric neck supple lungs clear heart reg abd soft, nt, nd, + bs ext no edema neuro- a,a, o x 3, no asterixis Data : 02/19/22 04:23 02/19/22 04:23 A&P Assessment and plan (1) Acute kidney injury superimposed on CKD: 66 yr old man 1. CKD likely stage 5. cr has improved since d/c. however, pt c/o weakness, uremia, weight loss -monitor chem 7 -attempt to collect a 24 hr ur cr clearance - hold NOAC- as pt will likely need HD soon -repeat ua -repeat renal us -pending -no emergent need for HD -ideal would be to place a [place]- [place] [facility] [place] 2. renal- bone- mineral- metabolism- check vit d, pth 250- calcitriol -normal phosphorus 3. hyponatremia- check tsh, cortisol checj ur na osm, cr -improved w/ IVF- monitor off ivf 4. CHF- EF of 40%- d/c ivf and monitor 5.? htn-BP well controlled avoid edilberto-i/ arb 6. recent DVT of lower extrmeities- -02-02-22- us-.Features of possible acute deep veins thrombosis involving the ?right femoral vein causing total occlusion.? The popliteal, ?peroneal and posterior tibial veins were found to be patent. 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 The popliteal, peroneal ?and the posterior tibial veins on the left leg were found to be ?patent. please hold NOAC as may need a dialysis catheter. can use heparin drip 7. anemia- ferritin 648, % sat 41- use epo 8 .h/o COVID 9. hyperuricemia- check muric acid on allopurinol 10. no metformin w/ CKD stage 5 seen and examined w/ RN- telehealth visit time spent 30 min Status: Acute Plan see above Attestations Medical Necessity Statement*: renal failure, hyponatremia, anemia Time Spent in Patient Care: 16 - 35 minutes (>than 50% of time spent in counselling and/or direct pt care on unit). Coding Level of Care Code Acute Civil Laboratory Technician for Devin Murray Diagnoses Acute kidney injury superimposed on CKD N17.9; N18.9
[2022-02-19] MEDS: sevelamer 800 mg Tablet 1600 MG PO ×3 (10:39→22:06)
[2022-02-19] MEDS: amlodipine 5 mg Tablet PO (10:40)
[2022-02-19] MEDS: allopurinol 100 mg Tablet PO (10:40)
[2022-02-19] MEDS: b-complex-vitamin c Tablet 1 EACH PO (10:41)
[2022-02-19] MEDS: sodium bicarbonate 650 mg Tablet PO ×3 (10:41→22:06)
[2022-02-19] MEDS: tamsulosin 0.4 mg Capsule PO (10:41)
[2022-02-19 10:53] LABS: Glucose Point of Care 103 mg/dL (70-110)
[2022-02-19 11:25] VITALS: BP 123/63; PULSE 74; RESP 18; TEMP 36.4; O2SAT 99
--- NOTE | 2022-02-19 12:55 | P.PN_ITS ---
Subjective Subjective: There is plan to monitor his urine output, creatinine with 24-hour urine collection He might need dialysis catheter during this hospitalization, however hold anticoagulating agent for now Nephro recommendations appreciated Creatinine 6.4 Minimal urine output, anuric Vitals/I&O/Wt Last Vital Signs Temp 97.6 F 02/19/22 11:25 Pulse 74 02/19/22 11:25 Resp 18 02/19/22 11:25 BP 123/63 02/19/22 11:25 Pulse Ox 99 02/19/22 11:25 02/18/22 02/19/22 02/19/22 22:59 06:59 14:59 Intake Total 300 / 300 1041.667 / 1341.667 715 / 715 Output Total 0 / 0 Balance 300 / 300 1041.667 / 1341.667 715 / 715 Weight last 48 hrs Weight 72.575 kg Weight 72.575 kg Physical Exam Narrative: Patient lying comfortably in his bed Euvolemic No signs of edema Nonfocal neuro exam Saturating well on room air S1, S2 Abdomen soft Very pleasant cooperative during my evaluation EOMI, PERRLA Awake and alert Data : 02/19/22 04:23 02/19/22 04:23 A&P Assessment and plan (1) Acute kidney injury superimposed on CKD: Status: Acute (2) ESRD needing dialysis: Status: Acute Plan Acute on chronic kidney disease Creatinine 6.4 Patient is anuric Monitoring urine output for next 24 hours Nephro recommendations reviewed and appreciated Nephro recommended AV fistula formation, but in the interim if he requires dialysis we will arrange that while he is here, hold off on anticoagulating agent Mineral and electrolyte replenishment as per nephro recommendations Plan to continue monitoring his electrolytes off IV fluids EF 40% Avoid BARON and ARB at this point, For his back pain and diabetes patient was stating that he should get metformin and steroids both of these medications are contraindicated at this point considering his poor kidney function DVT, hold anticoagulating agent for now Hemoglobin stable engineering design manager updated, patient does not have insurance, applied for financial assistance during last visit Renal diet SCDs Attestations Medical Necessity Statement*: Continue medical management Time Spent in Patient Care: 20 Coding Level of Care Code Acute Network Technology Instructor for g Fwd Diagnoses Acute kidney injury superimposed on CKD N17.9; N18.9 ESRD needing dialysis N18.6; Z99.2
[2022-02-19 13:57] LABS: Estmated Average Glucose 128; Hemoglobin A1C 6.1 % (4.0-6.0)
[2022-02-19 15:38] VITALS: BP 128/71; PULSE 82; RESP 16; TEMP 36.4; O2SAT 100
[2022-02-19 17:28] LABS: Glucose Point of Care 150 mg/dL (70-110)
[2022-02-19] MEDS: insulin lispro 100 unit/1 mL SUBCUT ×2 (17:45→22:06)
[2022-02-19 19:57] VITALS: BP 125/76; PULSE 79; RESP 16; TEMP 36.7; O2SAT 99
--- NOTE | 2022-02-19 20:22 | US_ITS ---
WS: [id number] RENAL ULTRASOUND HISTORY: kunal COMPARISON: 02/02/2022 TECHNIQUE: 2-D and color Doppler imaging of the kidney submitted. Right kidney: 7.6 cm x 5.1 cm x 5.0 cm. Atrophied kidney with diffuse increased echogenicity. Loss of the cortical medullary differentiation. No obstruction or solid mass. There are a few small cortical cysts, largest measures 1.1 cm at its m aximum diameter in the mid kidney. Left kidney: 8.4 cm x 4.1 cm x 4.7 cm. Atrophied kidney with diffuse increased echogenicity. No hydronephrosis or solid mass identified. Aorta: Mild atherosclerosis. Urinary Bladder: Normally distended urinary bladder. No intraluminal filling defect. Prostate gland i s very mildly prominent. Prostate measures 3.0 x 2.4 x 4.5 cm. No encroachment into the bladder. US/US renal BI* [id number] IMPRESSION: 1. Bilateral small kidneys with atrophy. 2. Moderate chronic medical renal disease. No hydronephrosis.
--- NOTE | 2022-02-19 20:22 | USCV_ITS ---
Robert Montano Age: 66 Gender: M : 1955 Exam Date: 02/19/2022 08:02 Ordering Phys: Rober Khoury MD Technologist: Taniya Mcnulty [place] [facility] [place]ication: sob and chf BP: 132 / 76 HR: 73 Rhythm: Sinus Technical Quality: Adequate MEASUREMENTS (Male / Female) Normal Values 2D ECHO LV Diastolic Diameter PLAX 5.3 cm 4.2 - 5.9 / 3.9 - 5.3 cm LV Systolic Diameter PLAX 5.1 cm LV Chamber Size 4.3 cm IVS Diastolic Thickness 1.4 cm 0.6 - 1.0 / 0.6 - 0.9 cm IVS Systolic Thickness 1.6 cm LVPW Diastolic Thickness 1.9 cm 0.6 - 1.0 / 0.6 - 0.9 cm LVPW Systolic Thickness 1.6 cm RV Chamber Size 4.3 cm LVOT Diameter 2.0 cm LV Ejection Fraction 2D Teich 17.6 % LV Ejection Fraction MOD 2C 48.0 % LV Ejection Fraction 2C AL 48.1 % LA Diameter 4.2 cm LA Width 3.2 cm LA Height 4.6 cm RA Width 3.3 cm RA Height 4.0 cm Aorta at Sinotubular Diameter 3.9 cm M-MODE Aortic Annulus Diameter 4.0 cm LA Ao Ratio MM 1.0 MV E Point Septal Separation 1.3 cm DOPPLER AV Peak Velocity 89.0 cm/s LVOT Peak Velocity 76.0 cm/s AV Area Cont Eq vti 4.0 cm squared AV Area Cont Eq pk 2.7 cm squared MV Area PHT 8.1 cm squared Mitral E to A Ratio 0.5 MV E' Velocity 26.5 cm/s Mitral E to MV E' Ratio 10.2 Mitral E to LV E' Lateral Ratio 9.6 Mitral E to LV E' Septal Ratio 10.9 TR Peak Velocity 136.8 cm/s TR Peak Gradient 7.5 mmHg TR Mean Velocity 108.2 cm/s TR Mean Gradient 5.0 mmHg TR Velocity Time Integral 43.3 cm TV Peak E Velocity 53.0 cm/s Right Atrial Pressure 3.0 mmHg Pulmonary Artery Systolic Pressu 10.5 mmHg PV Peak Velocity 73.0 cm/s RV Acceleration Time 0.2 s RV Ejection Time 0.3 s RV AcT/ET 0.5 FINDINGS Left Ventricle Mildly increased left ventricular cavity size. Moderately decreased left ventricular systolic function. Left ventricular ejection fraction is estimated at 30 %. Moderate global hypokinesis. Grade I diastolic dysfunction (abnormal relaxation filling pattern), normal to mildly elevated filling pressures. Abnormal septal motion consistent with conduction abnormality. Right Ventricle Normal right ventricular size and systolic function. RVSP could not be calculated due to incomplete tricuspid regurgitation velocity profile. Right Atrium Normal right atrial size. Left Atrium Mildly increased left atrial size. Mitral Valve Mild mitral annular calcification. Structurally normal mitral valve. No mitral valve stenosis. Trace mitral valve regurgitation. Aortic Valve Structurally normal trileaflet aortic valve. No aortic valve stenosis. No aortic valve regurgitation. Tricuspid Valve Structurally normal tricuspid valve. No significant tricuspid valve regurgitation. Pulmonic Valve Pulmonic valve not well visualized. No pulmonary valve stenosis. Trace pulmonary valve regurgitation. Pericardium No pericardial effusion. Aorta Normal-sized aortic root. CONCLUSIONS 1. Mildly increased left ventricular cavity size. Moderately decreased left ventricular systolic function. Left ventricular ejection fraction is estimated at 30 %. Moderate global hypokinesis. Grade I diastolic dysfunction (abnormal relaxation filling pattern), normal to mildly elevated filling pressures. Abnormal septal motion consistent with conduction abnormality. 2. Normal right ventricular size and systolic function. 3. Mildly increased left atrial size. 4. When compared to previous echocardiogram dated 02/02/2022, left ventricle systolic function seems to have decreased. Gloria Watson MD (Electronically Signed) Final Date: 19 February 2022 13:11 S
--- NOTE | 2022-02-19 20:29 | PC.NURSE ---
Pt. laying in bed, comfortable, no needs or complaints expressed at this time.
[2022-02-19 23:45] LABS: Glucose Point of Care 91 mg/dL (70-110)
[2022-02-19 23:45] LABS: Glucose Point of Care 132 mg/dL (70-110)
[2022-02-19 23:45] LABS: Glucose Point of Care 127 mg/dL (70-110)
[2022-02-19 23:52] VITALS: BP 144/76; PULSE 82; RESP 16; TEMP 36.6; O2SAT 99
[2022-02-20 00:50] LABS: Total Volume Urine 1100 ml
[2022-02-20 01:05] LABS: Urine Creatinine 94 mg/dL (39-259)
[2022-02-20 04:00] VITALS: PULSE 77; RESP 16; TEMP 36.6; O2SAT 99
[2022-02-20 05:16] LABS: Basophils # 0.1 10^3/uL (0.0-0.1); Basophils % 1.1 %; Eosinophils # 0.2 10^3/uL (0.0-0.8); Eosinophils % 2.4 %; Hematocrit 29.7 % (42.0-52.0); Hemoglobin 9.5 g/dL (11.7-16.6); Lymphocytes % 13.3 %; Mean Corpuscular Hemoglobin 29.1 pg (28.0-34.0); Mean Corpuscular Volume 90.8 fl (80-94); Mean Platelet Volume 9.6 fL (7.4-10.4); Monocytes # 0.5 10^3/uL (0.2-0.9); Monocytes % 7.5 %; Neutrophils # 5.44 10^3/uL (1.8-7.7); Neutrophils % 75.4 %; Nucleated Red Blood Cells % 0 %; Platelet Count 357 10^3/cmm (130-400); Red Blood Count 3.27 10^6/uL (4.1-5.3); Red Cell Distribution Width 13.7 % (12.1-15.1); White Blood Count 7.2 10^3/uL (4.0-10.0)
[2022-02-20 05:32] LABS: Alanine Aminotransferase 6 U/L (0-41); Albumin Level 3.2 g/dL (3.5-5.2); Alkaline Phosphatase 117 IU/L (40-130); Anion Gap 16.1 (5-19); Aspartate Amino Transferase 9 U/L (0-40); Blood Urea Nitrogen 53 mg/dL (8-23); Calcium 8.3 mg/dL (8.5-10.5); Carbon Dioxide 25 mmol/L (22-29); Chloride 94 mmol/L (98-107); Globulin 2.9 g/dL (1.3-4.6); Glomerular Filtration Rate 8.7 mL/min (90-130); Glucose 84 mg/dL (65-115); Magnesium 1.7 mg/dL (1.7-2.3); Osmolality Calculated 286 mOsm/kg (285-295); Phosphorus 4.8 mg/dL (2.5-4.5); Potassium 4.1 mmol/L (3.5-5.1); Sodium 131 mmol/L (136-145); Total Bilirubin 0.3 mg/dL (0.15-1.2); Total Protein 6.1 g/dL (6.6-8.7); Uric Acid 6.3 mg/dL (3.4-7.0)
[2022-02-20 06:45] LABS: Glucose Point of Care 91 mg/dL (70-110)
[2022-02-20 08:00] VITALS: BP 123/72; PULSE 82; RESP 18; TEMP 36.8; O2SAT 98
--- NOTE | 2022-02-20 08:11 | PM.PN ---
Subjective Subjective: feels better. wants to go home. states he will do dialysis when life or Medications: Reviewed: Yes Medication Review Details: Current Medications Allopurinol (Allopurinol 100 Mg Tablet) 100 mg PO DAILY [facility] Last Admin: 02/19/22 10:40 Dose: 100 mg Documented by: Amlodipine Besylate (Amlodipine 5 Mg Tablet) 5 mg PO DAILY [facility] Last Admin: 02/19/22 10:40 Dose: 5 mg Documented by: Dextrose (Dextrose 50% Syringe 50 Ml) 25 ml IVP ONCE PRN; Protocol PRN Reason: hypoglycemia protocol Dextrose (Dextrose 50% Syringe 50 Ml) 50 ml IVP PRN PRN; Protocol PRN Reason: hypoglycemia protocol Epoetin Shashi (Epoetin Shashi 10,000 Unit/Ml Inj) 10,000 unit SUBCUT WEEKLY [facility] Glucagon (Glucagon 1 Mg/Ml Inj 1 Ml) 1 mg IM ONCE PRN; Protocol PRN Reason: Adult Acute Hypoglycemia Prot. Dextrose (D5w) 500 mls @ 100 mls/hr IV ONCE PRN; Protocol PRN Reason: Adult Acute Hypoglycemia Prot Insulin Human Lispro (Insulin Lispro 100 Unit/1 Ml) 0 unit SUBCUT AC&BEDTIME [facility]; Protocol Last Admin: 02/19/22 22:06 Dose: 3 unit Documented by: Multivitamins (V-Fcotlyt-Xplxygp C Tablet) 1 each PO DAILY [facility] Last Admin: 02/19/22 10:41 Dose: 1 each Documented by: Sevelamer Carbonate (Sevelamer 800 Mg Tablet) 1,600 mg PO TID [facility] Last Admin: 02/19/22 22:06 Dose: 1,600 mg Documented by: Sodium Bicarbonate (Sodium Bicarbonate 650 Mg Tablet) 650 mg PO TID [facility] Last Admin: 02/19/22 22:06 Dose: 650 mg Documented by: Tamsulosin HCl (Tamsulosin 0.4 Mg Capsule) 0.4 mg PO DAILY [facility] Last Admin: 02/19/22 10:41 Dose: 0.4 mg Documented by: Vitals/I&O/Wt Last Vital Signs Temp 97.8 F 02/20/22 04:00 Pulse 77 02/20/22 04:00 Resp 16 02/20/22 04:00 BP 144/76 02/19/22 23:52 Pulse Ox 99 02/20/22 04:00 02/19/22 02/20/22 02/20/22 22:59 06:59 14:59 Intake Total 145 / 860 Output Total 550 / 550 175 / 725 Balance -405 / 310 -175 / 135 Weight last 48 hrs Weight 72.575 kg Weight 72.575 kg Physical Exam Narrative: comfortable in bed, NARD vss heent- nc/at, eomi, anicteric neck supple lungs clear heart reg abd soft, nt, nd, + bs ext no edema neuro- a,a, o x 3, no asterixis Data : 02/20/22 04:49 02/20/22 04:49 A&P Assessment and plan (1) Acute kidney injury superimposed on CKD: 66 yr old man 1. CKD likely stage 5. cr has improved since d/c to likely new baseline of 6.5 -i recommend a AVF. pt does not seem to want to get one -i explained that w/o a AVF he will need a permacath when we initiate HD- and higher risk of infection.\ - no emergent indication for HD at this time -monitor chem 7, uop -renal us w/ atrophic kidmeys 2. renal- bone- mineral- metabolism- check vit d 5- replete, pth 250- calcitriol -normal phosphorus 3. hyponatremia- check tsh, cortisol stable 4. CHF- EF of 30%- down from 40%. once on HD, can start an ARB 5.? htn-BP well controlled avoid edilberto-i/ arb 6. recent DVT of lower extrmeities- -02-02-22- us-.Features of possible acute deep veins thrombosis involving the ?right femoral vein causing total occlusion.? The popliteal, ?peroneal and posterior tibial veins were found to be patent. 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 The popliteal, peroneal ?and the posterior tibial veins on the left leg were found to be ?patent. 7. anemia- ferritin 648, % sat 41- use epo 8 .h/o COVID 9. hyperuricemia- uric acid 6.3- controlled on allopurinol 10. no metformin w/ CKD stage 5 seen and examined w/ RN- telehealth visit time spent 30 min Status: Acute Plan see above Attestations Medical Necessity Statement*: ckd stage 5, anemia Time Spent in Patient Care: 16 - 35 minutes (>than 50% of time spent in counselling and/or direct pt care on unit). Coding Level of Care Code Acute Resident Caregiver for Chg Fwd Diagnoses Acute kidney injury superimposed on CKD N17.9; N18.9
--- NOTE | 2022-02-20 09:27 | P.PN_ITS ---
Subjective Subjective: Poor ejection fraction 30% kidney GFR around 12 Patient is agreeable to start dialysis, he is agreeable for tunneled dialysis catheter placement, will call general surgeon I did speak with Dr. Aranda as well Once dialysis catheter has been placed we will call cardiology for further investigation I did speak with his friend after his permission, patient is living in a very poor home condition, there is no other family member, her aunt lives in [place], he is estranged from his daughter Vitals/I&O/Wt Last Vital Signs Temp 97.8 F 02/20/22 04:00 Pulse 77 02/20/22 04:00 Resp 16 02/20/22 04:00 BP 144/76 02/19/22 23:52 Pulse Ox 99 02/20/22 04:00 02/19/22 02/20/22 02/20/22 22:59 06:59 14:59 Intake Total 145 / 860 Output Total 550 / 550 175 / 725 Balance -405 / 310 -175 / 135 Weight last 48 hrs Weight 72.575 kg Weight 72.575 kg Physical Exam Narrative: Pleasant cooperative patient Laying comfortable Looks euvolemic S1, S2 Abdomen soft Saturating well on room air No signs of edema Appropriate mood and affect Capacity to make decision intact Data : 02/20/22 04:49 02/20/22 04:49 A&P Assessment and plan (1) Acute kidney injury superimposed on CKD: Status: Acute (2) Cardiomyopathy: Status: Acute Plan Patient is agreeable for dialysis, will vascular surgeon for tunneled dialysis catheter placement Dr. Aranda notified Patient does not want to go to [place] for AV fistula placement We will update block and case maker No active hyperkalemia, fluid overload, patient has made 750 mL in last 24 hours he is not oliguric, no acute indication for hemodialysis however considering GFR of 12, if we discharged him he will come back within few days and at that time he might need urgent intervention which we are trying to prevent get tunnel catheter placed during this admission, he will also need cardiac work-up for cardiomyopathy, patient is denying previous TN or CHF He lives alone, home conditions are poor, estranged from his daughter, and lives in [place], there are 2 friends who would check on him, very poor social structure for this patient which will make his disposition and outpatient hemodialysis a challenge, this was discussed with the patient and his friend Attestations Medical Necessity Statement*: Continue medical management Time Spent in Patient Care: 20mins Coding Level of Care Code Acute Engineering Operator for Chg Fwd Diagnoses Acute kidney injury superimposed on CKD N17.9; N18.9 Cardiomyopathy I42.9
[2022-02-20] MEDS: sevelamer 800 mg Tablet 1600 MG PO ×3 (10:37→20:21)
[2022-02-20] MEDS: tamsulosin 0.4 mg Capsule PO (10:37)
[2022-02-20] MEDS: b-complex-vitamin c Tablet 1 EACH PO (10:37)
[2022-02-20] MEDS: sodium bicarbonate 650 mg Tablet PO ×3 (10:38→20:21)
[2022-02-20] MEDS: allopurinol 100 mg Tablet PO (10:38)
[2022-02-20] MEDS: amlodipine 5 mg Tablet PO (10:38)
[2022-02-20 12:00] VITALS: BP 133/71; PULSE 79; RESP 18; TEMP 36.8; O2SAT 96
[2022-02-20] MEDS: insulin lispro 100 unit/1 mL SUBCUT (12:27)
[2022-02-20 16:00] VITALS: BP 133/71; PULSE 81; RESP 16; TEMP 36.8; O2SAT 95
--- NOTE | 2022-02-20 19:02 | PM.CONSULT ---
Providers/Reason For Consult Consulting Physician/Specialty*: Davon King MD Reason for Consult*: Hemodialysis access Requesting Physician: Dr. Jacobs Attending Physician: Francy Jacobs MD History of Present Illness History of Present Illness Chief Complaint: I am okay with dialysis History of present illness: Mr.Raymond Rhys Montano is a 66 year old male With multiple medical comorbidities including but not limited diabetes mellitus type 2, hypertension, arrhythmias and history of refusing previous placement of hemodialysis catheter at previous hospitalization. With a current ejection fraction 30%. MIKHAIL on CKD stage 5.Per nephrology evaluation. General surgery was consulted for placement of tunneled hemodialysis catheter Review of Systems General: Reports: 10 or more systems reviewed and unremarkable except in HPI and below Medications/Allergies Home Medications Medication Instructions Recorded Confirmed Last Taken Type allopurinol 100 mg tablet 100 mg PO DAILY 30 Days #30 tab 02/07/22 02/18/22 02/17/22 Rx amlodipine 5 mg tablet 5 mg PO DAILY 30 Days #30 tab 02/07/22 02/18/22 02/17/22 Rx apixaban 5 mg tablet (Eliquis) 5 mg PO BID@0900,2100 30 Days #60 02/07/22 02/18/22 02/17/22 Rx tab cholecalciferol (vitamin D3) 125 125 mcg PO DAILY 30 Days #30 cap 02/07/22 02/18/22 02/17/22 Rx mcg (5,000 unit) capsule sevelamer carbonate 800 mg tablet 1,600 mg PO TID 30 Days #180 tab 02/07/22 02/18/22 02/17/22 Rx sodium bicarbonate 650 mg tablet 650 mg PO TID 30 Days #90 tab 02/07/22 02/18/22 02/17/22 Rx tamsulosin 0.4 mg capsule 0.4 mg PO DAILY 30 Days #30 cap 02/07/22 02/18/22 02/17/22 Rx Allergies Allergy/AdvReac Type Severity Reaction Status Date / Time No Known Allergies Allergy Verified 02/22/22 13:56 Current Medications Generic Name Dose Route Start Last Admin Trade Name Freq PRN Reason Stop Dose Admin Allopurinol 100 mg 02/19/22 09:00 02/20/22 10:38 Allopurinol 100 Mg Tablet PO 100 mg DAILY [facility] Administration Amlodipine Besylate 5 mg 02/19/22 09:00 02/20/22 10:38 Amlodipine 5 Mg Tablet PO 5 mg DAILY [facility] Administration Insulin Human Lispro 0 unit 02/19/22 07:00 02/20/22 18:41 Insulin Lispro 100 Unit/1 Ml SUBCUT Not Given AC&BEDTIME [facility] Protocol Multivitamins 1 each 02/19/22 09:00 02/20/22 10:37 M-Skhyufr-Uxijzfs C Tablet PO 1 each DAILY [facility] Administration Sevelamer Carbonate 1,600 mg 02/18/22 21:29 02/20/22 15:55 Sevelamer 800 Mg Tablet PO 1,600 mg TID [facility] Administration Sodium Bicarbonate 650 mg 02/18/22 21:29 02/20/22 15:55 Sodium Bicarbonate 650 Mg Tablet PO 650 mg TID [facility] Administration Tamsulosin HCl 0.4 mg 02/19/22 09:00 02/20/22 10:37 Tamsulosin 0.4 Mg Capsule PO 0.4 mg DAILY [facility] Administration PFSH Acute PFSH: Medical History Acute confusion Acute kidney injury Acute kidney injury superimposed on CKD MIKHAIL (acute kidney injury) CKD (chronic kidney disease) Diabetes DVT of lower extremity (deep venous thrombosis) Elevated d-dimer Fluid overload History of COVID-19 Hypertension Metabolic acidosis Pulmonary infiltrate on chest x-ray Tachycardia Troponin level elevated Surgical History No pertinent past surgical history Family History Other No significant family history Social History Smoking and tobacco status: never smoked Alcohol intake: never Lives independently: Yes Household members: none Marital status details: Rather estranged with daughter Current occupational status: other Details: Recently employed, stopped working when started feeling unwell several wks Vitals/I&O/Wt Last Vital Signs Temp 98.3 F 02/20/22 16:00 Pulse 81 02/20/22 16:00 Resp 16 02/20/22 16:00 BP 133/71 02/20/22 16:00 Pulse Ox 95 02/20/22 16:00 02/20/22 02/20/22 02/20/22 06:59 14:59 22:59 Intake Total 838 / 838 Output Total 175 / 725 Balance -175 / 135 838 / 838 Weight last 48 hrs Weight 160 lb 6 oz Weight 160 lb Physical Exam Const: COMMON NORMALS: no acute distress and patient oriented x3 GENERAL APPEARANCE: cooperative ORIENTATION/CONSCIOUSNESS: Yes awake, Yes oriented to person, Yes oriented to place and Yes oriented to time HENMT: COMMON NORMALS: normocephalic HEAD & SCALP: normocephalic Eye: COMMON NORMALS: Equal, round and reactive pupils present and no scleral icterus PUPIL: Yes Equal, round and reactive pupils present Lymph: LYMPHATIC: no lymphadenopathy noted Chest: COMMONS NORMALS: normal inspection of the chest Resp: COMMON NORMALS: normal respiratory effort and clear to auscultation bilaterally AUSCULTATION: clear to auscultation bilaterally Cardio: COMMON NORMALS: S1 normal heart sound present and S2 normal heart sound present; negative for No murmurs present (Cardio) HEART SOUNDS: S1 normal heart sound present and S2 normal heart sound present GI: COMMON NORMALS: Soft to palpation; negative for No hepatosplenomegaly present INSPECTION: Yes normal to inspection PALPATION: Yes Soft to palpation, No Firmness to palpation present (GI), No Tenderness to palpation present (GI), No Guarding due to palpation present (GI), No Rigid due to palpation and No No hepatosplenomegaly present Neuro: COMMON NORMALS: patient oriented x3 SENSORIUM/ORIENTATION: Yes oriented to person, Yes oriented to place and Yes oriented to time Psych: COMMON NORMALS: mental status grossly normal Skin: COMMON NORMALS: no rashes or lesions noted GENERAL SKIN EXAM: no rashes or lesions noted Data : 02/21/22 04:32 02/22/22 01:40 A&P Assessment and plan (1) Acute kidney injury superimposed on CKD: Plan of care; After thorough history physical examination and reviewing the chart and reviweing the images with my personal intrepretation.I counseled the patient for tunneled hemodialysis catheter placement, indications, risks including possibility of , stroke, heart attack, major bleeding, infection, pneumonia, organ failure, failure to benefit, prolonged hospital stay, pain after the procedure pneumothorax that may require Chest tube(s) placement and potential injury of major vascular structures that may require Thoractomy, benefits,indications and alternatives were all discussed with the patient, patient understands and is interested to proceed. Rationale was carefully and clearly discussed with the patient.Appropriate informed consent have been reviewed and signed. Pending medical clearance to proceed with placement of the hemodialysis catheter. Status: Acute Coding Level of Care Code Acute Cluster Bore Operator for [facility] Fwd Exam Comprehensive Diagnoses Acute kidney injury superimposed on CKD N17.9; N18.9
[2022-02-20 20:00] VITALS: BP 129/71; PULSE 85; RESP 18; TEMP 37; O2SAT 99
[2022-02-20 20:20] LABS: Glucose Point of Care 97 mg/dL (70-110)
[2022-02-20 20:20] LABS: Glucose Point of Care 160 mg/dL (70-110)
[2022-02-20 20:32] LABS: Glucose Point of Care 135 mg/dL (70-110)
[2022-02-21] VITALS: BP 123/70; PULSE 79; RESP 16; TEMP 36.6; O2SAT 97
[2022-02-21 04:00] VITALS: BP 126/79; PULSE 77; RESP 18; TEMP 36.7; O2SAT 97
[2022-02-21 05:06] LABS: Basophils # 0.1 10^3/uL (0.0-0.1); Basophils % 1.2 %; Eosinophils # 0.2 10^3/uL (0.0-0.8); Eosinophils % 3.8 %; Hematocrit 29.9 % (42.0-52.0); Hemoglobin 9.4 g/dL (11.7-16.6); Lymphocytes # 0.9 10^3/uL (0.8-4.8); Lymphocytes % 14.5 %; Mean Corpuscular HGB Conc 31.4 g/dL (30.0-36.0); Mean Corpuscular Hemoglobin 29.1 pg (28.0-34.0); Mean Corpuscular Volume 92.6 fl (80-94); Mean Platelet Volume 9.7 fL (7.4-10.4); Monocytes # 0.5 10^3/uL (0.2-0.9); Monocytes % 7.5 %; Neutrophils # 4.33 10^3/uL (1.8-7.7); Neutrophils % 72.5 %; Nucleated Red Blood Cells % 0 %; Platelet Count 348 10^3/cmm (130-400); Red Blood Count 3.23 10^6/uL (4.1-5.3); Red Cell Distribution Width 13.9 % (12.1-15.1)
[2022-02-21 05:24] LABS: Alanine Aminotransferase 6 U/L (0-41); Albumin Level 3.1 g/dL (3.5-5.2); Alkaline Phosphatase 115 IU/L (40-130); Anion Gap 15.5 (5-19); Aspartate Amino Transferase 11 U/L (0-40); Blood Urea Nitrogen 53 mg/dL (8-23); Calcium 8.2 mg/dL (8.5-10.5); Carbon Dioxide 26 mmol/L (22-29); Chloride 97 mmol/L (98-107); Globulin 2.8 g/dL (1.3-4.6); Glucose 90 mg/dL (65-115); Magnesium 1.7 mg/dL (1.7-2.3); Osmolality Calculated 292 mOsm/kg (285-295); Phosphorus 4.2 mg/dL (2.5-4.5); Potassium 4.5 mmol/L (3.5-5.1); Sodium 134 mmol/L (136-145); Total Bilirubin 0.2 mg/dL (0.15-1.2); Total Protein 5.9 g/dL (6.6-8.7)
[2022-02-21 06:17] LABS: Glucose Point of Care 119 mg/dL (70-110)
[2022-02-21 07:20] VITALS: BP 131/70; PULSE 81; RESP 18; TEMP 36.5; O2SAT 97
--- NOTE | 2022-02-21 08:10 | P.PN_ITS ---
Subjective Subjective: no new complaints. Medications: Reviewed: Yes Medication Review Details: Current Medications Allopurinol (Allopurinol 100 Mg Tablet) 100 mg PO DAILY [facility] Last Admin: 02/20/22 10:38 Dose: 100 mg Documented by: Amlodipine Besylate (Amlodipine 5 Mg Tablet) 5 mg PO DAILY [facility] Last Admin: 02/20/22 10:38 Dose: 5 mg Documented by: Dextrose (Dextrose 50% Syringe 50 Ml) 25 ml IVP ONCE PRN; Protocol PRN Reason: hypoglycemia protocol Dextrose (Dextrose 50% Syringe 50 Ml) 50 ml IVP PRN PRN; Protocol PRN Reason: hypoglycemia protocol Epoetin Shashi (Epoetin Shashi 10,000 Unit/Ml Inj) 10,000 unit SUBCUT WEEKLY [facility] Glucagon (Glucagon 1 Mg/Ml Inj 1 Ml) 1 mg IM ONCE PRN; Protocol PRN Reason: Adult Acute Hypoglycemia Prot. Dextrose (D5w) 500 mls @ 100 mls/hr IV ONCE [facility]N; Protocol PRN Reason: Adult Acute Hypoglycemia Prot Insulin Human Lispro (Insulin Lispro 100 Unit/1 Ml) 0 unit SUBCUT AC&BEDTIME [facility]; Protocol Last Admin: 02/21/22 06:38 Dose: Not Given Documented by: Multivitamins (N-Xuqdlud-Tpicgrp C Tablet) 1 each PO DAILY [facility] Last Admin: 02/20/22 10:37 Dose: 1 each Documented by: Sevelamer Carbonate (Sevelamer 800 Mg Tablet) 1,600 mg PO TID [facility] Last Admin: 02/20/22 20:21 Dose: 1,600 mg Documented by: Sodium Bicarbonate (Sodium Bicarbonate 650 Mg Tablet) 650 mg PO TID [facility] Last Admin: 02/20/22 20:21 Dose: 650 mg Documented by: Tamsulosin HCl (Tamsulosin 0.4 Mg Capsule) 0.4 mg PO DAILY [facility] Last Admin: 02/20/22 10:37 Dose: 0.4 mg Documented by: Vitals/I&O/Wt Last Vital Signs Temp 97.7 F 02/21/22 07:20 Pulse 81 02/21/22 07:20 Resp 18 02/21/22 07:20 BP 131/70 02/21/22 07:20 Pulse Ox 97 02/21/22 07:20 02/20/22 02/21/22 02/21/22 22:59 06:59 14:59 Intake Total 360 / 1198 500 / 1698 0 / 0 Output Total 500 / 500 325 / 825 100 / 100 Balance -140 / 698 175 / 873 -100 / -100 Weight last 48 hrs Weight 72.745 kg Weight 72.575 kg Physical Exam Narrative: comfortable in bed, NARD vss heent- nc/at, eomi, anicteric neck supple lungs clear heart reg abd soft, nt, nd, + bs ext no edema neuro- a,a, o x 3, no asterixis Data : 02/21/22 04:32 02/21/22 04:32 A&P Assessment and plan (1) Acute kidney injury superimposed on CKD: 66 yr old man 1. CKD likely stage 5. -pt has a low EF. in order to investigate his CHF and maximize his therapy- we will start HD. Pt consents -then Cardiac cindy, followed bu outpta AVF. hd x 2 hrs 3k, remove min fluid. repeat HD on Sat -monitor chem 7, uop -renal us w/ atrophic kidneys 2. renal- bone- mineral- metabolism- check vit d 5- replete, pth 250- zemplar on hd -normal phosphorus 3. hyponatremia- normal tsh, -cortisol a little low. consider cosyntropin stim tets. however his na is improving 4. CHF- EF of 30%- down from 40%. once on HD, can start an ARB 5.? htn-BP well controlled 6. recent DVT of lower extrmeities- -02-02-22- us-.Features of possible acute deep veins thrombosis involving the ?right femoral vein causing total occlusion.? The popliteal, ?peroneal and posterior tibial veins were found to be patent. 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 The popliteal, peroneal ?and the posterior tibial veins on the left leg were found to be ?patent. 7. anemia- ferritin 648, % sat 41- use epo 8 .h/o COVID 9. hyperuricemia- uric acid 6.3- controlled on allopurinol 10. no metformin w/ CKD stage 5 seen and examined w/ RN- telehealth visit time spent 30 min Status: Acute Plan see above Attestations Medical Necessity Statement*: ckd, anemia, chf Time Spent in Patient Care: 16 - 35 minutes (>than 50% of time spent in counselling and/or direct pt care on unit) . Coding Level of Care Code Acute Respiratory Physician for Chg Fwd Diagnoses Acute kidney injury superimposed on CKD N17.9; N18.9
[2022-02-21] MEDS: b-complex-vitamin c Tablet 1 EACH PO (08:30)
[2022-02-21] MEDS: amlodipine 5 mg Tablet PO (08:30)
[2022-02-21] MEDS: tamsulosin 0.4 mg Capsule PO (08:30)
[2022-02-21] MEDS: sevelamer 800 mg Tablet PO ×3 (08:30→20:59)
[2022-02-21] MEDS: allopurinol 100 mg Tablet PO (08:30)
--- NOTE | 2022-02-21 08:34 | PC.NURSE ---
Patient arguing with nurse about NPO status and asking for Sprite or Coke instead of sips of water with medications. Patient again educated on need to be NPO for surgery.
[2022-02-21 09:19] LABS: Hepatitis B Surface Antigen Non-Reactive (Nonreactive)
[2022-02-21 09:21] LABS: Hepatitis B Surface AB < 3.5 (11.5-1000)
[2022-02-21 10:57] VITALS: BP 122/70; PULSE 76; RESP 16; TEMP 36.9; O2SAT 98
--- NOTE | 2022-02-21 12:15 | ECG_ITS ---
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 Interpretive Statements NAME OF STUDY: LEXISCAN SESTAMIBI STRESS TEST INDICATION: Reduced LV function PROCEDURE: At the baseline, the blood pressure was 89/50 mmHg with a heart rate of 92 bpm. The electrocardiogram showed normal sinus rhythm, normal axis. Poor anterior R wave progression. Nonspecific T wave inversion in lead I and aVL. The Lexiscan was infused over a period of 20 seconds. A total of 0.4 milligrams of Lexiscan was infused. The stress phase was continued for a total of 5 minutes. Heart rate at the end of the stress phase was 88 bpm with a blood pressure of 106/53 mmHg. The EKG at the peak infusion revealed sinus rhythm with no significant ST-T wave changes. The study was terminated to protocol completion. Isolated PVCs noted in early recovery. Sestamibi was injected 20 seconds after the Lexiscan infusion. Blood pressure at the end of the recovery phase was 110/57 mmHg with a heart rate of 86 beats per minute. CONCLUSION: 1. No significant EKG changes with the LexiScan infusion. 2. No LexiScan induced chest pain or cardiac arrhythmia. 3. Normal blood pressure and heart rate response. 4. Sestamibi/sestamibi perfusion scan pending; see separate report. Electronically Signed On 02-22-2022 13:47:31 CDT by Gloria Watson M.D. [id number]
--- NOTE | 2022-02-21 12:15 | PM.PN ---
Subjective Subjective: This morning we were not able to place hemodialysis catheter because Dr. King had an emergency in the ER at the time when there was plan for dialysis catheter placement I will go ahead and schedule him for stress test tomorrow morning, we can place dialysis catheter either tomorrow or Friday Patient was not happy for being n.p.o. today Vitals/I&O/Wt Last Vital Signs Temp 98.5 F 02/21/22 10:57 Pulse 76 02/21/22 10:57 Resp 16 02/21/22 10:57 BP 122/70 02/21/22 10:57 Pulse Ox 98 02/21/22 10:57 02/20/22 02/21/22 02/21/22 22:59 06:59 14:59 Intake Total 360 / 1198 500 / 1698 20 20 Output Total 500 / 500 325 / 825 250 / 250 Balance -140 / 698 175 / 873 -230 / -230 Weight last 48 hrs Weight 72.603 kg Weight 72.745 kg Physical Exam Narrative: Patient is now in good mood today, however nonfocal neuro exam S1, S2 Euvolemic Abdomen soft Laying flat Watching television No signs of fluid overload Hemodynamically stable Saturating well on room air Data : 02/21/22 04:32 02/21/22 04:32 A&P Assessment and plan (1) Cardiomyopathy: Status: Acute (2) Acute kidney injury superimposed on CKD: Status: Acute (3) ESRD needing dialysis: Status: Acute Plan Cardiomyopathy No signs of heart failure, will do stress test tomorrow morning to see if there is any signs of coronary ischemia, if there are no signs of coronary ischemia we might be able to avoid angiogram that might be devastating considering his GFR 12% No active signs of fluid overload Acute on chronic renal disease Patient is not oliguric, making more than 700 mL daily, creatinine has plateaued Plan for tunneled dialysis catheter placement probably on Friday, No acute indication Social dynamics: Patient lives alone, estranged from his daughter, no other family member around, and is in [place], We have applied for Medicaid Patient is willing to drive himself to the dialysis center 3 times a week if needed Patient is full code Start his diet today, n.p.o. after midnight We will do stress test tomorrow morning DVT prophylaxis I will give heparin Attestations Medical Necessity Statement*: Continue medical management Time Spent in Patient Care: 30mins Coding Level of Care Code Acute City Planning Engineer for Chg Fwd Diagnoses Cardiomyopathy I42.9 Acute kidney injury superimposed on CKD N17.9; N18.9 ESRD needing dialysis N18.6; Z99.2
[2022-02-21 12:27] LABS: Urine Appearance Clear (CLEAR); Urine Color Yellow (Yellow); pH Urine 8 (5-7)
[2022-02-21 12:28] LABS: Bilirubin Urine Neg (Negative); Blood Urine Neg (Negative); Glucose Urine UA Norm (Normal); Ketones Urine Negative (Negative); Leukocyte Esterase Urine Negative (Negative); Nitrate Urine Negative (Negative); Protein Urine 1+ (Negative); Sulfosalicylic Acid Urine Positive (Negative); Urobilinogen Urine Norm (Negative)
[2022-02-21 12:30] LABS: Potassium, Radom Urine 7 mmol/L; Urine Creatinine 51 mg/dL (39-259); Urine Random Chloride 43 mmol/L; Urine Random Sodium 72 mmol/L
--- NOTE | 2022-02-21 13:59 | PC.NURSE ---
Confirmed with surgery that patient will go to surgery 02/22/22 and not 02/21/22. Patient given tray of food at 1400.
[2022-02-21] MEDS: heparin 5,000 unit/mL INJ 1 mL 5000 UNIT SUBCUT (14:04)
[2022-02-21 15:29] VITALS: BP 110/63; PULSE 92; RESP 16; TEMP 36.9; O2SAT 97
--- NOTE | 2022-02-21 16:23 | PC.NURSE ---
Report given to ANGE Vasques.
[2022-02-21] MEDS: insulin lispro 100 unit/1 mL SUBCUT (18:42)
[2022-02-21 20:00] VITALS: BP 128/67; PULSE 86; RESP 14; TEMP 36.6; O2SAT 98
[2022-02-21 21:46] LABS: Glucose Point of Care 87 mg/dL (70-110)
[2022-02-21 21:46] LABS: Glucose Point of Care 95 mg/dL (70-110)
[2022-02-21 21:46] LABS: Glucose Point of Care 272 mg/dL (70-110)
[2022-02-22] VITALS (9 sets, daily range): BP systolic 109–151; BP diastolic 57–78; PULSE 73–87; RESP 12–20; TEMP 36.5–36.8; O2SAT 96–99
--- NOTE | 2022-02-22 | NMCV_ITS ---
NM salas perf SPECT r/s* [id number] Robert Montano Age: 66 Gender: M : 1955 Exam Date: 02/22/2022 07:06 Ordering Phys: Francy Jacobs MD Technologist: ZAN Steinberg Exam Location: [facility] Indications: CHEST PAIN STRESS TEST [facility] IMAGE PROTOCOL Rest/Stress 1 Lexiscan Day Radiopharmaceutical Dose (mCi) Administration Site Administered by Rest: Tc-99m 10.8 IV ZAN Ortiz Sestamibi Stress:Tc-99m 32.8 IV ZAN Ortiz Sestamibi Rest: 22-Feb-2022 60 Discovery 630 Stress: 22-Feb-2022 30 Discovery 630 0.4mg Lexiscan. Supine position only as patient was unable to lay prone. SPECT RESULTS Technical Quality: Excellent Raw Data Analysis: Normal Image Corrections: No attenuation or motion correction applied Summed Stress Score: 6 Summed Rest Score: 6 Summed Difference Score: 1 PERFUSION FINDINGS Small sized perfusion abnormality of mild severity of mid to apical inferior, mid to apical inferolateral wall on rest with subtle reversibility in apical lateral wall on supine stress images. FUNCTIONAL RESULTS (calculated via Gated SPECT) Stress Image LV EF (%): 38 Stress EDV (mL):168 TID: 0.95 Stress ESV (mL):104 FUNCTIONAL FINDINGS: The left ventricle is normal in size. Transient Ischemia Dilatation of 0.95. The left ventricular ejection fraction is moderately reduced with a value of 38%. There is moderately decreased wall thickening. Increase end-diastolic and end-systolic volumes. IMPRESSIONS 1. Small sized perfusion abnormality of mid to apical inferior, mid to apical inferolateral dash with subtle reversibility in apical lateral wall. 2. This may represent old myocardial infarction in right coronary artery/circumflex artery territory with minimal yaima-infarct. 3. The left ventricular ejection fraction is moderately reduced with a value of 38%. 4. There is moderately decreased wall thickening. 5. EKG portion of the study will be reported separately. 6. No prior similar studies to compare. Gloria Watson MD (Electronically Signed) Final Date: 22 February 2022 13:43 S
[2022-02-22] MEDS: heparin 5,000 unit/mL INJ 1 mL 5000 UNIT SUBCUT (00:39)
[2022-02-22 02:38] LABS: Alanine Aminotransferase 6 U/L (0-41); Alkaline Phosphatase 116 IU/L (40-130); Anion Gap 14.1 (5-19); Aspartate Amino Transferase 10 U/L (0-40); Blood Urea Nitrogen 61 mg/dL (8-23); Calcium 8.1 mg/dL (8.5-10.5); Carbon Dioxide 25 mmol/L (22-29); Chloride 96 mmol/L (98-107); Glomerular Filtration Rate 8.7 mL/min (90-130); Glucose 113 mg/dL (65-115); Magnesium 1.6 mg/dL (1.7-2.3); Osmolality Calculated 288 mOsm/kg (285-295); Phosphorus 3.4 mg/dL (2.5-4.5); Potassium 5.1 mmol/L (3.5-5.1); Sodium 130 mmol/L (136-145); Total Bilirubin 0.2 mg/dL (0.15-1.2)
[2022-02-22 06:42] LABS: Glucose Point of Care 131 mg/dL (70-110)
[2022-02-22] MEDS: regadenoson 0.4 Mg/5 ml Syringe IVP (08:17)
--- NOTE | 2022-02-22 09:22 | P.PN_ITS ---
Subjective Subjective: Patient came back from stress test Plan for hemodialysis catheter placement on Friday as per Dr. King Creatinine 6.5 potassium 5.1 Urine output 400 mL Vitals/I&O/Wt Last Vital Signs Temp 98.3 F 02/22/22 04:00 Pulse 87 02/22/22 08:52 Resp 12 02/22/22 04:00 BP 110/57 02/22/22 08:52 Pulse Ox 97 02/22/22 04:00 02/21/22 02/22/22 02/22/22 22:59 06:59 14:59 Intake Total 980 / 1440 Output Total 125 / 550 100 / 650 Balance 855 / 890 -100 / 790 Weight last 48 hrs Weight 72.603 kg Weight 72.745 kg Physical Exam Narrative: Laying supine S1, S2 Euvolemic Nonfocal neuro exam Saturating well on room air Hemodynamically stable Nonlabored breathing Data : 02/21/22 04:32 02/22/22 01:40 A&P Assessment and plan (1) Cardiomyopathy: Status: Acute (2) Acute kidney injury superimposed on CKD: Status: Acute (3) ESRD needing dialysis: Status: Acute Plan Acute on chronic kidney disease There is plan to get tunnel dialysis catheter on Friday, will start cardiology work-up depending on a cardiac stress test however he does have cardiomyopathy with EF 30%, with his current creatinine level today stress test will help us decide whether he would benefit from coronary angiogram or not however it might be needed for diagnostic purposes if patient is agreeable No active chest pain Never had any AL in the past, nonischemic cardiomyopathy? We will consult cardiology after dialysis catheter placement No acute indication for dialysis Urine output 400 mL, creatinine 6.5, potassium is normal, he is not hypervolemic or acidotic Poor social support network, assistant case manager working diligently on this case Resume his diet, will make him n.p.o. after midnight Hold DVT prophylaxis We will follow up with Dr. King and nephrology Full code Attestations Medical Necessity Statement*: Tunneled dialysis catheter placement tomorrow Time Spent in Patient Care: 20mins Coding Level of Care Code Acute Steam Shovelman for g Fwd Diagnoses Cardiomyopathy I42.9 Acute kidney injury superimposed on CKD N17.9; N18.9 ESRD needing dialysis N18.6; Z99.2
[2022-02-22] MEDS: tamsulosin 0.4 mg Capsule PO (09:43)
[2022-02-22] MEDS: b-complex-vitamin c Tablet 1 EACH PO (09:43)
[2022-02-22] MEDS: amlodipine 5 mg Tablet PO (09:44)
[2022-02-22] MEDS: allopurinol 100 mg Tablet PO (09:44)
[2022-02-22] MEDS: sevelamer 800 mg Tablet PO ×3 (09:44→21:03)
--- NOTE | 2022-02-22 11:02 | P.PN_ITS ---
Subjective Subjective: Mr. Montano feels okay today with no specific new symptoms. He does have chronic back pain and this is his main complaint. It is uncomfortable for him. He claims to be passing his urine okay although we do know that he has a history of obstructive uropathy. No extremity edema, shortness of breath or other hypervolemic symptoms. No obvious uremic symptoms. He denies chest pain, palpitations. He just returned from his stress test. Vitals/I&O/Wt Last Vital Signs Temp 98.3 F 02/22/22 04:00 Pulse 87 02/22/22 08:52 Resp 12 02/22/22 04:00 BP 110/57 02/22/22 08:52 Pulse Ox 97 02/22/22 04:00 02/21/22 02/22/22 02/22/22 22:59 06:59 14:59 Intake Total 980 / 1440 Output Total 125 / 550 100 / 650 130 / 130 Balance 855 / 890 -100 / 790 -130 / -130 Weight last 48 hrs Weight 72.603 kg Physical Exam Narrative: Constitutional: Awake, comfortable HEENT: Wet mucosa, no jvp, non icteric Lungs: Bilaterally clear without discernible wheeze, rales in all lung zones CVS: S1 S2, no murmurs Abdo: Soft, BS ok Ext 4: Minimal edema, peripheral perfusion with no cyanosis Neurological: Grossly non-focal Data : 02/21/22 04:32 02/22/22 01:40 A&P Assessment and plan (1) Acute kidney injury superimposed on CKD: Status: Acute Plan 1. Stage V chronic kidney disease No acute indication for hemodialysis today, however, he is in the range now w here we should stop this as part of his comprehensive outpatient management strategy. I understand he will get a tunneled dialysis catheter tomorrow morning and I will start him with very gentle dialysis tomorrow just for 2 hours to avoid disequilibrium with progressive up titration of dialysis intensity. Dose medication for GFR less than 15 Strict I's and O's Bladder scan after he voids today. Outpatient dialysis to be set up by hospice case manager 2. Ischemic cardiomyopathy Stress test performed today, results currently pending. Further management per cardiology based on this result. 3. Chemistry Noncritical aberration, continue to monitor 4. Hemodynamics These appear stable 5. Anemia of chronic kidney disease Iron levels appear at goal, currently on EPO weekly. Noe Del Toro MD Nephrology [phone] Patient seen and examined via telemedicine, with the assistance of the bedside RN > 25 min spent in evaluation and mgmt of patient Attestations Medical Necessity Statement*: Eval for stage 5 CKD Coding Level of Care Code Acute Narcotics Agent for Chg Fwd Diagnoses Acute kidney injury superimposed on CKD N17.9; N18.9
[2022-02-22 12:41] LABS: Glucose Point of Care 194 mg/dL (70-110)
[2022-02-22] MEDS: insulin lispro 100 unit/1 mL SUBCUT (12:53)
[2022-02-22] MEDS: oxyCODONE 5 mg IR Tab/Cap PO (13:25)
[2022-02-22 17:30] LABS: Glucose Point of Care 87 mg/dL (70-110)
[2022-02-22 21:15] LABS: Glucose Point of Care 117 mg/dL (70-110)
[2022-02-22 21:15] LABS: Glucose Point of Care 151 mg/dL (70-110)
[2022-02-23] VITALS (15 sets, daily range): BP systolic 80–146; BP diastolic 47–76; PULSE 72–88; RESP 16–20; TEMP 36.1–37.1; O2SAT 90–97
--- NOTE | 2022-02-23 | SCC_ITS ---
Procedure done: 1. Placement of 16 [place] 23/28 cm long AshSplit tunneled hemodialysis catheter right internal jugular vein 2. Fluoroscopic guidance and interpretation for placement of catheter 3. Ultrasound guidance to access the right internal jugular vein 66.9 seconds of fluoroscopic guidance, for a cumulative dose of 4.98 mGy, was provided to Dr. King by the radiology department. C-arm images of the chest were saved for the patient's permanent record. [facility]
[2022-02-23 04:50] LABS: Alanine Aminotransferase 6 U/L (0-41); Albumin Level 3.1 g/dL (3.5-5.2); Alkaline Phosphatase 116 IU/L (40-130); Aspartate Amino Transferase 12 U/L (0-40); Blood Urea Nitrogen 62 mg/dL (8-23); Calcium 8.6 mg/dL (8.5-10.5); Carbon Dioxide 25 mmol/L (22-29); Chloride 99 mmol/L (98-107); Globulin 2.8 g/dL (1.3-4.6); Glomerular Filtration Rate 8.8 mL/min (90-130); Glucose 98 mg/dL (65-115); Magnesium 1.8 mg/dL (1.7-2.3); Osmolality Calculated 294 mOsm/kg (285-295); Phosphorus 3.2 mg/dL (2.5-4.5); Sodium 133 mmol/L (136-145); Total Bilirubin 0.2 mg/dL (0.15-1.2); Total Protein 5.9 g/dL (6.6-8.7)
--- NOTE | 2022-02-23 06:35 | PM.PN ---
Subjective Subjective: Patient was seen and examined and undergone a stress test yesterday that showed IMPRESSIONS ?1. Small sized perfusion abnormality of mid to apical inferior, mid to apical ?inferolateral dash with subtle reversibility in apical lateral wall. ?2. This may represent old myocardial infarction in right coronary ?artery/circumflex artery territory with minimal yaima-infarct. ?3. The left ventricular ejection fraction is moderately reduced with a value of ?38%. ?4. There is moderately decreased wall thickening. ?5. EKG portion of the study will be reported separately. ?6. No prior similar studies to compare. Per hospitalist service patient will go for angiogram after getting the hemodialysis access Medications: Reviewed: Yes Vitals/I&O/Wt Last Vital Signs Temp 98.0 F 02/23/22 06:20 Pulse 78 02/23/22 06:20 Resp 18 02/23/22 06:20 BP 143/76 02/23/22 06:20 Pulse Ox 97 02/23/22 06:20 02/22/22 02/22/22 02/23/22 14:59 22:59 06:59 Intake Total 300 / 300 480 / 780 Output Total 405 / 405 200 / 605 1000 / 1605 Balance -105 / -105 -200 / -305 -520 / -825 Weight last 48 hrs Weight 165 lb 8 oz Weight 160 lb 1 oz Physical Exam Narrative: Patient is conscious alert oriented X3 No apparent distress BMI 26 Head and neck examination PERRLA no masses no cervical lymphadenopathy no jaundice Abdomen nontender nondistended soft no organomegaly guarding or rigidity/no signs of peritonitis Extremities no cyanosis no clubbing no edema Data : 02/21/22 04:32 02/23/22 03:42 A&P Assessment and plan (1) Acute kidney injury superimposed on CKD: Plan of care; After thorough history physical examination and reviewing the chart and reviweing the images with my personal intrepretation.I counseled the patient for tunneled hemodialysis catheter placement, indications, risks including possibility of , stroke, heart attack, major bleeding, infection, pneumonia, organ failure, failure to benefit, prolonged hospital stay, pain after the procedure pneumothorax that may require Chest tube(s) placement and potential injury of major vascular structures that may require Thoractomy, benefits,indications and alternatives were all discussed with the patient, patient understands and is interested to proceed. Rationale was carefully and clearly discussed with the patient.Appropriate informed consent have been reviewed and signed. Status: Acute Attestations Medical Necessity Statement*: Per admitting service Coding Level of Care Code Acute Hosting Engineer for Beng Fwd Diagnoses Acute kidney injury superimposed on CKD N17.9; N18.9
[2022-02-23 06:42] LABS: Glucose Point of Care 104 mg/dL (70-110)
--- NOTE | 2022-02-23 06:44 | P.ANESASSM_ITS ---
Pre-Anesthetic Assessment Height/Weight: Height 1.7 m Weight 75.07 kg Temp Pulse Resp BP Pulse Ox 98.0 F 78 18 143/76 97 02/23/22 06:20 02/23/22 06:20 02/23/22 06:20 02/23/22 06:20 02/23/22 06:20 Preop Diagnosis: end-stage renal disease Operation Date: 02/23/22 08:00 Proposed Procedures p Dialysis Catheter Insertion(Not Applicable) - Davon King MD Familial anesthetic complications: None Was Beta Marcelino taken within 24 hours: N/A Was Clonidine taken within 24 hours: N/A Last intake: Intake Last Liquid Date 02/20/22 Last Liquid Time 23:59 Last Solid Date 02/20/22 Last Solid Time 18:00 Social No alcohol and No tobacco Exam alert, oriented x 3, clear to auscultation bilaterally and regular rate & rhythm Airway Mallampati: Class III Dentition: other (multiple missing) Pulmonary hx covid 19, pneumonia CV/HEM cardiomyopathy perfusion IMPRESSIONS ?1. Small sized perfusion abnormality of mid to apical inferior, mid to apical ?inferolateral dash with subtle reversibility in apical lateral wall. ?2. This may represent old myocardial infarction in right coronary ?artery/circumflex artery territory with minimal yaima-infarct. ?3. The left ventricular ejection fraction is moderately reduced with a value of ?38%. ?4. There is moderately decreased wall thickening. ?5. EKG portion of the study will be reported separately. ?6. No prior similar studies to compare. Stress test CONCLUSION: 1. No significant EKG changes with the LexiScan infusion. 2. No LexiScan induced chest pain or cardiac arrhythmia. 3. Normal blood pressure and heart rate response. 4. Sestamibi/sestamibi perfusion scan pending; see separate report. Echo CONCLUSIONS ?1. Mildly increased left ventricular cavity size. Moderately ?decreased left ventricular systolic function. Left ventricular ?ejection fraction is estimated at 30 %.? Moderate global ?hypokinesis.? Grade I diastolic dysfunction (abnormal relaxation ?filling pattern), normal to mildly elevated filling pressures. ?Abnormal septal motion consistent with conduction abnormality. ?2. Normal right ventricular size and systolic function. ?3. Mildly increased left atrial size. ?4. When compared to previous echocardiogram dated 02/02/2022, ?left ventricle systolic function seems to have decreased. ESRD Metabolic Diabetes Mellitus Neuropsych Transient Ischemic Attack Anesthetic Plan ASA status: 4 Anesthesia: MAC Risk of > 500 ml blood loss (7ml/kg in children): No Medications/Allergies Home Medications Medication Instructions Recorded Confirmed Last Taken Type allopurinol 100 mg tablet 100 mg PO DAILY 30 Days #30 tab 02/07/22 02/18/22 02/17/22 Rx amlodipine 5 mg tablet 5 mg PO DAILY 30 Days #30 tab 02/07/22 02/18/22 02/17/22 Rx apixaban 5 mg tablet (Eliquis) 5 mg PO BID@0900,2100 30 Days #60 02/07/22 02/18/22 02/17/22 Rx tab cholecalciferol (vitamin D3) 125 125 mcg PO DAILY 30 Days #30 cap 02/07/22 02/18/22 02/17/22 Rx mcg (5,000 unit) capsule sevelamer carbonate 800 mg tablet 1,600 mg PO TID 30 Days #180 tab 02/07/22 02/18/22 02/17/22 Rx sodium bicarbonate 650 mg tablet 650 mg PO TID 30 Days #90 tab 02/07/22 02/18/22 02/17/22 Rx tamsulosin 0.4 mg capsule 0.4 mg PO DAILY 30 Days #30 cap 02/07/22 02/18/22 02/17/22 Rx Allergies Allergy/AdvReac Type Severity Reaction Status Date / Time No Known Allergies Allergy Verified 02/22/22 13:56 Current Medications Generic Name Dose Route Start Last Admin Trade Name Freq PRN Reason Stop Dose Admin Allopurinol 100 mg 02/19/22 09:00 02/22/22 09:44 Allopurinol 100 Mg Tablet PO 100 mg DAILY MARQUEZ Administration Amlodipine Besylate 5 mg 02/19/22 09:00 02/22/22 09:44 Amlodipine 5 Mg Tablet PO 5 mg DAILY MARQUEZ Administration Heparin Sodium (Porcine) 5,000 unit 02/21/22 12:30 02/22/22 00:39 Heparin 5,000 Unit/Ml Inj 1 Ml SUBCUT 5,000 unit Q12H MARQUEZ Administration Insulin Human Lispro 0 unit 02/19/22 07:00 02/23/22 06:18 Insulin Lispro 100 Unit/1 Ml SUBCUT Not Given AC&BEDTIME PENDING SALE TO [facility] Protocol Multivitamins 1 each 02/19/22 09:00 02/22/22 09:43 N-Rpxmzit-Fhbxkee C Tablet PO 1 each DAILY MARQUEZ Administration Sevelamer Carbonate 800 mg 02/21/22 09:00 02/22/22 21:03 Sevelamer 800 Mg Tablet PO 800 mg TID MARQUEZ Administration Tamsulosin HCl 0.4 mg 02/19/22 09:00 02/22/22 09:43 Tamsulosin 0.4 Mg Capsule PO 0.4 mg DAILY MARQUEZ Administration Additional Medication Information Current Medications Allopurinol (Allopurinol 100 Mg Tablet) 100 mg PO DAILY PENDING SALE TO [facility] Last Admin: 02/20/22 10:38 Dose: 100 mg Documented by: Amlodipine Besylate (Amlodipine 5 Mg Tablet) 5 mg PO DAILY PENDING SALE TO [facility] Last Admin: 02/20/22 10:38 Dose: 5 mg Documented by: Dextrose (Dextrose 50% Syringe 50 Ml) 25 ml IVP ONCE PRN; Protocol PRN Reason: hypoglycemia protocol Dextrose (Dextrose 50% Syringe 50 Ml) 50 ml IVP PRN PRN; Protocol PRN Reason: hypoglycemia protocol Epoetin Shashi (Epoetin Shashi 10,000 Unit/Ml Inj) 10,000 unit SUBCUT WEEKLY PENDING SALE TO [facility] Glucagon (Glucagon 1 Mg/Ml Inj 1 Ml) 1 mg IM ONCE PRN; Protocol PRN Reason: Adult Acute Hypoglycemia Prot. Dextrose (D5w) 500 mls @ 100 mls/hr IV ONCE PRN; Protocol PRN Reason: Adult Acute Hypoglycemia Prot Insulin Human Lispro (Insulin Lispro 100 Unit/1 Ml) 0 unit SUBCUT AC&BEDTIME MARQUEZ; Protocol Last Admin: 02/21/22 06:38 Dose: Not Given Documented by: Multivitamins (U-Kyabdmr-Jwoaitb C Tablet) 1 each PO DAILY PENDING SALE TO [facility] Last Admin: 02/20/22 10:37 Dose: 1 each Documented by: Sevelamer Carbonate (Sevelamer 800 Mg Tablet) 1,600 mg PO TID PENDING SALE TO [facility] Last Admin: 02/20/22 20:21 Dose: 1,600 mg Documented by: Sodium Bicarbonate (Sodium Bicarbonate 650 Mg Tablet) 650 mg PO TID PENDING SALE TO [facility] Last Admin: 02/20/22 20:21 Dose: 650 mg Documented by: Tamsulosin HCl (Tamsulosin 0.4 Mg Capsule) 0.4 mg PO DAILY PENDING SALE TO [facility] Last Admin: 02/20/22 10:37 Dose: 0.4 mg Documented by: [facility] Anesthesia Medical History Acute confusion Acute kidney injury Acute kidney injury superimposed on CKD MIKHAIL (acute kidney injury) CKD (chronic kidney disease) Diabetes DVT of lower extremity (deep venous thrombosis) Elevated d-dimer Fluid overload History of COVID-19 Hypertension Metabolic acidosis Pulmonary infiltrate on chest x-ray Tachycardia Troponin level elevated Surgical History No pertinent past surgical history Family History Other No significant family history Social History Smoking and tobacco status: never smoked Alcohol intake: never Lives independently: Yes Household members: none Marital status details: Rather estranged with daughter Current occupational status: other Details: Recently employed, stopped working when started feeling unwell several wks Data Anesthesia : 02/21/22 04:32 02/23/22 03:42 BMP 02/22/22 02/23/22 01:40 03:42 Sodium 130 L 133 L Potassium 5.1 5.0 Chloride 96 L 99 Carbon Dioxide 25 25 BUN 61 H 62 H Creatinine 6.5 H* 6.4 H* Glucose 113 98 Calcium 8.1 L 8.6 Liver Function 02/22/22 02/23/22 Range/Units 01:40 03:42 Total Bilirubin 0.2 0.2 (0.15-1.2) mg/dL AST 10 12 (0-40) U/L ALT 6 6 (0-41) U/L Alkaline Phosphatase 116 116 (40-130) IU/L Albumin 3.0 L 3.1 L (3.5-5.2) g/dL Urine 02/21/22 Range/Units 11:40 Urine Color Yellow (Yellow) Urine Appearance Clear (CLEAR) Urine pH 8 H (5-7) Ur Specific [place] 1.010 (1.005-1.030) Urine Protein 1+ H (Negative) Urine Glucose (UA) Norm (Normal) Urine Ketones Negative (Negative) Urine Nitrate Negative (Negative) Urine Bilirubin Neg (Negative) Ur Leukocyte Esterase Negative (Negative) Urine RBC None (0-2) /hpf Urine WBC None (0-5) /hpf Cardiac Studies: Echocardiogram 02/19/22 Sestamibi Stress Test (Cardiology) 02/21/22
--- NOTE | 2022-02-23 07:00 | SC_ITS ---
WS: [id number] C-ARM RADIOGRAPHS CHEST; 3 IMAGES HISTORY: dialysis cath placement COMPARISON: None available. Intraoperative imaging during dialysis catheter placement. Talus is catheter enters through the RIGHT jugular vein with tips in the mid to distal SVC. SC/C-arm [place] for CVA [id number] IMPRESSION: Intraoperative imaging during dialysis catheter placement.
[2022-02-23] MEDS: lidocaine 2% INJ 20 mL INJECTION (07:26)
[2022-02-23] MEDS: heparin, porcine 1,000 unit/mL INJ 10 mL 10000 UNIT INJECTION (07:51)
--- NOTE | 2022-02-23 08:33 | PM.OP ---
Operative Report Date of procedure: February 23, 2022 Pre-op diagnosis: Preop Diagnosis end-stage renal disease Procedure done: 1. Placement of 16 [place] 23/28 cm long AshSplit tunneled hemodialysis catheter right internal jugular vein 2. Fluoroscopic guidance and interpretation for placement of catheter 3. Ultrasound guidance to access the right internal jugular vein Implants: Placement of 16 [place] 23/28 cm long AshSplit tunneled hemodialysis catheter right internal jugular vein Surgeon: Davon King MD Astronomy Professor: proof technician helper Estela Gentile circulating nurse Anesthesia: MAC (airfreight operations agent Robbie Irvin) Estimated blood loss: 10 Procedure: Patient was identified in the holding area and taken to the operative room and placed in supine position ,both arms were tucked,Time-out was done verifying the patient's name/date of /planned procedure and destination after the procedure, all were in agreement.SCDs confirmed to be functioning, intubated by anesthesia ,patient was given prophylactic antibiotics administered per protocol, and beta [place] protocol was confirmed, appropriate positioning of the patient was done by me. Medications were reviewed to assess for anticoagulant usage. Risks and benefits and prevention of central line associated blood stream infection (CLABSI) were discussed with the patient/CPOA, and a consent was obtained. Monitors were in place and monitored throughout the procedure. All necessary supplies were available prior to start. Hand hygiene was completed prior to starting. Maximum barrier technique was utilized including a sterile gown, sterile gloves with a hat and mask. Site was was prepped with [chlorhexidine] and a full body drape was placed. 5 mL of 2% lidocaine was injected into the skin with a 25 gauge needle. Prep& drape was done under the usual sterile technique of upper chest right and left as well as the neck both sides, lidocaine 2% was injected at the site of the stick, under ultrasound guidance there was no intraluminal thrombosis of the internal jugular vein. Per my personal interpretation started by right internal jugular vein stick that retrieved venous blood after multiple attempts as the patient was little bit dehydrated in spite of having him in Trendelenburg position I was able to retrieve venous blood,and a guidewire was then threaded without any difficulty and under the guidance of fluoroscopy position was confirmed to be in the IVC, there was no PVC changes, at that point the guidewire was secured to the drapes with a hemostat and the needle was taken out, attention was then deviated towards creation of an insert for the HD catheter at the right upper chest, were lidocaine 2% was injected using an 11 blade knife skin incision was created dissection using a hemostat to create an entrance and for the HD catheter to be inserted were it was connected to a tunneler, and the tunneler was used to accommodate the catheter of the HD catheter to be delivered through the incision first created at the site of the stick ,which is at the right side of the neck, a small mejia was created with 11 blade knife to allow delivery of the catheter outside the wound ,at that point under fluoroscopy,serial dilators were done that come in the in the KIT, followed by that a dilator with the sheath introduced onto the guidewire ,the dilator and the wire were retrieved and the catheter of the port was introduced via the sheath where it was peeled off and the catheter maintained, to be in good position in the right atrium. There was a small kink at the curve of the catheter that wires were used and the kink was resolved. Both ports were flushed with diluted heparin and appropriate blood was retrieved first, Hep-Lock's were then applied The whole procedure was done under fluoroscopy , the position maintained to be in the rt atrium that was confirmed with fluoroscopy, and the fluoroscopy interpretation was done by me throughout the entire procedure. The stick site was closed by 3-0 Vicryl deep subdermal interrupted sutures, followed by 4-0 Monocryl and Dermabond was used followed by dry dressing was applied. A 3/0 nylon was used to secure the hemodialysis catheter onto the anterior chest wall Patient tolerated the procedure well was taken to the recovery area Count was correct at the end of the procedure I was present for the whole entire procedure Position of the catheter was checked with a postoperative chest x-ray and it was in good position without evidence of pneumothorax on both sides of the Thorax.
--- NOTE | 2022-02-23 08:37 | XRR_ITS ---
PROCEDURE INFORMATION: Exam: XR Chest Exam date and time: 02/23/2022 8:50 AM Age: 66 years old Clinical indication: Other vascular access device placement or adjustment; Other: Dialysis catheter; Additional info: Status post placement of right internal jugular vein hd cath TECHNIQUE: Imaging protocol: XR of the chest. Views: 1 view. COMPARISON: CR (CHEST, ) 02/18/2022 8:33 PM FINDINGS: Tubes, catheters and devices: Right IJ central venous catheter terminates in the region of the superior cavoatrial junction. Lungs: Interstitial opacities are seen in the left greater than right lungs. Pleural spaces: Unremarkable. No pleural effusion. No pneumothorax. Heart/Mediastinum: Unremarkable. No cardiomegaly. Bones/joints: Unremarkable. XR/XR chest 1V portable [id number] IMPRESSION: 1. Right IJ central venous catheter terminates in the region of the superior cavoatrial junction. 2. Interstitial opacities are seen in the left greater than right lungs, which could reflect edema versus infection.
--- NOTE | 2022-02-23 10:37 | P.PN_ITS ---
Subjective Subjective: Seen on HD. Bp on the softer side. No other new issues. He is comfortable. No acute uremic Sx. No edema and no other hypervolemic Sx Medications: Reviewed: Yes Medication Review Details: Current Medications Allopurinol (Allopurinol 100 Mg Tablet) 100 mg PO DAILY [facility] Last Admin: 02/20/22 10:38 Dose: 100 mg Documented by: Amlodipine Besylate (Amlodipine 5 Mg Tablet) 5 mg PO DAILY [facility] Last Admin: 02/20/22 10:38 Dose: 5 mg Documented by: Dextrose (Dextrose 50% Syringe 50 Ml) 25 ml IVP ONCE PRN; Protocol PRN Reason: hypoglycemia protocol Dextrose (Dextrose 50% Syringe 50 Ml) 50 ml IVP PRN PRN; Protocol PRN Reason: hypoglycemia protocol Epoetin Shashi (Epoetin Shashi 10,000 Unit/Ml Inj) 10,000 unit SUBCUT WEEKLY [facility] Glucagon (Glucagon 1 Mg/Ml Inj 1 Ml) 1 mg IM ONCE PRN; Protocol PRN Reason: Adult Acute Hypoglycemia Prot. Dextrose (D5w) 500 mls @ 100 mls/hr IV ONCE PRN; Protocol PRN Reason: Adult Acute Hypoglycemia Prot Insulin Human Lispro (Insulin Lispro 100 Unit/1 Ml) 0 unit SUBCUT AC&BEDTIME [facility]; Protocol Last Admin: 02/21/22 06:38 Dose: Not Given Documented by: Multivitamins (S-Ljheiil-Okyosrh C Tablet) 1 each PO DAILY [facility] Last Admin: 02/20/22 10:37 Dose: 1 each Documented by: Sevelamer Carbonate (Sevelamer 800 Mg Tablet) 1,600 mg PO TID [facility] Last Admin: 02/20/22 20:21 Dose: 1,600 mg Documented by: Sodium Bicarbonate (Sodium Bicarbonate 650 Mg Tablet) 650 mg PO TID [facility] Last Admin: 02/20/22 20:21 Dose: 650 mg Documented by: Tamsulosin HCl (Tamsulosin 0.4 Mg Capsule) 0.4 mg PO DAILY [facility] Last Admin: 02/20/22 10:37 Dose: 0.4 mg Documented by: Vitals/I&O/Wt Last Vital Signs Temp 97.0 F L 02/23/22 09:08 Pulse 77 02/23/22 09:08 Resp 16 02/23/22 09:08 BP 108/62 02/23/22 09:08 Pulse Ox 94 02/23/22 10:07 02/22/22 02/23/22 02/23/22 22:59 06:59 14:59 Intake Total 480 / 780 140 / 140 Output Total 200 / 605 1150 / 1755 50 / 50 Balance -200 / -305 -670 / -975 90 / 90 Weight last 48 hrs Weight 75.07 kg Physical Exam Narrative: Constitutional: Awake, comfortable HEENT: Wet mucosa, no jvp, non icteric Lungs: Bilaterally clear without discernible wheeze, rales in all lung zones CVS: S1 S2, no murmurs Abdo: Soft, BS ok Ext 4: Minimal edema, peripheral perfusion with no cyanosis Neurological: Grossly non-focal Data : 02/21/22 04:32 02/23/22 03:42 A&P Assessment and plan (1) Acute kidney injury superimposed on CKD: Status: Acute Plan 1. Stage V chronic kidney disease New ESRD Seen on dialysis today Gentle settings, next treatment on Friday with increased prescription intensity Dose medication for GFR less than 15 Strict I's and O's Outpatient dialysis to be set up by case repairer 2. Ischemic cardiomyopathy Stress test appreciated, mgmt per cardiology 3. Chemistry Noncritical aberration, continue to monitor 4. Hemodynamics These appear stable 5. Anemia of chronic kidney disease Iron levels appear at goal, currently on EPO weekly. Noe Del Toro MD Nephrology [phone] Patient seen and examined via telemedicine, with the assistance of the bedside RN > 25 min spent in evaluation and mgmt of patient Attestations Medical Necessity Statement*: new esrd mgmt Coding Level of Care Code Acute Drafter Electromechanical for Chg Fwd Diagnoses Acute kidney injury superimposed on CKD N17.9; N18.9
[2022-02-23 11:52] LABS: Glucose Point of Care 118 mg/dL (70-110)
[2022-02-23] MEDS: epoetin alfa 10,000 unit/mL INJ 10000 UNIT SUBCUT (12:22)
--- NOTE | 2022-02-23 13:32 | P.PN_ITS ---
Subjective Subjective: Status post right IJ tunneled dialysis catheter he was being dialyzed when I saw him, mild oozing of blood around the catheter site, with initiation of hemodialysis his blood pressure dropped, required a bolus which improved his blood pressure, Albumin is 3.1 Hold antihypertensive regimen Patient is awake and alert He wanted to eat ice cream this morning, he can have renal dialysis diet now We will consult cardiology to plan for coronary angiogram for reduced EF, cardiomyopathy, EF 30% Vitals/I&O/Wt Last Vital Signs Temp 98 F 02/23/22 11:25 Pulse 80 02/23/22 11:25 Resp 16 02/23/22 09:08 BP 90/57 02/23/22 11:25 Pulse Ox 94 02/23/22 10:07 02/22/22 02/23/22 02/23/22 22:59 06:59 14:59 Intake Total 480 / 780 140 / 140 Output Total 200 / 605 1150 / 1755 50 / 50 Balance -200 / -305 -670 / -975 90 / 90 Weight last 48 hrs Weight 75.07 kg Physical Exam Narrative: Patient was getting dialyzed this morning Low blood pressure He is awake and alert Nonfocal neuro exam Mild oozing of blood around the catheter site No active drainage of blood Saturating well on room air Euvolemic Nonfocal neuro exam No audible stridor or wheezing Irritable mood Data : 02/21/22 04:32 02/23/22 03:42 A&P Assessment and plan (1) Cardiomyopathy: Status: Acute (2) ESRD needing dialysis: Status: Acute (3) Poor social situation: Status: Acute Plan End-stage renal disease, hemodialysis started 02/23, status post right IJ tunnel catheter placement by Dr. King 02/23 Monitor for electrolyte imbalance, today is his first day of dialysis, He received bolus for hypotension during initial phase of dialysis Discontinue antihypertensive regimen such as amlodipine Monitor H&H Reduce ejection fraction heart failure without acute exacerbation Patient will need coronary angiogram, will consult cardiology, EF 30%, LifeVest evaluation Poor social network, adult protective caseworker are aware, patient is stating that he is able to drive and willing to drive himself to the dialysis center 3 times a week Full code Renal dialysis diet Start DVT prophylaxis from tomorrow, mild oozing of blood around tunnel catheter insertion Attestations Medical Necessity Statement*: Continue medical management Time Spent in Patient Care: 20min Coding Level of Care Code Acute Vending Service Technician for Chg Fwd Diagnoses Cardiomyopathy I42.9 ESRD needing dialysis N18.6; Z99.2 Poor social situation Z65.9
[2022-02-23] MEDS: sevelamer 800 mg Tablet PO ×2 (16:49→20:31)
[2022-02-23 17:03] LABS: Glucose Point of Care 104 mg/dL (70-110)
[2022-02-23] MEDS: midodrine 5 mg TABLET PO (20:31)
[2022-02-23] MEDS: insulin lispro 100 unit/1 mL SUBCUT (21:21)
[2022-02-24] MEDS: heparin 5,000 unit/mL INJ 1 mL 5000 UNIT SUBCUT ×2 (00:13→13:05)
--- NOTE | 2022-02-24 03:55 | PC.NURSE ---
SHIFT NOTE Has been resting but does not sleep much. Denies pain. Dialysis port to right IJ with dressing C&D. Voiding per urinal with good output. Keeps saying he just wants to go home. Told laboratory specialist he did not want his blood drawn anymore. After talking with him and stressing importance of labs to monitor and assess dialysis needs he agreed to let it be done. Lab was notified to come back to draw.
[2022-02-24 04:00] VITALS: BP 150/65; PULSE 75; RESP 17; TEMP 36.6; O2SAT 98
--- NOTE | 2022-02-24 06:44 | P.PN_ITS ---
Subjective Subjective: Patient was seen and examined today. Received hemodialysis yesterday but his blood pressures was that with soft. Chest x-ray status post hemodialysis placement; 1. Right IJ central venous catheter terminates in the region of the superior cavoatrial junction. 2. Interstitial opacities are seen in the left greater than right lungs, which could reflect edema versus infection. Medications: Reviewed: Yes Vitals/I&O/Wt Last Vital Signs Temp 98 F 02/24/22 04:00 Pulse 75 02/24/22 04:00 Resp 17 02/24/22 04:00 BP 150/65 02/24/22 04:00 Pulse Ox 98 02/24/22 04:00 02/23/22 02/23/22 02/24/22 14:59 22:59 06:59 Intake Total 140 / 140 300 / 440 Output Total 50 / 50 1050 / 1100 650 / 1750 Balance 90 / 90 -1050 / -960 -350 / -1310 Weight last 48 hrs Weight 165 lb 8 oz Physical Exam 2 Narrative: Patient is conscious alert oriented X3 No apparent distress BMI 26 Head and neck examination PERRLA no masses no cervical lymphadenopathy no jaundice Right upper chest HD catheter in place without complication Extremities no cyanosis no clubbing no edema Data : 02/21/22 04:32 02/23/22 03:42 A&P Assessment and plan (1) Status post insertion of hemodialysis catheter: Assessment 66 years old gentleman status post insertion of right internal jugular vein tunneled hemodialysis catheter 02/23/2022 Plan Educate patient about hemodialysis care Dressing change as needed Assurance and education All questions have been answered and all concerns have been addressed to barbara aldana's satisfaction. Status: Acute Attestations Medical Necessity Statement*: Per admitting service Coding Level of Care Code Acute Aeronautical Engineering Professor for Chg Fwd Diagnoses Status post insertion of hemodialysis catheter Z99.2
[2022-02-24 06:45] LABS: Glucose Point of Care 85 mg/dL (70-110)
--- NOTE | 2022-02-24 07:39 | PM.PN ---
Subjective Subjective: feeling better. no garcia. improving appetite. energy improved Medications: Reviewed: Yes Medication Review Details: Current Medications Acetaminophen (Acetaminophen 325 Mg Tablet) 325 - 650 mg PO Q4H PRN PRN Reason: MILD PAIN OR INCREASE TEMP Allopurinol (Allopurinol 100 Mg Tablet) 100 mg PO DAILY [facility] Last Admin: 02/23/22 12:24 Dose: Not Given Documented by: Amlodipine Besylate (Amlodipine 5 Mg Tablet) 5 mg PO DAILY [facility] Last Admin: 02/23/22 12:24 Dose: Not Given Documented by: Dextrose (Dextrose 50% Syringe 50 Ml) 25 ml IVP ONCE PRN; Protocol PRN Reason: hypoglycemia protocol Dextrose (Dextrose 50% Syringe 50 Ml) 50 ml IVP PRN PRN; Protocol PRN Reason: hypoglycemia protocol Epoetin Shashi (Epoetin Shashi 10,000 Unit/Ml Inj) 10,000 unit SUBCUT WEEKLY [facility] Last Admin: 02/23/22 12:22 Dose: 10,000 unit Documented by: Glucagon (Glucagon 1 Mg/Ml Inj 1 Ml) 1 mg IM ONCE PRN; Protocol PRN Reason: Adult Acute Hypoglycemia Prot. Heparin Sodium (Porcine) (Heparin 5,000 Unit/Ml Inj 1 Ml) 5,000 unit SUBCUT Q12H [facility] Last Admin: 02/24/22 00:13 Dose: 5,000 unit Documented by: Hydralazine HCl (Hydralazine 10 Mg Tablet) 10 mg PO TID [facility] Dextrose (D5w) 500 mls @ 100 mls/hr IV ONCE PRN; Protocol PRN Reason: Adult Acute Hypoglycemia Prot Insulin Human Lispro (Insulin Lispro 100 Unit/1 Ml) 0 unit SUBCUT AC&BEDTIME [facility]; Protocol Last Admin: 02/23/22 21:21 Dose: 3 unit Documented by: Metoprolol Succinate (Metoprolol Succinate Er (24 Hr) 25 Mg Tablet) 12.5 mg PO DAILY [facility] Last Admin: 02/23/22 12:24 Dose: Not Given Documented by: Multivitamins (P-Hhbuqiy-Znuczch C Tablet) 1 each PO DAILY [facility] Last Admin: 02/23/22 12:24 Dose: Not Given Documented by: Ondansetron HCl (Ondansetron 2 Mg/Ml Sdv 2 Ml) 4 mg IVP Q2M PRN PRN Reason: NAUSEA Sevelamer Carbonate (Sevelamer 800 Mg Tablet) 800 mg PO TID [facility] Last Admin: 02/23/22 20:31 Dose: 800 mg Documented by: Tamsulosin HCl (Tamsulosin 0.4 Mg Capsule) 0.4 mg PO DAILY [facility] Last Admin: 02/23/22 12:25 Dose: Not Given Documented by: Vitals/I&O/Wt Last Vital Signs Temp 98 F 02/24/22 04:00 Pulse 75 02/24/22 04:00 Resp 17 02/24/22 04:00 BP 150/65 02/24/22 04:00 Pulse Ox 98 02/24/22 04:00 02/23/22 02/24/22 02/24/22 22:59 06:59 14:59 Intake Total 300 / 440 Output Total 1050 / 1100 850 / 1950 Balance -1050 / -960 -550 / -1510 Weight last 48 hrs Weight 75.07 kg Physical Exam Narrative: comfortable in bed, NARD vss heent- nc/at, eomi, anicteric neck supple, Rt Ij dialysis access lungs crackles heart reg abd soft, nt, nd, + bs ext no edema neuro- a,a, o x 3, no asterixis Data : 02/21/22 04:32 02/23/22 03:42 A&P Assessment and plan (1) Acute kidney injury superimposed on CKD: 66 yr old man 1. CKD likely stage 5. -s.p HD yesterday- repeat in am -renal us w/ atrophic kidneys 2. renal- bone- mineral- metabolism- check vit d 5- replete, pth 250- zemplar on hd -normal phosphorus 3. hyponatremia- normal tsh, -monitor on HD 4. CHF- EF of 30%- down from 40%. once on HD, can start an ARB 5.? htn-BP well controlled -dec meds allow for fluid removal on hd 6. recent DVT of lower extrmeities- -02-02-22- us-.Features of possible acute deep veins thrombosis involving the ?right femoral vein causing total occlusion.? The popliteal, ?peroneal and posterior tibial veins were found to be patent. 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 The popliteal, peroneal ?and the posterior tibial veins on the left leg were found to be ?patent. 7. anemia- ferritin 648, % sat 41- use epo 8 .h/o COVID 9. hyperuricemia- uric acid 6.3- controlled on allopurinol 10. no metformin w/ CKD stage 5 seen and examined w/ RN- telehealth visit needs an outpt HD slot time spent 30 min Status: Acute Plan see above Attestations Medical Necessity Statement*: CHF, ESRD Time Spent in Patient Care: 16 - 35 minutes (>than 50% of time spent in counselling and/or direct pt care on unit). Coding Level of Care Code Acute Wringer Operator for Devin Murray Diagnoses Acute kidney injury superimposed on CKD N17.9; N18.9
[2022-02-24 07:48] VITALS: O2SAT 97
[2022-02-24 07:50] VITALS: BP 144/68; PULSE 73; RESP 14; TEMP 36.8; O2SAT 97
[2022-02-24 08:44] LABS: Glucose Point of Care 180 mg/dL (70-110)
[2022-02-24] MEDS: tamsulosin 0.4 mg Capsule PO (09:13)
[2022-02-24] MEDS: metoprolol succinate ER (24 HR) 25 mg Tablet 12.5 MG PO (09:13)
[2022-02-24] MEDS: b-complex-vitamin c Tablet 1 EACH PO (09:13)
[2022-02-24] MEDS: allopurinol 100 mg Tablet PO (09:13)
[2022-02-24] MEDS: sevelamer 800 mg Tablet PO ×3 (09:14→21:10)
--- NOTE | 2022-02-24 09:19 | PM.PN ---
Subjective Subjective: Status post first dialysis on 02/23, dialysis cath was placed on 02/23 as well Blood pressure improved after his dialysis session We will discontinue midodrine Awaiting Dr. Morales's evaluation cardiomyopathy, positive stress test Awaiting chair time Appreciate nephro and general surgery recommendations Patient was very upset for not getting his breakfast tray Vitals/I&O/Wt Last Vital Signs Temp 98.2 F 02/24/22 07:50 Pulse 73 02/24/22 07:50 Resp 14 02/24/22 07:50 BP 144/68 02/24/22 07:50 Pulse Ox 97 02/24/22 07:50 02/23/22 02/24/22 02/24/22 22:59 06:59 14:59 Intake Total 300 / 440 Output Total 1050 / 1100 850 / 1950 Balance -1050 / -960 -550 / -1510 Weight last 48 hrs Weight 75.07 kg Physical Exam Narrative: Patient is laying supine No signs of fluid overload Clinically looks euvolemic Breathing well on room air Nonlabored breathing S1, S2 Abdomen soft No signs of edema of legs Awake and alert Nonfocal neuro exam Right-sided IJ dialysis catheter in place, no active oozing of blood noted Data : 02/21/22 04:32 02/23/22 03:42 A&P Assessment and plan (1) Status post insertion of hemodialysis catheter: Status: Acute (2) Poor social situation: Status: Acute (3) Cardiomyopathy: Status: Acute (4) ESRD needing dialysis: Status: Acute Plan 66-year-old male who presented to the hospital for generalized weakness and fatigue, he was recently discharged by Dr. Wilson when patient refused dialysis, during this encounter his echo revealed reduced Ejectio ejection fraction, positive stress test, I have requested cardiology for further evaluation, will need LifeVest?, First dialysis session started 02/23, Dr. King place dialysis catheter on 02/23 End-stage renal disease Dialysis dependent Patient is awaiting chair time First dialysis session 02/23 Atrophic kidneys related to hypertension Reduced action fraction cardiomyopathy Chest x-ray consistent with vascular congestion due to reduced EF Clinically does not look fluid overloaded He does make urine No active chest pain Cardiology consulted Evaluation for LifeVest and angiogram We will start losartan Poor social dynamics, patient does not have any family members, and is in [place], there are 2 friends who would check on him however they are not able to help him to great extent, patient is stating that he has a 2019 van and he can drive himself to the dialysis center manager of corporate finding chair time for him Recent DVT of lower extremity We will start Eliquis after cardiology evaluation in case he would go for an angiogram Anemia of chronic disease: Stable Previous history of Covid infection Hyperuricemia controlled on allopurinol Metformin contraindicated Full code Likely will be discharged next week Renal dialysis diet Attestations Medical Necessity Statement*: Awaiting Dr. Morales's evaluation today Time Spent in Patient Care: 15min Coding Level of Care Code Acute Cigarette Roller for Beng Fwd Diagnoses Status post insertion of hemodialysis catheter Z99.2 Poor social situation Z65.9 Cardiomyopathy I42.9 ESRD needing dialysis N18.6; Z99.2
--- NOTE | 2022-02-24 09:33 | P.CONIM_ITS ---
Providers/Reason For Consult Consulting Physician/Specialty*: ZHAO Morales MD/cardiology Reason for Consult*: Patient with a cardiomyopathy/abnormal myocardial perfusion imaging Requesting Physician: Dr. Jacobs Attending Physician: Francy Jacobs MD History of Present Illness History of Present Illness Robert Montano is a 66 year old male with no significant past medical history, presented with complaints of progressive shortness of breath, generalized weakness and dizziness. He was recently diagnosed with a renal insufficiency. Patient was found to be in acute on chronic renal failure at the time of admission. He also had some features of congestive heart failure. He had e mergency dialysis catheter placement and hemodialysis. Currently he is doing somewhat better. Denies any palpitation, dizziness or syncopal episodes. No fever or chills. No cough. He also was found to have DVT involving the proximal lower extremity veins. He is on long-term oral anticoagulation. He has no chest pain or chest tightness. No significant palpitation, dizziness or syncopal episodes. His main symptom was progressive shortness of breath. Denies any orthopnea PND. No fever or chills. No Significant cough No history of coronary previous coronary disease, myocardial infarction or congestive heart failure. Review of Systems Narrative: CONSTITUTIONAL: No fever or chills. Generalized weakness/lethargy/shortness of EYES: No blurring of vision or other visual disturbances lately. ENT: No hoarseness of voice, auditory disturbances or sore throat. Dialysis catheter in the right subclavian artery CARDIOVASCULAR: As mentioned above. Ejection Stolle murmur grade 3/6 aortic area. No diastolic murmurs RESPIRATORY: No significant cough. GASTROINTESTINAL: No hematemesis or melena. GENITOURINARY: No dysuria or hematuria. INTEGUMENTARY: No skin rashes or history of skin cancer. NEURO: No transient ischemic attacks or amaurosis. PSYCHIATRIC: No history of psychosis or major depression. HEMATOLOGIC: No bleeding disorders or significant anemia. ENDOCRINE: No history of polyuria or polydipsia. MUSCULOSKELETAL: No recent joint pain or swelling. ALLERGY/IMMUNOLOGY: As mentioned above. Medications/Allergies Home Medications Medication Instructions Recorded Confirmed Last Taken Type allopurinol 100 mg tablet 100 mg PO DAILY 30 Days #30 tab 02/07/22 02/18/22 02/17/22 Rx amlodipine 5 mg tablet 5 mg PO DAILY 30 Days #30 tab 02/07/22 02/18/22 02/17/22 Rx apixaban 5 mg tablet (Eliquis) 5 mg PO BID@0900,2100 30 Days #60 02/07/22 02/18/22 02/17/22 Rx tab cholecalciferol (vitamin D3) 125 125 mcg PO DAILY 30 Days #30 cap 02/07/22 02/18/22 02/17/22 Rx mcg (5,000 unit) capsule sevelamer carbonate 800 mg tablet 1,600 mg PO TID 30 Days #180 tab 02/07/22 02/18/22 02/17/22 Rx sodium bicarbonate 650 mg tablet 650 mg PO TID 30 Days #90 tab 02/07/22 02/18/22 02/17/22 Rx tamsulosin 0.4 mg capsule 0.4 mg PO DAILY 30 Days #30 cap 02/07/22 02/18/22 02/17/22 Rx Allergies Allergy/AdvReac Type Severity Reaction Status Date / Time No Known Allergies Allergy Verified 02/22/22 13:56 Current Medications Generic Name Dose Route Start Last Admin Trade Name Freq PRN Reason Stop Dose Admin Allopurinol 100 mg 02/19/22 09:00 02/24/22 09:13 Allopurinol 100 Mg Tablet PO 100 mg DAILY MARQUEZ Administration Amlodipine Besylate 5 mg 02/19/22 09:00 02/23/22 12:24 Amlodipine 5 Mg Tablet PO Not Given DAILY MARQUEZ Epoetin Shashi 10,000 unit 02/23/22 11:15 02/23/22 12:22 Epoetin Shashi 10,000 Unit/Ml Inj SUBCUT 10,000 unit WEEKLY MARQUEZ Administration Heparin Sodium (Porcine) 5,000 unit 02/21/22 12:30 02/24/22 00:13 Heparin 5,000 Unit/Ml Inj 1 Ml SUBCUT 5,000 unit Q12H MARQUEZ Administration Insulin Human Lispro 0 unit 02/19/22 07:00 02/24/22 09:12 Insulin Lispro 100 Unit/1 Ml SUBCUT Not Given AC[facility] Protocol Metoprolol Succinate 12.5 mg 02/23/22 09:00 02/24/22 09:13 Metoprolol Succinate Er (24 Hr) 25 Mg Tablet PO 12.5 mg DAILY MARQUEZ Administration Multivitamins 1 each 02/19/22 09:00 02/24/22 09:13 S-Gmpgmha-Lyokudx C Tablet PO 1 each DAILY MARQUEZ Administration Sevelamer Carbonate 800 mg 02/21/22 09:00 02/24/22 09:14 Sevelamer 800 Mg Tablet PO 800 mg TID MARQUEZ Administration Tamsulosin HCl 0.4 mg 02/19/22 09:00 02/24/22 09:13 Tamsulosin 0.4 Mg Capsule PO 0.4 mg DAILY MARQUEZ Administration PFSH Acute PFSH: Medical History Acute confusion Acute kidney injury Acute kidney injury superimposed on CKD MIKHAIL (acute kidney injury) CKD (chronic kidney disease) Diabetes DVT of lower extremity (deep venous thrombosis) Elevated d-dimer Fluid overload History of COVID-19 Hypertension Metabolic acidosis Pulmonary infiltrate on chest x-ray Tachycardia Troponin level elevated Surgical History No pertinent past surgical history Family History Other No significant family history Social History Smoking and tobacco status: never smoked Alcohol intake: never Lives independently: Yes Household members: none Marital status details: Rather estranged with daughter Current occupational status: other Details: Recently employed, stopped working when started feeling unwell several wks Vitals/I&O/Wt Last Vital Signs Temp 98.2 F 02/24/22 07:50 Pulse 73 02/24/22 07:50 Resp 14 02/24/22 07:50 BP 144/68 02/24/22 07:50 Pulse Ox 97 02/24/22 07:50 02/23/22 02/24/22 02/24/22 22:59 06:59 14:59 Intake Total 300 / 440 600 / 600 Output Total 1050 / 1100 850 / 1950 300 / 300 Balance -1050 / -960 -550 / -1510 300 / 300 Weight last 48 hrs Weight 165 lb 8 oz Physical Exam Narrative: GENERAL: The patient is alert and oriented times three. Not in any acute distress. HEENT: Moderate pallor .No icterus or lymphadenopathy. The pupils are reactant to light. Oral cavity: There are no mucous membrane lesions. NECK: Trachea appears to be central. No masses noted. No JVD or thyromegaly appreciated. No carotid bruit. RESPIRATORY: Chest is symmetrical. No intercostals muscle retraction or any accessory muscle activation. There is no chest wall tenderness. Breath sounds are heard bilaterally. No rales or rhonchi heard. No evidence of any consolidation. BREASTS: Deferred. HEART: The PMI is in the 5th left intercostals space just inside the midclavicular line. No palpable precordial events. S1 and S2 are normal. No S3 o r S4 heard. No pericardial rub or any click heard. ABDOMEN: No vessel pulsations or distention. No tenderness. No organomegaly appreciated. No abdominal bruit. Bowel sounds are normally heard. : Deferred. RECTAL: Deferred. LYMPHATIC: No lymphadenopathy noted in the neck or groin. EXTREMITIES: No edema or cyanosis. No clubbing. The pulses are symmetrical bilaterally. Peripheral pulses are felt fairly good volume MUSCULOSKELETAL: No acute joint deformities or SKIN: There are no significant scars or skin rash noted. NEUROPSYCHIATRIC: The patient is alert and oriented x3. Appears to be in a good mood. The higher functions are grossly within normal limits. No tremors or rigidity noted. Data : 02/21/22 04:32 02/23/22 03:42 Other Labs: Laboratory Last Values WBC 6.0 10^3/uL (4.0-10.0) 02/21/22 04:32 RBC 3.23 10^6/uL (4.1-5.3) L 02/21/22 04:32 Hgb 9.4 g/dL (11.7-16.6) L 02/21/22 04:32 Hct 29.9 % (42.0-52.0) L 02/21/22 04:32 MCV 92.6 fl (80-94) 02/21/22 04:32 MCH 29.1 pg (28.0-34.0) 02/21/22 04:32 MCHC 31.4 g/dL (30.0-36.0) 02/21/22 04:32 RDW 13.9 % (12.1-15.1) 02/21/22 04:32 Plt Count 348 10^3/cmm (130-400) 02/21/22 04:32 MPV 9.7 fL (7.4-10.4) 02/21/22 04:32 Neut % (Auto) 72.5 % 02/21/22 04:32 Lymph % (Auto) 14.5 % 02/21/22 04:32 Garland % (Auto) 7.5 % 02/21/22 04:32 Eos % (Auto) 3.8 % 02/21/22 04:32 Baso % (Auto) 1.2 % 02/21/22 04:32 Neut # (Auto) 4.33 10^3/uL (1.8-7.7) 02/21/22 04:32 Lymph # (Auto) 0.9 10^3/uL (0.8-4.8) 02/21/22 04:32 Garland # (Auto) 0.5 10^3/uL (0.2-0.9) 02/21/22 04:32 Eos # (Auto) 0.2 10^3/uL (0.0-0.8) 02/21/22 04:32 Baso # (Auto) 0.1 10^3/uL (0.0-0.1) 02/21/22 04:32 Nucleated RBC % (auto) 0 % 02/21/22 04:32 Nucleated RBCs # 0.0 /100WBC 02/21/22 04:32 Sodium 133 mmol/L (136-145) L 02/23/22 03:42 Potassium 5.0 mmol/L (3.5-5.1) 02/23/22 03:42 Chloride 99 mmol/L (98-107) 02/23/22 03:42 Carbon Dioxide 25 mmol/L (22-29) 02/23/22 03:42 Anion Gap 14.0 (5-19) 02/23/22 03:42 BUN 62 mg/dL (8-23) H 02/23/22 03:42 Creatinine 6.4 mg/dL (0.7-1.2) H* 02/23/22 03:42 GFR Calculation 8.8 mL/min (90-130) L 02/23/22 03:42 Glucose 98 mg/dL (65-115) 02/23/22 03:42 POC Glucose 85 mg/dL (70-110) 02/24/22 06:22 Estimat Average Glucose 128 02/19/22 04:23 Hemoglobin A1c 6.1 % (4.0-6.0) H 02/19/22 04:23 Calculated Osmolality 294 mOsm/kg (285-295) 02/23/22 03:42 Uric Acid 6.3 mg/dL (3.4-7.0) 02/20/22 04:49 Calcium 8.6 mg/dL (8.5-10.5) 02/23/22 03:42 Phosphorus 3.2 mg/dL (2.5-4.5) 02/23/22 03:42 Magnesium 1.8 mg/dL (1.7-2.3) 02/23/22 03:42 Iron 54 ug/dL (59-158) L 02/19/22 04:23 TIBC 130 mcg/dl 02/19/22 04:23 % Saturation 41.5 % (20-50) 02/19/22 04:23 Unsat Iron Binding 76 ug/dL (112-347) L 02/19/22 04:23 Ferritin 648 ng/mL (30-400) H 02/19/22 04:23 Total Bilirubin 0.2 mg/dL (0.15-1.2) 02/23/22 03:42 AST 12 U/L (0-40) 02/23/22 03:42 ALT 6 U/L (0-41) 02/23/22 03:42 Alkaline Phosphatase 116 IU/L (40-130) 02/23/22 03:42 Total Protein 5.9 g/dL (6.6-8.7) L 02/23/22 03:42 Albumin 3.1 g/dL (3.5-5.2) L 02/23/22 03:42 Globulin 2.8 g/dL (1.3-4.6) 02/23/22 03:42 25-OH Vitamin D Total 5 ng/mL (30-100) L 02/19/22 04:23 TSH 1.58 uIU/mL (0.27-4.20) 02/18/22 19:02 PTH Intact 250.3 pg/mL (15-65) H 02/19/22 04:23 Calcium (PTH Intact) 8.2 mg/dL (8.5-10.5) L 02/19/22 04:23 Random Cortisol 8.13 ug/dL (2.47-19.5) 02/19/22 04:23 Urine Color Yellow (Yellow) 02/21/22 11:40 Urine Appearance Clear (CLEAR) 02/21/22 11:40 Urine pH 8 (5-7) H 02/21/22 11:40 Ur Specific Aristes 1.010 (1.005-1.030) 02/21/22 11:40 Urine Protein 1+ (Negative) H 02/21/22 11:40 Urine Glucose (UA) Norm (Normal) 02/21/22 11:40 Urine Ketones Negative (Negative) 02/21/22 11:40 Urine Blood Neg (Negative) 02/21/22 11:40 Urine Nitrate Negative (Negative) 02/21/22 11:40 Urine Bilirubin Neg (Negative) 02/21/22 11:40 Prot Sulfosalicylic Acd Positive (Negative) 02/21/22 11:40 Urine Urobilinogen Norm mg/dL (Negative) 02/21/22 11:40 Ur Leukocyte Esterase Negative (Negative) 02/21/22 11:40 Urine RBC None /hpf (0-2) 02/21/22 11:40 Urine WBC None /hpf (0-5) 02/21/22 11:40 Ur Squamous Epith Cells None /hpf (0-5) 02/21/22 11:40 Amorphous Sediment Not Reportable 02/21/22 11:40 Urine Bacteria None /hpf (NONE) 02/21/22 11:40 Ur Random Sodium 72 mmol/L 02/21/22 11:40 Ur Random Potassium 7 mmol/L 02/21/22 11:40 Ur Random Chloride 43 mmol/L 02/21/22 11:40 Urine Total Volume 1100 ml 02/20/22 00:20 Urine Creatinine 51 mg/dL (39-259) 02/21/22 11:40 Ur Creatinine 24 Hour 1034.0 mg/dL (955-2936) 02/20/22 00:20 Hep Bs Antigen Non-reactive (Nonreactive) 02/21/22 04:23 Hep Bs Antibody < 3.5 (11.5-1000) L 02/21/22 04:23 Hepatitis C Antibody Non-reactive (Nonreactive) 02/18/22 21:16 Other data: Echocardiogram on 02/22/2022 ?1. Small sized perfusion abnormality of mid to apical inferior, mid to apical ?inferolateral dash with subtle reversibility in apical lateral wall. ?2. This may represent old myocardial infarction in right coronary ?artery/circumflex artery territory with minimal yaima-infarct. ?3. The left ventricular ejection fraction is moderately reduced with a value of ?38%. ?4. There is moderately decreased wall thickening. ?5. EKG portion of the study will be reported separately. ?6. No prior similar studies to compare. Renal artery duplex times revealed ?Bilateral small kidneys with atrophy. 2.? Moderate chronic medical renal disease. No hydronephrosi A&P Assessment and plan (1) Cardiomyopathy: The etiology of the cardiomyopathy is not clear at this time. Possibly underlying coronary ischemia causing this is a strong consideration. He has multiple areas of fixed defects with a very small areas of reversible defect. For further evaluation of his coronary status, he requires a cardiac catheterization. The patient is not wanting to do any further tests at this time. He seems to understand implications. Status: Acute (2) Abnormal cardiovascular stress test: Test findings and the implications patient has abnormal perfusion scan, is suggestive of myocardial scarring with ischemia. Apparently this patient never had any cardiac catheterization or myocardial event that he knows of . Patient is vehemently opposed for any invasive procedures. May start on losartan 25 mg p.o. daily Status: Acute (3) Acute kidney injury superimposed on CKD: Patient is on hemodialysis. Seems to be responding appropriately. Status: Acute Plan Based on the patient's clinical progress, further recommendations will be made. The patient does not want to undergo any invasive procedures, optimizing the medical treatment with the plan of action. May consider starting him on Entresto, if it is advisable by the nephrology. Consult Attestations Medical Necessity Statement: May continue on the current medications Based on the patient clinical progress, further recommendations will be made. Thank you for the opportunity to evaluate this patient make these recommendation Coding Level of Care Code Acute Transaction Coordinator for Devin Fwd History Detailed Exam Detailed Medical Decision Making Moderate Complexity Diagnoses Acute kidney injury superimposed on CKD N17.9; N18.9 Cardiomyopathy I42.9 Abnormal cardiovascular stress test R94.39
[2022-02-24 12:00] VITALS: BP 128/56; PULSE 75; RESP 16; TEMP 36.9; O2SAT 96
[2022-02-24 12:05] LABS: Glucose Point of Care 160 mg/dL (70-110)
[2022-02-24] MEDS: insulin lispro 100 unit/1 mL SUBCUT ×2 (13:06→21:22)
[2022-02-24 16:00] VITALS: BP 132/61; PULSE 75; RESP 16; TEMP 37; O2SAT 97
[2022-02-24 17:19] LABS: Glucose Point of Care 137 mg/dL (70-110)
[2022-02-24 20:00] VITALS: BP 148/73; PULSE 77; RESP 17; TEMP 36.6; O2SAT 98
[2022-02-25] VITALS (8 sets, daily range): BP systolic 125–149; BP diastolic 67–76; PULSE 71–85; RESP 16–18; TEMP 36.3–37.1; O2SAT 96–99
[2022-02-25] MEDS: heparin 5,000 unit/mL INJ 1 mL 5000 UNIT SUBCUT (01:24)
[2022-02-25 05:43] LABS: Alanine Aminotransferase < 5 U/L (0-41); Alkaline Phosphatase 110 IU/L (40-130); Anion Gap 16.6 (5-19); Aspartate Amino Transferase 13 U/L (0-40); Blood Urea Nitrogen 43 mg/dL (8-23); Calcium 8.4 mg/dL (8.5-10.5); Carbon Dioxide 24 mmol/L (22-29); Chloride 101 mmol/L (98-107); Glomerular Filtration Rate 12.3 mL/min (90-130); Glucose 90 mg/dL (65-115); Magnesium 1.9 mg/dL (1.7-2.3); Osmolality Calculated 294 mOsm/kg (285-295); Potassium 4.6 mmol/L (3.5-5.1); Sodium 137 mmol/L (136-145); Total Bilirubin 0.2 mg/dL (0.15-1.2); Uric Acid 4.1 mg/dL (3.4-7.0)
[2022-02-25 06:25] LABS: Glucose Point of Care 198 mg/dL (70-110)
[2022-02-25 06:51] LABS: Basophils # 0.1 10^3/uL (0.0-0.1); Eosinophils # 0.4 10^3/uL (0.0-0.8); Hematocrit 26.4 % (42.0-52.0); Hemoglobin 8.2 g/dL (11.7-16.6); Lymphocytes # 1.2 10^3/uL (0.8-4.8); Lymphocytes % 20.3 %; Mean Corpuscular HGB Conc 31.1 g/dL (30.0-36.0); Mean Corpuscular Hemoglobin 29.2 pg (28.0-34.0); Mean Platelet Volume 10.4 fL (7.4-10.4); Monocytes # 0.6 10^3/uL (0.2-0.9); Monocytes % 9.4 %; Neutrophils # 3.76 10^3/uL (1.8-7.7); Nucleated Red Blood Cells % 0 %; Platelet Count 247 10^3/cmm (130-400); Red Blood Count 2.81 10^6/uL (4.1-5.3); Red Cell Distribution Width 14.5 % (12.1-15.1)
[2022-02-25 07:12] LABS: Glucose Point of Care 92 mg/dL (70-110)
--- NOTE | 2022-02-25 07:28 | PM.PN ---
Subjective Subjective: feels well. s/p HD x 1. no garcia, no cp. no diarrhea. no edema. Medications: Reviewed: Yes Medication Review Details: Current Medications Acetaminophen (Acetaminophen 325 Mg Tablet) 325 - 650 mg PO Q4H PRN PRN Reason: MILD PAIN OR INCREASE TEMP Allopurinol (Allopurinol 100 Mg Tablet) 100 mg PO DAILY [facility] Last Admin: 02/24/22 09:13 Dose: 100 mg Documented by: Amlodipine Besylate (Amlodipine 5 Mg Tablet) 5 mg PO DAILY [facility] Last Admin: 02/23/22 12:24 Dose: Not Given Documented by: Dextrose (Dextrose 50% Syringe 50 Ml) 25 ml IVP ONCE PRN; Protocol PRN Reason: hypoglycemia protocol Dextrose (Dextrose 50% Syringe 50 Ml) 50 ml IVP PRN PRN; Protocol PRN Reason: hypoglycemia protocol Epoetin Shashi (Epoetin Shashi 10,000 Unit/Ml Inj) 10,000 unit SUBCUT WEEKLY [facility] Last Admin: 02/23/22 12:22 Dose: 10,000 unit Documented by: Glucagon (Glucagon 1 Mg/Ml Inj 1 Ml) 1 mg IM ONCE PRN; Protocol PRN Reason: Adult Acute Hypoglycemia Prot. Heparin Sodium (Porcine) (Heparin 5,000 Unit/Ml Inj 1 Ml) 5,000 unit SUBCUT Q12H [facility] Last Admin: 02/25/22 01:24 Dose: 5,000 unit Documented by: Dextrose (D5w) 500 mls @ 100 mls/hr IV ONCE PRN; Protocol PRN Reason: Adult Acute Hypoglycemia Prot Insulin Human Lispro (Insulin Lispro 100 Unit/1 Ml) 0 unit SUBCUT AC&BEDTIME [facility]; Protocol Last Admin: 02/25/22 07:14 Dose: Not Given Documented by: Losartan Potassium (Losartan 50 Mg Tablet) 25 mg PO DAILY [facility] Metoprolol Succinate (Metoprolol Succinate Er (24 Hr) 25 Mg Tablet) 12.5 mg PO DAILY [facility] Last Admin: 02/24/22 09:13 Dose: 12.5 mg Documented by: Multivitamins (C-Ckhyzyy-Ittikvo C Tablet) 1 each PO DAILY [facility] Last Admin: 02/24/22 09:13 Dose: 1 each Documented by: Ondansetron HCl (Ondansetron 2 Mg/Ml Sdv 2 Ml) 4 mg IVP Q2M PRN PRN Reason: NAUSEA Sevelamer Carbonate (Sevelamer 800 Mg Tablet) 800 mg PO TID [facility] Last Admin: 02/24/22 21:10 Dose: 800 mg Documented by: Tamsulosin HCl (Tamsulosin 0.4 Mg Capsule) 0.4 mg PO DAILY [facility] Last Admin: 02/24/22 09:13 Dose: 0.4 mg Documented by: Vitals/I&O/Wt Last Vital Signs Temp 97.6 F 02/25/22 07:25 Pulse 71 02/25/22 07:25 Resp 18 02/25/22 07:25 BP 145/75 02/25/22 07:25 Pulse Ox 96 02/25/22 07:25 02/24/22 02/25/22 02/25/22 22:59 06:59 14:59 Intake Total 360 / 960 220 / 1180 Output Total 1300 / 1600 Balance 360 / 660 -1080 / -420 Weight last 48 hrs Weight 84.776 kg Physical Exam Narrative: comfortable in bed, NARD vss heent- nc/at, eomi, anicteric neck supple, Rt Ij dialysis access lungs crackles dec heart reg abd soft, nt, nd, + bs ext no edema neuro- a,a, o x 3, no asterixis Data : 02/25/22 04:52 02/25/22 04:52 A&P Assessment and plan (1) Acute kidney injury superimposed on CKD: 66 yr old man 1. CKD likely stage 5. -s.p HD Friday -renal us w/ atrophic kidneys -as excellent uop, and pt refusing cardiac cath- will monitor off of dialysis 2. renal- bone- mineral- metabolism- check vit d 5- replete, pth 250- zemplar on hd -normal phosphorus 3. hyponatremia- normal tsh, -improved w/ HD 4. CHF- EF of 30%- down from 40%. once on HD, can start an ARB-appreciate DR Morales's input- concerned for cardiac ischemia- he recommended a cardiac cath- pt is refusing. 5.? htn-BP well controlled 6. recent DVT of lower extrmeities- -02-02-22- us-.Features of possible acute deep veins thrombosis involving the ?right femoral vein causing total occlusion.? The popliteal, ?peroneal and posterior tibial veins were found to be patent. 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 The popliteal, peroneal ?and the posterior tibial veins on the left leg were found to be ?patent. 7. anemia- ferritin 648, % sat 41- use epo 8 .h/o COVID 9. hyperuricemia- uric acid 6.3- controlled on allopurinol 10. no metformin w/ CKD stage 5 seen and examined w/ RN- telehealth visit needs an outpt HD slot time spent 30 min Status: Acute Plan see above. monitor renal fxn. assess in am for hd needs Attestations Medical Necessity Statement*: as above, chf, ckd stage 5 Time Spent in Patient Care: 16 - 35 minutes (>than 50% of time spent in counselling and/or direct pt care on unit). Coding Level of Care Code Acute Animal Keeper Head for Devin Murray Diagnoses Acute kidney injury superimposed on CKD N17.9; N18.9
[2022-02-25] MEDS: b-complex-vitamin c Tablet 1 EACH PO (08:28)
[2022-02-25] MEDS: losartan 50 mg Tablet 25 MG PO (08:29)
[2022-02-25] MEDS: metoprolol succinate ER (24 HR) 25 mg Tablet 12.5 MG PO (08:29)
[2022-02-25] MEDS: allopurinol 100 mg Tablet PO (08:29)
[2022-02-25] MEDS: sevelamer 800 mg Tablet 1600 MG PO ×3 (08:29→21:41)
[2022-02-25] MEDS: tamsulosin 0.4 mg Capsule PO (08:29)
[2022-02-25 11:46] LABS: Glucose Point of Care 161 mg/dL (70-110)
--- NOTE | 2022-02-25 12:22 | PM.PN ---
Subjective Subjective: Seen this morning. Patient states that he will not be getting dialyzed today and he is not sure why and he is confused. He states he drives and can take himself to dialysis if needed I did discuss with him the possibility of angiogram. He refused. He states he does understand is a lifesaving procedure potentially and he would not want to have it done. Awaiting dialysis spot. Pt states there is no family member that he would like me to update. Vitals/I&O/Wt Last Vital Signs Temp 98.2 F 02/25/22 11:16 Pulse 77 02/25/22 11:16 Resp 16 02/25/22 11:16 BP 140/71 02/25/22 11:16 Pulse Ox 97 02/25/22 11:16 02/24/22 02/25/22 02/25/22 22:59 06:59 14:59 Intake Total 360 / 960 220 / 1180 240 / 240 Output Total 1300 / 1600 Balance 360 / 660 -1080 / -420 240 / 240 Weight last 48 hrs Weight 84.776 kg Physical Exam Narrative: Patient sitting up in bed appearing comfortable allowed to have breakfast. Awake and alert and oriented Normocephalic atraumatic, EOMI, breathing room Normal S1, S2, Lungs clear to auscultation bilaterally, clinically appears euvolemic Normal respiratory effort Abdomen soft nontender, no edema in her extremities, Right-sided IJ dialysis catheter in place, no active oozing of blood noted, bandage appears clean Data : 02/25/22 04:52 02/25/22 04:52 A&P Assessment and plan (1) Cardiomyopathy: Status: Acute (2) ESRD needing dialysis: Status: Acute (3) Status post insertion of hemodialysis catheter: Status: Acute (4) Abnormal cardiovascular stress test: Status: Acute Plan 66-year-old male who presented to the hospital for generalized weakness and fatigue, he was recently discharged by Dr. Wilson when patient refused dialysis, during this encounter his echo revealed reduced Ejection ejection fraction, positive stress test, cardiology was consulted. Patient refused an angiogram at this time. First dialysis session started 02/23, Dr. King place dialysis catheter on 02/23. Patient is awaiting dialysis spot. End-stage renal disease Dialysis dependent Patient is awaiting chair time First dialysis session 02/23 Atrophic kidneys related to hypertension Reduced action fraction cardiomyopathy Chest x-ray consistent with vascular congestion due to reduced EF Clinically does not look fluid overloaded He has had good urine output today. Cardiology consulted. Angiogram recommended with patient is refusing at this time. He states he understands the risks and benefits and would not like to proceed. He does understand it is a potentially life-saving procedure. Losartan was started. Continue. Blood pressure 140/71 today. Poor social dynamics, patient does not have any family members, and is in [place], there are 2 friends who would check on him however they are not able to help him to great extent, patient is stating that he has a 2019 van and he can drive himself to the dialysis center. I did discuss with the patient today regarding updating family member or friend but he stated he did not want me to call anybody. building rental manager finding chair time for him Recent DVT of lower extremity I will restart Eliquis for this patient as he does not want to go for any further invasive procedures. Anemia of chronic disease: Stable Previous history of Covid infection Hyperuricemia controlled on allopurinol Metformin contraindicated Full code Likely will be discharged next week Renal dialysis diet Attestations Medical Necessity Statement*: Inpatient dialysis required until chair time available outpatient. Patient is dialysis dependent. Coding Level of Care Code Acute Reinsurance Accountant for Devin Fwd Diagnoses Cardiomyopathy I42.9 ESRD needing dialysis N18.6; Z99.2 Status post insertion of hemodialysis catheter Z99.2 Abnormal cardiovascular stress test R94.39 Time Spent (min) 20
[2022-02-25] MEDS: insulin lispro 100 unit/1 mL SUBCUT ×2 (13:27→21:39)
[2022-02-25] MEDS: epoetin alfa 10,000 unit/mL INJ 10000 UNIT SUBCUT (13:33)
[2022-02-25 17:23] LABS: Glucose Point of Care 123 mg/dL (70-110)
--- NOTE | 2022-02-25 18:27 | PM.PN ---
Subjective Subjective: Patient denies any chest pain or chest tightness. No unusual shortness of breath. The vital signs are remaining stable. No fever, chills or cough. Medications: Medication Review Details: Current Medications Acetaminophen (Acetaminophen 325 Mg Tablet) 325 - 650 mg PO Q4H PRN PRN Reason: MILD PAIN OR INCREASE TEMP Allopurinol (Allopurinol 100 Mg Tablet) 100 mg PO DAILY [facility] Last Admin: 02/25/22 08:29 Dose: 100 mg Documented by: Amlodipine Besylate (Amlodipine 5 Mg Tablet) 5 mg PO DAILY [facility] Last Admin: 02/23/22 12:24 Dose: Not Given Documented by: Apixaban (Apixaban 5 Mg Tablet) 5 mg PO BID@0900,2100 [facility] Dextrose (Dextrose 50% Syringe 50 Ml) 25 ml IVP ONCE PRN; Protocol PRN Reason: hypoglycemia protocol Dextrose (Dextrose 50% Syringe 50 Ml) 50 ml IVP PRN PRN; Protocol PRN Reason: hypoglycemia protocol Epoetin Shashi (Epoetin Shashi 10,000 Unit/Ml Inj) 10,000 unit SUBCUT QMWF COUNT [facility] Last Admin: 02/25/22 13:33 Dose: 10,000 unit Documented by: Glucagon (Glucagon 1 Mg/Ml Inj 1 Ml) 1 mg IM ONCE PRN; Protocol PRN Reason: Adult Acute Hypoglycemia Prot. Dextrose (D5w) 500 mls @ 100 mls/hr IV ONCE PRN; Protocol PRN Reason: Adult Acute Hypoglycemia Prot Insulin Human Lispro (Insulin Lispro 100 Unit/1 Ml) 0 unit SUBCUT AC&BEDTIME COUNT [facility]CLUDES [facility]; Protocol Last Admin: 02/25/22 17:47 Dose: Not Given Documented by: Losartan Potassium (Losartan 50 Mg Tablet) 25 mg PO DAILY [facility] Last Admin: 02/25/22 08:29 Dose: 25 mg Documented by: Metoprolol Succinate (Metoprolol Succinate Er (24 Hr) 25 Mg Tablet) 12.5 mg PO DAILY [facility] Last Admin: 02/25/22 08:29 Dose: 12.5 mg Documented by: Multivitamins (K-Fedring-Pntefsk C Tablet) 1 each PO DAILY [facility] Last Admin: 02/25/22 08:28 Dose: 1 each Documented by: Ondansetron HCl (Ondansetron 2 Mg/Ml Sdv 2 Ml) 4 mg IVP Q2M PRN PRN Reason: NAUSEA Sevelamer Carbonate (Sevelamer 800 Mg Tablet) 1,600 mg PO TID [facility] Last Admin: 02/25/22 14:46 Dose: 1,600 mg Documented by: Tamsulosin HCl (Tamsulosin 0.4 Mg Capsule) 0.4 mg PO DAILY [facility] Last Admin: 02/25/22 08:29 Dose: 0.4 mg Documented by: Vitals/I&O/Wt Last Vital Signs Temp 98.5 F 02/25/22 15:22 Pulse 75 02/25/22 15:22 Resp 16 02/25/22 15:22 BP 125/67 02/25/22 15:22 Pulse Ox 97 02/25/22 15:22 02/25/22 02/25/22 02/25/22 06:59 14:59 22:59 Intake Total 220 / 1180 600 / 600 Output Total 1300 / 1600 850 / 850 Balance -1080 / -420 -250 / -250 Weight last 48 hrs Weight 186 lb 14.4 oz Physical Exam Narrative: GENERAL: The patient is alert and oriented times three. Not in any acute distress. HEENT: Moderate pallor .No icterus or lymphadenopathy. Oral cavity: There are no mucous membrane lesions. NECK: Trachea appears to be central. No masses noted. No JVD or thyromegaly appreciated. No carotid bruit. RESPIRATORY: Chest is symmetrical. No intercostals muscle retraction or any accessory muscle activation. There is no chest wall tenderness. Breath sounds are heard bilaterally. No rales or rhonchi heard. No evidence of any consolidation. BREASTS: Deferred. HEART: The PMI is in the 5th left intercostals space just inside the midclavicular line. No palpable precordial events. S1 and S2 are normal. No S3 or S4 heard. No pericardial rub or any click heard. ABDOMEN: No vessel pulsations or distention. No tenderness. No organomegaly appreciated. No abdominal bruit. Bowel sounds are normally heard. : Deferred. RECTAL: Deferred. LYMPHATIC: No lymphadenopathy noted in the neck. EXTREMITIES: No edema or cyanosis. No clubbing. The pulses are symmetrical bilaterally. Peripheral pulses are felt fairly good volume MUSCULOSKELETAL: No acute joint deformities or SKIN: There are no significant scars or skin rash noted. NEUROPSYCHIATRIC: The patient is alert and oriented x3. Appears to be in a good mood. The higher functions are grossly within normal limits. No tremors or rigidity noted. Data : 02/25/22 04:52 02/25/22 04:52 A&P Assessment and plan (1) Cardiomyopathy: The etiology of the cardiomyopathy is not clear at this time. Possibly underlying coronary ischemia causing this is a strong consideration. He has multiple areas of fixed defects with a very small areas of reversible defect. For further evaluation of his coronary status, he requires a cardiac catheterization. The patient is not wanting to do any further tests at this time. He seems to understand implications. Patient consistently refused to undergo angiogram. I also discussed with the patient about the need for an ICD/LifeVest. Patient is vehemently opposed to this as well. He is seems to understand the implications. Status: Acute (2) Abnormal cardiovascular stress test: Test findings and the implications patient has abnormal perfusion scan, is suggestive of myocardial scarring with ischemia. Apparently this patient never had any cardiac catheterization or myocardial event that he knows of . Patient consistently refuses to undergo any angiogram or interventional procedures. Status: Acute (3) Acute kidney injury superimposed on CKD: Patient is on hemodialysis. Seems to be responding appropriately. Status: Acute Plan Since the patient is consistently refusing to undergo any invasive or interventional procedures, optimizing the medical management will be the plan of action. If he is willing to come back for outpatient follow-up evaluations, may make an appointment to be seen by the nurse practitioner in 2 weeks and appointment with me in 1 month. Since he remains otherwise stable, I may sign off at this point. Please feel free to contact me, with any further questions regarding his cardiovascular status Attestations Medical Necessity Statement*: Disposition as per the primary. Coding Level of Care Code Acute Afloat Cryptologic Manager for Beng Fwd History Detailed Exam Detailed Medical Decision Making Moderate Complexity Diagnoses Cardiomyopathy I42.9 Abnormal cardiovascular stress test R94.39 Acute kidney injury superimposed on CKD N17.9; N18.9
[2022-02-25] MEDS: apixaban 5 mg Tablet PO (21:40)
[2022-02-26] VITALS (8 sets, daily range): BP systolic 116–145; BP diastolic 66–76; PULSE 67–81; RESP 16–18; TEMP 36.5–37.1; O2SAT 95–98
[2022-02-26 03:31] LABS: Basophils % 0.7 %; Eosinophils # 0.4 10^3/uL (0.0-0.8); Eosinophils % 6.7 %; Hematocrit 27.5 % (42.0-52.0); Hemoglobin 8.5 g/dL (11.7-16.6); Lymphocytes # 0.9 10^3/uL (0.8-4.8); Lymphocytes % 16.3 %; Mean Corpuscular HGB Conc 30.9 g/dL (30.0-36.0); Mean Corpuscular Hemoglobin 29.6 pg (28.0-34.0); Mean Corpuscular Volume 95.8 fl (80-94); Mean Platelet Volume 10.2 fL (7.4-10.4); Monocytes # 0.5 10^3/uL (0.2-0.9); Neutrophils # 3.77 10^3/uL (1.8-7.7); Neutrophils % 66.9 %; Nucleated Red Blood Cells % 0 %; Platelet Count 247 10^3/cmm (130-400); Red Blood Count 2.87 10^6/uL (4.1-5.3); Red Cell Distribution Width 14.9 % (12.1-15.1); White Blood Count 5.6 10^3/uL (4.0-10.0)
[2022-02-26 03:58] LABS: Alanine Aminotransferase < 5 U/L (0-41); Albumin Level 2.6 g/dL (3.5-5.2); Alkaline Phosphatase 120 IU/L (40-130); Blood Urea Nitrogen 45 mg/dL (8-23); Calcium 8.7 mg/dL (8.5-10.5); Carbon Dioxide 21 mmol/L (22-29); Chloride 103 mmol/L (98-107); Globulin 3.6 g/dL (1.3-4.6); Glomerular Filtration Rate 11.5 mL/min (90-130); Glucose 136 mg/dL (65-115); Magnesium 1.9 mg/dL (1.7-2.3); Osmolality Calculated 294 mOsm/kg (285-295); Phosphorus 1.7 mg/dL (2.5-4.5); Sodium 135 mmol/L (136-145); Total Bilirubin 0.2 mg/dL (0.15-1.2); Total Protein 6.2 g/dL (6.6-8.7)
[2022-02-26 04:08] LABS: Anion Gap 16.1 (5-19); Aspartate Amino Transferase 15 U/L (0-40); Potassium 5.1 mmol/L (3.5-5.1)
[2022-02-26 07:57] LABS: Glucose Point of Care 175 mg/dL (70-110)
[2022-02-26 07:58] LABS: Glucose Point of Care 91 mg/dL (70-110)
[2022-02-26] MEDS: tamsulosin 0.4 mg Capsule PO (09:01)
[2022-02-26] MEDS: b-complex-vitamin c Tablet 1 EACH PO (09:02)
[2022-02-26] MEDS: metoprolol succinate ER (24 HR) 25 mg Tablet 12.5 MG PO (09:02)
[2022-02-26] MEDS: allopurinol 100 mg Tablet PO (09:02)
[2022-02-26] MEDS: apixaban 5 mg Tablet PO ×2 (09:02→20:50)
[2022-02-26] MEDS: sevelamer 800 mg Tablet 1600 MG PO ×3 (09:02→20:50)
[2022-02-26] MEDS: losartan 50 mg Tablet 25 MG PO (09:02)
--- NOTE | 2022-02-26 13:58 | PM.PN ---
Subjective Subjective: No acute events overnight. Patient would like to know when his dialysis spot will be set up so he can leave the hospital. Denies any chest pain, shortness of breath. Did not receive dialysis yesterday. Urine output 850 over last 24 hours. Vitals/I&O/Wt Last Vital Signs Temp 98.1 F 02/26/22 11:01 Pulse 77 02/26/22 11:01 Resp 16 02/26/22 11:01 BP 137/75 02/26/22 11:01 Pulse Ox 97 02/26/22 11:01 02/25/22 02/26/22 02/26/22 22:59 06:59 14:59 Intake Total 360 / 960 720 / 720 Output Total 500 / 1350 Balance 360 / 110 -500 / -390 720 / 720 Weight last 48 hrs Weight 79.107 kg Weight 84.776 kg Physical Exam Narrative: Patient sitting up in bed appearing comfortable. AO x 3 Normocephalic at raumatic, EOMI, br eathing room Sydnie l S1, S2, Lungs cl ear to auscultatio n bilaterally, cli nically appears eu volemic Normal res piratory effort Ab domen soft nontend er, no edema in he r extremities, Rig ht-sided IJ dialys is catheter in roni ce, no active oozi ng of blood noted, bandage appears c lean Data : 02/26/22 02:20 02/26/22 02:20 A&P Assessment and plan (1) Hypertension: Status: Acute (2) Abnormal cardiovascular stress test: Status: Acute (3) Status post insertion of hemodialysis catheter: Status: Acute (4) Cardiomyopathy: Status: Acute (5) Poor social situation: Status: Acute (6) Acute kidney injury superimposed on CKD: Status: Acute (7) ESRD needing dialysis: Status: Acute Plan 66-year-old male who presented to the hospital for generalized weakness and fatigue, he was recently discharged by Dr. Wilson when patient refused dialysis, during this encounter his echo revealed reduced Ejection ejection fraction, positive stress test, cardiology was consulted.? Patient refused an angiogram at this time.? First dialysis session started 02/23, Dr. King place dialysis catheter on 02/23.? Patient is awaiting dialysis spot. End-stage renal disease Dialysis dependent Patient is awaiting chair time First dialysis session 02/23 Atrophic kidneys related to hypertension 850 cc urine output overnight. Nephro watching patient off of dialysis since yesterday. We will wait for further recommendations from nephrology for next dialysis session. Patient is awaiting chair time. Reduced action fraction cardiomyopathy Chest x-ray consistent with vascular congestion due to reduced EF Clinically does not look fluid overloaded He has had good urine output today.? Cardiology consulted.? Angiogram recommended with patient is refusing at this time.? He states he understands the risks and benefits and would not like to proceed.? He does understand it is a potentially life-saving procedure. Losartan to be continued. Blood pressure in much better controlled now.. Poor social dynamics, patient does not have any family members, and is in [place], there are 2 friends who would check on him however they are not able to help him to great extent, patient is stating that he has a [employer] van and he can drive himself to the dialysis center.? I did discuss with the patient today regarding updating family member or friend but he stated he did not want me to call anybody. cafe or restaurant manager finding chair time for him Recent DVT of lower extremity Continue Eliquis. Anemia of chronic disease: Stable Previous history of Covid infection Hyperuricemia controlled on allopurinol Metformin contraindicated Full code Likely will be discharged next week Renal dialysis diet Attestations Medical Necessity Statement*: Awaiting dialysis spot outpatient. Possible discharge next week. Coding Level of Care Code Acute Flower Shop Manager for Devin Murray Diagnoses Hypertension I10 Abnormal cardiovascular stress test R94.39 Status post insertion of hemodialysis catheter Z99.2 Cardiomyopathy I42.9 Poor social situation Z65.9 Acute kidney injury superimposed on CKD N17.9; N18.9 ESRD needing dialysis N18.6; Z99.2
--- NOTE | 2022-02-26 14:05 | PM.PN ---
Subjective Subjective: No new issues with Mr. Montano today. Last dialyzed on Friday. No extremity edema, no shortness of breath no, no other hypervolemic symptoms. Medications: Reviewed: Yes Medication Review Details: Current Medications Acetaminophen (Acetaminophen 325 Mg Tablet) 325 - 650 mg PO Q4H PRN PRN Reason: MILD PAIN OR INCREASE TEMP Allopurinol (Allopurinol 100 Mg Tablet) 100 mg PO DAILY [facility] Last Admin: 02/25/22 08:29 Dose: 100 mg Documented by: Amlodipine Besylate (Amlodipine 5 Mg Tablet) 5 mg PO DAILY [facility] Last Admin: 02/23/22 12:24 Dose: Not Given Documented by: Apixaban (Apixaban 5 Mg Tablet) 5 mg PO BID@0900,2100 [facility] Dextrose (Dextrose 50% Syringe 50 Ml) 25 ml IVP ONCE PRN; Protocol PRN Reason: hypoglycemia protocol Dextrose (Dextrose 50% Syringe 50 Ml) 50 ml IVP PRN PRN; Protocol PRN Reason: hypoglycemia protocol Epoetin Shashi (Epoetin Shashi 10,000 Unit/Ml Inj) 10,000 unit SUBCUT QMWF [facility] Last Admin: 02/25/22 13:33 Dose: 10,000 unit Documented by: Glucagon (Glucagon 1 Mg/Ml Inj 1 Ml) 1 mg IM ONCE PRN; Protocol PRN Reason: Adult Acute Hypoglycemia Prot. Dextrose (D5w) 500 mls @ 100 mls/hr IV ONCE PRN; Protocol PRN Reason: Adult Acute Hypoglycemia Prot Insulin Human Lispro (Insulin Lispro 100 Unit/1 Ml) 0 unit SUBCUT AC&BEDTIME [facility]; Protocol Last Admin: 02/25/22 17:47 Dose: Not Given Documented by: Losartan Potassium (Losartan 50 Mg Tablet) 25 mg PO DAILY [facility] Last Admin: 02/25/22 08:29 Dose: 25 mg Documented by: Metoprolol Succinate (Metoprolol Succinate Er (24 Hr) 25 Mg Tablet) 12.5 mg PO DAILY [facility] Last Admin: 02/25/22 08:29 Dose: 12.5 mg Documented by: Multivitamins (R-Ctlyrkt-Pimuxsl C Tablet) 1 each PO DAILY [facility] Last Admin: 02/25/22 08:28 Dose: 1 each Documented by: Ondansetron HCl (Ondansetron 2 Mg/Ml Sdv 2 Ml) 4 mg IVP Q2M PRN PRN Reason: NAUSEA Sevelamer Carbonate (Sevelamer 800 Mg Tablet) 1,600 mg PO TID [facility] Last Admin: 02/25/22 14:46 Dose: 1,600 mg Documented by: Tamsulosin HCl (Tamsulosin 0.4 Mg Capsule) 0.4 mg PO DAILY [facility] Last Admin: 02/25/22 08:29 Dose: 0.4 mg Documented by: Vitals/I&O/Wt Last Vital Signs Temp 98.1 F 02/26/22 11:01 Pulse 77 02/26/22 11:01 Resp 16 02/26/22 11:01 BP 137/75 02/26/22 11:01 Pulse Ox 97 02/26/22 11:01 02/25/22 02/26/22 02/26/22 22:59 06:59 14:59 Intake Total 360 / 960 720 / 720 Output Total 500 / 1350 Balance 360 / 110 -500 / -390 720 / 720 Weight last 48 hrs Weight 79.107 kg Weight 84.776 kg Physical Exam Narrative: Constitutional: Awake, comfortable HEENT: Wet mucosa, no jvp, non icteric Lungs: Bilaterally clear without discernible wheeze, rales in all lung zones CVS: S1 S2, no murmurs Abdo: Soft, BS ok Ext 4: Minimal edema, peripheral perfusion with no cyanosis Neurological: Grossly non-focal Data : 02/26/22 02:20 02/26/22 02:20 A&P Assessment and plan (1) Acute kidney injury superimposed on CKD: Status: Acute Plan 1. Stage V chronic kidney disease New ESRD Dialysis requested for am Cont MWF schedule Dose medication for GFR less than 15 Strict I's and O's Outpatient dialysis to be set up by behavioral health case manager 2. Ischemic cardiomyopathy Stress test appreciated, mgmt per cardiology, patient refusing LHC, lifevest etc 3. Chemistry Noncritical aberration, continue to monitor 4. Hemodynamics These appear stable 5. Anemia of chronic kidney disease Iron levels appear at goal, currently on EPO weekly. ok for discharge when outpatient dialysis is organized Noe Del Toro MD Nephrology [phone] Patient seen and examined via telemedicine, with the assistance of the bedside RN > 25 min spent in evaluation and mgmt of patient Attestations Medical Necessity Statement*: Eval for ESRD mgmt Coding Level of Care Code Acute Internal Sales for Chg Fwd Diagnoses Acute kidney injury superimposed on CKD N17.9; N18.9
[2022-02-26] MEDS: insulin lispro 100 unit/1 mL SUBCUT (21:04)
[2022-02-26 21:35] LABS: Glucose Point of Care 143 mg/dL (70-110)
[2022-02-26 21:35] LABS: Glucose Point of Care 116 mg/dL (70-110)
[2022-02-26 22:14] LABS: Glucose Point of Care 197 mg/dL (70-110)
[2022-02-27 02:04] LABS: Basophils # 0.1 10^3/uL (0.0-0.1); Basophils % 1.1 %; Eosinophils # 0.4 10^3/uL (0.0-0.8); Eosinophils % 6.5 %; Hematocrit 28.7 % (42.0-52.0); Hemoglobin 8.8 g/dL (11.7-16.6); Lymphocytes % 16.9 %; Mean Corpuscular HGB Conc 30.7 g/dL (30.0-36.0); Mean Corpuscular Hemoglobin 28.9 pg (28.0-34.0); Mean Corpuscular Volume 94.1 fl (80-94); Mean Platelet Volume 10.2 fL (7.4-10.4); Monocytes # 0.5 10^3/uL (0.2-0.9); Monocytes % 9.2 %; Neutrophils # 3.74 10^3/uL (1.8-7.7); Neutrophils % 65.9 %; Nucleated Red Blood Cells % 0 %; Platelet Count 249 10^3/cmm (130-400); Red Blood Count 3.05 10^6/uL (4.1-5.3); Red Cell Distribution Width 15.3 % (12.1-15.1); White Blood Count 5.7 10^3/uL (4.0-10.0)
[2022-02-27 02:29] LABS: Alanine Aminotransferase 7 U/L (0-41); Albumin Level 2.9 g/dL (3.5-5.2); Alkaline Phosphatase 132 IU/L (40-130); Anion Gap 18.2 (5-19); Aspartate Amino Transferase 16 U/L (0-40); Blood Urea Nitrogen 55 mg/dL (8-23); Calcium 8.7 mg/dL (8.5-10.5); Carbon Dioxide 20 mmol/L (22-29); Chloride 102 mmol/L (98-107); Globulin 2.8 g/dL (1.3-4.6); Glomerular Filtration Rate 10.7 mL/min (90-130); Glucose 97 mg/dL (65-115); Osmolality Calculated 295 mOsm/kg (285-295); Phosphorus 2.1 mg/dL (2.5-4.5); Potassium 5.2 mmol/L (3.5-5.1); Sodium 135 mmol/L (136-145); Total Bilirubin 0.2 mg/dL (0.15-1.2); Total Protein 5.7 g/dL (6.6-8.7)
[2022-02-27 04:00] VITALS: BP 145/76; PULSE 75; RESP 16; TEMP 37.4; O2SAT 98
[2022-02-27 07:18] VITALS: BP 150/72; PULSE 81; RESP 18; TEMP 36.5; O2SAT 98
--- NOTE | 2022-02-27 09:02 | P.PN_ITS ---
Subjective Subjective: feels well. seen on dialysis. tolerating well. Medications: Reviewed: Yes Medication Review Details: Current Medications Acetaminophen (Acetaminophen 325 Mg Tablet) 325 - 650 mg PO Q4H PRN PRN Reason: MILD PAIN OR INCREASE TEMP Allopurinol (Allopurinol 100 Mg Tablet) 100 mg PO DAILY [facility] Last Admin: 02/26/22 09:02 Dose: 100 mg Documented by: Amlodipine Besylate (Amlodipine 5 Mg Tablet) 5 mg PO DAILY [facility] Last Admin: 02/23/22 12:24 Dose: Not Given Documented by: Apixaban (Apixaban 5 Mg Tablet) 5 mg PO BID@0900,2100 [facility] Last Admin: 02/26/22 20:50 Dose: 5 mg Documented by: Dextrose (Dextrose 50% Syringe 50 Ml) 25 ml IVP ONCE PRN; Protocol PRN Reason: hypoglycemia protocol Dextrose (Dextrose 50% Syringe 50 Ml) 50 ml IVP PRN PRN; Protocol PRN Reason: hypoglycemia protocol Epoetin Shashi (Epoetin Shashi 10,000 Unit/Ml Inj) 10,000 unit SUBCUT QMWF [facility] Last Admin: 02/25/22 13:33 Dose: 10,000 unit Documented by: Glucagon (Glucagon 1 Mg/Ml Inj 1 Ml) 1 mg IM ONCE PRN; Protocol PRN Reason: Adult Acute Hypoglycemia Prot. Dextrose (D5w) 500 mls @ 100 mls/hr IV ONCE PRN; Protocol PRN Reason: Adult Acute Hypoglycemia Prot Insulin Human Lispro (Insulin Lispro 100 Unit/1 Ml) 0 unit SUBCUT AC&BEDTIME [facility]; Protocol Last Admin: 02/27/22 07:54 Dose: Not Given Documented by: Losartan Potassium (Losartan 50 Mg Tablet) 25 mg PO DAILY [facility] Last Admin: 02/26/22 09:02 Dose: 25 mg Documented by: Metoprolol Succinate (Metoprolol Succinate Er (24 Hr) 25 Mg Tablet) 12.5 mg PO DAILY [facility] Last Admin: 02/26/22 09:02 Dose: 12.5 mg Documented by: Multivitamins (Q-Giqorfc-Ximzlae C Tablet) 1 each PO DAILY [facility] Last Admin: 02/26/22 09:02 Dose: 1 each Documented by: Ondansetron HCl (Ondansetron 2 Mg/Ml Sdv 2 Ml) 4 mg IVP Q2M PRN PRN Reason: NAUSEA Sevelamer Carbonate (Sevelamer 800 Mg Tablet) 1,600 mg PO TID [facility] Last Admin: 02/26/22 20:50 Dose: 1,600 mg Documented by: Tamsulosin HCl (Tamsulosin 0.4 Mg Capsule) 0.4 mg PO DAILY [facility] Last Admin: 02/26/22 09:01 Dose: 0.4 mg Documented by: Vitals/I&O/Wt Last Vital Signs Temp 97.7 F 02/27/22 07:18 Pulse 81 02/27/22 07:18 Resp 18 02/27/22 07:18 BP 150/72 02/27/22 07:18 Pulse Ox 98 02/27/22 07:18 02/26/22 02/27/22 02/27/22 22:59 06:59 14:59 Intake Total 360 / 1080 Output Total 815 / 815 700 / 1515 Balance -455 / 265 -700 / -435 Weight last 48 hrs Weight 60.781 kg Weight 79.107 kg Physical Exam Narrative: comfortable in bed, NARD -on HD vss heent- nc/at, eomi, anicteric neck supple, Rt Ij dialysis access lungs clear b/l heart reg abd soft, nt, nd, + bs ext no edema neuro- a,a, o x 3, no asterixis Data : 02/27/22 01:20 02/27/22 01:20 A&P Assessment and plan (1) Acute kidney injury superimposed on CKD: 66 yr old man 1. CKD stage 5- 6- w/o HD- while he urinates, his cr is rising, and he has uremic symptoms. will dialyze MWF -renal us w/ atrophic kidneys 2. renal- bone- mineral- metabolism- check vit d 5- replete, pth 250- zemplar on hd -monitor phosphorus 3. CHF- EF of 30%- down from 40%. once on HD, can start an ARB-appreciate DR Morales's input- concerned for cardiac ischemia- he recommended a cardiac cath- pt is refusing. 4.? htn-BP well controlled 5. recent DVT of lower extrmeities- -02-02-22- us-.Features of possible acute deep veins thrombosis involving the ?right femoral vein causing total occlusion.? The popliteal, ?peroneal and posterior tibial veins were found to be patent. 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 The popliteal, peroneal ?and the posterior tibial veins on the left leg were found to be ?patent. 6. anemia- ferritin 648, % sat 41- use epo 7 .h/o COVID 8. hyperuricemia- uric acid 6.3- controlled on allopurinol -repeat uric acid 9.monitor glucose w/ hd/ ESRD seen and examined w/ RN- telehealth visit needs an outpt HD slot time spent 30 min Status: Acute Plan see above. Attestations Medical Necessity Statement*: per medicine Time Spent in Patient Care: 16 - 35 minutes (>than 50% of time spent in counselling and/or direct pt care on unit) . Coding Level of Care Code Acute Director Of Resource Development for Devin Murray Diagnoses Acute kidney injury superimposed on CKD N17.9; N18.9
[2022-02-27] MEDS: heparin, porcine 1,000 unit/mL INJ 10 mL HE (10:18)
--- NOTE | 2022-02-27 11:16 | PM.PN ---
Subjective Subjective: Seen this morning during dialysis patient. Patient seems to be tolerating dialysis really well denies any lightheadedness. Denies chest pain, shortness of breath. He says he still did not sleep well last night because he did not want to sleep. Otherwise he is in good spirits and has no complaints today. He is awaiting dialysis chair time. Vitals/I&O/Wt Last Vital Signs Temp 97.7 F 02/27/22 07:18 Pulse 81 02/27/22 07:18 Resp 18 02/27/22 07:18 BP 150/72 02/27/22 07:18 Pulse Ox 98 02/27/22 07:18 02/26/22 02/27/22 02/27/22 22:59 06:59 14:59 Intake Total 360 / 1080 Output Total 815 / 815 700 / 1515 Balance -455 / 265 -700 / -435 Weight last 48 hrs Weight 60.781 kg Weight 79.107 kg Physical Exam Narrative: Patient sitting during dialysis session. AOx3 Normal S1, S2, Lungs clear to auscultation bilaterally Normal respiratory effort Abdomen soft nontender, no edema in her extremities, Right-sided IJ dialysis catheter in place, no active oozing of blood noted, bandage appears clean Data : 02/27/22 01:20 02/27/22 01:20 A&P Assessment and plan (1) Hypertension: Status: Acute (2) Abnormal cardiovascular stress test: Status: Acute (3) Status post insertion of hemodialysis catheter: Status: Acute (4) Cardiomyopathy: Status: Acute (5) Acute kidney injury superimposed on CKD: Status: Acute (6) ESRD needing dialysis: Status: Acute Plan 66-year-old male who presented to the hospital for generalized weakness and fatigue, he was recently discharged by Dr. Wilson when patient refused dialysis, during this encounter his echo revealed reduced Ejection ejection fraction, positive stress test, cardiology was consulted.? Patient refused an angiogram at this time.? First dialysis session started 02/23, Dr. King place dialysis catheter on 02/23.? Patient is awaiting dialysis spot. Dialysis dependent end-stage renal disease Patient is awaiting chair time First dialysis session 02/23 Patient will be having dialysis Friday. Reduced action fraction cardiomyopathy -Patient was offered an angiogram by cardiology but he is not interested in having any intervention done at this point. He understands the risks. Recent DVT of lower extremity Continue Eliquis. Anemia of chronic disease: Stable Previous history of Covid infection Hyperuricemia controlled on allopurinol Full code Likely will be discharged next week Renal dialysis diet Attestations Medical Necessity Statement*: Awaiting dialysis chair time Coding Level of Care Code Acute Office Automation Technician for Devin Fwd Diagnoses Hypertension I10 Abnormal cardiovascular stress test R94.39 Status post insertion of hemodialysis catheter Z99.2 Cardiomyopathy I42.9 Acute kidney injury superimposed on CKD N17.9; N18.9 ESRD needing dialysis N18.6; Z99.2
[2022-02-27 11:30] LABS: Glucose Point of Care 92 mg/dL (70-110)
[2022-02-27 12:00] VITALS: BP 119/67; PULSE 78; RESP 18; TEMP 36.4; O2SAT 98
[2022-02-27] MEDS: allopurinol 100 mg Tablet PO (13:01)
[2022-02-27] MEDS: tamsulosin 0.4 mg Capsule PO (13:01)
[2022-02-27] MEDS: epoetin alfa 10,000 unit/mL INJ 10000 UNIT SUBCUT (14:32)
[2022-02-27] MEDS: sevelamer 800 mg Tablet 1600 MG PO ×2 (14:32→21:18)
[2022-02-27 15:52] VITALS: BP 127/70; PULSE 82; RESP 18; TEMP 36.4; O2SAT 97
[2022-02-27 17:12] LABS: Glucose Point of Care 120 mg/dL (70-110)
[2022-02-27 18:00] VITALS: PULSE 80; O2SAT 98
--- NOTE | 2022-02-27 18:50 | PC.NURSE ---
Report to Radha CASSIDY at this time.
[2022-02-27 20:00] VITALS: BP 113/69; PULSE 93; RESP 20; TEMP 36.8; O2SAT 98
[2022-02-27 21:02] LABS: Glucose Point of Care 211 mg/dL (70-110)
[2022-02-27 21:02] LABS: Glucose Point of Care 99 mg/dL (70-110)
[2022-02-27] MEDS: insulin lispro 100 unit/1 mL SUBCUT (21:19)
[2022-02-27] MEDS: apixaban 5 mg Tablet PO (21:19)
[2022-02-28] VITALS (7 sets, daily range): BP systolic 100–115; BP diastolic 68–77; PULSE 81–93; RESP 18–19; TEMP 36.4–36.8; O2SAT 96–99
[2022-02-28 06:07] LABS: Basophils # 0.1 10^3/uL (0.0-0.1); Basophils % 1.1 %; Eosinophils # 0.3 10^3/uL (0.0-0.8); Eosinophils % 4.9 %; Hematocrit 31.2 % (42.0-52.0); Hemoglobin 9.2 g/dL (11.7-16.6); Lymphocytes # 0.9 10^3/uL (0.8-4.8); Lymphocytes % 16.6 %; Mean Corpuscular HGB Conc 29.5 g/dL (30.0-36.0); Mean Corpuscular Hemoglobin 28.8 pg (28.0-34.0); Mean Corpuscular Volume 97.5 fl (80-94); Monocytes # 0.8 10^3/uL (0.2-0.9); Neutrophils # 3.37 10^3/uL (1.8-7.7); Nucleated Red Blood Cells % 0 %; Platelet Count 229 10^3/cmm (130-400); Red Cell Distribution Width 15.7 % (12.1-15.1); White Blood Count 5.4 10^3/uL (4.0-10.0)
[2022-02-28 06:14] LABS: Glucose Point of Care 99 mg/dL (70-110)
[2022-02-28 06:34] LABS: Anion Gap 13.9 (5-19); Blood Urea Nitrogen 30 mg/dL (8-23); Calcium 8.6 mg/dL (8.5-10.5); Carbon Dioxide 27 mmol/L (22-29); Chloride 100 mmol/L (98-107); Creatinine Clr Calc Pharmacy 21.8886; Glomerular Filtration Rate 18.3 mL/min (90-130); Glucose 108 mg/dL (65-115); Osmolality Calculated 289 mOsm/kg (285-295); Phosphorus 2.1 mg/dL (2.5-4.5); Potassium 4.9 mmol/L (3.5-5.1); Sodium 136 mmol/L (136-145)
[2022-02-28] MEDS: allopurinol 100 mg Tablet PO (08:17)
[2022-02-28] MEDS: sevelamer 800 mg Tablet 1600 MG PO ×3 (08:17→20:43)
[2022-02-28] MEDS: metoprolol succinate ER (24 HR) 25 mg Tablet 12.5 MG PO (08:17)
[2022-02-28] MEDS: losartan 50 mg Tablet 25 MG PO (08:17)
[2022-02-28] MEDS: tamsulosin 0.4 mg Capsule PO (08:18)
[2022-02-28] MEDS: b-complex-vitamin c Tablet 1 EACH PO (08:18)
[2022-02-28] MEDS: apixaban 5 mg Tablet PO ×2 (08:18→20:43)
--- NOTE | 2022-02-28 08:36 | PM.PN ---
Subjective Subjective: feels better. wants to go home. no h or cp or diarrhea. Medications: Reviewed: Yes Medication Review Details: Current Medications Acetaminophen (Acetaminophen 325 Mg Tablet) 325 - 650 mg PO Q4H PRN PRN Reason: MILD PAIN OR INCREASE TEMP Allopurinol (Allopurinol 100 Mg Tablet) 100 mg PO DAILY [facility] Last Admin: 02/28/22 08:17 Dose: 100 mg Documented by: Amlodipine Besylate (Amlodipine 5 Mg Tablet) 5 mg PO DAILY [facility] Last Admin: 02/23/22 12:24 Dose: Not Given Documented by: Apixaban (Apixaban 5 Mg Tablet) 5 mg PO BID@0900,2100 [facility] Last Admin: 02/28/22 08:18 Dose: 5 mg Documented by: Dextrose (Dextrose 50% Syringe 50 Ml) 25 ml IVP ONCE PRN; Protocol PRN Reason: hypoglycemia protocol Dextrose (Dextrose 50% Syringe 50 Ml) 50 ml IVP PRN PRN; Protocol PRN Reason: hypoglycemia protocol Epoetin Shashi (Epoetin Shashi 10,000 Unit/Ml Inj) 10,000 unit SUBCUT QMWF [facility] Last Admin: 02/27/22 14:32 Dose: 10,000 unit Documented by: Glucagon (Glucagon 1 Mg/Ml Inj 1 Ml) 1 mg IM ONCE PRN; Protocol PRN Reason: Adult Acute Hypoglycemia Prot. Dextrose (D5w) 500 mls @ 100 mls/hr IV ONCE PRN; Protocol PRN Reason: Adult Acute Hypoglycemia Prot Insulin Human Lispro (Insulin Lispro 100 Unit/1 Ml) 0 unit SUBCUT AC&BEDTIME [facility]; Protocol Last Admin: 02/28/22 07:44 Dose: Not Given Documented by: Losartan Potassium (Losartan 50 Mg Tablet) 25 mg PO DAILY [facility] Last Admin: 02/28/22 08:17 Dose: 25 mg Documented by: Metoprolol Succinate (Metoprolol Succinate Er (24 Hr) 25 Mg Tablet) 12.5 mg PO DAILY [facility] Last Admin: 02/28/22 08:17 Dose: 12.5 mg Documented by: Multivitamins (Y-Novspgs-Ctxpqsg C Tablet) 1 each PO DAILY [facility] Last Admin: 02/28/22 08:18 Dose: 1 each Documented by: Ondansetron HCl (Ondansetron 2 Mg/Ml Sdv 2 Ml) 4 mg IVP Q2M PRN PRN Reason: NAUSEA Sevelamer Carbonate (Sevelamer 800 Mg Tablet) 1,600 mg PO TID [facility] Last Admin: 02/28/22 08:17 Dose: 1,600 mg Documented by: Tamsulosin HCl (Tamsulosin 0.4 Mg Capsule) 0.4 mg PO DAILY [facility] Last Admin: 02/28/22 08:18 Dose: 0.4 mg Documented by: Vitals/I&O/Wt Last Vital Signs Temp 98.0 F 02/28/22 07:15 Pulse 88 02/28/22 07:15 Resp 18 02/28/22 07:15 BP 100/68 02/28/22 07:15 Pulse Ox 96 02/28/22 07:48 02/27/22 02/28/22 02/28/22 22:59 06:59 14:59 Intake Total 950 / 1200 1200 / 2400 Output Total 600 / 900 601 / 1501 Balance 350 / 300 599 / 899 Weight last 48 hrs Weight 77.111 kg Weight 60.781 kg Physical Exam Narrative: comfortable in bed, NARD vss heent- nc/at, eomi, anicteric neck supple, Rt Ij dialysis access lungs clear b/l heart reg abd soft, nt, nd, + bs ext no edema neuro- a,a, o x 3, no asterixis Data : 02/28/22 05:42 02/28/22 05:42 A&P Assessment and plan (1) Acute kidney injury superimposed on CKD: 66 yr old man 1. CKD stage 5- 6- w/o HD- will dialyze MWF -renal us w/ atrophic kidneys 2. renal- bone- mineral- metabolism- check vit d 5- replete, pth 250- zemplar on hd -monitor phosphorus 3. CHF- EF of 30%- down from 40%. once on HD, can start an ARB-appreciate DR Morales's input- concerned for cardiac ischemia- he recommended a cardiac cath- pt is refusing. 4.? htn-BP well controlled 5. recent DVT of lower extrmeities- -02-02-22- us-.Features of possible acute deep veins thrombosis involving the ?right femoral vein causing total occlusion.? The popliteal, ?peroneal and posterior tibial veins were found to be patent. 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 The popliteal, peroneal ?and the posterior tibial veins on the left leg were found to be ?patent. 6. anemia- ferritin 648, % sat 41- use epo 7 .h/o COVID 8. hyperuricemia- uric acid 6.3- controlled on allopurinol -repeat uric acid 9.monitor glucose w/ hd/ ESRD seen and examined w/ RN- telehealth visit needs an outpt HD slot time spent 30 min Status: Acute Plan see above. Attestations Medical Necessity Statement*: per medicine Time Spent in Patient Care: 16 - 35 minutes (>than 50% of time spent in counselling and/or direct pt care on unit). Coding Level of Care Code Acute Social Media Editor for Devin Fwsadia Diagnoses Acute kidney injury superimposed on CKD N17.9; N18.9
--- NOTE | 2022-02-28 11:45 | P.PN_ITS ---
Subjective Subjective: No acute events overnight, awaiting dialysis chair time. Vitals/I&O/Wt Last Vital Signs Temp 97.8 F 02/28/22 11:35 Pulse 93 02/28/22 11:35 Resp 18 02/28/22 11:35 BP 115/68 02/28/22 11:35 Pulse Ox 96 02/28/22 11:35 02/27/22 02/28/22 02/28/22 22:59 06:59 14:59 Intake Total 950 / 1200 1200 / 2400 120 / 120 Output Total 600 / 900 601 / 1501 Balance 350 / 300 599 / 899 120 / 120 Weight last 48 hrs Weight 77.111 kg Weight 60.781 kg Physical Exam Narrative: Patient seen laying in bed dressed in street clothes, AOx3 Normal S1, S2, Lungs clear to auscultation bilaterally Normal respiratory effort Abdomen soft nontender, no edema in lower extremities, Right-sided IJ dialysis catheter in place,covered with bandage Data : 02/28/22 05:42 02/28/22 05:42 A&P Assessment and plan (1) Hypertension: Status: Acute (2) Abnormal cardiovascular stress test: Status: Acute (3) Status post insertion of hemodialysis catheter: Status: Acute (4) Poor social situation: Status: Acute (5) Cardiomyopathy: Status: Acute (6) Acute kidney injury superimposed on CKD: Status: Acute (7) ESRD needing dialysis: Status: Acute Plan 66-year-old male who presented to the hospital for generalized weakness and fatigue, he was recently discharged by Dr. Wilson when patient refused dialysis, during this encounter his echo revealed reduced Ejection ejection fraction, positive stress test, cardiology was consulted.? Patient refused an angiogram at this time.? First dialysis session started 02/23, Dr. King place dialysis catheter on 02/23.? Patient is awaiting dialysis spot. Dialysis dependent end-stage renal disease Patient is awaiting chair time First dialysis session 02/23 Patient will be having dialysis Friday. Reduced action fraction cardiomyopathy -Patient was offered an angiogram by cardiology but he is not interested in having any intervention done at this point.? He understands the risks. Recent DVT of lower extremity Continue Eliquis. Anemia of chronic disease: Stable Previous history of Covid infection Hyperuricemia controlled on allopurinol Full code Likely will be discharged next week Renal dialysis diet Attestations Medical Necessity Statement*: Awaiting dialysis chair time Coding Level of Care Code Acute Business Intern for Chg Fwd Diagnoses Hypertension I10 Abnormal cardiovascular stress test R94.39 Status post insertion of hemodialysis catheter Z99.2 Poor social situation Z65.9 Cardiomyopathy I42.9 Acute kidney injury superimposed on CKD N17.9; N18.9 ESRD needing dialysis N18.6; Z99.2
[2022-02-28 12:39] LABS: Glucose Point of Care 105 mg/dL (70-110)
[2022-02-28 17:22] LABS: Glucose Point of Care 150 mg/dL (70-110)
[2022-02-28] MEDS: insulin lispro 100 unit/1 mL SUBCUT ×2 (17:42→20:48)
[2022-02-28 21:11] LABS: Glucose Point of Care 172 mg/dL (70-110)
[2022-03-01] VITALS (7 sets, daily range): BP systolic 110–129; BP diastolic 67–80; PULSE 77–87; RESP 16–18; TEMP 36.7–37.1; O2SAT 94–99
[2022-03-01 05:46] LABS: Basophils # 0.1 10^3/uL (0.0-0.1); Basophils % 1.6 %; Eosinophils # 0.3 10^3/uL (0.0-0.8); Eosinophils % 6.2 %; Hematocrit 32.8 % (42.0-52.0); Hemoglobin 9.8 g/dL (11.7-16.6); Lymphocytes % 23.3 %; Mean Corpuscular HGB Conc 29.9 g/dL (30.0-36.0); Mean Corpuscular Hemoglobin 29.2 pg (28.0-34.0); Mean Corpuscular Volume 97.6 fl (80-94); Monocytes # 0.6 10^3/uL (0.2-0.9); Monocytes % 12.7 %; Neutrophils # 2.42 10^3/uL (1.8-7.7); Nucleated Red Blood Cells % 0 %; Platelet Count 251 10^3/cmm (130-400); Red Blood Count 3.36 10^6/uL (4.1-5.3); Red Cell Distribution Width 15.9 % (12.1-15.1); White Blood Count 4.3 10^3/uL (4.0-10.0)
[2022-03-01 06:01] LABS: Alanine Aminotransferase 7 U/L (0-41); Albumin Level 3.2 g/dL (3.5-5.2); Alkaline Phosphatase 147 IU/L (40-130); Anion Gap 16.8 (5-19); Aspartate Amino Transferase 16 U/L (0-40); Blood Urea Nitrogen 40 mg/dL (8-23); Calcium 8.7 mg/dL (8.5-10.5); Carbon Dioxide 25 mmol/L (22-29); Chloride 100 mmol/L (98-107); Globulin 3.7 g/dL (1.3-4.6); Glucose 93 mg/dL (65-115); Magnesium 2.1 mg/dL (1.7-2.3); Osmolality Calculated 293 mOsm/kg (285-295); Phosphorus 2.6 mg/dL (2.5-4.5); Potassium 4.8 mmol/L (3.5-5.1); Sodium 137 mmol/L (136-145); Total Bilirubin 0.2 mg/dL (0.15-1.2); Total Protein 6.9 g/dL (6.6-8.7)
[2022-03-01 06:56] LABS: Glucose Point of Care 90 mg/dL (70-110)
[2022-03-01 11:04] LABS: Glucose Point of Care 120 mg/dL (70-110)
--- NOTE | 2022-03-01 11:40 | PM.PN ---
Subjective Subjective: Seen today. He is having dialysis at this time. No acute events overnight. Does not have any complaints or concerns. Awaiting dialysis chair time. Vitals/I&O/Wt Last Vital Signs Temp 98.2 F 03/01/22 07:20 Pulse 81 03/01/22 11:18 Resp 16 03/01/22 11:18 BP 112/67 03/01/22 11:18 Pulse Ox 97 03/01/22 11:18 02/28/22 03/01/22 03/01/22 22:59 06:59 14:59 Intake Total 1680 / 1920 750 / 2670 480 / 480 Output Total 500 / 500 400 / 900 Balance 1180 / 1420 350 / 1770 480 / 480 Weight last 48 hrs Weight 77.111 kg Weight 77.111 kg Physical Exam Narrative: Patient seen benito vo in bed dressed i n street clothes c urrently in his di alysis session, AO x3 Normal S1, S2, Lungs clear to aus cultation bilatera lly Normal respira tory effort Abdome n soft nontender, no edema in lower extremities, Right -sided IJ dialysis catheter in place ,covered with band age Data : 03/01/22 05:25 03/01/22 05:25 A&P Assessment and plan (1) Hypertension: Status: Acute (2) Abnormal cardiovascular stress test: Status: Acute (3) Status post insertion of hemodialysis catheter: Status: Acute (4) Poor social situation: Status: Acute (5) Cardiomyopathy: Status: Acute (6) Acute kidney injury superimposed on CKD: Status: Acute (7) ESRD needing dialysis: Status: Acute Plan 66-year-old male who presented to the hospital for generalized weakness and fatigue, he was recently discharged by Dr. Wilson when patient refused dialysis, during this encounter his echo revealed reduced Ejection ejection fraction, positive stress test, cardiology was consulted.? Patient refused an angiogram at this time.? First dialysis session started 02/23, Dr. King place dialysis catheter on 02/23.? Patient is awaiting dialysis spot. Dialysis dependent end-stage renal disease Patient is awaiting chair time First dialysis session 02/23 Patient will be having dialysis Friday. Reduced action fraction cardiomyopathy -Patient was offered an angiogram by cardiology but he is not interested in having any intervention done at this point.? He understands the risks. Recent DVT of lower extremity Continue Eliquis. Anemia of chronic disease: Stable Previous history of Covid infection Hyperuricemia controlled on allopurinol Full code Likely will be discharged next week Renal dialysis diet STILL AWAITING DIALYSIS CHAIR TIME Attestations Medical Necessity Statement*: AWAITING DIALYSIS CHAIR TIME Coding Level of Care Code Acute Business And Services Instructor for Beng F[employer] Diagnoses Hypertension I10 Abnormal cardiovascular stress test R94.39 Status post insertion of hemodialysis catheter Z99.2 Poor social situation Z65.9 Cardiomyopathy I42.9 Acute kidney injury superimposed on CKD N17.9; N18.9 ESRD needing dialysis N18.6; Z99.2
[2022-03-01] MEDS: b-complex-vitamin c Tablet 1 EACH PO (12:51)
[2022-03-01] MEDS: sevelamer 800 mg Tablet 1600 MG PO ×3 (12:51→20:53)
[2022-03-01] MEDS: losartan 50 mg Tablet 25 MG PO (12:51)
[2022-03-01] MEDS: tamsulosin 0.4 mg Capsule PO (12:51)
[2022-03-01] MEDS: allopurinol 100 mg Tablet PO (12:51)
[2022-03-01] MEDS: apixaban 5 mg Tablet PO ×2 (12:52→20:53)
[2022-03-01] MEDS: metoprolol succinate ER (24 HR) 25 mg Tablet 12.5 MG PO (12:52)
--- NOTE | 2022-03-01 13:40 | PM.PN ---
Subjective Subjective: Mr. Montano feels okay today with no specific complaints except that he is frustrated that he does not yet have a chair time due to the insurance issues that we are having getting him placed. Minimal extremity edema, no shortness of breath. Dialysis completed today without incident. No uremic symptoms. Medications: Reviewed: Yes Medication Review Details: Current Medications Acetaminophen (Acetaminophen 325 Mg Tablet) 325 - 650 mg PO Q4H PRN PRN Reason: MILD PAIN OR INCREASE TEMP Allopurinol (Allopurinol 100 Mg Tablet) 100 mg PO DAILY [facility] Last Admin: 02/28/22 08:17 Dose: 100 mg Documented by: Amlodipine Besylate (Amlodipine 5 Mg Tablet) 5 mg PO DAILY [facility] Last Admin: 02/23/22 12:24 Dose: Not Given Documented by: Apixaban (Apixaban 5 Mg Tablet) 5 mg PO BID@0900,2100 [facility] Last Admin: 02/28/22 08:18 Dose: 5 mg Documented by: Dextrose (Dextrose 50% Syringe 50 Ml) 25 ml IVP ONCE PRN; Protocol PRN Reason: hypoglycemia protocol Dextrose (Dextrose 50% Syringe 50 Ml) 50 ml IVP PRN PRN; Protocol PRN Reason: hypoglycemia protocol Epoetin Shashi (Epoetin Shashi 10,000 Unit/Ml Inj) 10,000 unit SUBCUT QMWF [facility] Last Admin: 02/27/22 14:32 Dose: 10,000 unit Documented by: Glucagon (Glucagon 1 Mg/Ml Inj 1 Ml) 1 mg IM ONCE PRN; Protocol PRN Reason: Adult Acute Hypoglycemia Prot. Dextrose (D5w) 500 mls @ 100 mls/hr IV ONCE PRN; Protocol PRN Reason: Adult Acute Hypoglycemia Prot Insulin Human Lispro (Insulin Lispro 100 Unit/1 Ml) 0 unit SUBCUT AC&BEDTIME [facility]; Protocol Last Admin: 02/28/22 07:44 Dose: Not Given Documented by: Losartan Potassium (Losartan 50 Mg Tablet) 25 mg PO DAILY [facility] Last Admin: 02/28/22 08:17 Dose: 25 mg Documented by: Metoprolol Succinate (Metoprolol Succinate Er (24 Hr) 25 Mg Tablet) 12.5 mg PO DAILY [facility] Last Admin: 02/28/22 08:17 Dose: 12.5 mg Documented by: Multivitamins (W-Sswsfso-Uxleesz C Tablet) 1 each PO DAILY [facility] Last Admin: 02/28/22 08:18 Dose: 1 each Documented by: Ondansetron HCl (Ondansetron 2 Mg/Ml Sdv 2 Ml) 4 mg IVP Q2M PRN PRN Reason: NAUSEA Sevelamer Carbonate (Sevelamer 800 Mg Tablet) 1,600 mg PO TID [facility] Last Admin: 02/28/22 08:17 Dose: 1,600 mg Documented by: Tamsulosin HCl (Tamsulosin 0.4 Mg Capsule) 0.4 mg PO DAILY [facility] Last Admin: 02/28/22 08:18 Dose: 0.4 mg Documented by: Vitals/I&O/Wt Last Vital Signs Temp 98.2 F 03/01/22 07:20 Pulse 81 03/01/22 11:18 Resp 16 03/01/22 11:18 BP 112/67 03/01/22 11:18 Pulse Ox 97 03/01/22 11:18 02/28/22 03/01/22 03/01/22 22:59 06:59 14:59 Intake Total 1680 / 1920 750 / 2670 480 / 480 Output Total 500 / 500 400 / 900 Balance 1180 / 1420 350 / 1770 480 / 480 Weight last 48 hrs Weight 77.111 kg Weight 77.111 kg Physical Exam Narrative: Constitutional: Awake, comfortable HEENT: Wet mucosa, no jvp, non icteric Lungs: Bilaterally clear without discernible wheeze, rales in all lung zones CVS: S1 S2, no murmurs Abdo: Soft, BS ok Ext 4: Minimal edema, peripheral perfusion with no cyanosis Neurological: Grossly non-focal Data : 03/01/22 05:25 03/01/22 05:25 A&P Assessment and plan (1) Acute kidney injury superimposed on CKD: Status: Acute Plan 1. Stage V chronic kidney disease New ESRD Cont MWF schedule Dose medication for GFR less than 15 Strict I's and O's Outpatient dialysis to be set up by ed case manager 2. Ischemic cardiomyopathy Stress test appreciated, mgmt per cardiology, patient refusing LHC, lifevest etc 3. Chemistry Noncritical aberration, continue to monitor 4. Hemodynamics These appear stable 5. Anemia of chronic kidney disease Iron levels appear at goal, currently on EPO weekly. ok for discharge when outpatient dialysis is organized Noe Del Toro MD Nephrology [phone] Patient seen and examined via telemedicine, with the assistance of the bedside RN > 25 min spent in evaluation and mgmt of patient Attestations Medical Necessity Statement*: Eval for ESRD Coding Level of Care Code Acute Fuse Assembler for Chg Fwd Diagnoses Acute kidney injury superimposed on CKD N17.9; N18.9
--- NOTE | 2022-03-01 17:07 | PC.NURSE ---
Dr. Herring gave verbal order that it is okay to leave the patients IV out.
[2022-03-01 17:09] LABS: Glucose Point of Care 133 mg/dL (70-110)
[2022-03-01] MEDS: epoetin alfa 10,000 unit/mL INJ 10000 UNIT SUBCUT (17:16)
[2022-03-01 21:56] LABS: Glucose Point of Care 133 mg/dL (70-110)
[2022-03-02 04:00] VITALS: BP 109/67; PULSE 80; RESP 20; TEMP 36.9; O2SAT 97
[2022-03-02 05:49] LABS: Basophils % 0.9 %; Eosinophils # 0.2 10^3/uL (0.0-0.8); Eosinophils % 4.8 %; Hematocrit 33.2 % (42.0-52.0); Hemoglobin 10.2 g/dL (11.7-16.6); Lymphocytes % 23.6 %; Mean Corpuscular HGB Conc 30.7 g/dL (30.0-36.0); Mean Corpuscular Hemoglobin 29.4 pg (28.0-34.0); Mean Corpuscular Volume 95.7 fl (80-94); Mean Platelet Volume 10.1 fL (7.4-10.4); Monocytes # 0.5 10^3/uL (0.2-0.9); Monocytes % 11.6 %; Neutrophils # 2.58 10^3/uL (1.8-7.7); Neutrophils % 58.6 %; Nucleated Red Blood Cells % 0 %; Platelet Count 241 10^3/cmm (130-400); Red Blood Count 3.47 10^6/uL (4.1-5.3); Red Cell Distribution Width 16.4 % (12.1-15.1); White Blood Count 4.4 10^3/uL (4.0-10.0)
[2022-03-02 06:03] LABS: Alanine Aminotransferase 9 U/L (0-41); Albumin Level 3.5 g/dL (3.5-5.2); Alkaline Phosphatase 164 IU/L (40-130); Anion Gap 15.1 (5-19); Aspartate Amino Transferase 17 U/L (0-40); Blood Urea Nitrogen 26 mg/dL (8-23); Calcium 7.9 mg/dL (8.5-10.5); Carbon Dioxide 27 mmol/L (22-29); Chloride 96 mmol/L (98-107); Globulin 2.9 g/dL (1.3-4.6); Glomerular Filtration Rate 16.6 mL/min (90-130); Glucose 157 mg/dL (65-115); Magnesium 2.1 mg/dL (1.7-2.3); Osmolality Calculated 286 mOsm/kg (285-295); Phosphorus 2.6 mg/dL (2.5-4.5); Potassium 4.1 mmol/L (3.5-5.1); Sodium 134 mmol/L (136-145); Total Bilirubin 0.2 mg/dL (0.15-1.2); Total Protein 6.4 g/dL (6.6-8.7)
[2022-03-02 06:47] LABS: Glucose Point of Care 134 mg/dL (70-110)
[2022-03-02 08:00] VITALS: BP 127/67; PULSE 77; RESP 18; TEMP 36.5; O2SAT 98
[2022-03-02] MEDS: allopurinol 100 mg Tablet PO (08:38)
[2022-03-02] MEDS: b-complex-vitamin c Tablet 1 EACH PO (08:38)
[2022-03-02] MEDS: apixaban 5 mg Tablet PO ×2 (08:38→20:37)
[2022-03-02] MEDS: sevelamer 800 mg Tablet 1600 MG PO ×3 (08:38→20:37)
[2022-03-02 08:39] VITALS: BP 127/67
[2022-03-02] MEDS: losartan 50 mg Tablet 25 MG PO (08:39)
[2022-03-02] MEDS: metoprolol succinate ER (24 HR) 25 mg Tablet 12.5 MG PO (08:40)
[2022-03-02] MEDS: tamsulosin 0.4 mg Capsule PO (08:41)
--- NOTE | 2022-03-02 11:14 | PM.PN ---
Subjective Subjective: Mr. Montano feels okay today with no acute symptoms or complaints. He is keen to be discharged and somewhat bored but otherwise feels fine. Dialysis went well yesterday, no new issues today. Medications: Reviewed: Yes Medication Review Details: Current Medications Acetaminophen (Acetaminophen 325 Mg Tablet) 325 - 650 mg PO Q4H PRN PRN Reason: MILD PAIN OR INCREASE TEMP Allopurinol (Allopurinol 100 Mg Tablet) 100 mg PO DAILY [facility] Last Admin: 02/28/22 08:17 Dose: 100 mg Documented by: Amlodipine Besylate (Amlodipine 5 Mg Tablet) 5 mg PO DAILY [facility] Last Admin: 02/23/22 12:24 Dose: Not Given Documented by: Apixaban (Apixaban 5 Mg Tablet) 5 mg PO BID@0900,2100 [facility] Last Admin: 02/28/22 08:18 Dose: 5 mg Documented by: Dextrose (Dextrose 50% Syringe 50 Ml) 25 ml IVP ONCE PRN; Protocol PRN Reason: hypoglycemia protocol Dextrose (Dextrose 50% Syringe 50 Ml) 50 ml IVP PRN PRN; Protocol PRN Reason: hypoglycemia protocol Epoetin Shashi (Epoetin Shashi 10,000 Unit/Ml Inj) 10,000 unit SUBCUT QMWF [facility] Last Admin: 02/27/22 14:32 Dose: 10,000 unit Documented by: Glucagon (Glucagon 1 Mg/Ml Inj 1 Ml) 1 mg IM ONCE PRN; Protocol PRN Reason: Adult Acute Hypoglycemia Prot. Dextrose (D5w) 500 mls @ 100 mls/hr IV ONCE PRN; Protocol PRN Reason: Adult Acute Hypoglycemia Prot Insulin Human Lispro (Insulin Lispro 100 Unit/1 Ml) 0 unit SUBCUT AC&BEDTIME [facility]; Protocol Last Admin: 02/28/22 07:44 Dose: Not Given Documented by: Losartan Potassium (Losartan 50 Mg Tablet) 25 mg PO DAILY [facility] Last Admin: 02/28/22 08:17 Dose: 25 mg Documented by: Metoprolol Succinate (Metoprolol Succinate Er (24 Hr) 25 Mg Tablet) 12.5 mg PO DAILY [facility] Last Admin: 02/28/22 08:17 Dose: 12.5 mg Documented by: Multivitamins (A-Epfyqaq-Wjgogvd C Tablet) 1 each PO DAILY [facility] Last Admin: 02/28/22 08:18 Dose: 1 each Documented by: Ondansetron HCl (Ondansetron 2 Mg/Ml Sdv 2 Ml) 4 mg IVP Q2M PRN PRN Reason: NAUSEA Sevelamer Carbonate (Sevelamer 800 Mg Tablet) 1,600 mg PO TID [facility] Last Admin: 02/28/22 08:17 Dose: 1,600 mg Documented by: Tamsulosin HCl (Tamsulosin 0.4 Mg Capsule) 0.4 mg PO DAILY [facility] Last Admin: 02/28/22 08:18 Dose: 0.4 mg Documented by: Vitals/I&O/Wt Last Vital Signs Temp 97.7 F 03/02/22 08:00 Pulse 77 03/02/22 08:00 Resp 18 03/02/22 08:00 BP 127/67 03/02/22 08:39 Pulse Ox 98 03/02/22 08:00 03/01/22 03/02/22 03/02/22 22:59 06:59 14:59 Intake Total 360 / 840 240 / 1080 120 / 120 Balance 360 / 840 240 / 1080 120 / 120 Weight last 48 hrs Weight 76.793 kg Weight 77.111 kg Physical Exam Narrative: Constitutional: Awake, comfortable HEENT: Wet mucosa, no jvp, non icteric Lungs: Bilaterally clear without discernible wheeze, rales in all lung zones CVS: S1 S2, no murmurs Abdo: Soft, BS ok Ext 4: Minimal edema, peripheral perfusion with no cyanosis Neurological: Grossly non-focal Data : 03/02/22 05:04 03/02/22 05:04 A&P Assessment and plan (1) Acute kidney injury superimposed on CKD: Status: Acute Plan 1. Stage V chronic kidney disease New ESRD Cont MWF schedule Dose medication for GFR less than 15 Strict I's and O's Outpatient dialysis to be set up by case mgr 2. Ischemic cardiomyopathy Stress test appreciated, mgmt per cardiology, patient refusing LHC, lifevest etc 3. Chemistry Noncritical aberration, continue to monitor 4. Hemodynamics These appear stable 5. Anemia of chronic kidney disease Iron levels appear at goal, currently on EPO weekly. ok for discharge when outpatient dialysis is organized Noe Del Toro MD Nephrology [phone] Patient seen and examined via telemedicine, with the assistance of the bedside RN > 25 min spent in evaluation and mgmt of patient Attestations Medical Necessity Statement*: eval for esrd mgmt Coding Level of Care Code Acute Report Clerk for Chg Fwd Diagnoses Acute kidney injury superimposed on CKD N17.9; N18.9
[2022-03-02 11:48] LABS: Glucose Point of Care 218 mg/dL (70-110)
[2022-03-02 12:00] VITALS: BP 119/66; PULSE 75; RESP 16; TEMP 36.4; O2SAT 95
--- NOTE | 2022-03-02 13:13 | PM.PN ---
Subjective Subjective: Seen today.? No acute events overnight.? Awaiting dialysis chair time. Vitals/I&O/Wt Last Vital Signs Temp 97.5 F L 03/02/22 12:00 Pulse 75 03/02/22 12:00 Resp 16 03/02/22 12:00 BP 119/66 03/02/22 12:00 Pulse Ox 95 03/02/22 12:00 03/01/22 03/02/22 03/02/22 22:59 06:59 14:59 Intake Total 360 / 840 240 / 1080 120 / 120 Balance 360 / 840 240 / 1080 120 / 120 Weight last 48 hrs Weight 76.793 kg Weight 77.111 kg Physical Exam Narrative: Lungs clear to auscultation No lower extremity edema Appears comfortable in bed. Data : 03/02/22 05:04 03/02/22 05:04 A&P Assessment and plan (1) Hypertension: Status: Acute (2) Abnormal cardiovascular stress test: Status: Acute (3) Status post insertion of hemodialysis catheter: Status: Acute (4) Poor social situation: Status: Acute (5) Cardiomyopathy: Status: Acute (6) Acute kidney injury superimposed on CKD: Status: Acute (7) ESRD needing dialysis: Status: Acute Plan 66-year-old male who presented to the hospital for generalized weakness and fatigue, he was recently discharged by Dr. Wilson when patient refused dialysis, during this encounter his echo revealed reduced Ejection ejection fraction, positive stress test, cardiology was consulted.? Patient refused an angiogram at this time.? First dialysis session started 02/23, Dr. King place dialysis catheter on 02/23.? Patient is awaiting dialysis spot. Dialysis dependent end-stage renal disease Patient is awaiting chair time First dialysis session 02/23 Patient will be having dialysis Friday. Reduced action fraction cardiomyopathy -Patient was offered an angiogram by cardiology but he is not interested in having any intervention done at this point.? He understands the risks. Recent DVT of lower extremity Continue Eliquis. Anemia of chronic disease: Stable Previous history of Covid infection Hyperuricemia controlled on allopurinol Full code Likely will be discharged next week Renal dialysis diet STILL AWAITING DIALYSIS CHAIR TIME Attestations Medical Necessity Statement*: STILL AWAITING DIALYSIS CHAIR TIME Coding Level of Care Code Acute Core Inspector for Chg Fwd Diagnoses Hypertension I10 Abnormal cardiovascular stress test R94.39 Status post insertion of hemodialysis catheter Z99.2 Poor social situation Z65.9 Cardiomyopathy I42.9 Acute kidney injury superimposed on CKD N17.9; N18.9 ESRD needing dialysis N18.6; Z99.2
[2022-03-02] MEDS: insulin lispro 100 unit/1 mL SUBCUT ×2 (13:29→22:29)
[2022-03-02 16:00] VITALS: BP 111/52; PULSE 82; RESP 18; TEMP 36.7; O2SAT 98
[2022-03-02 17:55] LABS: Glucose Point of Care 112 mg/dL (70-110)
[2022-03-02 20:00] VITALS: BP 121/69; PULSE 83; RESP 17; TEMP 36.8; O2SAT 99
[2022-03-03] VITALS: BP 121/68; PULSE 71; RESP 16; TEMP 36.4; O2SAT 97
[2022-03-03 04:00] VITALS: BP 131/75; PULSE 78; RESP 16; TEMP 36.2; O2SAT 98
[2022-03-03 05:31] LABS: Basophils # 0.1 10^3/uL (0.0-0.1); Basophils % 0.9 %; Eosinophils # 0.3 10^3/uL (0.0-0.8); Eosinophils % 5.5 %; Hematocrit 33.4 % (42.0-52.0); Hemoglobin 10.3 g/dL (11.7-16.6); Lymphocytes # 1.1 10^3/uL (0.8-4.8); Lymphocytes % 20.7 %; Mean Corpuscular HGB Conc 30.8 g/dL (30.0-36.0); Mean Corpuscular Hemoglobin 29.6 pg (28.0-34.0); Mean Platelet Volume 10.1 fL (7.4-10.4); Monocytes # 0.5 10^3/uL (0.2-0.9); Monocytes % 9.2 %; Neutrophils # 3.37 10^3/uL (1.8-7.7); Neutrophils % 63.3 %; Nucleated Red Blood Cells % 0 %; Platelet Count 274 10^3/cmm (130-400); Red Blood Count 3.48 10^6/uL (4.1-5.3); Red Cell Distribution Width 16.5 % (12.1-15.1); White Blood Count 5.3 10^3/uL (4.0-10.0)
[2022-03-03 05:51] LABS: Alanine Aminotransferase 10 U/L (0-41); Albumin Level 3.3 g/dL (3.5-5.2); Alkaline Phosphatase 153 IU/L (40-130); Anion Gap 17.2 (5-19); Aspartate Amino Transferase 17 U/L (0-40); Blood Urea Nitrogen 37 mg/dL (8-23); Calcium 8.1 mg/dL (8.5-10.5); Carbon Dioxide 25 mmol/L (22-29); Chloride 99 mmol/L (98-107); Glomerular Filtration Rate 12.6 mL/min (90-130); Glucose 94 mg/dL (65-115); Magnesium 2.2 mg/dL (1.7-2.3); Osmolality Calculated 292 mOsm/kg (285-295); Phosphorus 2.6 mg/dL (2.5-4.5); Potassium 4.2 mmol/L (3.5-5.1); Sodium 137 mmol/L (136-145); Total Bilirubin 0.2 mg/dL (0.15-1.2); Total Protein 6.3 g/dL (6.6-8.7)
[2022-03-03 06:39] LABS: Glucose Point of Care 192 mg/dL (70-110)
[2022-03-03 06:39] LABS: Glucose Point of Care 105 mg/dL (70-110)
[2022-03-03 07:25] VITALS: BP 143/77; PULSE 75; RESP 18; TEMP 36.7; O2SAT 96
[2022-03-03] MEDS: apixaban 5 mg Tablet PO ×2 (08:46→20:45)
[2022-03-03] MEDS: tamsulosin 0.4 mg Capsule PO (08:46)
[2022-03-03] MEDS: losartan 50 mg Tablet 25 MG PO (08:46)
[2022-03-03] MEDS: sevelamer 800 mg Tablet 1600 MG PO ×3 (08:46→20:45)
[2022-03-03] MEDS: b-complex-vitamin c Tablet 1 EACH PO (08:46)
[2022-03-03] MEDS: metoprolol succinate ER (24 HR) 25 mg Tablet 12.5 MG PO (08:46)
[2022-03-03] MEDS: allopurinol 100 mg Tablet PO (08:46)
--- NOTE | 2022-03-03 08:46 | P.PN_ITS ---
Subjective Subjective: No new issues with Mr. Montano today. Feels good. Currently pending dialysis chair. Somewhat tired of being in the hospital and is keen to be discharged. Medications: Reviewed: Yes Medication Review Details: Current Medications Acetaminophen (Acetaminophen 325 Mg Tablet) 325 - 650 mg PO Q4H PRN PRN Reason: MILD PAIN OR INCREASE TEMP Allopurinol (Allopurinol 100 Mg Tablet) 100 mg PO DAILY [facility] Last Admin: 02/28/22 08:17 Dose: 100 mg Documented by: Amlodipine Besylate (Amlodipine 5 Mg Tablet) 5 mg PO DAILY [facility] Last Admin: 02/23/22 12:24 Dose: Not Given Documented by: Apixaban (Apixaban 5 Mg Tablet) 5 mg PO BID@0900,2100 [facility] Last Admin: 02/28/22 08:18 Dose: 5 mg Documented by: Dextrose (Dextrose 50% Syringe 50 Ml) 25 ml IVP ONCE PRN; Protocol PRN Reason: hypoglycemia protocol Dextrose (Dextrose 50% Syringe 50 Ml) 50 ml IVP PRN PRN; Protocol PRN Reason: hypoglycemia protocol Epoetin Shashi (Epoetin Shashi 10,000 Unit/Ml Inj) 10,000 unit SUBCUT QMWF [facility] Last Admin: 02/27/22 14:32 Dose: 10,000 unit Documented by: Glucagon (Glucagon 1 Mg/Ml Inj 1 Ml) 1 mg IM ONCE PRN; Protocol PRN Reason: Adult Acute Hypoglycemia Prot. Dextrose (D5w) 500 mls @ 100 mls/hr IV ONCE PRN; Protocol PRN Reason: Adult Acute Hypoglycemia Prot Insulin Human Lispro (Insulin Lispro 100 Unit/1 Ml) 0 unit SUBCUT AC&BEDTIME [facility]; Protocol Last Admin: 02/28/22 07:44 Dose: Not Given Documented by: Losartan Potassium (Losartan 50 Mg Tablet) 25 mg PO DAILY [facility] Last Admin: 02/28/22 08:17 Dose: 25 mg Documented by: Metoprolol Succinate (Metoprolol Succinate Er (24 Hr) 25 Mg Tablet) 12.5 mg PO DAILY [facility] Last Admin: 02/28/22 08:17 Dose: 12.5 mg Documented by: Multivitamins (B-Nzzcxny-Nxbozuu C Tablet) 1 each PO DAILY [facility] Last Admin: 02/28/22 08:18 Dose: 1 each Documented by: Ondansetron HCl (Ondansetron 2 Mg/Ml Sdv 2 Ml) 4 mg IVP Q2M PRN PRN Reason: NAUSEA Sevelamer Carbonate (Sevelamer 800 Mg Tablet) 1,600 mg PO TID [facility] Last Admin: 02/28/22 08:17 Dose: 1,600 mg Documented by: Tamsulosin HCl (Tamsulosin 0.4 Mg Capsule) 0.4 mg PO DAILY [facility] Last Admin: 02/28/22 08:18 Dose: 0.4 mg Documented by: Vitals/I&O/Wt Last Vital Signs Temp 98.0 F 03/03/22 07:25 Pulse 75 03/03/22 07:25 Resp 18 03/03/22 07:25 BP 143/77 03/03/22 07:25 Pulse Ox 96 03/03/22 07:25 03/02/22 03/03/22 03/03/22 22:59 06:59 14:59 Intake Total 480 / 720 240 / 960 Output Total 300 / 300 400 / 700 Balance 180 / 420 -160 / 260 Weight last 48 hrs Weight 76.204 kg Weight 76.793 kg Physical Exam Narrative: Constitutional: Awake, comfortable HEENT: Wet mucosa, no jvp, non icteric Lungs: Bilaterally clear without discernible wheeze, rales in all lung zones CVS: S1 S2, no murmurs Abdo: Soft, BS ok Ext 4: Minimal edema, peripheral perfusion with no cyanosis Neurological: Grossly non-focal Data : 03/03/22 04:37 03/03/22 04:37 A&P Assessment and plan (1) Acute kidney injury superimposed on CKD: Status: Acute Plan 1. Stage V chronic kidney disease New ESRD Cont MWF schedule > orders placed for the am Dose medication for GFR less than 15 Strict I's and O's Outpatient dialysis to be set up by clinical case manager 2. Ischemic cardiomyopathy Stress test appreciated, mgmt per cardiology, patient refusing LHC, lifevest etc 3. Chemistry well balanced 4. Hemodynamics These appear stable 5. Anemia of chronic kidney disease Iron levels appear at goal, currently on EPO weekly. ok for discharge when outpatient dialysis is organized Noe Del Toro MD Nephrology [phone] Patient seen and examined via telemedicine, with the assistance of the bedside RN > 25 min spent in evaluation and mgmt of patient Attestations Medical Necessity Statement*: ESRD mgmt Coding Level of Care Code Acute Executive Sous Chef for Chg Fwd Diagnoses Acute kidney injury superimposed on CKD N17.9; N18.9
[2022-03-03 11:21] LABS: Glucose Point of Care 185 mg/dL (70-110)
[2022-03-03 12:00] VITALS: BP 129/69; PULSE 75; RESP 18; TEMP 36.7; O2SAT 98
--- NOTE | 2022-03-03 12:57 | P.PN_ITS ---
Subjective Subjective: Seen today.? No acute events overnight.? Awaiting dialysis chair time. Vitals/I&O/Wt Last Vital Signs Temp 98.0 F 03/03/22 12:00 Pulse 75 03/03/22 12:00 Resp 18 03/03/22 12:00 BP 129/69 03/03/22 12:00 Pulse Ox 98 03/03/22 12:00 03/02/22 03/03/22 03/03/22 22:59 06:59 14:59 Intake Total 480 / 720 240 / 960 240 / 240 Output Total 300 / 300 400 / 700 200 / 200 Balance 180 / 420 -160 / 260 40 / 40 Weight last 48 hrs Weight 76.204 kg Weight 76.793 kg Physical Exam Narrative: Lungs clear to auscultation No lower extremity edema Appears comfortable in bed. Data : 03/03/22 04:37 03/03/22 04:37 A&P Assessment and plan (1) Hypertension: Status: Acute (2) Abnormal cardiovascular stress test: Status: Acute (3) Status post insertion of hemodialysis catheter: Status: Acute (4) Poor social situation: Status: Acute (5) Cardiomyopathy: Status: Acute (6) Acute kidney injury superimposed on CKD: Status: Acute (7) ESRD needing dialysis: Status: Acute Plan 66-year-old male who presented to the hospital for generalized weakness and fatigue, he was recently discharged by Dr. Wilson when patient refused dialysis, during this encounter his echo revealed reduced Ejection ejection fraction, po sitive stress test, cardiology was consulted.? Patient refused an angiogram at this time.? First dialysis session started 02/23, Dr. King place dialysis catheter on 02/23.? Patient is awaiting dialysis spot. Dialysis dependent end-stage renal disease Patient is awaiting chair time First dialysis session 02/23 Patient will be having dialysis Friday. Reduced action fraction cardiomyopathy -Patient was offered an angiogram by cardiology but he is not interested in having any intervention done at this point.? He understands the risks. Recent DVT of lower extremity Continue Eliquis. Anemia of chronic disease: Stable Previous history of Covid infection Hyperuricemia controlled on allopurinol Full code Likely will be discharged next week Renal dialysis diet STILL AWAITING DIALYSIS CHAIR TIME Attestations Medical Necessity Statement*: Awaiting dialysis chair time Coding Level of Care Code Acute Freight Rate Specialist for Devin Fwd Diagnoses Hypertension I10 Abnormal cardiovascular stress test R94.39 Status post insertion of hemodialysis catheter Z99.2 Poor social situation Z65.9 Cardiomyopathy I42.9 Acute kidney injury superimposed on CKD N17.9; N18.9 ESRD needing dialysis N18.6; Z99.2
[2022-03-03] MEDS: insulin lispro 100 unit/1 mL SUBCUT ×2 (13:23→20:50)
[2022-03-03 15:02] VITALS: BP 138/66; PULSE 97; RESP 20; TEMP 36.4; O2SAT 96
[2022-03-03 17:34] LABS: Glucose Point of Care 128 mg/dL (70-110)
[2022-03-03 20:00] VITALS: BP 116/64; PULSE 80; RESP 17; TEMP 36.3; O2SAT 98
[2022-03-04] VITALS (8 sets, daily range): BP systolic 102–148; BP diastolic 65–80; PULSE 67–83; RESP 16–18; TEMP 36.5–37; O2SAT 92–99
[2022-03-04 04:58] LABS: Basophils # 0.1 10^3/uL (0.0-0.1); Basophils % 0.9 %; Eosinophils # 0.4 10^3/uL (0.0-0.8); Eosinophils % 6.1 %; Hematocrit 34.3 % (42.0-52.0); Hemoglobin 10.5 g/dL (11.7-16.6); Lymphocytes # 1.1 10^3/uL (0.8-4.8); Lymphocytes % 18.2 %; Mean Corpuscular HGB Conc 30.6 g/dL (30.0-36.0); Mean Corpuscular Hemoglobin 29.5 pg (28.0-34.0); Mean Corpuscular Volume 96.3 fl (80-94); Monocytes # 0.4 10^3/uL (0.2-0.9); Monocytes % 6.8 %; Neutrophils # 3.97 10^3/uL (1.8-7.7); Neutrophils % 67.7 %; Nucleated Red Blood Cells % 0 %; Platelet Count 277 10^3/cmm (130-400); Red Blood Count 3.56 10^6/uL (4.1-5.3); Red Cell Distribution Width 16.7 % (12.1-15.1); White Blood Count 5.9 10^3/uL (4.0-10.0)
[2022-03-04 05:11] LABS: Anion Gap 17.6 (5-19); Blood Urea Nitrogen 55 mg/dL (8-23); Calcium 9.3 mg/dL (8.5-10.5); Carbon Dioxide 24 mmol/L (22-29); Chloride 100 mmol/L (98-107); Glucose 106 mg/dL (65-115); Magnesium 2.3 mg/dL (1.7-2.3); Osmolality Calculated 300 mOsm/kg (285-295); Potassium 4.6 mmol/L (3.5-5.1); Sodium 137 mmol/L (136-145)
[2022-03-04] MEDS: metoprolol succinate ER (24 HR) 25 mg Tablet 12.5 MG PO (09:13)
[2022-03-04] MEDS: losartan 50 mg Tablet 25 MG PO (09:14)
[2022-03-04] MEDS: allopurinol 100 mg Tablet PO (09:14)
[2022-03-04] MEDS: sevelamer 800 mg Tablet 1600 MG PO ×3 (09:14→21:04)
[2022-03-04] MEDS: tamsulosin 0.4 mg Capsule PO (09:14)
[2022-03-04] MEDS: apixaban 5 mg Tablet PO ×2 (09:14→21:04)
[2022-03-04] MEDS: b-complex-vitamin c Tablet 1 EACH PO (09:14)
[2022-03-04 11:20] LABS: Glucose Point of Care 108 mg/dL (70-110)
[2022-03-04 11:20] LABS: Glucose Point of Care 244 mg/dL (70-110)
[2022-03-04 11:20] LABS: Glucose Point of Care 195 mg/dL (70-110)
[2022-03-04] MEDS: insulin lispro 100 unit/1 mL SUBCUT (12:23)
--- NOTE | 2022-03-04 14:07 | PM.PN ---
Subjective Subjective: Mr. Montano is seen and examined on hemodialysis today. Blood pressure did dip down a little bit and so we are reducing his ultrafiltration. No other new issues, he is currently pending placement. Medications: Reviewed: Yes Medication Review Details: Current Medications Acetaminophen (Acetaminophen 325 Mg Tablet) 325 - 650 mg PO Q4H PRN PRN Reason: MILD PAIN OR INCREASE TEMP Allopurinol (Allopurinol 100 Mg Tablet) 100 mg PO DAILY [facility] Last Admin: 02/28/22 08:17 Dose: 100 mg Documented by: Amlodipine Besylate (Amlodipine 5 Mg Tablet) 5 mg PO DAILY [facility] Last Admin: 02/23/22 12:24 Dose: Not Given Documented by: Apixaban (Apixaban 5 Mg Tablet) 5 mg PO BID@0900,2100 [facility] Last Admin: 02/28/22 08:18 Dose: 5 mg Documented by: Dextrose (Dextrose 50% Syringe 50 Ml) 25 ml IVP ONCE PRN; Protocol PRN Reason: hypoglycemia protocol Dextrose (Dextrose 50% Syringe 50 Ml) 50 ml IVP PRN PRN; Protocol PRN Reason: hypoglycemia protocol Epoetin Shashi (Epoetin Shashi 10,000 Unit/Ml Inj) 10,000 unit SUBCUT QMWF [facility] Last Admin: 02/27/22 14:32 Dose: 10,000 unit Documented by: Glucagon (Glucagon 1 Mg/Ml Inj 1 Ml) 1 mg IM ONCE PRN; Protocol PRN Reason: Adult Acute Hypoglycemia Prot. Dextrose (D5w) 500 mls @ 100 mls/hr IV ONCE PRN; Protocol PRN Reason: Adult Acute Hypoglycemia Prot Insulin Human Lispro (Insulin Lispro 100 Unit/1 Ml) 0 unit SUBCUT AC&BEDTIME [facility]; Protocol Last Admin: 02/28/22 07:44 Dose: Not Given Documented by: Losartan Potassium (Losartan 50 Mg Tablet) 25 mg PO DAILY [facility] Last Admin: 02/28/22 08:17 Dose: 25 mg Documented by: Metoprolol Succinate (Metoprolol Succinate Er (24 Hr) 25 Mg Tablet) 12.5 mg PO DAILY [facility] Last Admin: 02/28/22 08:17 Dose: 12.5 mg Documented by: Multivitamins (C-Uwmlwie-Xcuiuym C Tablet) 1 each PO DAILY [facility] Last Admin: 02/28/22 08:18 Dose: 1 each Documented by: Ondansetron HCl (Ondansetron 2 Mg/Ml Sdv 2 Ml) 4 mg IVP Q2M PRN PRN Reason: NAUSEA Sevelamer Carbonate (Sevelamer 800 Mg Tablet) 1,600 mg PO TID [facility] Last Admin: 02/28/22 08:17 Dose: 1,600 mg Documented by: Tamsulosin HCl (Tamsulosin 0.4 Mg Capsule) 0.4 mg PO DAILY [facility] Last Admin: 02/28/22 08:18 Dose: 0.4 mg Documented by: Vitals/I&O/Wt Last Vital Signs Temp 97.9 F 03/04/22 11:47 Pulse 81 03/04/22 11:47 Resp 16 03/04/22 11:47 BP 132/77 03/04/22 11:47 Pulse Ox 96 03/04/22 11:47 03/03/22 03/04/22 03/04/22 22:59 06:59 14:59 Intake Total 360 / 840 200 / 1040 Output Total 700 / 900 Balance 360 / 640 -500 / 140 Weight last 48 hrs Weight 77.156 kg Weight 76.204 kg Physical Exam Narrative: Constitutional: Awake, comfortable HEENT: Wet mucosa, no jvp, non icteric Lungs: Bilaterally clear without discernible wheeze, rales in all lung zones CVS: S1 S2, no murmurs Abdo: Soft, BS ok Ext 4: Minimal edema, peripheral perfusion with no cyanosis Neurological: Grossly non-focal Data : 03/04/22 04:00 03/04/22 04:00 A&P Assessment and plan (1) Acute kidney injury superimposed on CKD: Status: Acute Plan 1. Stage V chronic kidney disease New ESRD Cont MWF schedule Seen on dialysis today Dose medication for GFR less than 15 Strict I's and O's Outpatient dialysis to be set up by upper caser 2. Ischemic cardiomyopathy Stress test appreciated, mgmt per cardiology, patient refusing LHC, lifevest etc 3. Chemistry well balanced 4. Hemodynamics These appear stable 5. Anemia of chronic kidney disease Iron levels appear at goal, currently on EPO weekly. ok for discharge when outpatient dialysis is organized Noe Del Toro MD Nephrology [phone] Patient seen and examined via telemedicine, with the assistance of the bedside RN > 25 min spent in evaluation and mgmt of patient Attestations Medical Necessity Statement*: eval for ESRD Coding Level of Care Code Acute Splash Line Operator for Chg Fwd Diagnoses Acute kidney injury superimposed on CKD N17.9; N18.9
[2022-03-04] MEDS: epoetin alfa 10,000 unit/mL INJ 10000 UNIT SUBCUT (15:26)
[2022-03-04] MEDS: heparin, porcine 1,000 unit/mL INJ 10 mL 10000 UNIT HE (15:26)
--- NOTE | 2022-03-04 15:39 | PM.PN ---
Subjective Subjective: The patient reports doing well. Denies any active complaints. Wants to go home. No shortness of breath. No chest pain. No fever or chills. No nausea or vomiting. No diarrhea. Medications: Medication Review Details: Generic Name Dose Route Start Last Admin Trade Name Avery PRN Reason Stop Dose Admin Allopurinol 100 mg 02/19/22 09:00 03/04/22 09:14 Allopurinol 100 Mg Tablet PO 100 mg DAILY [facility] Administration Amlodipine Besylat e 5 mg 02/19/22 09:00 02/23/22 12:24 Amlodipine 5 Mg Tablet PO Not Given DAILY [facility] Apixaban 5 mg 02/25/22 21:00 03/04/22 09:14 Apixaban 5 Mg Ta blet PO 5 mg BID@0900,2100 [facility] Administration Epoetin Shashi 10,000 unit 02/25/22 14:00 03/04/22 15:26 Epoetin Shashi 10, 000 Unit/Ml Inj SUBCUT 10,000 unit QMWF [facility] Administration Insulin Human Lisp ro 0 unit 03/02/22 12:26 03/04/22 12:23 Insulin Lispro 1 00 Unit/1 Ml SUBCUT 5 unit WM&BEDTIME [facility] Administration Protocol Losartan Potassium 25 mg 02/25/22 09:00 03/04/22 09:14 Losartan 50 Mg T ablet PO 25 mg DAILY [facility] Administration Metoprolol Succina te 12.5 mg 02/23/22 09:00 03/04/22 09:13 Metoprolol Succi kiran Er (24 Hr) 25 Mg Tablet PO 12.5 mg DAILY [facility] Administration Multivitamins 1 each 02/19/22 09:00 03/04/22 09:14 W-Wceogkg-Pnxaqx n C Tablet PO 1 each DAILY [facility] Administration Sevelamer Carbonat e 1,600 mg 02/25/22 09:00 03/04/22 15:27 Sevelamer 800 Mg Tablet PO 1,600 mg TID [facility] Administration Tamsulosin HCl 0.4 mg 02/19/22 09:00 03/04/22 09:14 Tamsulosin 0.4 M g Capsule PO 0.4 mg DAILY [facility] Administration Vitals/I&O/Wt Last Vital Signs Temp 97.9 F 03/04/22 11:47 Pulse 81 03/04/22 11:47 Resp 16 03/04/22 11:47 BP 132/77 03/04/22 11:47 Pulse Ox 96 03/04/22 11:47 03/04/22 03/04/22 03/04/22 06:59 14:59 22:59 Intake Total 200 / 1040 Output Total 700 / 900 Balance -500 / 140 Weight last 48 hrs Weight 77.156 kg Weight 76.204 kg Physical Exam Narrative: Lungs clear to auscultation No lower extremity edema Appears comfortable in bed. Const: COMMON NORMALS: no acute distress, average body habitus, patient oriented x3, no limitations, healthy appearing, alert and well nourished GENERAL APPEARANCE: ill appearing HENMT: COMMON NORMALS: normocephalic, atraumatic, hearing grossly normal bilaterally, external ears normal, EAC's normal, TM's normal bilaterally, Normal external nose present, Normal nasal mucous membranes and turbinates present, moist oral mucous membranes, oropharynx normal, dentition normal and gingiva normal HEAD & SCALP: normocephalic and atraumatic FACE & SINUS: normal facial exam NOSE: Normal external nose present and Normal nasal mucous membranes and turbinates present EXTERNAL EAR: Yes external ears normal EXTERNAL AUDITORY CANAL: EAC's normal TYMPANIC MEMBRANE: TM's normal bilaterally MOUTH: Normal oral and palatal mucosa present Eye: COMMON NORMALS: Equal, round and reactive pupils present, EOMs intact bilaterally, conjunctivae normal, no scleral icterus, no papilledema, normal visual means by confrontation and fundi normal bilaterally GENERAL EYE: appearance normal, both eyes and all related structures VISUAL ACUITY: Yes acuity normal ALIGNMENT: Yes alignment normal CONJUNCTIVA: Yes conjunctivae normal SCLERA: sclerae normal CORNEA: Yes corneas normal PUPIL: Yes Equal, round and reactive pupils present DIRECT OPHTHALMOSCOPY: Yes no papilledema and Yes fundi normal bilaterally Neck/C-Spine: COMMON NORMALS: full ROM, no lymphadenopathy, supple, no meningeal signs, no JVD, Thyroid normal and No carotid bruits THYROID: Thyroid normal CERVICAL SPINE: Yes cervical ROM normal Chest: COMMONS NORMALS: normal inspection of the chest, normal palpation of entire chest wall, normal inspection of the breasts and normal palpation of the breasts Resp: COMMON NORMALS: normal respiratory effort, No retractions, No use of accessory muscles, clear to auscultation bilaterally and percussion normal AUSCULTATION: clear to auscultation bilaterally PERCUSSION: percussion normal Cardio: COMMON NORMALS: no JVD, regular rate, regular rhythm, S1 normal heart sound present, S2 normal heart sound present, No gallops present (Cardio), No clicks present (Cardio), No murmurs present (Cardio), No rub (Cardio) and Peripheral pulses 2+ throughout RATE: regular rate RHYTHM: regular rhythm HEART SOUNDS: S1 normal heart sound present and S2 normal heart sound present PERIPHERAL PULSES: Peripheral pulses 2+ throughout GI: COMMON NORMALS: Normal to inspection, nondistended, normoactive bowel sounds present, Soft to palpation, non-tender, No hepatosplenomegaly present, no masses and no bruits PALPATION: Yes Soft to palpation and Yes No hepatosplenomegaly present : COMMON NORMALS: Yes no CVA tenderness, Yes normal external exam, Yes Testes normal, Yes scrotum normal, Yes no scrotal swelling and Yes No hernias present BLADDER/KIDNEY EXAM: Yes no CVA tenderness Back/Pelvis: COMMON NORMALS: no CVA tenderness THORACIC SPINE/UPPER BACK: Yes normal to inspection LUMBAR SPINE/LOWER BACK: Yes normal to inspection Extremity: GENERAL: Yes normal exam except as noted Neuro: COMMON NORMALS: patient oriented x3 SENSORIUM/ORIENTATION: Yes alert MENINGEAL SIGNS: Yes no meningeal signs CRANIAL NERVES: Yes CN normal except as noted MOTOR EXAM: 5/5 motor strength present throughout DEEP TENDON REFLEXES: Right triceps reflex intensity grade: 2+, Left triceps reflex intensity grade: 2+, Rt Biceps (C5, C6): 2+, Left biceps reflex intensity grade: 2+, Right brachioradialis reflex intensity grade: 2+, Left brachioradialis reflex intensity grade: 2+, Right patellar reflex intensity grade: 2+, Left patellar reflex intensity grade: 2+, Right ankle reflex intensity grade: 2+ and Left ankle reflex intensity grade: 2+ PUPIL EXAM: Normal pupillary reactivity/response: bilateral, Dilated: bilateral, Pinpoint: bilateral, Mid position: bilateral, Sluggish: bilateral and Fixed/non-reactive: bilateral Psych: COMMON NORMALS: mental status grossly normal, Normal thought process present, cooperative, normal affect, speech normal, activity/motor behavior normal, denies hallucinations, denies homicidal ideation and denies suicidal ideation SPEECH: Yes normal speech THOUGHT PROCESS: Normal thought process present Skin: COMMON NORMALS: no rashes or lesions noted, no wounds, turgor normal, no jaundice, no petechiae and no mottling GENERAL SKIN EXAM: no rashes or lesions noted and turgor normal Data : 03/04/22 04:00 03/04/22 04:00 A&P Assessment and plan (1) Hypertension: Status: Acute (2) Abnormal cardiovascular stress test: Status: Acute (3) Status post insertion of hemodialysis catheter: Status: Acute (4) Poor social situation: Status: Acute (5) Cardiomyopathy: Status: Acute (6) Acute kidney injury superimposed on CKD: Status: Acute (7) ESRD needing dialysis: Status: Acute Plan 66-year-old male who presented to the hospital for generalized weakness and fatigue, he was recently discharged by Dr. Wilson when patient refused dialysis, during this encounter his echo revealed reduced Ejection ejection fraction, positive stress test, cardiology was consulted.? Patient refused an angiogram at this time.? First dialysis session started 02/23, Dr. King place dialysis catheter on 02/23.? Patient is awaiting dialysis spot. Dialysis dependent end-stage renal disease Patient is awaiting chair time First dialysis session 02/23 Patient will be having dialysis Friday. Reduced action fraction cardiomyopathy -Patient was offered an angiogram by cardiology but he is not interested in having any intervention done at this point.? He understands the risks. Recent DVT of lower extremity Continue Eliquis. Anemia of chronic disease: Stable Previous history of Covid infection Hyperuricemia controlled on allopurinol Full code Likely will be discharged next week Renal dialysis diet STILL AWAITING DIALYSIS CHAIR TIME [place] Acute renal failure/end-stage renal disease. Continuing dialysis treatments. Pending outpatient dialysis arrangements. CHF, systolic, EF of 30%, positive stress test. Declined cardiac catheterization. Continue current management. Stable. No evidence of exacerbation. History of DVT. Continuing Eliquis. Hypertension. Stable. Continue current management. Anemia. Stable. Continue monitoring. The plan of care was discussed with the patient. He verbalized understanding. Discussed with multidisciplinary team. Attestations Medical Necessity Statement*: Pending outpatient dialysis arrangements. Coding Level of Care Code Acute Concrete Form Setter And Finisher for Devin Fwd Diagnoses Hypertension I10 Abnormal cardiovascular stress test R94.39 Status post insertion of hemodialysis catheter Z99.2 Poor social situation Z65.9 Cardiomyopathy I42.9 Acute kidney injury superimposed on CKD N17.9; N18.9 ESRD needing dialysis N18.6; Z99.2
[2022-03-04 17:24] LABS: Glucose Point of Care 80 mg/dL (70-110)
[2022-03-05] VITALS (7 sets, daily range): BP systolic 109–142; BP diastolic 66–77; PULSE 69–83; RESP 16–18; TEMP 36.4–37.1; O2SAT 94–98
[2022-03-05 08:16] LABS: Glucose Point of Care 108 mg/dL (70-110)
[2022-03-05 08:16] LABS: Glucose Point of Care 111 mg/dL (70-110)
[2022-03-05] MEDS: allopurinol 100 mg Tablet PO (08:21)
[2022-03-05] MEDS: b-complex-vitamin c Tablet 1 EACH PO (08:21)
[2022-03-05] MEDS: metoprolol succinate ER (24 HR) 25 mg Tablet 12.5 MG PO (08:21)
[2022-03-05] MEDS: sevelamer 800 mg Tablet 1600 MG PO ×2 (08:21→16:02)
[2022-03-05] MEDS: tamsulosin 0.4 mg Capsule PO (08:22)
[2022-03-05] MEDS: losartan 50 mg Tablet 25 MG PO (08:22)
[2022-03-05] MEDS: apixaban 5 mg Tablet PO (08:22)
--- NOTE | 2022-03-05 11:42 | PM.PN ---
Subjective Subjective: Patient's complaints, condition, physical examination findings, and the plan of care was discussed with the nurse. No significant changes since yesterday. No events. No shortness of breath. No chest pain. No fever or chills. No nausea or vomiting. No diarrhea. Medications: Reviewed: Yes Medication Review Details: Generic Name Dose Route Start Last Admin Trade Name Avery PRN Reason Stop Dose Admin Allopurinol 100 mg 02/19/22 09:00 03/04/22 09:14 Allopurinol 100 Mg Tablet PO 100 mg DAILY MARQUEZ Administration Amlodipine Besylat e 5 mg 02/19/22 09:00 02/23/22 12:24 Amlodipine 5 Mg Tablet PO Not Given DAILY MARQUEZ Apixaban 5 mg 02/25/22 21:00 03/04/22 09:14 Apixaban 5 Mg Ta blet PO 5 mg BID@0900,2100 MARQUEZ Administration Epoetin Shashi 10,000 unit 02/25/22 14:00 03/04/22 15:26 Epoetin Shashi 10, 000 Unit/Ml Inj SUBCUT 10,000 unit QMWF MARQUEZ Administration Insulin Human Lisp ro 0 unit 03/02/22 12:26 03/04/22 12:23 Insulin Lispro 1 00 Unit/1 Ml SUBCUT 5 unit WM&BEDTIME MARQUEZ Administration Protocol Losartan Potassium 25 mg 02/25/22 09:00 03/04/22 09:14 Losartan 50 Mg T ablet PO 25 mg DAILY MARQUEZ Administration Metoprolol Succina te 12.5 mg 02/23/22 09:00 03/04/22 09:13 Metoprolol Succi kiran Er (24 Hr) 25 Mg Tablet PO 12.5 mg DAILY MARQUEZ Administration Multivitamins 1 each 02/19/22 09:00 03/04/22 09:14 C-Zfjvnad-Lhtajy n C Tablet PO 1 each DAILY MARQUEZ Administration Sevelamer Carbonat e 1,600 mg 02/25/22 09:00 03/04/22 15:27 Sevelamer 800 Mg Tablet PO 1,600 mg TID MARQUEZ Administration Tamsulosin HCl 0.4 mg 02/19/22 09:00 03/04/22 09:14 Tamsulosin 0.4 M g Capsule PO 0.4 mg DAILY MARQUEZ Administration Vitals/I&O/Wt Last Vital Signs Temp 98.6 F 03/05/22 11:09 Pulse 83 04/19/22 11:09 Resp 18 03/05/22 11:09 BP 109/66 03/05/22 11:09 Pulse Ox 94 03/05/22 11:09 03/04/22 03/05/22 03/05/22 22:59 06:59 14:59 Intake Total 120 / 120 Output Total 1886 / 1886 200 / 2086 Balance -1766 / -1766 -200 / -1966 Weight last 48 hrs Weight 76.204 kg Weight 75.3 kg Weight 77.156 kg Physical Exam Narrative: Awake alert oriented. No acute distress Normal speech Normal mood No respiratory distress. Aerating well. Abdomen is soft. No cyanosis. No weakness Data : 03/04/22 04:00 03/04/22 04:00 A&P Assessment and plan (1) Hypertension: Status: Acute (2) Abnormal cardiovascular stress test: Status: Acute (3) Status post insertion of hemodialysis catheter: Status: Acute (4) Poor social situation: Status: Acute (5) Cardiomyopathy: Status: Acute (6) Acute kidney injury superimposed on CKD: Status: Acute (7) ESRD needing dialysis: Status: Acute Plan 66-year-old male who presented to the hospital for generalized weakness and fatigue, he was recently discharged by Dr. Wilson when patient refused dialysis, during this encounter his echo revealed reduced Ejection ejection fraction, positive stress test, cardiology was consulted.? Patient refused an angiogram at this time.? First dialysis session started 02/23, Dr. King place dialysis catheter on 02/23.? Patient is awaiting dialysis spot. Dialysis dependent end-stage renal disease Patient is awaiting chair time First dialysis session 02/23 Patient will be having dialysis Friday. Reduced action fraction cardiomyopathy -Patient was offered an angiogram by cardiology but he is not interested in having any intervention done at this point.? He understands the risks. Recent DVT of lower extremity Continue Eliquis. Anemia of chronic disease: Stable Previous history of Covid infection Hyperuricemia controlled on allopurinol Full code Likely will be discharged next week Renal dialysis diet STILL AWAITING DIALYSIS CHAIR TIME [place] Acute renal failure/end-stage renal disease. Continuing dialysis treatments per nephrology. Pending outpatient dialysis arrangements. CHF, systolic, EF of 30%, positive stress test. Declined cardiac catheterization. Continue current management. Stable. No evidence of exacerbation. History of DVT. Continuing Eliquis. Hypertension. Stable. Continue current management. Anemia. Stable. Continue monitoring. Discussed with multidisciplinary team. Attestations Medical Necessity Statement*: Pending outpatient dialysis arrangements. Will be discharged as soon as possible after the arrangements are complete. Coding Level of Care Code Acute Agricultural Lender for Beng Fwd Diagnoses Hypertension I10 Abnormal cardiovascular stress test R94.39 Status post insertion of hemodialysis catheter Z99.2 Poor social situation Z65.9 Cardiomyopathy I42.9 Acute kidney injury superimposed on CKD N17.9; N18.9 ESRD needing dialysis N18.6; Z99.2
[2022-03-05 11:49] LABS: Glucose Point of Care 152 mg/dL (70-110)
--- NOTE | 2022-03-05 12:50 | PM.PN ---
Subjective Subjective: Mr. Montano feels well today. Keen to go home. No other acute issues with him today. No uremic symptoms. No hypervolemic symptoms. Dialysis went well yesterday. Medications: Reviewed: Yes Medication Review Details: Generic Name Dose Route Start Last Admin Trade Name Avery PRN Reason Stop Dose Admin Allopurinol 100 mg 02/19/22 09:00 03/04/22 09:14 Allopurinol 100 Mg Tablet PO 100 mg DAILY MARQUEZ Administration Amlodipine Besylat e 5 mg 02/19/22 09:00 02/23/22 12:24 Amlodipine 5 Mg Tablet PO Not Given DAILY MARQUEZ Apixaban 5 mg 02/25/22 21:00 03/04/22 09:14 Apixaban 5 Mg Ta blet PO 5 mg BID@0900,2100 MARQUEZ Administration Epoetin Shashi 10,000 unit 02/25/22 14:00 03/04/22 15:26 Epoetin Shashi 10, 000 Unit/Ml Inj SUBCUT 10,000 unit QMWF MARQUEZ Administration Insulin Human Lisp ro 0 unit 03/02/22 12:26 03/04/22 12:23 Insulin Lispro 1 00 Unit/1 Ml SUBCUT 5 unit WM&BEDTIME MARQUEZ Administration Protocol Losartan Potassium 25 mg 02/25/22 09:00 03/04/22 09:14 Losartan 50 Mg T ablet PO 25 mg DAILY MARQUEZ Administration Metoprolol Succina te 12.5 mg 02/23/22 09:00 03/04/22 09:13 Metoprolol Succi kiran Er (24 Hr) 25 Mg Tablet PO 12.5 mg DAILY MARQUEZ Administration Multivitamins 1 each 02/19/22 09:00 03/04/22 09:14 I-Boztdql-Xwkphw n C Tablet PO 1 each DAILY MARQUEZ Administration Sevelamer Carbonat e 1,600 mg 02/25/22 09:00 03/04/22 15:27 Sevelamer 800 Mg Tablet PO 1,600 mg TID MARQUEZ Administration Tamsulosin HCl 0.4 mg 02/19/22 09:00 03/04/22 09:14 Tamsulosin 0.4 M g Capsule PO 0.4 mg DAILY MARQUEZ Administration Vitals/I&O/Wt Last Vital Signs Temp 98.6 F 03/05/22 11:09 Pulse 83 03/05/22 11:09 Resp 18 03/05/22 11:09 BP 109/66 03/05/22 11:09 Pulse Ox 94 03/05/22 11:09 03/04/22 03/05/22 03/05/22 22:59 06:59 14:59 Intake Total 120 / 120 Output Total 188 / 1886 200 / 2086 Balance -1766 / -1766 -200 / -1966 Weight last 48 hrs Weight 76.204 kg Weight 75.3 kg Weight 77.156 kg Physical Exam Narrative: Constitutional: Awake, comfortable HEENT: Wet mucosa, no jvp, non icteric Lungs: Bilaterally clear without discernible wheeze, rales in all lung zones CVS: S1 S2, no murmurs Abdo: Soft, BS ok Ext 4: Minimal edema, peripheral perfusion with no cyanosis Neurological: Grossly non-focal Data : 03/04/22 04:00 03/04/22 04:00 A&P Assessment and plan (1) Acute kidney injury superimposed on CKD: Status: Acute Plan 1. Stage V chronic kidney disease New ESRD Cont MWF schedule Seen on dialysis today Dose medication for GFR less than 15 Strict I's and O's It appears the insurance company and the dialysis clinic have come to an agreement. Waiting on a chair time, hopefully discharge today 2. Ischemic cardiomyopathy Stress test appreciated, mgmt per cardiology, patient refusing LHC, lifevest etc 3. Chemistry well balanced 4. Hemodynamics These appear stable 5. Anemia of chronic kidney disease Iron levels appear at goal, currently on EPO weekly. ok for discharge when outpatient dialysis is organized, I will organize dialysis for tomorrow in the event that he remains in the hospital. Noe Del Toro MD Nephrology [phone] Patient seen and examined via telemedicine, with the assistance of the bedside RN > 25 min spent in evaluation and mgmt of patient Attestations Medical Necessity Statement*: eval for ESRD Coding Level of Care Code Acute Advertising Production Manager for Chg Fwd Diagnoses Acute kidney injury superimposed on CKD N17.9; N18.9
--- NOTE | 2022-03-05 12:51 | PM.DCS ---
Discharge Providers Date of Admission: 02/18/22 19:56 Date of Discharge: March 05, 2022 Attending Provider at Admission: Francy Jacobs MD Attending Provider at Discharge: Jason Velez Diagnoses at Discharge Discharge Diagnosis (1) Acute kidney injury superimposed on CKD: Status: Acute Reason for Visit Reason for Visit: Weakness, Kidney issues Hospital Course Hospital Course Please see patient's H&P, consult notes, progress notes and procedure notes for more details. Please see my progress note from today for physical examination findings. Discharge diagnosis and problem list 66-year-old male who presented to the hospital for generalized weakness and fatigue, he was recently discharged by Dr. Wilson when patient refused dialysis, during this encounter his echo revealed reduced Ejection ejection fraction, positive stress test, cardiology was consulted.? Patient refused an angiogram at this time.? First dialysis session started 02/23, Dr. King place dialysis catheter on 02/23.? Dialysis arrangements are completed today. The patient is ready for discharge. Denies any active complaints. No concerns from the nursing staff Dialysis dependent end-stage renal disease First dialysis session 02/23 Patient will be having dialysis Friday. Reduced action fraction cardiomyopathy CHF, systolic, EF of 30%, positive stress test.? Declined cardiac catheterization.? Continue current management.? Stable.? No evidence of exacerbation. -Patient was offered an angiogram by cardiology but he is not interested in having any intervention done at this point.? He understands the risks. Recent DVT of lower extremity Continue Eliquis. Anemia of chronic disease: Stable. Epoetin treatments by nephrology team. Previous history of Covid infection Hyperuricemia controlled on allopurinol Full code Renal dialysis diet Hypertension.? Stable.? Continue current management. Anemia.? Stable.? Continue monitoring. Discussed with multidisciplinary team. Discharge Data Studies Completed and Pending Completed Studies During Hospitalization Category Date Time Status CXRIE [XR chest 2V insp/exp 03070] Stat Exams 02/18/22 20:22 Completed CXRP [XR chest 1V portable 11054] Urgent Exams 02/23/22 08:37 Completed Sestamibi Stress Test Request Routine Exams 02/21/22 12:15 Completed NM salas perf SPECT r/s* [id number] Routine Nuc Med 02/22/22 Completed CV. echo complete* [id number] Routine Ultrasound 02/19/22 20:22 Completed US renal BI* [id number] Routine Ultrasound 02/19/22 20:22 Completed Pending at discharge Category Date Time Status Fecal Occult Blood [Immunochemical Fecal OCB] Routine Lab 02/18/22 22:15 Uncollected Radiology Impressions Renal Ultrasound 02/19/22 20:22 IMPRESSION: 1. Bilateral small kidneys with atrophy. 2. Moderate chronic medical renal disease. No hydronephrosis. C-Arm Fluoroscopy 02/23/22 07:00 IMPRESSION: Intraoperative imaging during dialysis catheter placement. Chest X-Ray 02/23/22 08:37 IMPRESSION: 1. Right IJ central venous catheter terminates in the region of the superior cavoatrial junction. 2. Interstitial opacities are seen in the left greater than right lungs, which could reflect edema versus infection. Laboratory Results WBC 5.9 10^3/uL (4.0-10.0) 03/04/22 04:00 RBC 3.56 10^6/uL (4.1-5.3) L 03/04/22 04:00 Hgb 10.5 g/dL (11.7-16.6) L 03/04/22 04:00 Hct 34.3 % (42.0-52.0) L 03/04/22 04:00 MCV 96.3 fl (80-94) H 03/04/22 04:00 MCH 29.5 pg (28.0-34.0) 03/04/22 04:00 MCHC 30.6 g/dL (30.0-36.0) 03/04/22 04:00 RDW 16.7 % (12.1-15.1) H 03/04/22 04:00 Plt Count 277 10^3/cmm (130-400) 03/04/22 04:00 MPV 10.0 fL (7.4-10.4) 03/04/22 04:00 Neut % (Auto) 67.7 % 03/04/22 04:00 Lymph % (Auto) 18.2 % 03/04/22 04:00 [place] % (Auto) 6.8 % 03/04/22 04:00 Eos % (Auto) 6.1 % 03/04/22 04:00 Baso % (Auto) 0.9 % 03/04/22 04:00 Neut # (Auto) 3.97 10^3/uL (1.8-7.7) 03/04/22 04:00 Lymph # (Auto) 1.1 10^3/uL (0.8-4.8) 03/04/22 04:00 [place] # (Auto) 0.4 10^3/uL (0.2-0.9) 03/04/22 04:00 Eos # (Auto) 0.4 10^3/uL (0.0-0.8) 03/04/22 04:00 Baso # (Auto) 0.1 10^3/uL (0.0-0.1) 03/04/22 04:00 Nucleated RBC % (auto) 0 % 03/04/22 04:00 Nucleated RBCs # 0.0 /100WBC 03/04/22 04:00 Sodium 137 mmol/L (136-145) 03/04/22 04:00 Potassium 4.6 mmol/L (3.5-5.1) 03/04/22 04:00 Chloride 100 mmol/L (98-107) 03/04/22 04:00 Carbon Dioxide 24 mmol/L (22-29) 03/04/22 04:00 Anion Gap 17.6 (5-19) 03/04/22 04:00 BUN 55 mg/dL (8-23) H 03/04/22 04:00 Creatinine 5.3 mg/dL (0.7-1.2) H 03/04/22 04:00 GFR Calculation 11.0 mL/min (90-130) L 03/04/22 04:00 Glucose 106 mg/dL (65-115) 03/04/22 04:00 POC Glucose 152 mg/dL (70-110) H 03/05/22 11:06 Estimat Average Glucose 128 02/19/22 04:23 Hemoglobin A1c 6.1 % (4.0-6.0) H 02/19/22 04:23 Calculated Osmolality 300 mOsm/kg (285-295) H 03/04/22 04:00 Uric Acid 4.1 mg/dL (3.4-7.0) 02/25/22 04:52 Calcium 9.3 mg/dL (8.5-10.5) 03/04/22 04:00 Phosphorus 2.6 mg/dL (2.5-4.5) 03/03/22 04:37 Magnesium 2.3 mg/dL (1.7-2.3) 03/04/22 04:00 Iron 54 ug/dL (59-158) L 02/19/22 04:23 TIBC 130 mcg/dl 02/19/22 04:23 % Saturation 41.5 % (20-50) 02/19/22 04:23 Unsat Iron Binding 76 ug/dL (112-347) L 02/19/22 04:23 Ferritin 648 ng/mL (30-400) H 02/19/22 04:23 Total Bilirubin 0.2 mg/dL (0.15-1.2) 03/03/22 04:37 AST 17 U/L (0-40) 03/03/22 04:37 ALT 10 U/L (0-41) 03/03/22 04:37 Alkaline Phosphatase 153 IU/L (40-130) H 03/03/22 04:37 Total Protein 6.3 g/dL (6.6-8.7) L 03/03/22 04:37 Albumin 3.3 g/dL (3.5-5.2) L 03/03/22 04:37 Globulin 3.0 g/dL (1.3-4.6) 03/03/22 04:37 25-OH Vitamin D Total 5 ng/mL (30-100) L 02/19/22 04:23 TSH 1.58 uIU/mL (0.27-4.20) 02/18/22 19:02 PTH Intact 250.3 pg/mL (15-65) H 02/19/22 04:23 Calcium (PTH Intact) 8.2 mg/dL (8.5-10.5) L 02/19/22 04:23 Random Cortisol 8.13 ug/dL (2.47-19.5) 02/19/22 04:23 Urine Color Yellow (Yellow) 02/21/22 11:40 Urine Appearance Clear (CLEAR) 02/21/22 11:40 Urine pH 8 (5-7) H 02/21/22 11:40 Ur Specific [place] 1.010 (1.005-1.030) 02/21/22 11:40 Urine Protein 1+ (Negative) H 02/21/22 11:40 Urine Glucose (UA) Norm (Normal) 02/21/22 11:40 Urine Ketones Negative (Negative) 02/21/22 11:40 Urine Blood Neg (Negative) 02/21/22 11:40 Urine Nitrate Negative (Negative) 02/21/22 11:40 Urine Bilirubin Neg (Negative) 02/21/22 11:40 Prot Sulfosalicylic Acd Positive (Negative) 02/21/22 11:40 Urine Urobilinogen Norm mg/dL (Negative) 02/21/22 11:40 Ur Leukocyte Esterase Negative (Negative) 02/21/22 11:40 Urine RBC None /hpf (0-2) 02/21/22 11:40 Urine WBC None /hpf (0-5) 02/21/22 11:40 Ur Squamous Epith Cells None /hpf (0-5) 02/21/22 11:40 Amorphous Sediment Not Reportable 02/21/22 11:40 Urine Bacteria None /hpf (NONE) 02/21/22 11:40 Ur Random Sodium 72 mmol/L 02/21/22 11:40 Ur Random Potassium 7 mmol/L 02/21/22 11:40 Ur Random Chloride 43 mmol/L 02/21/22 11:40 Urine Total Volume 1100 ml 02/20/22 00:20 Urine Creatinine 51 mg/dL (39-259) 02/21/22 11:40 Ur Creatinine 24 Hour 1034.0 mg/dL (955-2936) 02/20/22 00:20 Hep Bs Antigen Non-reactive (Nonreactive) 02/21/22 04:23 Hep Bs Antibody < 3.5 (11.5-1000) L 02/21/22 04:23 Hepatitis C Antibody Non-reactive (Nonreactive) 02/18/22 21:16 Vitals Last Vital Signs Temp 98.6 F 03/05/22 11:09 Pulse 83 03/05/22 11:09 Resp 18 03/05/22 11:09 BP 109/66 03/05/22 11:09 Pulse Ox 94 03/05/22 11:09 Discharge Plan Discharge Patient Disposition: Home Condition: Stable Prescriptions: New B-complex with vitamin C Tablet 1 ea PO DAILY Qty: 30 0RF losartan 50 mg Tablet 25 mg PO DAILY Qty: 30 0RF metoprolol succinate 25 mg Tablet Extended Release 24 Hr 12.5 mg PO DAILY Qty: 30 0RF Ecotrin Low Strength 81 mg tablet,delayed release (DR/EC) 81 mg PO DAILY Qty: 30 0RF Lipitor 40 mg tablet 40 mg PO DAILY Qty: 30 0RF Continued amlodipine 5 mg Tablet 5 mg PO DAILY 30 Days Qty: 30 3RF allopurinol 100 mg Tablet 100 mg PO DAILY 30 Days Qty: 30 3RF tamsulosin 0.4 mg Capsule 0.4 mg PO DAILY 30 Days Qty: 30 0RF sodium bicarbonate 650 mg Tablet 650 mg PO TID 30 Days Qty: 90 3RF sevelamer carbonate 800 mg Tablet 1,600 mg PO TID 30 Days Qty: 180 3RF Eliquis 5 mg Tablet 5 mg PO BID@0900,2100 30 Days Qty: 60 3RF cholecalciferol (vitamin D3) 125 mcg (5,000 unit) capsule 125 mcg PO DAILY 30 Days Qty: 30 1RF Discharge Orders: Discharge Order (Routine); Ordered 03/05/22 Ordered By: Jason Velez Other Ambulatory Orders: Basic Metabolic Panel (Routine) Timeframe: 1 Week Facility: [facility] - Location: Lab - Main Lab Ordered By: Jason Velez Complete Blood Count w/Auto (Routine) Timeframe: 1 Week Location: Determined by Patient Ordered By: Jason Velez [facility] [Other] (You have been accepted with [facility]. They would like you to arrive at 3:30 PM tomorrow, FridayMarch 06. If you have any questions or concerns please contact them at [phone].) Janeen Morales MD [Physician] - 2 weeks Patient Instructions: Heart Failure (DC), Coronary Artery Disease (DC), End Stage Kidney Disease (DC), Opioid Safety Activity Restrictions/Additional Instructions: Please follow-up with Dr. Morales after discharge for further cardiac testing and adjustments of the treatment plan. Please follow-up with the kidney specialist. Dialysis treatments 3 times a week as we discussed. Follow-up with a primary care physician in 1 week. Need regular blood tests as instructed. Please come back to emergency room if you develop any confusion, dizziness, weakness, fever or chills, nausea or vomiting, chest pain, shortness of breath, cough, palpitations, signs of bleeding, abdominal pain, muscle aches, dark or bloody urine, diarrhea or any other new complaints. Discharge Attestations Time Spent in Discharge Care*: greater than 30 min Quality Metrics Clinical Quality Measures [ No reported AMI, CVA or VTE this stay] Coding Level of Care Code Acute Chg FW DC note Diagnoses Acute kidney injury superimposed on CKD N17.9; N18.9
[2022-03-05] MEDS: insulin lispro 100 unit/1 mL SUBCUT (13:29)
--- NOTE | 2022-03-05 16:04 | PC.NURSE ---
Discharge teaching and education given, all questions were answered at this time. Belongings accounted for. Medications sent to [facility] pharmacy. Dialysis set up for tomorrow, patient informed. Patients ride is not here but patient is insisting on going to ER waiting room to wait.
== END 2022-03-05 16:09 | disposition home or self-care (01) | DRG 674 ==
LOC: ER 20:10 → MEDSURG 20:31
PROVIDERS: Emergency Medicine; Internal Medicine; Internal Medicine Nephrology; Surgery; Admitting Provider Internal Medicine; Emergency Provider Emergency Medicine; Visit Provider Internal Medicine
PROC: 0JH63XZ Insertion of Tunneled Vascular Access Device into Chest Subcutaneous Tissue and Fascia, Percutaneous Approach (ICD-10-PCS; principal; 2022-02-23 07:00)
DX: N17.9 Acute kidney failure, unspecified (principal); I13.2 Hypertensive heart and chronic kidney disease with heart failure and with stage 5 chronic kidney disease, or end stage renal disease; I50.22 Chronic systolic (congestive) heart failure; E87.1 Hypo-osmolality and hyponatremia; E11.22 Type 2 diabetes mellitus with diabetic chronic kidney disease; N18.6 End stage renal disease; Z86.16 Personal history of COVID-19; E83.52 Hypercalcemia; N25.81 Secondary hyperparathyroidism of renal origin; M10.9 Gout, unspecified; D75.839 Thrombocytosis, unspecified; N40.0 Benign prostatic hyperplasia without lower urinary tract symptoms; Z86.718 Personal history of other venous thrombosis and embolism; D63.1 Anemia in chronic kidney disease; I25.5 Ischemic cardiomyopathy; Z79.01 Long term (current) use of anticoagulants; R94.39 Abnormal result of other cardiovascular function study
CPT/HCPCS: 36415; 36416; 71045; 71046; 76000; 76770; 77001; 78452; 80048; 80053; 81001; 82306; 82310; 82436; 82533; 82570; 82728; 82962; 83036; 83540; 83550; 83735; 83970; 84100; 84133; 84300; 84443; 84550; 85025; 86706; 86803; 87340; 93005; 93017; 93306; 96372; 99285; A9500; C1750; J0690; J1644; J1815; J2250; J2704; J2785; J3010; J7030; Q3014; Q4081

== ENCOUNTER → 2022-05-13 09:15 | Outpatient (BNVA) | payer MEDICAID, SELFPAY | PROVIDERS: Visit Provider Surgery | DX: Z49.02 Encounter for fitting and adjustment of peritoneal dialysis catheter (principal); N18.6 End stage renal disease | CPT/HCPCS: 99213 ==

== ENCOUNTER → 2022-05-14 11:23 | Outpatient (BNVA) | payer MEDICAID, SELFPAY | PROVIDERS: Visit Provider Surgery | DX: Z49.02 Encounter for fitting and adjustment of peritoneal dialysis catheter (principal); N18.6 End stage renal disease; Z99.2 Dependence on renal dialysis | CPT/HCPCS: 99213 ==

== ENCOUNTER 2022-05-28 12:50 | Day surgery (SDC) | payer MEDICAID, SELFPAY ==
[2022-05-17 13:29] VITALS: BMI 25.8
[2022-05-28] VITALS (9 sets, daily range): BP systolic 148–172; BP diastolic 87–108; PULSE 65–84; RESP 10–18; TEMP 36.2–37; O2SAT 99–100
[2022-05-28] MEDS: sodium chloride 0.9% 1,000 ML 30 ML IV (13:56)
--- NOTE | 2022-05-28 14:50 | ANES.PREANE2 ---
Pre-Anesthetic Assessment Height/Weight: Height 1.7 m Weight 74.843 kg Temp Pulse Resp BP Pulse Ox 98.6 F 84 18 170/100 99 05/28/22 13:32 05/28/22 13:32 05/28/22 13:32 05/28/22 13:32 05/28/22 13:32 Preop Diagnosis: End-stage renal disease Operation Date: 05/28/22 14:10 Proposed Procedures p PD cath insertion 96261,Z99.2,N18.6(Not Applicable) - Davon King MD Familial anesthetic complications: none Was Beta Marcelino taken within 24 hours: N/A Was Clonidine taken within 24 hours: N/A Last intake: Intake Last Liquid Date 05/27/22 Last Liquid Time 22:00 Last Solid Date 05/27/22 Last Solid Time 22:00 Social No alcohol and No tobacco Exam alert, oriented x 3, clear to auscultation bilaterally and regular rate & rhythm Airway Submandibular: within normal limits Cervical ROM: within normal limits Mallampati: Class II Dentition: chipped Comments: Comments: Missing several CV/HEM Coronary Artery Disease, Congestive Heart Failure and Hypertension CONCLUSIONS ?1. Mildly increased left ventricular cavity size. Moderately ?decreased left ventricular systolic function. Left ventricular ?ejection fraction is estimated at 30 %.? Moderate global ?hypokinesis.? Grade I diastolic dysfunction (abnormal relaxation ?filling pattern), normal to mildly elevated filling pressures. ?Abnormal septal motion consistent with conduction abnormality. ?2. Normal right ventricular size and systolic function. ?3. Mildly increased left atrial size. ?4. When compared to previous echocardiogram dated 02/02/2022, ?left ventricle systolic function seems to have decreased. Chronic Renal Failure Metabolic Diabetes Mellitus Anesthetic Plan ASA status: 3 Anesthesia: General Medications/Allergies Home Medications Medication Instructions Recorded Confirmed Last Taken Type cholecalciferol (vitamin D3) 125 125 mcg PO DAILY 30 Days #30 cap 02/07/22 05/28/22 05/21/22 Rx mcg (5,000 unit) capsule colloidal minerals 1 dose DIRECTED DAILY 05/13/22 05/28/22 05/14/22 History red yeast rice 600 mg capsule 600 mg PO DAILY cap 05/13/22 05/28/22 05/21/22 History Allergies Allergy/AdvReac Type Severity Reaction Status Date / Time No Known Allergies Allergy Verified 05/14/22 13:52 Current Medications Generic Name Dose Route Start Last Admin Trade Name Avery PRN Reason Stop Dose Admin Sodium Chloride 1,000 mls @ 30 mls/hr 05/28/22 13:15 05/28/22 13:56 Sodium Chloride 0.9% IV 05/29/22 13:14 30 mls/hr .Q24H MARQUEZ Administration PFSH Anesthesia Medical History Acute confusion Acute kidney injury Acute kidney injury superimposed on CKD MIKHAIL (acute kidney injury) CKD (chronic kidney disease) Diabetes DVT of lower extremity (deep venous thrombosis) Elevated d-dimer Fluid overload History of COVID-19 Hypertension Metabolic acidosis Pulmonary infiltrate on chest x-ray Tachycardia Troponin level elevated Surgical History No pertinent past surgical history Status post insertion of hemodialysis catheter Family History Other No significant family history Social History Smoking and tobacco status: never smoked Alcohol intake: never Lives independently: Yes Household members: none Marital status details: Rather estranged with daughter Current occupational status: other Details: Recently employed, stopped working when started feeling unwell several wks Data Anesthesia Cardiac Studies: Echocardiogram 02/19/22 Sestamibi Stress Test (Cardiology) 02/21/22
--- NOTE | 2022-05-28 15:06 | W.PM.OPSUD ---
Surgery/Procedure H&P Update DATE OF PROCEDURE: May 28, 2022 DATE H&P PERFORMED: 05/13/22 H&P UPDATE INFORMATION: I have reviewed H&P completed within last 30 days, I have examined patient prior to procedure and No changes to prior documentation PREOP DIAGNOSIS: End-stage renal disease PRIMARY INDICATION FOR PROCEDURE: The same PLANNED PROCEDURE: Operation Date: 05/28/22 14:10 Proposed Procedures p PD cath insertion [id number],Z99.2,N18.6(Not Applicable) - Davon King MD
[2022-05-28] MEDS: heparin 5,000 unit/mL INJ 1 mL 2000 UNIT SUBCUT (15:23)
[2022-05-28] MEDS: acetaminophen 1,000 MG/100 ML PIGGYBACK 400 MG IV (15:23)
[2022-05-28] MEDS: ampicillin-sulbactam 3 GM in sodium chloride 0.9% (plus) 50 ML IV (15:30)
[2022-05-28] MEDS: lidocaine 2% INJ 20 mL INJECTION (16:01)
--- NOTE | 2022-05-28 16:29 | P.OP_ITS ---
Operative Report Date of procedure: May 28, 2022 Pre-op diagnosis: Preop Diagnosis End-stage renal disease Post-op diagnosis: The same Procedure done: Laparoscopic peritoneal dialysis catheter placement Surgeon: Davon King MD Mechanic Recovery: x ray service technician viola Ag Circulating nurse Cecelia Anesthesia: General (CHRISTIANO Okeefe) Estimated blood loss (mL): 5 Procedure: After identifying the patient in the holding area, was taken to the operating room, placed in supine position, intubated by anesthesia, prophylactic IV antibiotics were given per protocol. Subcutaneous heparin was given as well Time-out was done verifying the patient's name/date of /planned procedure and destination after the procedure, all were in agreement Prep and drape of the abdomen was done under the usual sterile technique, a Walls trocar technique was used through a supraumbilical skin incision, two stay sutures were applied to the fascia, and safe entrance to the abdominal cavity was achieved, low flow followed by a higher flow of CO2 gas, with pressure maintained to be at 15 mmHg and gas flow at 40 L/m. Started by 0 scope 10 mm, no injuries were detected, followed by that a 30? millimeter scope was inserted , normal-looking viscera no evidence of injuries, under direct vision at the left lower quadrant ,midway between the left anterior superior spine and the umbilicus,a small skin incision was created, the introducer and the sheath that comes with the dialysis catheter kit was inserted under direct visualization, was inserted in a tangential trajectory pointing towards the pelvis, for future placement of the tunneled catheter, the introducer was removed, and the catheter after being flushed was passed through the sheath, at this point the sheath was peeled off, ,another 5 mm trocar was inserted in the right lower quadrant, and a laparoscopic Bo instrument (Bullet Forceps)was introduced to hold onto the catheter and help positioning thru the Endoloop and finally situating it safely at Sarabjit pouch, the other side of the dialysis catheter was hooked to a tunneler that comes with the kit, and a tunnel was created to allow the tube to pass underneath the skin and subcutaneous tissues, preserving the 2 cuffs underneath to prevent slippage and migration of the tube, tunneler was removed after bringing the tube out of the skin at the left lateral region of the abdomen, that end of the tube was connected to plastic hub to facilitate dialysis, the tube was flushed with sterile saline and a good return back was appreciated. Laparoscopic placement of tunneled double-cuff peritoneal dialysis catheter was then achieved Final look survey laparoscopy was done showing no injuries, trocars were taken out under vision, gas was allowed to escape, closure of the supraumbilical fascial defect under direct visualization with #1 PDS sutures, by 4-0 Monocryl to close the other skin incisions, all by Dermabond. drain dressing was applied and tape, the tube was thus secured to the abdominal wall Lidocaine 2% was injected at the site of the incisions Patient tolerated the procedure well, extubated and was taken to the recovery room in stable condition I was present for the whole entire procedure
--- NOTE | 2022-05-28 17:20 | SUR.PHASEI ---
1645 PT TO PACU AWAKES C/O OF PAIN TO ABDOMEN, GRIMICE, SEE PAIN MED GIVEN BY MANAGER LAB AT BEDSIDE, MONITOR SR, IV PATENT NS AT KVO RATE PER GRAVITY, PT HAS 3 SITES TO ABDOMEN SKIN GLUE AND PERITONEAL CATH FROM ONE SITE, ABD BINDER IN PLACE,
--- NOTE | 2022-05-28 17:22 | SUR.PHASEI ---
1717 PT VERY ALERT HOB AT 30 DEGREES ID BRACELET TO WRIST, PT ID'D WITH 2 IDENTIFIERS, IV AT KVO SLOW RATE , PT STATES PAIN IS BETTER, PT TO OPS ROOM 1 HANDOFF TO ZEESHAN CASSIDY AT BEDSIDE, PT REQUESTS COKE TO SIP ON.
[2022-05-28] MEDS: HYDROcodone-acetaminophen 5-325 mg Tablet 1 TAB PO (17:25)
--- NOTE | 2022-05-28 17:42 | ANE.PACU2 ---
Inpatient post-anesthesia follow up: Airway intact: Yes Vital signs: Temperature 98 F Pulse Rate 65 Respiratory Rate 17 Blood Pressure 168/90 Pulse Oximetry 99 Oxygen Delivery Me thod Room Air Oxygen Flow Rate 8 Fraction of Inspir ed Oxygen Hydration adequate: Yes Nausea and vomiting: No Pain level: 2 Mental status: Baseline
== END 2022-05-28 17:55 | disposition home or self-care (01) ==
PROVIDERS: Visit Provider Surgery
PROC: 0WHG43Z Insertion of Infusion Device into Peritoneal Cavity, Percutaneous Endoscopic Approach (ICD-10-PCS; CPT 49324; principal; 2022-05-28 14:00)
DX: E11.22 Type 2 diabetes mellitus with diabetic chronic kidney disease (principal); I13.2 Hypertensive heart and chronic kidney disease with heart failure and with stage 5 chronic kidney disease, or end stage renal disease; N18.6 End stage renal disease; I50.9 Heart failure, unspecified; I25.10 Atherosclerotic heart disease of native coronary artery without angina pectoris; Z86.16 Personal history of COVID-19
CPT/HCPCS: 49324; 51702; J0295; J1100; J1644; J2405; J2704; J2710; J3010; J3490; J7030

== ENCOUNTER → 2022-07-01 09:39 | Outpatient (BNVA) | payer MEDICAID, SELFPAY | PROVIDERS: Visit Provider Surgery | DX: Z09 Encounter for follow-up examination after completed treatment for conditions other than malignant neoplasm (principal); N18.6 End stage renal disease; Z99.2 Dependence on renal dialysis | CPT/HCPCS: 99213 ==

== ENCOUNTER 2022-07-09 09:30 | Day surgery (SDC) | payer MEDICARE, MEDICAID, SELFPAY ==
[2022-07-08 09:15] VITALS: BMI 29.4
[2022-07-09] MEDS: sodium chloride 0.9% 1,000 ML 30 ML IV (10:00)
--- NOTE | 2022-07-09 10:05 | W.PM.OPSUD ---
Surgery/Procedure H&P Update DATE OF PROCEDURE: July 09, 2022 DATE H&P PERFORMED: 07/01/22 H&P UPDATE INFORMATION: I have reviewed H&P completed within last 30 days, I have examined patient prior to procedure and Changes to prior documentation as noted here (Patient decided finally that he wants to get rid of both catheters, the hemodialysis and peritoneal catheters) PREOP DIAGNOSIS: Undesired dialysis access PRIMARY INDICATION FOR PROCEDURE: The same PLANNED PROCEDURE: Operation Date: 07/09/22 11:10 Proposed Procedures p Peritoneal Catheter Removal(Not Applicable) - Davon King MD s PD cath removal,hemodialysis removal [id number],T82.41XA,T85.611(Not Applicable) - Davon King MD
--- NOTE | 2022-07-09 10:11 | P.ANESASSM_ITS ---
Pre-Anesthetic Assessment Height/Weight: Height 1.7 m Weight 85.275 kg Preop Diagnosis: Undesired dialysis access Operation Date: 07/09/22 11:10 Proposed Procedures p Peritoneal Catheter Removal(Not Applicable) - Davon King MD s PD cath removal,hemodialysis removal [id number],T82.41XA,T85.611(Not Applicable) - Davon King MD Familial anesthetic complications: none Was Beta Marcelino taken within 24 hours: N/A Was Clonidine taken within 24 hours: N/A Last intake: 07/08/22 Social No alcohol and No tobacco Exam alert, oriented x 3, clear to auscultation bilaterally and regular rate & rhythm Airway Submandibular: within normal limits Cervical ROM: within normal limits Mallampati: Class II Comments: Comments: Missing most teeth Pulmonary None reported CV/HEM Anemia, Deep Vein Thrombosis and Hypertension Cardiomyopathy Able to go up flight of stairs with walker w/o CP or SOB Stress Test CONCLUSION: 1. No significant EKG changes with the LexiScan infusion. 2. No LexiScan induced chest pain or cardiac arrhythmia. 3. Normal blood pressure and heart rate response. 4. Sestamibi/sestamibi perfusion scan pending; see separate report. Electronically Signed On 02-22-2022 13:47:31 CDT by Gloria Watson M.D. [email or web address]/store/[id number] TTE 02/19/22 CONCLUSIONS ?1. Mildly increased left ventricular cavity size. Moderately ?decreased left ventricular systolic function. Left ventricular ?ejection fraction is estimated at 30 %.? Moderate global ?hypokinesis.? Grade I diastolic dysfunction (abnormal relaxation ?filling pattern), normal to mildly elevated filling pressures. ?Abnormal septal motion consistent with conduction abnormality. ?2. Normal right ventricular size and systolic function. ?3. Mildly increased left atrial size. ?4. When compared to previous echocardiogram dated 02/02/2022, ?left ventricle systolic function seems to have decreased. 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 I discussed with the patient risks, goals, and benefits of MAC and general anesthesia. We discussed spectrum of MAC anesthesia including conversion to general as well as possibility of recall of intraoperative stimuli including discomfort/pain. Patient consents to MAC or General pending further discussion with surgeon. Risk of > 500 ml blood loss (7ml/kg in children): No Medications/Allergies Home Medications Medication Instructions Recorded Confirmed Last Taken Type cholecalciferol (vitamin D3) 125 125 mcg PO DAILY 30 days #30 caps 02/07/22 07/08/22 05/21/22 Rx mcg (5,000 unit) capsule colloidal minerals 1 dose as directed DAILY 05/13/22 07/08/22 05/14/22 History red yeast rice 600 mg capsule 600 mg PO DAILY 05/13/22 07/08/22 05/21/22 History diltiazem HCl 60 mg 60 mg PO BID 07/01/22 07/08/22 Unknown History capsule,extended release 12 hr Allergies Allergy/AdvReac Type Severity Reaction Status Date / Time No Known Allergies Allergy Verified 07/04/22 17:36 [facility] Anesthesia Medical History Acute confusion Acute kidney injury Acute kidney injury superimposed on CKD MIKHAIL (acute kidney injury) CKD (chronic kidney disease) Diabetes DVT of lower extremity (deep venous thrombosis) Elevated d-dimer Encounter for peritoneal dialysis catheter insertion Fluid overload History of COVID-19 Hypertension Metabolic acidosis Pulmonary infiltrate on chest x-ray Tachycardia Troponin level elevated Surgical History No pertinent past surgical history Status post insertion of hemodialysis catheter Family History Other No significant family history Social History Smoking and tobacco status: never smoked Alcohol intake: never Lives independently: Yes Household members: none Marital status details: Rather estranged with daughter Current occupational status: other Details: Recently employed, stopped working when started feeling unwell several wks Data Anesthesia Cardiac Studies: Echocardiogram 02/19/22 Sestamibi Stress Test (Cardiology) 02/21
[2022-07-09 10:17] VITALS: BP 145/70; PULSE 85; RESP 18; TEMP 36.8; O2SAT 99
[2022-07-09] MEDS: ceFAZolin 2,000 MG in sodium chloride 0.9% (plus) 50 ML 100 MG IV (10:32)
[2022-07-09] MEDS: lidocaine 2% INJ 20 mL INJECTION (11:07)
--- NOTE | 2022-07-09 11:20 | P.OP_ITS ---
Operative Report Date of procedure: July 09, 2022 Pre-op diagnosis: Preop Diagnosis Undesired dialysis access Post-op diagnosis: The same Procedure done: 1-Explantation of right upper chest hemodialysis catheter 2-Explantation of peritoneal dialysis catheter Specimens removed/disposition: Hemodialysis catheter and peritoneal dialysis catheter Surgeon: Davon King MD Data Warehouse Consultant: pharmaceutical development technician Cathy Circulating nurse Cecelia Anesthesia: MAC (CYRUS Courtney) Brief History: Multiple occasions the patient was counseled to avoid removal of either or the catheters but the patient insisted to have both removed out, understanding the potential higher risk of mortality and morbidity associated with not having dialysis. Procedure: After identifying the patient in the holding area, informed consent per chart ,patient was then transferred to the operative suite, was placed in supine position, IV propofol was infused by the anesthesia provider and both arms were tucked, prep and drape of right upper chest and abdominal regions were done usual sterile technique. Time-out was done verifying the patient's name/date of /planned procedure and destination after the procedure, all were in agreement. I started by injection of lidocaine 2% at the site of the planned incision started by an transverse incision including the previous scar of the catheter placement located at the right upper chest, after removal of the sutures and dissection at the site of exit the HD catheter was then explanted without difficulty after freeing old adhesions surrounding the cuff, at this point the catheter was removed at the same time direct pressure was applied at the site of the right internal jugular vein stick to prevent bleeding for at least 7 minutes.The entire hemodialysis catheter was sent for gross pathology. Thorough irrigation of the right upper chest hemodialysis cath wound and edges were trimmed followed by hemostasis,Closure using 3/0 Vicryl as subdermal sutures was achieved followed by skin alanna. Attention now was deviated towards the explantation of the PD catheter located at the left lower side of the abdomen. after palpation of the site of the catheter towards the left side of the abdomen skin incision was extended and dissection further to the subcutaneous layer was done and exteriorization of the catheter first cuff was achieved after taking all adhesions down.another skin incision was done towards the left lower quadrant coinciding with the previous 5 mm trocar insertion site where the catheter was originally inserted into the abdominal cavity and at this point the second catheter cuff was dissected and freed from the surrounding adhesions, and both incisions were closed in layers after irrigation using 3-0 Vicryl, and skin alanna were used to close skin inci josué Dry dressing was then applied to all incisions. Patient tolerated the procedure well, count of instruments, needles and sponges were completed at the end of the procedure.And then patient was transferred to the recovery area in stable condition. I Was present for the whole entire procedure
[2022-07-09 11:26] VITALS: BP 118/73; PULSE 72; RESP 18; TEMP 36.6; O2SAT 99
[2022-07-09 11:30] VITALS: BP 124/73; PULSE 74; RESP 18; O2SAT 99
[2022-07-09 11:37] VITALS: BP 140/87; PULSE 79; RESP 16; TEMP 36.7; O2SAT 100
[2022-07-09 11:40] VITALS: BP 150/81; PULSE 81; RESP 18; O2SAT 100
[2022-07-09 12:23] VITALS: BP 130/84; PULSE 73; RESP 18; O2SAT 100
--- NOTE | 2022-07-09 12:34 | ANE.PACU2 ---
Inpatient post-anesthesia follow up: Airway intact: Yes Vital signs: Temperature 98.1 F Pulse Rate 73 Respiratory Rate 18 Blood Pressure 130/84 Pulse Oximetry 100 Oxygen Delivery Me thod Room Air Oxygen Flow Rate Fraction of Inspir ed Oxygen Hydration adequate: Yes Nausea and vomiting: No Pain level: 1 Mental status: Baseline
--- NOTE | 2022-07-09 12:35 | SUR.PHASEII ---
patient ride home is cab service
== END 2022-07-09 12:35 | disposition home or self-care (01) ==
PROVIDERS: Visit Provider Surgery
PROC: (CPT 36589; 2022-07-09 11:00)
DX: T85.611A Breakdown (mechanical) of intraperitoneal dialysis catheter, initial encounter (principal); E11.22 Type 2 diabetes mellitus with diabetic chronic kidney disease; I12.9 Hypertensive chronic kidney disease with stage 1 through stage 4 chronic kidney disease, or unspecified chronic kidney disease; N18.9 Chronic kidney disease, unspecified; Z86.16 Personal history of COVID-19
CPT/HCPCS: 36589; 49422; 88300; J2704; J3010; J7030

== ENCOUNTER → 2022-07-17 15:12 | Outpatient (BNVA) | payer MEDICARE, MEDICAID, SELFPAY | PROVIDERS: Visit Provider Surgery | DX: Z09 Encounter for follow-up examination after completed treatment for conditions other than malignant neoplasm (principal) | CPT/HCPCS: 99024 ==

== ENCOUNTER 2024-04-09 21:12 | Inpatient (IN) | payer MEDICARE, MEDICAID, SELFPAY ==
[2024-04-09 21:32] VITALS: BP 174/99; PULSE 93; RESP 16; TEMP 37; O2SAT 97
--- NOTE | 2024-04-09 21:50 | CTR_ITS ---
PROCEDURE INFORMATION: Exam: CT Head Without Contrast Exam date and time: 04/09/2024 10:00 PM Age: 68 years old Clinical indication: Injury or trauma; Fall; Blunt trauma (contusions or hematomas); Dizziness and walking, difficulty; Patient HX: Patient fell earlier today in bathroom and struck frontal against the wall. C/O dizziness with nausea and instability with walking. ; Additional info: Gait and balance issues for 24 hours TECHNIQUE: Imaging protocol: Computed tomography of the head without contrast. Radiation optimization: All CT scans at this facility use at least one of these dose optimization techniques: automated exposure control; mA and/or kV adjustment per patient size (includes targeted exams where dose is matched to clinical indication); or iterative reconstruction. COMPARISON: No relevant prior studies available. RADIATION DOSE METRICS: Total DLP (mGy-cm): 1919.91 FINDINGS: Brain: There is moderate cerebral atrophy. There are moderate deep white matter microangiopathic ischemic changes. No acute hemorrhage is identified. No mass or mass effect is identified. Lacunar infarcts in the bilateral basal ganglia and cristobal radiata. Cerebral ventricles: Moderately dilated ventricles secondary to atrophy. Paranasal sinuses: The paranasal sinuses are clear. Mastoid air cells: The mastoid air cells are clear. Bones: No acute osseous abnormalities are seen. Soft tissues: The soft tissues are within normal limits. CT/CT head wo con* [id number] IMPRESSION: 1. No acute intracranial pathology. 2. Senescent changes.
--- NOTE | 2024-04-09 21:51 | ECG_ITS ---
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 Measurements Intervals [place] Rate: 75 P: 53 [place]: 141 QRS: 13 QRSD: 102 T: 87 QT: 425 QTc: 475 Interpretive Statements SINUS RHYTHM NONSPECIFIC T-WAVE ABNORMALITY Compared to ECG 02/18/2022 18:17:38 Possible ischemia no longer present T-wave abnormality still present Electronically Signed On 04-10-2024 20:20:17 CDT by Janeen Morales M.D. [id number]
--- NOTE | 2024-04-09 21:56 | ED_ITS ---
Documented by User: Lizzie Thornton MD 04/09/24 22:00 HPI - General Adult 2 General: Chief complaint: General Medical Stated complaint: N/V, Sent from [facility] Time Seen by Provider: 04/09/24 21:52 History of Present Illness: 68-year-old man with a history of chroni c kidney disease and he has had dialysis in the past, DVT, hypertension and diabetes who presents the emergency room with lightheadedness. He says it has been so bad it is made him feel off balance. No fevers. No abdominal pain. He said some mild nausea. No chest pain. No shortness of breath. No cough. He has been off of dialysis for about 6 months now. He says his urination is normal. Although he has a distinct smell of urine. No altered mental status. No focal motor deficits. No vertigo. He says symptoms started yesterday. Review of Systems 2 Narrative: Constitutional symptoms: Negative except as documented in HPI. Skin symptoms: Negative except as documented in HPI. Eye symptoms: Negative except as documented in HPI. ENMT symptoms: Negative except as documented in HPI. Respiratory symptoms: Negative except as documented in HPI. Cardiovascular symptoms: Negative except as documented in HPI. Gastrointestinal symptoms: Negative except as documented in HPI. Genitourinary symptoms: Negative except as documented in HPI. Musculoskeletal symptoms: Negative except as documented in HPI. Neurologic symptoms: Negative except as documented in HPI. Psychiatric symptoms: Negative except as documented in HPI. Endocrine symptoms: Negative except as documented in HPI. PFSH ED 2 PFSH: Medical History (Updated 04/10/24 @ 04:00 by Sathish Mcmillan DO) Encounter for peritoneal dialysis catheter insertion MIKHAIL (acute kidney injury) Acute confusion History of COVID-19 DVT of lower extremity (deep venous thrombosis) Troponin level elevated Metabolic acidosis Pulmonary infiltrate on chest x-ray Tachycardia Elevated d-dimer Acute kidney injury superimposed on CKD CKD (chronic kidney disease) Fluid overload Acute kidney injury Hypertension Diabetes Surgical History Status post insertion of hemodialysis catheter No pertinent past surgical history Family History Other No significant family history Social History Smoking and tobacco/nicotine status: never used tobacco/nicotine Alcohol intake: never Substance/Drug Use: never Lives independently: Yes Household members: none Marital status details: Rather estranged with daughter Current occupational status: other Details: Recently employed, stopped working when started feeling unwell several wks Physical Exam 2 Narrative: EXAM NARRATIVE: General: Alert, no acute distress. Skin: Warm, dry. Head: Normocephalic, atraumatic. Neck: Supple, trachea midline. Eye: Extraocular movements are intact. Ears, nose, mouth and throat: mucosa moist. Cardiovascular: Regular, Normal peripheral perfusion. Respiratory: Lungs are clear to auscultation, respirations are non-labored, breath sounds are equal, Symmetrical chest wall expansion. Gastrointestinal: Soft, Nontender, Non distended, Normal bowel sounds. Musculoskeletal: Normal ROM, no deformity. Neurological: Alert and oriented, No focal neurological deficit observed. Psychiatric: Cooperative, appropriate mood & affect. Course 2 Vital Signs: Vital signs: Vital Signs Temperature 98.6 F 04/09/24 21:32 Pulse Rate 69 04/10/24 05:09 Respiratory Rate 18 04/10/24 05:09 Blood Pressure 172/91 04/10/24 05:09 Pulse Oximetry 100 04/10/24 05:09 Oxygen Delivery Me thod Room Air 04/10/24 01:00 [facility] - General Adult Medical Decision Making Medical decision making: Differential diagnosis for patient presenting with generalized weakness including but not limited to and based on the above HPI, review of systems and physical exam: Sepsis. Dehydration. Renal failure. Electrolyte abnormalities. Anemia. Congestive heart failure. Hypotension. Coronary syndrome. Hepatitis. Cirrhosis. Infections such as pneumonia, urinary tract infection, Tick bourne illness, Cellulitis, Viral infections including influenza and Covid-19. Workup: labwork and lab/exam driven imaging ordered to evaluate, rule in and rule out above pathologies. Patient care transition to night doctor at shift change. Dr. Mcmillan. Lab Data 04/09/24 23:15 04/09/24 23:[address] 04/09/24 21:50 IMPRESSION: 1. No acute intracranial pathology. 2. Senescent changes. Laboratory Results WBC 7.23 10^3/uL (3.29-11.43) 04/09/24 23:15 RBC 3.04 10^6/uL (3.85-5.65) L 04/09/24 23:15 Hgb 9.20 g/dL (11.27-16.99) L 04/09/24 23:15 Hct 28.4 % (37-53) L 04/09/24 23:15 MCV 93.4 fl (82-101) 04/09/24 23:15 MCH 30.3 pg (27-33) 04/09/24 23:15 MCHC 32.4 g/dL (30-55) 04/09/24 23:15 RDW 16.7 % (12.1-15.1) H 04/09/24 23:15 Plt Count 200 10^3/cmm (157-399) 04/09/24 23:15 MPV 9.9 fL (7.4-10.4) 04/09/24 23:15 Neut % (Auto) 73.0 % 04/09/24 23:15 Lymph % (Auto) 16.7 % 04/09/24 23:15 [place] % (Auto) 7.5 % 04/09/24 23:15 Eos % (Auto) 1.4 % 04/09/24 23:15 Baso % (Auto) 1.1 % 04/09/24 23:15 Neut # (Auto) 5.28 10^3/uL (1.8-7.7) 04/09/24 23:15 Lymph # (Auto) 1.2 10^3/uL (0.8-4.8) 04/09/24 23:15 [place] # (Auto) 0.5 10^3/uL (0.2-0.9) 04/09/24 23:15 Eos # (Auto) 0.1 10^3/uL (0.0-0.8) 04/09/24 23:15 Baso # (Auto) 0.1 10^3/uL (0.0-0.1) 04/09/24 23:15 Nucleated RBC % (auto) 0 % 04/09/24 23:15 Nucleated RBCs # 0.0 /100WBC 04/09/24 23:15 PT 13.60 SECONDS (12.1-14.9) 04/09/24 23:15 INR 1.01 (0.8-1.2) 04/09/24 23:15 APTT 25.1 SECONDS (23.9-36.7) 04/09/24 23:15 Sodium 140 mmol/L (136-145) 04/09/24 23:15 Potassium 4.5 mmol/L (3.5-5.1) 04/09/24 23:15 Chloride 107 mmol/L (98-107) 04/09/24 23:15 Carbon Dioxide 17 mmol/L (22-29) L 04/09/24 23:15 Anion Gap 20.5 (5-19) H 04/09/24 23:15 BUN 88 mg/dL (8-23) H* D 04/09/24 23:15 Creatinine 7.5 mg/dL (0.7-1.2) H* 04/09/24 23:15 GFR Calculation 7.3 mL/min (90-130) L 04/09/24 23:15 Glucose 103 mg/dL (65-115) 04/09/24 23:15 Calculated Osmolality 317 mOsm/kg (285-295) H 04/09/24 23:15 Lactic Acid 0.6 mmol/L (0.5-2.2) 04/09/24 23:15 Uric Acid 7.5 mg/dL (3.4-7.0) H 04/09/24 23:15 Calcium 8.0 mg/dL (8.5-10.5) L 04/09/24 23:15 Phosphorus 6.9 mg/dL (2.5-4.5) H 04/09/24 23:15 Magnesium 1.6 mg/dL (1.7-2.3) L 04/09/24 23:15 Iron 105 ug/dL (59-158) 04/09/24 23:15 TIBC 183 mcg/dl 04/09/24 23:15 % Saturation 57.3 % (20-50) H 04/09/24 23:15 Unsat Iron Binding 78 ug/dL (112-347) L 04/09/24 23:15 Ferritin 283 ng/mL (30-400) 04/09/24 23:15 Total Bilirubin 0.3 mg/dL (0.15-1.2) 04/09/24 23:15 AST 6 U/L (0-40) 04/09/24 23:15 ALT 7 U/L (0-41) 04/09/24 23:15 Alkaline Phosphatase 67 U/L (40-130) 04/09/24 23:15 C-Reactive Protein 3.0 mg/L (0.0-4.9) 04/09/24 23:15 Total Protein 6.7 g/dL (6.6-8.7) 04/09/24 23:15 Albumin 4.2 g/dL (3.5-5.2) 04/09/24 23:15 Globulin 2.5 g/dL (1.3-4.6) 04/09/24 23:15 25-OH Vitamin D Total 26 ng/mL (30-100) L 04/09/24 23:15 PTH Intact 387.7 pg/mL (15-65) H 04/09/24 23:15 Calcium (PTH Intact) 7.7 mg/dL (8.5-10.5) L 04/09/24 23:15 Urine Color Yellow (Yellow) 04/09/24 22:50 Urine Appearance Clear (CLEAR) 04/09/24 22:50 Urine pH 6 (5-7) 04/09/24 22:50 Ur Specific [place] 1.010 (1.005-1.030) 04/09/24 22:50 Urine Protein Neg (Negative) 04/09/24 22:50 Urine Glucose (UA) 1+ (Normal) H 04/09/24 22:50 Urine Ketones Negative (Negative) 04/09/24 22:50 Urine Blood 2+ (Negative) H 04/09/24 22:50 Urine Nitrate Negative (Negative) 04/09/24 22:50 Urine Bilirubin Neg (Negative) 04/09/24 22:50 Urine Urobilinogen Neg mg/dL (Negative) 04/09/24 22:50 Ur Leukocyte Esterase Negative (Negative) 04/09/24 22:50 Urine RBC 0-4 /hpf (0-2) H 04/09/24 22:50 Urine WBC 0-4 /hpf (0-5) H 04/09/24 22:50 Ur Squamous Epith Cells 0-4 /hpf (0-5) H 04/09/24 22:50 Amorphous Sediment Not Reportable 04/09/24 22:50 Urine Bacteria Trace /hpf (NONE) 04/09/24 22:50 Hepatitis C Antibody Non-reactive (Nonreactive) 04/09/24 23:15 Discharge Plan Discharge Patient Disposition: Admitted As Inpatient Admit Provider: Laxmi Herring Clinical Impression: ESRD needing dialysis Condition: Stable Coding Level of Care Code ED Trim Crew Supervisor for Chg Fwd Documented by User: Sathish Mcmillan DO 04/10/24 05:42 HPI - General Adult 2 General: Chief complaint: General Medical Stated complaint: N/V, Sent from [facility] Time Seen by Provider: 04/09/24 21:52 PFSH ED 2 PFSH: Medical History (Updated 04/10/24 @ 04:00 by Sathish Mcmillan DO) Encounter for peritoneal dialysis catheter insertion MIKHAIL (acute kidney injury) Acute confusion History of COVID-19 DVT of lower extremity (deep venous thrombosis) Troponin level elevated Metabolic acidosis Pulmonary infiltrate on chest x-ray Tachycardia Elevated d-dimer Acute kidney injury superimposed on CKD CKD (chronic kidney disease) Fluid overload Acute kidney injury Hypertension Diabetes Surgical History Status post insertion of hemodialysis catheter No pertinent past surgical history Family History Other No significant family history Social History Smoking and tobacco/nicotine status: never used tobacco/nicotine Alcohol intake: never Substance/Drug Use: never Lives independently: Yes Household members: none Marital status details: Rather estranged with daughter Current occupational status: other Details: Recently employed, stopped working when started feeling unwell several wks Course 2 Vital Signs: Vital signs: Vital Signs Temperature 98.6 F 04/09/24 21:32 Pulse Rate 69 04/10/24 05:09 Respiratory Rate 18 04/10/24 05:09 Blood Pressure 172/91 04/10/24 05:09 Pulse Oximetry 100 04/10/24 05:09 Oxygen Delivery Me thod Room Air 04/10/24 01:00 MDM - General Adult Medical Decision Making Medical decision making: Differential diagnosis for patient presenting with generalized weakness including but not limited to and based on the above HPI, review of systems and physical exam: Sepsis. Dehydration. Renal failure. Electrolyte abnormalities. Anemia. Congestive heart failure. Hypotension. Coronary syndrome. Hepatitis. Cirrhosis. Infections such as pneumonia, urinary tract infection, Tick bourne illness, Cellulitis, Viral infections including influenza and Covid-19. Workup: labwork and lab/exam driven imaging ordered to evaluate, rule in and rule out above pathologies. Patient care transition to night doctor at shift change. Dr. Mcmillan. Plan was discussed with Dr. Herring and telemetry nephrology we will admit for further evaluation and treatment. Lab Data 04/09/24 23:15 04/09/24 23:[address] 04/09/24 21:50 IMPRESSION: 1. No acute intracranial pathology. 2. Senescent changes. Laboratory Results WBC 7.23 10^3/uL (3.29-11.43) 04/09/24 23:15 RBC 3.04 10^6/uL (3.85-5.65) L 04/09/24 23:15 Hgb 9.20 g/dL (11.27-16.99) L 04/09/24 23:15 Hct 28.4 % (37-53) L 04/09/24 23:15 MCV 93.4 fl (82-101) 04/09/24 23:15 MCH 30.3 pg (27-33) 04/09/24 23:15 MCHC 32.4 g/dL (30-55) 04/09/24 23:15 RDW 16.7 % (12.1-15.1) H 04/09/24 23:15 Plt Count 200 10^3/cmm (157-399) 04/09/24 23:15 MPV 9.9 fL (7.4-10.4) 04/09/24 23:15 Neut % (Auto) 73.0 % 04/09/24 23:15 Lymph % (Auto) 16.7 % 04/09/24 23:15 [place] % (Auto) 7.5 % 04/09/24 23:15 Eos % (Auto) 1.4 % 04/09/24 23:15 Baso % (Auto) 1.1 % 04/09/24 23:15 Neut # (Auto) 5.28 10^3/uL (1.8-7.7) 04/09/24 23:15 Lymph # (Auto) 1.2 10^3/uL (0.8-4.8) 04/09/24 23:15 [place] # (Auto) 0.5 10^3/uL (0.2-0.9) 04/09/24 23:15 Eos # (Auto) 0.1 10^3/uL (0.0-0.8) 04/09/24 23:15 Baso # (Auto) 0.1 10^3/uL (0.0-0.1) 04/09/24 23:15 Nucleated RBC % (auto) 0 % 04/09/24 23:15 Nucleated RBCs # 0.0 /100WBC 04/09/24 23:15 PT 13.60 SECONDS (12.1-14.9) 04/09/24 23:15 INR 1.01 (0.8-1.2) 04/09/24 23:15 APTT 25.1 SECONDS (23.9-36.7) 04/09/24 23:15 Sodium 140 mmol/L (136-145) 04/09/24 23:15 Potassium 4.5 mmol/L (3.5-5.1) 04/09/24 23:15 Chloride 107 mmol/L (98-107) 04/09/24 23:15 Carbon Dioxide 17 mmol/L (22-29) L 04/09/24 23:15 Anion Gap 20.5 (5-19) H 04/09/24 23:15 BUN 88 mg/dL (8-23) H* D 04/09/24 23:15 Creatinine 7.5 mg/dL (0.7-1.2) H* 04/09/24 23:15 GFR Calculation 7.3 mL/min (90-130) L 04/09/24 23:15 Glucose 103 mg/dL (65-115) 04/09/24 23:15 Calculated Osmolality 317 mOsm/kg (285-295) H 04/09/24 23:15 Lactic Acid 0.6 mmol/L (0.5-2.2) 04/09/24 23:15 Uric Acid 7.5 mg/dL (3.4-7.0) H 04/09/24 23:15 Calcium 8.0 mg/dL (8.5-10.5) L 04/09/24 23:15 Phosphorus 6.9 mg/dL (2.5-4.5) H 04/09/24 23:15 Magnesium 1.6 mg/dL (1.7-2.3) L 04/09/24 23:15 Iron 105 ug/dL (59-158) 04/09/24 23:15 TIBC 183 mcg/dl 04/09/24 23:15 % Saturation 57.3 % (20-50) H 04/09/24 23:15 Unsat Iron Binding 78 ug/dL (112-347) L 04/09/24 23:15 Ferritin 283 ng/mL (30-400) 04/09/24 23:15 Total Bilirubin 0.3 mg/dL (0.15-1.2) 04/09/24 23:15 AST 6 U/L (0-40) 04/09/24 23:15 ALT 7 U/L (0-41) 04/09/24 23:15 Alkaline Phosphatase 67 U/L (40-130) 04/09/24 23:15 C-Reactive Protein 3.0 mg/L (0.0-4.9) 04/09/24 23:15 Total Protein 6.7 g/dL (6.6-8.7) 04/09/24 23:15 Albumin 4.2 g/dL (3.5-5.2) 04/09/24 23:15 Globulin 2.5 g/dL (1.3-4.6) 04/09/24 23:15 25-OH Vitamin D Total 26 ng/mL (30-100) L 04/09/24 23:15 PTH Intact 387.7 pg/mL (15-65) H 04/09/24 23:15 Calcium (PTH Intact) 7.7 mg/dL (8.5-10.5) L 04/09/24 23:15 Urine Color Yellow (Yellow) 04/09/24 22:50 Urine Appearance Clear (CLEAR) 04/09/24 22:50 Urine pH 6 (5-7) 04/09/24 22:50 Ur Specific [place] 1.010 (1.005-1.030) 04/09/24 22:50 Urine Protein Neg (Negative) 04/09/24 22:50 Urine Glucose (UA) 1+ (Normal) H 04/09/24 22:50 Urine Ketones Negative (Negative) 04/09/24 22:50 Urine Blood 2+ (Negative) H 04/09/24 22:50 Urine Nitrate Negative (Negative) 04/09/24 22:50 Urine Bilirubin Neg (Negative) 04/09/24 22:50 Urine Urobilinogen Neg mg/dL (Negative) 04/09/24 22:50 Ur Leukocyte Esterase Negative (Negative) 04/09/24 22:50 Urine RBC 0-4 /hpf (0-2) H 04/09/24 22:50 Urine WBC 0-4 /hpf (0-5) H 04/09/24 22:50 Ur Squamous Epith Cells 0-4 /hpf (0-5) H 04/09/24 22:50 Amorphous Sediment Not Reportable 04/09/24 22:50 Urine Bacteria Trace /hpf (NONE) 04/09/24 22:50 Hepatitis C Antibody Non-reactive (Nonreactive) 04/09/24 23:15 All radiology interpretation(s) finalized by discharge Discharge Plan Discharge Patient Disposition: Admitted As Inpatient Admit Provider: Laxmi Herring Clinical Impression: ESRD needing dialysis Condition: Stable Coding Level of Care Code ED Trim Crew Supervisor for Devin Murray
[2024-04-09 22:30] VITALS: BP 182/99; PULSE 80; RESP 16; O2SAT 99
[2024-04-09 23:13] VITALS: BP 144/107; BP 171/92; BP 191/96; PULSE 72; PULSE 77; PULSE 85
[2024-04-09 23:13] LABS: Bilirubin Urine Neg (Negative); Blood Urine 2+ (Negative); Glucose Urine UA 1+ (Normal); Ketones Urine Negative (Negative); Leukocyte Esterase Urine Negative (Negative); Nitrate Urine Negative (Negative); Protein Urine Neg (Negative); RBC Urine 0-4 /hpf (0-2); Urine Appearance Clear (CLEAR); Urine Color Yellow (Yellow); Urobilinogen Urine Neg (Negative); WBC Urine 0-4 /hpf (0-5); pH Urine 6 (5-7)
[2024-04-09 23:14] LABS: Bacteria Urine TRACE /hpf; Squamous Epithelial Cell Urine 0-4 /hpf (0-5)
[2024-04-09 23:23] LABS: Basophils # 0.1 10^3/uL (0.0-0.1); Basophils % 1.1 %; Eosinophils # 0.1 10^3/uL (0.0-0.8); Eosinophils % 1.4 %; Hematocrit 28.4 % (37-53); Lymphocytes # 1.2 10^3/uL (0.8-4.8); Lymphocytes % 16.7 %; Mean Corpuscular HGB Conc 32.4 g/dL (30-55); Mean Corpuscular Hemoglobin 30.3 pg (27-33); Mean Corpuscular Volume 93.4 fl (82-101); Mean Platelet Volume 9.9 fL (7.4-10.4); Monocytes # 0.5 10^3/uL (0.2-0.9); Monocytes % 7.5 %; Neutrophils # 5.28 10^3/uL (1.8-7.7); Nucleated Red Blood Cells % 0 %; Platelet Count 200 10^3/cmm (157-399); Red Blood Count 3.04 10^6/uL (3.85-5.65); Red Cell Distribution Width 16.7 % (12.1-15.1); White Blood Count 7.23 10^3/uL (3.29-11.43)
[2024-04-09 23:30] VITALS: BP 196/100; PULSE 70; O2SAT 99
[2024-04-09 23:44] LABS: Alanine Aminotransferase 7 U/L (0-41); Albumin Level 4.2 g/dL (3.5-5.2); Alkaline Phosphatase 67 U/L (40-130); Anion Gap 20.5 (5-19); Aspartate Amino Transferase 6 U/L (0-40); Carbon Dioxide 17 mmol/L (22-29); Chloride 107 mmol/L (98-107); Creatinine Clr Calc Pharmacy 9.6617; Globulin 2.5 g/dL (1.3-4.6); Glomerular Filtration Rate 7.3 mL/min (90-130); Glucose 103 mg/dL (65-115); INR 1.01 (0.8-1.2); Osmolality Calculated 317 mOsm/kg (285-295); Potassium 4.5 mmol/L (3.5-5.1); Sodium 140 mmol/L (136-145); Total Bilirubin 0.3 mg/dL (0.15-1.2); Total Protein 6.7 g/dL (6.6-8.7)
[2024-04-09 23:45] LABS: Lactic Sepsis W/Reflex 0.6 mmol/L (0.5-2.2); Partial Thromboplastin Time 25.1 SECONDS (23.9-36.7)
[2024-04-09 23:48] LABS: Blood Urea Nitrogen 88 mg/dL (8-23)
[2024-04-10] VITALS (30 sets, daily range): BP systolic 127–196; BP diastolic 68–115; PULSE 61–82; RESP 12–18; TEMP 36.4–36.8; O2SAT 95–100; BMI 26.6
[2024-04-10 00:43] LABS: Magnesium 1.6 mg/dL (1.7-2.3); Phosphorus 6.9 mg/dL (2.5-4.5)
[2024-04-10] MEDS: cloNIDine 0.1 mg Tablet 0.200000000000000011 MG PO (01:43)
--- NOTE | 2024-04-10 03:25 | P.CONIM_ITS ---
Providers/Reason For Consult 2 Consulting Physician/Specialty*: Wayne Khoury md / telenephrology Reason for Consult*: MIKHAIL on CKD Requesting Physician: Dr Thornton and Dr Herring Attending Physician: Dr Thornton and Dr Herring History of Present Illness History of Present Illness Robert Montano is a 68 year old male h/o CKD stage 5- stopped dialysis, h/o ischemic cardiomyopathy- EF 30%, HTN, DM and h/o DVT. Pt in ER w/ lightheadedness + weight loss, poor apeetite, itching and nausea Review of Systems 2 General: Reports: 10 or more systems reviewed and unremarkable except in HPI and below Narrative: weak, weight loss, sleep reverasl, nausea, difficulty urinating. no garcia, no cp. no diarrhea. Medications/Allergies Home Medications Medication Instructions Recorded Confirmed Last Taken Type cholecalciferol (vitamin D3) 125 125 mcg PO DAILY 30 days #30 caps 02/07/22 07/20/22 07/08/22 Rx mcg (5,000 unit) capsule colloidal minerals 1 dose as directed DAILY 05/13/22 07/20/22 05/14/22 History red yeast rice 600 mg capsule 600 mg PO DAILY 05/13/22 07/20/22 05/21/22 History diltiazem HCl 60 mg 60 mg PO BID 07/01/22 07/20/22 07/09/22 History capsule,extended release 12 hr hydrocodone 5 mg-acetaminophen 325 1 tab PO Q6H PRN pain #14 tabs 07/09/22 07/20/22 Unknown Rx mg tablet Allergies Allergy/AdvReac Type Severity Reaction Status Date / Time No Known Allergies Allergy Verified 04/09/24 21:37 PFSH Acute 2 PFSH: Medical History (Updated 04/10/24 @ 03:56 by Rober Khoury MD) Encounter for peritoneal dialysis catheter insertion MIKHAIL (acute kidney injury) Acute confusion History of COVID-19 DVT of lower extremity (deep venous thrombosis) Troponin level elevated Metabolic acidosis Pulmonary infiltrate on chest x-ray Tachycardia Elevated d-dimer Acute kidney injury superimposed on CKD CKD (chronic kidney disease) Fluid overload Acute kidney injury Hypertension Diabetes Surgical History Status post insertion of hemodialysis catheter No pertinent past surgical history Family History Other No significant family history Social History Smoking and tobacco/nicotine status: never used tobacco/nicotine Alcohol intake: never Substance/Drug Use: never Lives independently: Yes Household members: none Marital status details: Rather estranged with daughter Current occupational status: other Details: Recently employed, stopped working when started feeling unwell several wks Vitals/I&O/Wt Last Vital Signs Temp 98.6 F 04/09/24 21:32 Pulse 68 04/10/24 02:30 Resp 16 04/09/24 22:30 BP 140/82 04/10/24 02:30 Pulse Ox 99 04/10/24 02:30 O2 Del Method Room Air 04/10/24 01:00 Weight last 48 hrs Weight 77.111 kg Physical Exam 2 Narrative: comfortable , NARD vss heent- nc/at, eomi, anicteric neck no jvp lungs-clear b/l heart b/l abdomen soft, + bs ext- no edema neuro- a, a, o x3 no asterixis pulses + b/l Data 04/09/24 23:15 04/09/24 23:15 Micro: Microbiology 04/09/24 23:18 Blood Culture - Preliminary Blood SPECIMEN COLLECTED 04/09/24 23:15 Blood Culture - Preliminary Blood SPECIMEN COLLECTED A&P Assessment and plan (1) CKD (chronic kidney disease): Qualifiers: Chronic kidney disease stage: stage 5, not on chronic dialysis Qualified Code(s): N18.5 - Chronic kidney disease, stage 5 Plan 68 yr old man 1. CKD stage 5- plan to start dialysis soon- please place a permacath -please check echo-if he has an effusion then needs emergent dialytsis, if not, will start HD once access is in 2. k okay 3. bp okay 4. metabolic acidosis- give LR ivf for now 5. anemia- please check iron tibc ferritin, spep, sife, b12, folate 6. renal bone mineral metabolism- please check vit d and pth -please start a phos binder renvela or phoslo seen and examined w/ RN- telehealth visit informed consent for telehealth obtained from pt discussed w/ Dr Herring Consult Attestations 2 Medical Necessity Statement: ckd and uremic Time Spent in Patient Care: 60 min Coding Level of Care Code G0426 (50 min) Diagnoses Stage 5 chronic kidney disease not on chronic dialysis N18.5 Chronic kidney disease stage: stage 5, not on chronic dialysis Time Spent (min) 60
--- NOTE | 2024-04-10 03:56 | USR_ITS ---
PROCEDURE INFORMATION: Exam: US Retroperitoneal; Complete; Kidneys and Bladder Exam date and time: 04/10/2024 3:35 PM Age: 68 years old Clinical indication: Condition or disease; Kidney or ureter condition; Other: Marek; Additional info: Marek, in dialysis at 12pm TECHNIQUE: Imaging protocol: Real-time ultrasound of the retroperitoneum with image documentation. Complete exam focused on the kidneys and bladder. COMPARISON: US renal BI* [id number] 02/19/2022 7:43 AM FINDINGS: Right kidney: Is a right kidney measures 7.2 x 3.5 x 3.7 cm with right renal cortex measuring 1.1 cm. No hydronephrosis. Echogenic right kidney. No hydronephrosis. Left kidney: The left kidney measures 7.6 x 3.7 x 3.4 cm with cortical thickness of 1 cm. Left renal cysts measuring 8 x 7 x 5 mm in the interpolar region. Echogenic left kidney. No hydronephrosis. Urinary bladder: Unremarkable. US/US renal BI* [id number] IMPRESSION: 1. Bilateral small echogenic kidneys suggestive of chronic renal medical parenchymal disease. 2. No hydronephrosis on either side. Simple cyst in the left kidney.
--- NOTE | 2024-04-10 03:56 | USCV_ITS ---
Robert Montano Age: 68 Gender: M : 1955 Exam Date: 04/10/2024 15:53 Ordering Phys: Rober Khoury MD Technologist: Mg Campbell Exam Location: [facility] [place] Indication: ckf, chf BP: 165 / 45 HR: 68 Rhythm: Sinus Technical Quality: MEASUREMENTS (Male / Female) Normal Values 2D ECHO LV Diastolic Diameter PLAX 4.3 cm 4.2 - 5.9 / 3.9 - 5.3 cm IVS Diastolic Thickness 1.4 cm 0.6 - 1.0 / 0.6 - 0.9 cm IVS Systolic Thickness 1.6 cm LVPW Diastolic Thickness 2.3 cm 0.6 - 1.0 / 0.6 - 0.9 cm LVPW Systolic Thickness 2.3 cm LV Ejection Fraction 2D Teich 58.5 % LV Ejection Fraction MOD 2C 44.4 % LV Ejection Fraction 2C AL 42.8 % LA Diameter 4.7 cm RA Systolic Volume 4C AL 44.3 ml RA Systolic Volume 4C MOD 39.9 ml LA Sys Volume AL 72.2 cm cubed LA Sys Volume Index AL 40.8 cm cubed/m squared Aorta at Sinotubular Diameter 3.1 cm M-MODE LA Ao Ratio MM 1.2 AV Cusp Separation MM 1.8 cm DOPPLER AV Peak Velocity 107.0 cm/s LVOT Peak Velocity 80.0 cm/s MV Area PHT 4.2 cm squared Mitral E to A Ratio 0.6 TV Peak Velocity 205.5 cm/s TR Peak Velocity 230.0 cm/s TR Peak Gradient 21.2 mmHg TR Mean Velocity 182.0 cm/s TR Mean Gradient 14.2 mmHg TR Velocity Time Integral 54.7 cm PV Peak Velocity 74.0 cm/s RV Ejection Time 0.3 s FINDINGS Left Ventricle Diffuse hypokinesia of the left ventricle with ejection fraction of 43%.Grade I/IV diastolic dysfunction (abnormal relaxation filling pattern), normal to mildly elevated filling pressures. Right Ventricle The right ventricle is normal in size and function. Right Atrium The right atrium is normal in size. Left Atrium Mildly increased left atrial size. Mitral Valve Thickened mitral valve. Trace mitral valve regurgitation. Aortic Valve Thickened aortic valve. Tricuspid Valve No gross abnormalities noted Pulmonic Valve Pulmonic valve not well visualized. Pericardium Normal pericardium without effusion. Aorta Normal ascending aorta dimension. IVC Inferior vena cava not visualized. CONCLUSIONS Diffuse hypokinesia of the left ventricle with ejection fraction of 43%. Grade I/IV diastolic dysfunction (abnormal relaxation filling pattern), normal to mildly elevated filling pressures. Mildly increased left atrial size. Thickened mitral valve. Trace mitral valve regurgitation. Thickened aortic valve. There is no pericardial effusion. There are no intracardiac masses. Compared to the study from 02/19/2022 there is significant improvement in the LV ejection fraction from 30% to 43%. Dr Janeen Morales MD [facility] (Electronically Signed) Final Date: 10 Apr 2024 19:04 S
[2024-04-10 04:21] LABS: Calcium 7.7 mg/dL (8.5-10.5)
[2024-04-10 04:22] LABS: Ferritin 283 ng/mL (30-400); Iron 105 ug/dL (59-158); Percent Saturation 57.3 % (20-50); Total Iron Binding Capacity 183 mcg/dl; Unsaturated Iron Binding 78 ug/dL (112-347); Uric Acid 7.5 mg/dL (3.4-7.0)
[2024-04-10 04:27] LABS: Parathyroid Hormone 387.7 pg/mL (15-65)
[2024-04-10 04:29] LABS: ABG PCO2 43.1 mmHg (35-45); ABG PH Result 7.23 (7.35-7.45); Arterial Blood Gas Hematocrit 26.1 % (42-52); Base Excess ABG -8.9 mmol/L (-2.0-2.0); Blood Gas Allen Test Pos; Blood Gas Sample Site Radial, right; Blood Gas Sample Type Venous; Carboxyhemoglobin 1.1 %THgb (0.4-20.1); HCO3 ABG 18.1 mmol/L (22-26); HGB O2 Sat 49.4 % (95-100); Ionized Calcium Level - ABG 1.1 mmol/L (1.1-1.4); Methemoglobin 0.7 % (0.4-1.5); Oxygen Saturation ABG 50.2; PO2 ABG 28.2 mmHg (80.0-100.0); PO2 FiO2 Ratio Arterial Blood 0; Potassium Level - ABG 4.6 mmol/L (3.5-5.0); Total Hemoglobin 8.5 g/dL (14-18)
[2024-04-10 04:37] LABS: 25 Hydroxy Vitamin D 26 ng/mL (30-100)
--- NOTE | 2024-04-10 04:42 | P.HP_ITS ---
Providers/Chief Complaint 2 Admitting Physician: Laxmi Herring MD Chief Complaint: N/V, Sent from [facility] History of Present Illness Robert Montano is a 68 year old male With past medical history end-stage renal disease previously on dialysis and then stopped, diabetes, hypertension, history of COVID-19 presented to the hospital today with complaint of nausea vomiting and lightheadedness. He says he has been off balance and not steady. Denies fevers, abdominal pain, chest pain, shortness of breath, cough. He has been off dialysis for 6 months. He says since his bilirubin normalized and has a very distinct smell of his urine. No altered mental status no focal motor deficits. Medications/Allergies Home Medications Medication Instructions Recorded Confirmed Last Taken Type cholecalciferol (vitamin D3) 125 125 mcg PO DAILY 30 days #30 caps 02/07/22 07/20/22 07/08/22 Rx mcg (5,000 unit) capsule colloidal minerals 1 dose as directed DAILY 05/13/22 07/20/22 05/14/22 History red yeast rice 600 mg capsule 600 mg PO DAILY 05/13/22 07/20/22 05/21/22 History diltiazem HCl 60 mg 60 mg PO BID 07/01/22 07/20/22 07/09/22 History capsule,extended release 12 hr hydrocodone 5 mg-acetaminophen 325 1 tab PO Q6H PRN pain #14 tabs 07/09/22 07/20/22 Unknown Rx mg tablet Allergies Allergy/AdvReac Type Severity Reaction Status Date / Time No Known Allergies Allergy Verified 04/09/24 21:37 PFSH Acute 2 PFSH: Medical History (Updated 04/10/24 @ 04:00 by Sathish Mcmillan DO) Encounter for peritoneal dialysis catheter insertion MIKHAIL (acute kidney injury) Acute confusion History of COVID-19 DVT of lower extremity (deep venous thrombosis) Troponin level elevated Metabolic acidosis Pulmonary infiltrate on chest x-ray Tachycardia Elevated d-dimer Acute kidney injury superimposed on CKD CKD (chronic kidney disease) Fluid overload Acute kidney injury Hypertension Diabetes Surgical History Status post insertion of hemodialysis catheter No pertinent past surgical history Family History Other No significant family history Social History Smoking and tobacco/nicotine status: never used tobacco/nicotine Alcohol intake: never Substance/Drug Use: never Lives independently: Yes Household members: none Marital status details: Rather estranged with daughter Current occupational status: other Details: Recently employed, stopped working when started feeling unwell several wks Vitals/I&O/Wt Last Vital Signs Temp 98.6 F 04/09/24 21:32 Pulse 68 04/10/24 02:30 Resp 16 04/09/24 22:30 BP 140/82 04/10/24 02:30 Pulse Ox 99 04/10/24 02:30 O2 Del Method Room Air 04/10/24 01:00 Weight last 48 hrs Weight 77.111 kg Physical Exam 2 Narrative: General: Alert oriented x3, patient seen laying in bed breathing comfortably on room air. HEENT: Normocephalic, atraumatic, EOMI, Cardio: Regular rate rhythm, normal S1-S2 Respiratory: Clear to auscultation bilaterally. No rhonchi GI: Abdomen soft, nontender, nondistended, bowel sounds + Extremities: No edema bilateral lower extremities Data 04/09/24 23:15 04/09/24 23:15 Micro: Microbiology 04/09/24 23:18 Blood Culture - Preliminary Blood SPECIMEN COLLECTED 04/09/24 23:15 Blood Culture - Preliminary Blood SPECIMEN COLLECTED A&P Assessment and plan (1) Hypertension: (2) Cardiomyopathy: (3) Diabetes: Qualifiers: Diabetes mellitus type: type 2 Diabetes mellitus retirement insulin use: without retirement use Diabetes mellitus complication status: without complication Qualified Code(s): E11.9 - Type 2 diabetes mellitus without complications (4) CKD (chronic kidney disease): Qualifiers: Chronic kidney disease stage: stage 5, not on chronic dialysis Qualified Code(s): N18.5 - Chronic kidney disease, stage 5 (5) ESRD needing dialysis: (6) Acute kidney failure: Plan #Acute renal failure #CKD stage V, end-stage renal disease, currently not on dialysis but was on antibiotics #High anion gap metabolic acidosis secondary to renal failure #History of DVT #History of hypertension #Diabetes mellitus type 2 ? Patient is orthostatic positive ? Seen by nephrology in ER. Recommend to get stat echo. Pericardial effusion present will need emergent dialysis otherwise we will start hemodialysis once access is obtained. ? No other urgent indication of dialysis at this time. ? Placed on LR ? Check iron studies, TIBC, ferritin, SPEP, B12, folate ? Check vitamin D, PTH ? Start consult binders. Phosphorus 3.9 today. ? Consult general surgery for PermCath placement. ? Check CBC, CMP, mag, phosphorus in a.m. ?Check hepatitis profile ? Check ABG Full code DVT prophylaxis: Heparin SQ twice daily Attestations 2 Medical Necessity Statement*: Greater than 2 midnight stay for management of acute renal failure. Diagnoses Hypertension I10 Cardiomyopathy I42.9 Type 2 diabetes mellitus without complication, without long-term current use of insulin E11.9 Diabetes mellitus type: type 2 Diabetes mellitus retirement insulin use: without manager terminal use Diabetes mellitus complication status: without complication Stage 5 chronic kidney disease not on chronic dialysis N18.5 Chronic kidney disease stage: stage 5, not on chronic dialysis ESRD needing dialysis N18.6; Z99.2 Acute kidney failure N17.9
[2024-04-10 04:50] LABS: Hepatitis C Virus Antibody Non-Reactive (Nonreactive)
--- NOTE | 2024-04-10 04:50 | XRR_ITS ---
PROCEDURE INFORMATION: Exam: XR Chest Exam date and time: 04/10/2024 4:54 AM Age: 68 years old Clinical indication: Patient HX: Cough. Patient currently in acute renal failure. TECHNIQUE: Imaging protocol: Radiologic exam of the chest. Views: 1 view. COMPARISON: CR XR chest 1V portable [id number] 02/23/2022 8:50 AM FINDINGS: Tubes, catheters and devices: There has been interval removal of dual lumen dialysis catheter. Lungs: Bibasilar atelectasis/scarring. Pleural spaces: Unremarkable. No pleural effusion. No pneumothorax. Heart/Mediastinum: Unremarkable. No cardiomegaly. Bones/joints: Unremarkable. XR/XR chest 1V portable [id number] IMPRESSION: 1. Bibasilar atelectasis/scarring. 2. No acute cardiopulmonary findings.
[2024-04-10] MEDS: lactated ringers 1,000 ML 75 ML IV (05:08)
[2024-04-10] MEDS: heparin 5,000 unit/mL INJ 1 mL 5000 UNIT SUBCUT ×2 (06:07→17:19)
[2024-04-10] MEDS: amlodipine 10 mg Tablet PO (06:07)
[2024-04-10 06:19] LABS: Estmated Average Glucose 88; Hemoglobin A1C 4.7 % (4.0-6.0)
--- NOTE | 2024-04-10 07:41 | SC_ITS ---
WS: [id number] C-ARM RADIOGRAPHS CHEST; 2 IMAGES HISTORY: dialysis cath placement COMPARISON: None available. Intraoperative imaging during dialysis catheter placement. Dialysis catheter projects over the RIGHT chest with tip terminating near the cavoatrial junction. SC/C-arm FL for CVA [id number] IMPRESSION: Intraoperative imaging during dialysis catheter placement.
--- NOTE | 2024-04-10 07:42 | P.CONIM_ITS ---
Providers/Reason For Consult 2 Consulting Physician/Specialty*: General surgery Reason for Consult*: Nasal dialysis catheter Attending Physician: Laxmi Herring MD History of Present Illness History of Present Illness Robert Montano is a 68 year old male with a stage chronic kidney disease, he was in dialysis last year but decided to stop dialysis, the time permacath and peritoneal dialysis catheter were removed. Patient now presents to the hospital with weakness and was noted to be uremic and with a very elevated creatinine. I was consulted for permacath placement for hemodialysis Review of Systems 2 General: Reports: 10 or more systems reviewed and unremarkable except in HPI and below Medications/Allergies Home Medications Medication Instructions Recorded Confirmed Last Taken Type cholecalciferol (vitamin D3) 125 125 mcg PO DAILY 30 days #30 caps 02/07/22 07/20/22 07/08/22 Rx mcg (5,000 unit) capsule colloidal minerals 1 dose as directed DAILY 05/13/22 07/20/22 05/14/22 History red yeast rice 600 mg capsule 600 mg PO DAILY 05/13/22 07/20/22 05/21/22 History diltiazem HCl 60 mg 60 mg PO BID 07/01/22 07/20/22 07/09/22 History capsule,extended release 12 hr hydrocodone 5 mg-acetaminophen 325 1 tab PO Q6H PRN pain #14 tabs 07/09/22 07/20/22 Unknown Rx mg tablet Allergies Allergy/AdvReac Type Severity Reaction Status Date / Time No Known Allergies Allergy Verified 04/09/24 21:37 Current Medications Generic Name Dose Route Start Last Admin Trade Name Freq PRN Reason Stop Dose Admin Amlodipine Besylate 10 mg 04/10/24 05:20 04/10/24 06:07 Amlodipine 10 Mg Tablet PO 10 mg DAILY MARQUEZ Administration Heparin Sodium (Porcine) 5,000 unit 04/10/24 05:00 04/10/24 06:07 Heparin 5,000 Unit/Ml Inj 1 Ml SUBCUT 5,000 unit Q12H MARQUEZ Administration Lactated Ringer's 1,000 mls @ 75 mls/hr 04/10/24 04:00 04/10/24 05:08 Lactated Ringers IV 75 mls/hr .[id number] MARQUEZ Administration PFSH Acute 2 PFSH: Medical History (Updated 04/10/24 @ 04:00 by Sathish Mcmillan DO) Encounter for peritoneal dialysis catheter insertion MIKHAIL (acute kidney injury) Acute confusion History of COVID-19 DVT of lower extremity (deep venous thrombosis) Troponin level elevated Metabolic acidosis Pulmonary infiltrate on chest x-ray Tachycardia Elevated d-dimer Acute kidney injury superimposed on CKD CKD (chronic kidney disease) Fluid overload Acute kidney injury Hypertension Diabetes Surgical History Status post insertion of hemodialysis catheter No pertinent past surgical history Family History Other No significant family history Social History Smoking and tobacco/nicotine status: never used tobacco/nicotine Alcohol intake: never Substance/Drug Use: never Lives independently: Yes Household members: none Marital status details: Rather estranged with daughter Current occupational status: other Details: Recently employed, stopped working when started feeling unwell several wks Vitals/I&O/Wt Last Vital Signs Temp 97.8 F 04/10/24 07:25 Pulse 61 04/10/24 07:25 Resp 16 04/10/24 07:25 BP 163/83 04/10/24 07:25 Pulse Ox 95 04/10/24 07:25 O2 Del Method Room Air 04/10/24 07:25 Weight last 48 hrs Weight 146 lb 1.6 oz Weight 170 lb Weight 170 lb Physical Exam 2 Narrative: General : Patient is well developed , no acute distress, oriented x3 Head : Normal cephalic, a-traumatic. Nose : Mucous membranes are without erythema. Lungs : Equal chest rise bilaterally, no use of accessory muscles, trachea is midline. CV : Rate and rhythm are normal. Abdomen : Soft, ND, NT, no g/r/m Extremities : No edema. Upper extremities are normal bilaterally. Back : non-tender to palpation, no CVA tenderness. Data 04/09/24 23:15 04/09/24 23:15 Micro: Microbiology 04/09/24 23:18 Blood Culture - Preliminary Blood SPECIMEN COLLECTED 04/09/24 23:15 Blood Culture - Preliminary Blood SPECIMEN COLLECTED A&P Assessment and plan (1) Non-compliant behavior: (2) ESRD needing dialysis: Plan After complete history, physical examination and review of all available clinical data the following is my assessment. Patient will benefit from permacath placement. I have discussed all the risk and benefits of the procedure with the patient including the risk of pneumothorax requiring tube thoracostomy, risks of cannulation of the carotid artery, risk of injuring the blood vessels and heart at the level of the chest which will require emergent surgical intervention and could lead to , wound related complications including bleeding and infection, seroma formation, hematoma formation, long- term complications include infection of the catheter requiring excision, need for additional surgical procedures, nonfunction of the catheter, catheter migration, catheter erosion into the skin. Patient shows understanding and wishes to proceed. -For permacath placement today Coding Level of Care Code 41383 Diagnoses Non-compliant behavior R46.89 ESRD needing dialysis N18.6; Z99.2
[2024-04-10 07:53] LABS: Lactic Sepsis W/Reflex 0.9 mmol/L (0.5-2.2)
--- NOTE | 2024-04-10 08:23 | PC.NURSE ---
Pt to OR for permacath
[2024-04-10] MEDS: sodium chloride 0.9% 1,000 ML 30 ML IV (08:33)
--- NOTE | 2024-04-10 08:50 | ANES.PREANE2 ---
Pre-Anesthetic Assessment Height/Weight: Height 1.7 m Weight 66.27 kg Temp Pulse Resp BP Pulse Ox O2 Del Method 97.9 F 64 18 165/96 100 Room Air 04/10/24 08:40 04/10/24 08:40 04/10/24 08:40 04/10/24 08:40 04/10/24 08:40 04/10/24 08:40 Operation Date: 04/10/24 07:40 Proposed Procedures p dialysis cath insertion(Not Applicable) - Ron Galvez MD Familial anesthetic complications: NONE Was Beta Marcelino taken within 24 hours: N/A Was Clonidine taken within 24 hours: N/A Last intake: Intake Last Liquid Date 04/09/24 Last Liquid Time 23:00 Last Solid Date 04/09/24 Last Solid Time 17:00 Social No alcohol and No tobacco Exam No alert, No oriented x 3, No clear to auscultation bilaterally and No regular rate & rhythm CV/HEM Hypertension Chronic Renal Insufficiency Metabolic Diabetes Mellitus Anesthetic Plan ASA status: 4 Anesthesia: MAC Risk of > 500 ml blood loss (7ml/kg in children): No Medications/Allergies Home Medications Medication Instructions Recorded Confirmed Last Taken Type cholecalciferol (vitamin D3) 125 125 mcg PO DAILY 30 days #30 caps 02/07/22 07/20/22 07/08/22 Rx mcg (5,000 unit) capsule colloidal minerals 1 dose as directed DAILY 05/13/22 07/20/22 05/14/22 History red yeast rice 600 mg capsule 600 mg PO DAILY 05/13/22 07/20/22 05/21/22 History diltiazem HCl 60 mg 60 mg PO BID 07/01/22 07/20/22 07/09/22 History capsule,extended release 12 hr hydrocodone 5 mg-acetaminophen 325 1 tab PO Q6H PRN pain #14 tabs 07/09/22 07/20/22 Unknown Rx mg tablet Allergies Allergy/AdvReac Type Severity Reaction Status Date / Time No Known Allergies Allergy Verified 04/09/24 21:37 Current Medications Generic Name Dose Route Start Last Admin Trade Name Freq PRN Reason Stop Dose Admin Amlodipine Besylate 10 mg 04/10/24 05:20 04/10/24 08:21 Amlodipine 10 Mg Tablet PO Not Given DAILY MARQUEZ Calcium Acetate 1,334 mg 04/10/24 08:00 04/10/24 08:21 Calcium Acetate 667 Mg Capsule PO Not Given TIDWM MARQUEZ Heparin Sodium (Porcine) 5,000 unit 04/10/24 05:00 04/10/24 06:07 Heparin 5,000 Unit/Ml Inj 1 Ml SUBCUT 5,000 unit Q12H MARQUEZ Administration Lactated Ringer's 1,000 mls @ 75 mls/hr 04/10/24 04:00 04/10/24 05:08 Lactated Ringers IV 75 mls/hr .[id number] MARQUEZ Administration Sodium Chloride 1,000 mls @ 30 mls/hr 04/10/24 08:30 04/10/24 08:33 Sodium Chloride 0.9% IV 04/11/24 08:29 30 mls/hr .Q24H MARQUEZ Administration PFSH Anesthesia Medical History (Updated 04/10/24 @ 04:00 by Sathish Mcmillan DO) Encounter for peritoneal dialysis catheter insertion MIKHAIL (acute kidney injury) Acute confusion History of COVID-19 DVT of lower extremity (deep venous thrombosis) Troponin level elevated Metabolic acidosis Pulmonary infiltrate on chest x-ray Tachycardia Elevated d-dimer Acute kidney injury superimposed on CKD CKD (chronic kidney disease) Fluid overload Acute kidney injury Hypertension Diabetes Surgical History Status post insertion of hemodialysis catheter No pertinent past surgical history Family History Other No significant family history Social History Smoking and tobacco/nicotine status: never used tobacco/nicotine Alcohol intake: never Substance/Drug Use: never Lives independently: Yes Household members: none Marital status details: Rather estranged with daughter Current occupational status: other Details: Recently employed, stopped working when started feeling unwell several wks Data Anesthesia 04/09/24 23:15 04/09/24 23:15 Short CBC 04/09/24 Range/Units 23:15 WBC 7.23 (3.29-11.43) 10^3/uL Hgb 9.20 L (11.27-16.99) g/dL Hct 28.4 L (37-53) % MCV 93.4 (82-101) fl Plt Count 200 (157-399) 10^3/cmm Neut % (Auto) 73.0 % Neut # (Auto) 5.28 (1.8-7.7) 10^3/uL BMP 04/09/24 23:15 Sodium 140 Potassium 4.5 Chloride 107 Carbon Dioxide 17 L BUN 88 H* D Creatinine 7.5 H* Glucose 103 Calcium 8.0 L Liver Function 04/09/24 Range/Units 23:15 Total Bilirubin 0.3 (0.15-1.2) mg/dL AST 6 (0-40) U/L ALT 7 (0-41) U/L Alkaline Phosphatase 67 (40-130) U/L Albumin 4.2 (3.5-5.2) g/dL Urine 04/09/24 Range/Units 22:50 Urine Color Yellow (Yellow) Urine Appearance Clear (CLEAR) Urine pH 6 (5-7) Ur Specific [place] 1.010 (1.005-1.030) Urine Protein Neg (Negative) Urine Glucose (UA) 1+ H (Normal) Urine Ketones Negative (Negative) Urine Nitrate Negative (Negative) Urine Bilirubin Neg (Negative) Ur Leukocyte Esterase Negative (Negative) Urine RBC 0-4 H (0-2) /hpf Urine WBC 0-4 H (0-5) /hpf Coags 04/09/24 23:15 PT 13.60 INR 1.01 APTT 25.1 C-Reactive Protein 3.0 ABG 04/10/24 04:22 Specimen Type Venous Sample Site Radial, right ABG pH 7.23 L ABG pCO2 43.1 ABG pO2 28.2 L* ABG PO2/FiO2 Ratio 0 ABG HCO3 18.1 L ABG O2 Saturation 50.2 ABG Base Excess -8.9 L A-a O2 Gradient Not Reportable O2 Delivery Device None FiO2 21.0 Microbiology 04/09/24 23:18 Blood Culture - Preliminary Blood SPECIMEN COLLECTED 04/09/24 23:15 Blood Culture - Preliminary Blood SPECIMEN COLLECTED Cardiac Studies: Echocardiogram 02/19/22 Sestamibi Stress Test (Cardiology) 02/21/22
[2024-04-10] MEDS: ceFAZolin 2,000 MG in sodium chloride 0.9% (plus) 50 ML 100 MG IV (09:06)
[2024-04-10] MEDS: lidocaine-epi 2% PF 1:200,000 20 mL SDV XX (09:35)
[2024-04-10] MEDS: heparin, porcine 1,000 unit/mL INJ 10 mL 10000 UNIT INJECTION (09:44)
--- NOTE | 2024-04-10 10:03 | P.OP_ITS ---
Operative Report Date of procedure: April 10, 2024 Pre-op diagnosis: End-stage renal disease requiring dialysis Post-op diagnosis: Same Post-op findings: Normal vascular anatomy Procedure done: Insertion of right IJ permacath with ultrasound and fluoroscopy guidance Implants: 23 cm cuff to tip permacath Surgeon: Ron Galvez MD Contracting Officer: TIFFANY OR staff Estimated blood loss: 10 Complications: None apparent Brief History: 68-year-old male with history of chronic kidney disease, he was previously on dialysis but decided to stop dialysis treatments. Now presenting with uremia. After discussion of all risk and benefits as documented my preop note we decided to proceed with permacath placement Procedure: Patient was brought into the OR, he was placed in a supine position. Moderate a nesthesia sedation was given. Bilateral neck and upper chest was prepped and draped in the usual sterile fashion. A timeout was conducted. I proceeded to identify the right IJ vein using ultrasound, the vein was patent, I then infiltrated local anesthesia on the soft tissue overlying the vein. The right IJ vein was then accessed with an 18-gauge needle using ultrasound guidance, immediate return of blood was noted upon entry into the vein, a wire was advanced and the needle was removed. Position of the wire was confirmed with ultrasound and also with fluoroscopy. The catheter position was measured with fluoroscopy and the right upper chest was marked for the exit site. I used an 11 blade to make a 1 cm incision on the right upper chest at the previously marked level and a 1 cm incision at the level of the wire insertion site in the neck. A hemostat was used to create a tunnel between the chest and the neck and the catheter was then tunneled using the provided tunneler. The cuff was noted to be in the soft tissue of the right upper chest. I then proceeded to dilate the main over the wire using sequential sizes of dilators under direct fluoroscopy guidance. Once the vein was dilated to an appropriate size I then proceeded to insert an introducer with a peel-off sheath under direct fluoroscopy guidance. The wire and the introducer were removed leaving the peel-off sheath in place. The catheter was then advanced through the peel-off sheath and the peel-off sheath was removed leaving the catheter in place. Fluoroscopy imaging showed evidence of good positioning of the catheter with the distal tip in the right atrium. I then proceeded to test the lumens of the catheter and both lumens were flushing and returning blood without limitations. I then hep-locked the catheter. The catheter was fixed to the skin with #2-0 nylon an extra 2-0 nylon was placed around the catheter exit site to prevent bleeding. The neck wound was closed with #4-0 Monocryl. Dermabond was applied. At the end of the procedure sterile dressing was applied. At the end of the procedure all counts were correct, the patient tolerated well the procedure and was transferred to the PACU in stable condition
--- NOTE | 2024-04-10 10:09 | PM.MISC ---
Miscellaneous Note Purpose of Documentation: Update on patient care Note: Tunneled dialysis catheter was placed this morning, catheter position was verified with imaging. Catheter is ready to be used as needed.
--- NOTE | 2024-04-10 10:22 | XRR_ITS ---
PROCEDURE INFORMATION: Exam: XR Chest Exam date and time: 04/10/2024 10:25 AM Age: 68 years old Clinical indication: Device placement; Other: Dialysis cath; Prior surgery; Surgery date: Post-operative (0-2 days); Additional info: Post dialysis catheter insertion TECHNIQUE: Imaging protocol: Radiologic exam of the chest. Views: 1 view. COMPARISON: CR (CHEST, ) 04/10/2024 4:54 AM FINDINGS: Tubes, catheters and devices: Right internal jugular dialysis catheter with its tip in the right atrium. Lungs: Unremarkable. No consolidation. Pleural spaces: Unremarkable. No pleural effusion. No pneumothorax. Heart/Mediastinum: Unremarkable. No cardiomegaly. Vasculature: Unfolding of the thoracic aorta. Bones/joints: Mild degenerative disease of bilateral glenohumeral joints. XR/XR chest 1V portable [id number] IMPRESSION: Right internal jugular dialysis catheter in satisfactory position with no complications.
--- NOTE | 2024-04-10 10:35 | ANE.PACU2 ---
Inpatient post-anesthesia follow up: Airway intact: Yes Vital signs: Temperature 97.7 F Pulse Rate [Orthos tatic 85 Standing] Pulse Rate [Orthos tatic 77 Sitting] Pulse Rate [Orthos tatic Lying] 72 Pulse Rate 65 Respiratory Rate 14 Blood Pressure [Or thostatic 144/107 Standing Left Arm] Blood Pressure [Or thostatic 171/92 Sitting Left Arm] Blood Pressure [Or thostatic 191/96 Lying Left Arm] Blood Pressure 161/80 Pulse Oximetry 99 Oxygen Delivery Me thod Room Air Oxygen Flow Rate Fraction of Inspir ed Oxygen Hydration adequate: Yes Nausea and vomiting: No Pain level: 1 Mental status: Baseline
--- NOTE | 2024-04-10 10:45 | PC.NURSE ---
Pt back from surgery. Now in dialysis. Dr. Galvez contacted. OK to use dialysis cath.
--- NOTE | 2024-04-10 12:11 | PC.HD ---
Upon treatment initiation, unable to use HD catheter due to occlusion of arterial port. Surgeon arrived and adjusted catheter. Affixed in reverse configuration, and able to proceed with acceptable machine pressures. Heparin 1000 units loading dose administered via venous port of HD catheter at 1050 per senior market research analyst's orders.
[2024-04-10 12:44] LABS: Hepatitis B Core AB, Total Non-Reactive (Nonreactive); Hepatitis B Surface AB 25.7 (11.5-1000); Hepatitis B Surface Antigen Non-Reactive (Nonreactive)
--- NOTE | 2024-04-10 13:56 | PC.NURSE ---
Pt returns from dialysis. Tolerated well.
--- NOTE | 2024-04-10 15:29 | P.PN_ITS ---
Subjective 2 Subjective: Patient seems to be doing well after Right IJ Permacath placement and dialysis. He has been able to tolerate food by mouth. He denies any further nausea or vomiting. His pain is well-controlled. Vitals/I&O/Wt Last Vital Signs Temp 97.8 F 04/10/24 13:45 Pulse 82 04/10/24 14:00 Resp 16 04/10/24 13:45 BP 165/89 04/10/24 13:45 Pulse Ox 100 04/10/24 13:45 O2 Del Method Room Air 04/10/24 13:45 04/10/24 04/10/24 04/10/24 06:59 14:59 22:59 Intake Total 400 / 400 Output Total 305 / 305 Balance 95 / 95 Weight last 48 hrs Weight 145 lb 11.609 oz Weight 146 lb 1.6 oz Weight 170 lb Weight 170 lb Physical Exam 2 Narrative: General: Alert and oriented x 3. In no acute distress. Eyes: PERRLA, EOM intact, no discharge. Mouth: No erythema or tonsilar enlargement. No masses noted. Neck: No thyromegaly. No lymphadenopathy. Heart: Regular rate and rhythm. No murmurs. Lungs: Clear to auscultation bilaterally. No wheezes, crackles or ronchi. Abdomen: Soft, non-tender. No hepatosplenomegaly. Extremities: No pitting edema. Data 04/09/24 23:15 04/09/24 23:15 Micro: Microbiology 04/09/24 23:18 Blood Culture - Preliminary Blood SPECIMEN COLLECTED 04/09/24 23:15 Blood Culture - Preliminary Blood SPECIMEN COLLECTED A&P Assessment and plan (1) ESRD needing dialysis: The patient is doing well since starting dialysis again this morning. We will continue to monitor his labs and follow-up to see how he is doing tomorrow. (2) Hypertension: Blood pressure is currently elevated. We will watch this and if continue to be high after dialysis, we may need to consider addition of further medications. Attestations 2 Medical Necessity Statement*: The patient is currently being managed for acute on chronic renal failure and his stay will cross 2 midnights. I confirm that this is medically necessary. Once he is more stable, we will look towards discharge. Coding Level of Care Code Acute Code for [facility] Diagnoses ESRD needing dialysis N18.6; Z99.2 Hypertension I10
[2024-04-10] MEDS: calcium acetate 667 mg Capsule 1334 MG PO (17:19)
--- NOTE | 2024-04-10 23:55 | PC.NURSE ---
This nurse entered patient's room and informed him that I needed to hang another bag of IV fluids. The patient stated, Don't hang that. I don't want it. I just want to be done with all this.
[2024-04-11] VITALS (9 sets, daily range): BP systolic 135–169; BP diastolic 76–94; PULSE 76–87; RESP 16–19; TEMP 36.7–37; O2SAT 96–100
[2024-04-11] MEDS: hyDRALAzine 20 mg/mL INJ 1 mL 10 MG IVP (00:15)
[2024-04-11] MEDS: zolpidem 5 mg Tablet 2.5 MG PO (04:01)
[2024-04-11] MEDS: heparin 5,000 unit/mL INJ 1 mL 5000 UNIT SUBCUT ×2 (04:01→17:54)
--- NOTE | 2024-04-11 06:45 | PC.NURSE ---
Patient adamantly refusing to allow lab to draw. This nurse explained to the patient that labs were needed to assess his kidney function since receiving dialysis. Patient continued to refuse.
--- NOTE | 2024-04-11 07:14 | P.PN_ITS ---
Subjective 2 Subjective: confused. weak, poor appettie. no gacria or cp or diarrhea Medications: Reviewed: Yes Medication Review Details: Current Medications Acetaminophen (Acetaminophen 325 Mg Tablet) 650 mg PO Q6H PRN PRN Reason: Mild/Mod Pain Or Temp >/= 101 Albuterol Sulfate (Albuterol 2.5 Mg/3 Ml Neb) 2.5 mg INHALATION ONCE PRN PRN Reason: WHEEZING Amlodipine Besylate (Amlodipine 10 Mg Tablet) 10 mg PO DAILY [facility] Last Admin: 04/10/24 08:21 Dose: Not Given Calcium Acetate (Calcium Acetate 667 Mg Capsule) 1,334 mg PO TIDWM [facility] Last Admin: 04/10/24 17:19 Dose: 1,334 mg Famotidine (Famotidine 20 Mg/2 Ml Inj) 20 mg IVP ONCE PRN PRN Reason: HEARTBURN Fentanyl (Fentanyl 50 Mcg/Ml Inj 2ml) 50 mcg IVP Q10M PRN PRN Reason: Preop Pain Fentanyl (Fentanyl 50 Mcg/Ml Inj 2ml) 100 mcg IVP ONCE PRN PRN Reason: Per anesthesia for block Heparin Sodium (Porcine) (Heparin 5,000 Unit/Ml Inj 1 Ml) 5,000 unit SUBCUT Q12H [facility] Last Admin: 04/11/24 04:01 Dose: 5,000 unit Lactated Ringer's (Lactated Ringers) 1,000 mls @ 75 mls/hr IV .[id number] [facility] Last Infusion: 04/10/24 23:38 Dose: Infused Sodium Chloride (Sodium Chloride 0.9%) 1,000 mls @ 30 mls/hr IV .Q24H [facility] Stop: 04/11/24 08:29 Last Admin: 04/10/24 08:33 Dose: 30 mls/hr Sodium Chloride (Sodium Chloride 0.9%) 1,000 mls @ 0 mls/hr IV .Q0M PRN PRN Reason: hypotension or symptomatic Ipratropium Cyril (Ipratropium 0.5 Mg/2.5 Ml Neb) 0.5 mg INHALATION ONCE PRN PRN Reason: WHEEZING Lidocaine HCl (Lidocaine 1% Inj 20 Ml) 0.1 ml INTRADERMA PRN PRN PRN Reason: anesthetic prior to IV start Stop: 04/11/24 08:25 Metoclopramide HCl (Metoclopramide 5 Mg/Ml Sdv 2 Ml) 10 mg IVP ONCE PRN PRN Reason: N/V if zofran ineffective Midazolam HCl (Midazolam 1 Mg/Ml Inj 2 Ml) 2 mg IVP Q5M PRN PRN Reason: Preop Anxiety Midazolam HCl (Midazolam 1 Mg/Ml Inj 5 Ml) 5 mg IVP ONCE PRN PRN Reason: Per anesthesia for block Ondansetron HCl (Ondansetron 2 Mg/Ml Sdv 2 Ml) 4 mg IVP Q8H PRN PRN Reason: vomiting, or N/V if npo Ondansetron HCl (Ondansetron 2 Mg/Ml Sdv 2 Ml) 4 mg IVP Q5M PRN PRN Reason: NAUSEA AND VOMITING Scopolamine (Scopolamine 1.5 Patch) 1 patch TRANSDERMA ONCE PRN PRN Reason: Nausea/ Vomiting Prophylaxis Vitals/I&O/Wt Last Vital Signs Temp 98.1 F 04/11/24 04:00 Pulse 78 04/11/24 04:00 Resp 17 04/11/24 04:00 BP 169/84 04/11/24 04:00 Pulse Ox 98 04/11/24 04:00 O2 Del Method Room Air 04/11/24 04:00 04/10/24 04/11/24 04/11/24 22:59 06:59 14:59 Intake Total 820 / 1220 300 / 1520 Output Total 725 / 1030 175 / 1205 Balance 95 / 190 125 / 315 Weight last 48 hrs Weight 69.037 kg Weight 66.1 kg Weight 66.27 kg Weight 77.111 kg Weight 77.111 kg Physical Exam 2 Narrative: comfortable , NARD vss heent- nc/at, eomi, anicteric neck no jvp lungs-clear b/l heart b/l abdomen soft, + bs ext- no edema neuro- a, a, interactive, confused,no asterixis pulses + b/l Data 04/09/24 23:15 04/09/24 23:15 Micro: Microbiology 04/09/24 23:18 Blood Culture - Preliminary Blood NEGATIVE TO DATE 04/09/24 23:15 Blood Culture - Preliminary Blood NEGATIVE TO DATE A&P Assessment and plan (1) CKD (chronic kidney disease): Qualifiers: Chronic kidney disease stage: stage 5, not on chronic dialysis Qualified Code(s): N18.5 - Chronic kidney disease, stage 5 Plan 68 yr old man 1. CKD stage 5- s/p permacath and first HD on 04/10/24- plan repeat HD tomorrow or today as per nurses schedule -will need an outpt HD slot 2.echo w/ ef 44%- HF mildly reduced EF, grade 1/4 diastolic dysfunction 3. bp elevtaed- decrease EDW on dialysis 4. metabolic acidosis- monitor w/ hd. d/c ivf 5. anemia- please check iron tibc ferritin, spep, sife, b12, folate 6. renal bone mineral metabolism- please check vit d and pth -please start a phos binder renvela or phoslo seen and examined w/ RN- telehealth visit informed consent for telehealth obtained from pt Attestations 2 Medical Necessity Statement*: esrd Time Spent in Patient Care: 16 - 35 minutes Coding Level of Care Code Acute Code for Chg Fwd Diagnoses Stage 5 chronic kidney disease not on chronic dialysis N18.5 Chronic kidney disease stage: stage 5, not on chronic dialysis
--- NOTE | 2024-04-11 09:05 | P.PN_ITS ---
Subjective 2 Subjective: Postoperative day 1 status post tunneled dialysis catheter placement. Patient doing well overnight, no significant issues complains of some pain at the level of the neck. Was able to receive dialysis yesterday. Vitals/I&O/Wt Last Vital Signs Temp 98.3 F 04/11/24 07:56 Pulse 86 04/11/24 07:56 Resp 18 04/11/24 07:56 BP 169/94 04/11/24 07:56 Pulse Ox 97 04/11/24 07:56 O2 Del Method Room Air 04/11/24 07:56 04/10/24 04/11/24 04/11/24 22:59 06:59 14:59 Intake Total 820 / 1220 300 / 1520 480 / 480 Output Total 725 / 1030 175 / 1205 650 / 650 Balance 95 / 190 125 / 315 -170 / -170 Weight last 48 hrs Weight 152 lb 3.2 oz Weight 145 lb 11.609 oz Weight 146 lb 1.6 oz Weight 170 lb Weight 170 lb Physical Exam 2 Chest: OTHER: Dialysis catheter not on the right upper chest, no evidence of bleeding or bruising of the skin, no swelling at the level of the neck Data 04/09/24 23:15 04/09/24 23:15 Micro: Microbiology 04/09/24 23:18 Blood Culture - Preliminary Blood NEGATIVE TO DATE 04/09/24 23:15 Blood Culture - Preliminary Blood NEGATIVE TO DATE A&P Assessment and plan (1) ESRD needing dialysis: Plan Adequate progression after dialysis catheter placement, no additional intervention planned from the general surgery standpoint. Patient can continue dialysis as needed. Attestations 2 Medical Necessity Statement*: Per medical team Coding Level of Care Code Acute Code for Chg Fwd Diagnoses ESRD needing dialysis N18.6; Z99.2
[2024-04-11] MEDS: amlodipine 10 mg Tablet PO (10:00)
[2024-04-11] MEDS: b-complex-vitamin c Tablet 1 EACH PO (10:00)
[2024-04-11] MEDS: calcium acetate 667 mg Capsule 1334 MG PO ×3 (10:00→17:55)
--- NOTE | 2024-04-11 14:30 | PC.HD ---
Heparin 1000 units loading dose administered via arterial port of HD catheter at 1415 per webbing inspector's orders.
--- NOTE | 2024-04-11 15:41 | P.PN_ITS ---
Subjective 2 Subjective: The patient is showing signs of improvement clinically since having dialysis. He is getting dialysis again this afternoon. He continues to be significantly weak however and has a difficult time getting around the room on his own. He says that if he were to fall, there is no way that he could get back up again. He is open to rehabilitation at this time. Vitals/I&O/Wt Last Vital Signs Temp 98.4 F 04/11/24 14:28 Pulse 84 04/11/24 14:28 Resp 16 04/11/24 14:28 BP 156/84 04/11/24 14:28 Pulse Ox 97 04/11/24 12:00 O2 Del Method Room Air 04/11/24 12:00 04/11/24 04/11/24 04/11/24 06:59 14:59 22:59 Intake Total 300 / 1520 960 / 960 Output Total 175 / 1205 650 / 650 Balance 125 / 315 310 / 310 Weight last 48 hrs Weight 152 lb 3.2 oz Weight 145 lb 11.609 oz Weight 146 lb 1.6 oz Weight 170 lb Weight 170 lb Physical Exam 2 Narrative: General: Alert and oriented x 3. In no acute distress. Mouth: No erythema or tonsilar enlargement. No masses noted. Neck: No thyromegaly. No lymphadenopathy. Heart: Regular rate and rhythm. No murmurs. Lungs: Clear to auscultation bilaterally. No wheezes, crackles or ronchi. Abdomen: Soft, non-tender. No hepatosplenomegaly. Extremities: Trace pitting edema. Data 04/09/24 23:15 04/09/24 23:15 Micro: Microbiology 04/09/24 23:18 Blood Culture - Preliminary Blood NEGATIVE TO DATE 04/09/24 23:15 Blood Culture - Preliminary Blood NEGATIVE TO DATE A&P Assessment and plan (1) ESRD needing dialysis: The patient is doing well since starting dialysis. We will continue to monitor his labs and continue with plans placed by nephrology. We appreciate their assistance. The patient will need to be set up for outpatient hemodialysis. (2) Hypertension: Blood pressure is currently a little elevated. Further medications if his blood pressure is not improving with dialysis. (3) Generalized weakness: The patient has been weak in general and has lost a significant amount of strength since it is going downhill. He is not sure that he can care for himself at home at this time and would like to get set up for rehabilitation. We will have case management work with getting him set up for this tomorrow. We will have physical therapy work with him as well in the hospital. Attestations 2 Medical Necessity Statement*: The patient continues to need inpatient care as he is treated for stage renal disease and dialysis. His stay will cross 2 midnights. Working on placement. Coding Level of Care Code Acute Code for g Fwd Diagnoses ESRD needing dialysis N18.6; Z99.2 Hypertension I10 Generalized weakness R53.1
[2024-04-11 19:52] LABS: Basophils # 0.1 10^3/uL (0.0-0.1); Basophils % 0.9 %; Eosinophils # 0.3 10^3/uL (0.0-0.8); Eosinophils % 3.9 %; Hematocrit 28.6 % (37-53); Lymphocytes # 0.9 10^3/uL (0.8-4.8); Lymphocytes % 13.6 %; Mean Corpuscular HGB Conc 32.5 g/dL (30-55); Mean Corpuscular Hemoglobin 30.3 pg (27-33); Mean Corpuscular Volume 93.2 fl (82-101); Mean Platelet Volume 9.9 fL (7.4-10.4); Monocytes # 0.7 10^3/uL (0.2-0.9); Monocytes % 10.1 %; Neutrophils # 4.71 10^3/uL (1.8-7.7); Neutrophils % 71.2 %; Nucleated Red Blood Cells % 0 %; Platelet Count 185 10^3/cmm (157-399); Red Blood Count 3.07 10^6/uL (3.85-5.65); Red Cell Distribution Width 16.6 % (12.1-15.1); White Blood Count 6.62 10^3/uL (3.29-11.43)
[2024-04-11 20:11] LABS: Alanine Aminotransferase < 5 U/L (0-41); Albumin Level 4.3 g/dL (3.5-5.2); Alkaline Phosphatase 73 U/L (40-130); Anion Gap 13.3 (5-19); Aspartate Amino Transferase 9 U/L (0-40); Blood Urea Nitrogen 29 mg/dL (8-23); Calcium 8.1 mg/dL (8.5-10.5); Carbon Dioxide 29 mmol/L (22-29); Chloride 103 mmol/L (98-107); Creatinine Clr Calc Pharmacy 22.2332; Glomerular Filtration Rate 20.3 mL/min (90-130); Glucose 178 mg/dL (65-115); Magnesium 1.7 mg/dL (1.7-2.3); Osmolality Calculated 302 mOsm/kg (285-295); Potassium 4.3 mmol/L (3.5-5.1); Sodium 141 mmol/L (136-145); Total Bilirubin 0.3 mg/dL (0.15-1.2); Total Protein 6.3 g/dL (6.6-8.7)
[2024-04-11 20:14] LABS: Ferritin 344 ng/mL (30-400); Iron 99 ug/dL (59-158); Percent Saturation 58.2 % (20-50); Total Iron Binding Capacity 170 mcg/dl; Unsaturated Iron Binding 71 ug/dL (112-347)
[2024-04-12 04:00] VITALS: BP 158/83; PULSE 76; RESP 17; TEMP 36.7; O2SAT 97
[2024-04-12] MEDS: heparin 5,000 unit/mL INJ 1 mL 5000 UNIT SUBCUT ×2 (05:01→17:39)
--- NOTE | 2024-04-12 07:11 | P.PN_ITS ---
Subjective 2 Subjective: seen and examined. weak but improved. no garcia. no cp. no sob. + nausea and poor appetite. dec itching. Medications: Reviewed: Yes Medication Review Details: Current Medications Acetaminophen (Acetaminophen 325 Mg Tablet) 650 mg PO Q6H PRN PRN Reason: Mild/Mod Pain Or Temp >/= 101 Albuterol Sulfate (Albuterol 2.5 Mg/3 Ml Neb) 2.5 mg INHALATION ONCE PRN PRN Reason: WHEEZING Amlodipine Besylate (Amlodipine 10 Mg Tablet) 10 mg PO DAILY [facility] Last Admin: 04/11/24 10:00 Dose: 10 mg Calcium Acetate (Calcium Acetate 667 Mg Capsule) 1,334 mg PO TIDWM [facility] Last Admin: 04/11/24 17:55 Dose: 1,334 mg Famotidine (Famotidine 20 Mg/2 Ml Inj) 20 mg IVP ONCE PRN PRN Reason: HEARTBURN Fentanyl (Fentanyl 50 Mcg/Ml Inj 2ml) 50 mcg IVP Q10M PRN PRN Reason: Preop Pain Fentanyl (Fentanyl 50 Mcg/Ml Inj 2ml) 100 mcg IVP ONCE PRN PRN Reason: Per anesthesia for block Heparin Sodium (Porcine) (Heparin 5,000 Unit/Ml Inj 1 Ml) 5,000 unit SUBCUT Q12H [facility] Last Admin: 04/12/24 05:01 Dose: 5,000 unit Sodium Chloride (Sodium Chloride 0.9%) 1,000 mls @ 0 mls/hr IV .Q0M PRN PRN Reason: hypotension or symptomatic Ipratropium [place] (Ipratropium 0.5 Mg/2.5 Ml Neb) 0.5 mg INHALATION ONCE PRN PRN Reason: WHEEZING Metoclopramide HCl (Metoclopramide 5 Mg/Ml Sdv 2 Ml) 10 mg IVP ONCE PRN PRN Reason: N/V if zofran ineffective Midazolam HCl (Midazolam 1 Mg/Ml Inj 2 Ml) 2 mg IVP Q5M PRN PRN Reason: Preop Anxiety Midazolam HCl (Midazolam 1 Mg/Ml Inj 5 Ml) 5 mg IVP ONCE PRN PRN Reason: Per anesthesia for block Multivitamins (Z-Srfdzaq-Vjeuabq C Tablet) 1 each PO DAILY [facility] Last Admin: 04/11/24 10:00 Dose: 1 each Ondansetron HCl (Ondansetron 2 Mg/Ml Sdv 2 Ml) 4 mg IVP Q8H PRN PRN Reason: vomiting, or N/V if npo Ondansetron HCl (Ondansetron 2 Mg/Ml Sdv 2 Ml) 4 mg IVP Q5M PRN PRN Reason: NAUSEA AND VOMITING Scopolamine (Scopolamine 1.5 Patch) 1 patch TRANSDERMA ONCE PRN PRN Reason: Nausea/ Vomiting Prophylaxis Vitals/I&O/Wt Last Vital Signs Temp 98.1 F 04/12/24 04:00 Pulse 76 04/12/24 04:00 Resp 17 04/12/24 04:00 BP 158/83 04/12/24 04:00 Pulse Ox 97 04/12/24 04:00 O2 Del Method Room Air 04/12/24 04:00 04/11/24 04/12/24 04/12/24 22:59 06:59 14:59 Intake Total 1300 / 2260 Output Total 1800 / 2450 Balance -500 / -190 Weight last 48 hrs Weight 66.763 kg Weight 68.5 kg Weight 69.037 kg Weight 66.1 kg Physical Exam 2 Narrative: comfortable , NARD vss heent- nc/at, eomi, anicteric neck no jvp Right ACW permacath lungs-clear b/l heart b/l abdomen soft, + bs ext- no edema neuro- a, a, interactive, more alert, ,no asterixis pulses + b/l Data 04/11/24 19:30 04/11/24 19:30 A&P Assessment and plan (1) CKD (chronic kidney disease): Qualifiers: Chronic kidney disease stage: stage 5, not on chronic dialysis Qualified Code(s): N18.5 - Chronic kidney disease, stage 5 Plan 68 yr old man 1. CKD stage 5- s/p permacath and HD on 04/10 and 04/11/24- -hold dialysis today monitor if pt needs dialysis TIW or just Fri and friday- may be able to start w/ incremental dialysis will need an outpt HD slot 2.echo w/ ef 44%- HF mildly reduced EF, grade 1/4 diastolic dysfunction 3. bp improving w/ dialysis 4. metabolic acidosis- improved w/ hd. 5. anemia- he has a high iron sat- no iv iron -await spep, sife, b12, folate give epo 6. renal bone mineral metabolism-start Zemplar w/ dialysis for secondary hyperparathyroidism -hold mahamed binder seen and examined w/ RN- telehealth visit informed consent for telehealth obtained from pt Attestations 2 Medical Necessity Statement*: esrd, weakness, anemia Time Spent in Patient Care: 16 - 35 minutes Coding Level of Care Code Acute Code for Chg Fwd Diagnoses Stage 5 chronic kidney disease not on chronic dialysis N18.5 Chronic kidney disease stage: stage 5, not on chronic dialysis
[2024-04-12 07:34] VITALS: BP 171/84; PULSE 79; RESP 16; TEMP 36.9; O2SAT 98
[2024-04-12] MEDS: b-complex-vitamin c Tablet 1 EACH PO (08:28)
[2024-04-12] MEDS: amlodipine 10 mg Tablet PO (08:28)
[2024-04-12] MEDS: calcium acetate 667 mg Capsule PO ×3 (08:28→17:39)
[2024-04-12 11:27] VITALS: BP 156/81; PULSE 75; RESP 16; TEMP 36.7; O2SAT 98
--- NOTE | 2024-04-12 12:04 | PC.SOCIAL ---
IMM Update Pg. 2 of IMM updated and reviewed with patient who verbalized understanding. Copy provided.
[2024-04-12 12:13] VITALS: BP 156/81
[2024-04-12] MEDS: aspirin 81 mg EC Tablet PO (12:13)
[2024-04-12] MEDS: losartan 50 mg Tablet PO (12:13)
[2024-04-12 15:33] VITALS: BP 147/74; PULSE 78; RESP 17; TEMP 36.7; O2SAT 100
--- NOTE | 2024-04-12 16:30 | P.PN_ITS ---
Subjective 2 Subjective: Hospital course, labs appreciated. Today morning patient seen while having lunch. Denies any nausea vomiting, headache. Patient seems mildly agitated. Denies any chest pain. Vitals/I&O/Wt Last Vital Signs Temp 98.1 F 04/12/24 15:33 Pulse 78 04/12/24 15:33 Resp 17 04/12/24 15:33 BP 147/74 04/12/24 15:33 Pulse Ox 100 04/12/24 15:33 O2 Del Method Room Air 04/12/24 15:33 04/12/24 04/12/24 04/12/24 06:59 14:59 22:59 Intake Total 240 / 240 Balance 240 / 240 Weight last 48 hrs Weight 66.763 kg Weight 68.5 kg Weight 69.037 kg Physical Exam 2 Narrative: General: Alert oriented x3, patient seen laying in bed breathing comfortably on room air. HEENT: Normocephalic, atraumatic, EOMI, Cardio: Regular rate rhythm, normal S1-S2 Respiratory: Clear to auscultation bilaterally. No rhonchi GI: Abdomen soft, nontender, nondistended, bowel sounds + Extremities: No edema bilateral lower extremities Data 04/11/24 19:30 04/11/24 19:30 A&P Assessment and plan (1) ESRD needing dialysis: MIKHAIL on CKD. Patient was on dialysis before but discontinued because of loss of insurance. Post temporary dialysis catheter placement. Appreciate nephrology recommendations. Received 2 cycles of dialysis. Plan for holding over the weekend to assess further requirement of dialysis 2 days or 3 days a week. Monitor urine output. Medical reconciliation done for nephrotoxic drugs. (2) CKD (chronic kidney disease): Qualifiers: Chronic kidney disease stage: stage 5, not on chronic dialysis Qualified Code(s): N18.5 - Chronic kidney disease, stage 5 (3) Hypertension: Goal blood pressure less than 140/90 mmHg. Continue with home dose of amlodipine. Blood pressure still elevated. Add losartan 50 mg oral daily. If needed will add hydralazine as for goal blood pressures. (4) Cardiomyopathy: Last echocardiogram shows an EF of 43%, grade 1 diastolic dysfunction with mildly elevated filling pressures with echocardiogram showing improvement in EF of 32 to 43%. Last myocardial perfusion scan showed small sized perfusion abnormality of mild severity of mild to apical inferior, mild to apical inferior lateral wall at rest with subtle reversibility in the apical lateral wall. Patient denies any current chest pain. Appreciate recent A1c, check lipid panel. Start on aspirin 81 mg daily, atorvastatin 40 mg daily. Depending on the heart rate we will plan to add low-dose beta-[place] within next 24 hours. (5) Diabetes: History of type 2 diabetes mellitus. Currently A1c of 4.7. Hold off on any further treatment. Qualifiers: Diabetes mellitus type: type 2 Diabetes mellitus technician terminal and repeater insulin use: without technician terminal and repeater use Diabetes mellitus complication status: without complication Qualified Code(s): E11.9 - Type 2 diabetes mellitus without complications (6) Acute kidney failure: Plan Anemia: Most likely anemia of chronic disease. Appreciate iron panel, check vitamin B12 folate level. Post epidural in the morning today. Start on oral iron supplementation. Full code Renal dialysis diet Heparin 5000 every 12 hourly for DVT prophylaxis Discharge plan: Patient lives by himself. Does not have a DPOA. States usually drives. Walks around with a walker though not much. Patient needs dialysis going forward. Recently was discontinued because of loss of insurance. Case management consulted for patient financial rep. Patient will need to be discharged with dialysis set up as an outpatient. Physical therapy evaluation. Discharge plan for now home with home health versus SNF placement. Attestations 2 Medical Necessity Statement*: Requires further hospitalization for management of acute renal failure in a patient with recent renal failure on hemodialysis which were discontinued because of social discord, elevated blood pressures, history of cardiomyopathy Diagnoses ESRD needing dialysis N18.6; Z99.2 Stage 5 chronic kidney disease not on chronic dialysis N18.5 Chronic kidney disease stage: stage 5, not on chronic dialysis Hypertension I10 Cardiomyopathy I42.9 Type 2 diabetes mellitus without complication, without long-term current use of insulin E11.9 Diabetes mellitus type: type 2 Diabetes mellitus residential insulin use: without technician terminal and repeater use Diabetes mellitus complication status: without complication Acute kidney failure N17.9
[2024-04-12] MEDS: ferrous gluconate 324 mg Tablet PO (17:39)
[2024-04-12 20:00] VITALS: BP 144/69; PULSE 75; RESP 18; TEMP 36.7; O2SAT 99
[2024-04-12] MEDS: atorvastatin 40 mg Tablet PO (20:20)
[2024-04-12 21:09] LABS: Bacteria Urine 1+ /hpf; Bilirubin Urine Neg (Negative); Blood Urine Neg (Negative); Glucose Urine UA 2+ (Normal); Ketones Urine Negative (Negative); Leukocyte Esterase Urine Negative (Negative); Mucus Urine TRACE /hpf; Nitrate Urine Negative (Negative); Protein Urine 1+ (Negative); RBC Urine 0-4 /hpf (0-2); Specific Gravity, Urine 1.005 (1.005-1.030); Squamous Epithelial Cell Urine 0-4 /hpf (0-5); Urine Appearance Clear (CLEAR); Urine Color Yellow (Yellow); Urobilinogen Urine Neg (Negative); WBC Urine 0-4 /hpf (0-5); pH Urine 7 (5-7)
[2024-04-12 21:10] LABS: Sperm Urine 1+ /hpf
[2024-04-13] VITALS (9 sets, daily range): BP systolic 108–176; BP diastolic 70–86; PULSE 75–88; RESP 16–20; TEMP 36.6–37; O2SAT 97–100
[2024-04-13] MEDS: heparin 5,000 unit/mL INJ 1 mL 5000 UNIT SUBCUT ×2 (05:00→17:13)
[2024-04-13 05:39] LABS: Basophils # 0.1 10^3/uL (0.0-0.1); Basophils % 0.9 %; Eosinophils # 0.4 10^3/uL (0.0-0.8); Hematocrit 29.3 % (37-53); Lymphocytes # 1.1 10^3/uL (0.8-4.8); Lymphocytes % 18.7 %; Mean Corpuscular HGB Conc 31.7 g/dL (30-55); Mean Corpuscular Hemoglobin 30.4 pg (27-33); Mean Corpuscular Volume 95.8 fl (82-101); Mean Platelet Volume 10.2 fL (7.4-10.4); Monocytes # 0.5 10^3/uL (0.2-0.9); Monocytes % 8.8 %; Neutrophils # 3.78 10^3/uL (1.8-7.7); Neutrophils % 64.3 %; Nucleated Red Blood Cells % 0 %; Platelet Count 187 10^3/cmm (157-399); Red Blood Count 3.06 10^6/uL (3.85-5.65); Red Cell Distribution Width 16.2 % (12.1-15.1); White Blood Count 5.88 10^3/uL (3.29-11.43)
[2024-04-13 06:04] LABS: Alanine Aminotransferase < 5 U/L (0-41); Albumin Level 4.1 g/dL (3.5-5.2); Alkaline Phosphatase 71 U/L (40-130); Anion Gap 15.8 (5-19); Aspartate Amino Transferase 10 U/L (0-40); Blood Urea Nitrogen 46 mg/dL (8-23); Calcium 8.1 mg/dL (8.5-10.5); Carbon Dioxide 27 mmol/L (22-29); Chloride 103 mmol/L (98-107); Creatinine Clr Calc Pharmacy 13.6487; Globulin 2.4 g/dL (1.3-4.6); Glomerular Filtration Rate 11.7 mL/min (90-130); Glucose 103 mg/dL (65-115); Magnesium 1.8 mg/dL (1.7-2.3); Osmolality Calculated 304 mOsm/kg (285-295); Phosphorus 3.9 mg/dL (2.5-4.5); Potassium 4.8 mmol/L (3.5-5.1); Sodium 141 mmol/L (136-145); Total Bilirubin 0.2 mg/dL (0.15-1.2); Total Protein 6.5 g/dL (6.6-8.7)
[2024-04-13 06:17] LABS: Folate Level 3.6 ng/mL (4.5-32.2)
--- NOTE | 2024-04-13 07:47 | PM.PN ---
Subjective Subjective: weak, confused. no n/v/f/c/garcia/d Medications: Reviewed: Yes Medication Review Details: Current Medications Acetaminophen (Acetaminophen 325 Mg Tablet) 650 mg PO Q6H PRN PRN Reason: Mild/Mod Pain Or Temp >/= 101 Amlodipine Besylate (Amlodipine 10 Mg Tablet) 10 mg PO DAILY [facility] Last Admin: 04/12/24 08:28 Dose: 10 mg Aspirin (Aspirin 81 Mg Ec Tablet) 81 mg PO DAILY [facility] Last Admin: 04/12/24 12:13 Dose: 81 mg Atorvastatin Calcium (Atorvastatin 40 Mg Tablet) 40 mg PO BEDTIME [facility] Last Admin: 04/12/24 20:20 Dose: 40 mg Calcium Acetate (Calcium Acetate 667 Mg Capsule) 667 mg PO TIDWM [facility] Last Admin: 04/12/24 17:39 Dose: 667 mg Epoetin Shashi (Epoetin Shashi 10,000 Unit/Ml Inj) 10,000 unit SUBCUT WEEKLY [facility] Ferrous Gluconate (Ferrous Gluconate 324 Mg Tablet) 324 mg PO BIDWM [facility] Last Admin: 04/12/24 17:39 Dose: 324 mg Heparin Sodium (Porcine) (Heparin 5,000 Unit/Ml Inj 1 Ml) 5,000 unit SUBCUT Q12H [facility] Last Admin: 04/13/24 05:00 Dose: 5,000 unit Sodium Chloride (Sodium Chloride 0.9%) 1,000 mls @ 0 mls/hr IV .Q0M PRN PRN Reason: hypotension or symptomatic Losartan Potassium (Losartan 50 Mg Tablet) 50 mg PO DAILY [facility] Last Admin: 04/12/24 12:13 Dose: 50 mg Multivitamins (C-Zqfheua-Ucivowa C Tablet) 1 each PO DAILY [facility] Last Admin: 04/12/24 08:28 Dose: 1 each Ondansetron HCl (Ondansetron 2 Mg/Ml Sdv 2 Ml) 4 mg IVP Q8H PRN PRN Reason: vomiting, or N/V if npo Vitals/I&O/Wt Last Vital Signs Temp 98.2 F 04/13/24 07:29 Pulse 84 04/13/24 07:29 Resp 18 04/13/24 07:29 BP 172/86 04/13/24 07:29 Pulse Ox 99 04/13/24 07:29 O2 Del Method Room Air 04/13/24 07:29 04/12/24 04/13/24 04/13/24 22:59 06:59 14:59 Intake Total 400 / 640 120 / 760 Balance 400 / 640 120 / 760 Weight last 48 hrs Weight 66.848 kg Weight 66.763 kg Weight 68.5 kg Physical Exam Narrative: comfortable , NARD vs noted- bp elevated heent- nc/at, eomi, anicteric neck no jvp Right ACW permacath lungs-clear b/l heart b/l abdomen soft, + bs ext- no edema neuro- awakens, more confused and lethargic. does follow simple commands. no asterixis pulses + b/l seen and examined w/ RN- telehealth visit Data 04/13/24 05:07 04/13/24 05:07 A&P Assessment and plan (1) CKD (chronic kidney disease): Qualifiers: Chronic kidney disease stage: stage 5, not on chronic dialysis Qualified Code(s): N18.5 - Chronic kidney disease, stage 5 Plan 68 yr old man 1. CKD stage 5- s/p permacath and HD on 04/10 and 04/11/24- -as more lethargic, repeat HD today will need an outpt HD slot 2.echo w/ ef 44%- HF mildly reduced EF, grade 1/4 diastolic dysfunction 3. bp -monitor w/ arb, amlodipine and dialysis 4. metabolic acidosis- improved w/ hd. 5. anemia- he has a high iron sat- no iv iron -await spep, sife, b12, folate low- give po give epo 6. renal bone mineral metabolism-start Zemplar w/ dialysis for secondary hyperparathyroidism -hold phos binder seen and examined w/ RN- telehealth visit informed consent for telehealth obtained from pt Attestations Medical Necessity Statement*: as above Time Spent in Patient Care: 16 - 35 minutes Coding Level of Care Code Acute Code for Chg Fwd Diagnoses Stage 5 chronic kidney disease not on chronic dialysis N18.5 Chronic kidney disease stage: stage 5, not on chronic dialysis
[2024-04-13] MEDS: b-complex-vitamin c Tablet 1 EACH PO (09:08)
[2024-04-13] MEDS: amlodipine 10 mg Tablet PO (09:09)
[2024-04-13] MEDS: folic acid 1 mg Tablet PO (09:09)
[2024-04-13] MEDS: aspirin 81 mg EC Tablet PO (09:09)
[2024-04-13] MEDS: ferrous gluconate 324 mg Tablet PO ×2 (09:10→17:12)
[2024-04-13] MEDS: losartan 50 mg Tablet PO (09:10)
[2024-04-13] MEDS: calcium acetate 667 mg Capsule PO ×2 (09:11→17:12)
--- NOTE | 2024-04-13 09:24 | PC.CHAP ---
Pastoral Care Encounter/Spiritual Assessment Type of Contact [] Declined hourly shift visit [] Patient/Family/Request visit [] Outpatient visit [] Follow-up visit [] Physician referral [] Code/Alert [x] Routine visit [] Staff referral [] Actively dying [] Patient sleeping [] Family support [] [] Out of room [] Palliative care [] [] Receiving care in room [] Pre-surgical visit [] Trauma [] Long length of stay [] ICU visit [] Other: Relational/Emotional Strength [x] Patient feels connected with others/family/visitors/staff [] Distress [] Loneliness/isolation [] Abandonment Spirituality of Patient [x] Person of Twila [] Attends Mandaen of their Twila [x] Believes in Prayer [] Reads Bible or Mandaen materials [] There are Spiritual issues to be addressed Complementary Health Therapists Interventions [x] Prayer [] Active listening [] Non-anxious presence [x] Spiritual/emotional support [] Crisis/trauma care [] Spiritual counseling [] Bereavement support [] Provided bereavement packet [] Provided Bible/devotional materials [] Provided toy/stuffed animal, coloring book to patient or family member [] Provided Communion [] Anointing/[place] [] Salvation [x] Completed spiritual assessment [] Other: Impact on Illness or Injury [] Angry [] Fearful [] Anxious [] Often cries [] Exhaustion [] Unable to work [] Unable to attend spiritism [] Unable to walk/stand [] Unable to read [] Unable to drive [] Unable to eat/drink [] Unable to sleep [] Unable to be with family [] Patient intubated [] Other: Summary Time spent with patient 5 min
--- NOTE | 2024-04-13 10:03 | PC.NURSE ---
This nurse and 2 nursing students changed patient's dirty sheets. This nurse noticed at that time that patient's underwear were soaked with urine. This nurse tried to assist patient in changing soiled clothing. Patient refused. This nurse was able to get clean pants for patient but the patient still refused to remove soiled underwear. Bedding was changed and a clean pad was laid down. Patient is alert and oriented.
[2024-04-13] MEDS: heparin, porcine 1,000 unit/mL INJ 10 mL 1000 UNIT IV (10:31)
--- NOTE | 2024-04-13 10:39 | PC.HD ---
Heparin 1000 units loading dose administered via HD catheter at 1015 per hematologist oncologist's orders.
--- NOTE | 2024-04-13 13:46 | P.PN_ITS ---
Subjective 2 Subjective: No acute events overnight. Undergoing dialysis today. Patient denies any nausea, vomiting, headache. Blood pressure slightly elevated. Patient was confused earlier in the morning today and is resolving as patient is on dialysis. Vitals/I&O/Wt Last Vital Signs Temp 98.1 F 04/13/24 11:41 Pulse 82 04/13/24 11:41 Resp 18 04/13/24 11:41 BP 176/76 04/13/24 11:41 Pulse Ox 99 04/13/24 11:41 O2 Del Method Room Air 04/13/24 11:41 04/12/24 04/13/24 04/13/24 22:59 06:59 14:59 Intake Total 400 / 640 120 / 760 360 / 360 Output Total 350 / 350 Balance 400 / 640 120 / 760 10 / 10 Weight last 48 hrs Weight 66.848 kg Weight 66.763 kg Weight 68.5 kg Physical Exam 2 Narrative: General: Alert oriented x3, patient seen laying in bed breathing comfortably on room air. HEENT: Normocephalic, atraumatic, EOMI, Cardio: Regular rate rhythm, normal S1-S2 Respiratory: Clear to auscultation bilaterally. No rhonchi GI: Abdomen soft, nontender, nondistended, bowel sounds + Extremities: No edema bilateral lower extremities Data 04/13/24 05:07 04/13/24 05:07 A&P Assessment and plan (1) ESRD needing dialysis: MIKHAIL on CKD. Patient was on dialysis before but discontinued because of loss of insurance. Post temporary dialysis catheter placement. Appreciate nephrology recommendations. Received 2 cycles of dialysis. Plan for holding over the weekend to assess further requirement of dialysis 2 days or 3 days a week. Monitor urine output. Medical reconciliation done for nephrotoxic drugs. (2) CKD (chronic kidney disease): Qualifiers: Chronic kidney disease stage: stage 5, not on chronic dialysis Qualified Code(s): N18.5 - Chronic kidney disease, stage 5 (3) Hypertension: Goal blood pressure less than 140/90 mmHg. Continue with home dose of amlodipine. Blood pressure still elevated. Add losartan 50 mg oral daily. If needed will add hydralazine as for goal blood pressures. (4) Cardiomyopathy: Last echocardiogram shows an EF of 43%, grade 1 diastolic dysfunction with mildly elevated filling pressures with echocardiogram showing improvement in EF of 32 to 43%. Last myocardial perfusion scan showed small sized perfusion abnormality of mild severity of mild to apical inferior, mild to apical inferior lateral wall at rest with subtle reversibility in the apical lateral wall. Patient denies any current chest pain. Appreciate recent A1c, check lipid panel. Start on aspirin 81 mg daily, atorvastatin 40 mg daily. Depending on the heart rate we will plan to add low-dose beta-[place] within next 24 hours. (5) Diabetes: History of type 2 diabetes mellitus. Currently A1c of 4.7. Hold off on any further treatment. 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 Appreciate iron panel, check vitamin B12 folate level. Post epidural in the morning today. Start on oral iron supplementation. Full code Renal dialysis diet Heparin 5000 every 12 hourly for DVT prophylaxis Plan for the day: Patient getting 1 more session of dialysis today. Will most likely need dialysis in outpatient. Will direct case management to get patient an outpatient dialysis chair time. Goal blood pressure less than 140/90 mmHg. Blood pressure is elevated. Continue with amlodipine and losartan. Add Coreg 12.5 mg twice daily. Monitor CMP daily. Continue with physical therapy. Discharge plan: Patient lives by himself. Does not have a DPOA. States usually drives. Walks around with a walker though not much. Patient needs dialysis going forward. Recently was discontinued because of loss of insurance. Case management consulted for senior financial. Patient will need to be discharged with dialysis set up as an outpatient. Physical therapy evaluation. Discharge plan for now home with home health versus SNF placement. Attestations 2 Medical Necessity Statement*: Requires further hospitalization for management of MIKHAIL on end-stage renal disease requiring hemodialysis, high blood pressure while outpatient dialysis and safe discharge planning is sought. Diagnoses ESRD needing dialysis N18.6; Z99.2 Stage 5 chronic kidney disease not on chronic dialysis N18.5 Chronic kidney disease stage: stage 5, not on chronic dialysis Hypertension I10 Cardiomyopathy I42.9 Type 2 diabetes mellitus without complication, without long-term current use of insulin E11.9 Diabetes mellitus type: type 2 Diabetes mellitus senior care insulin use: without senior care use Diabetes mellitus complication status: without complication Acute kidney failure N17.9
--- NOTE | 2024-04-13 14:14 | PC.HD ---
Near end of treatment, patient complained of nausea. 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 Leather Sprayer notified. OK to terminate treatment 9 minutes early to avoid clotting of circuit and alleviate patient's nausea. UF goal 2000 mL, net fluid removal 1718 mL. Nausea resolved.
[2024-04-13] MEDS: carvedilol 12.5 mg Tablet PO (17:12)
[2024-04-13] MEDS: atorvastatin 40 mg Tablet PO (20:13)
[2024-04-14] VITALS (8 sets, daily range): BP systolic 115–152; BP diastolic 66–79; PULSE 66–79; RESP 18–20; TEMP 36.4–36.8; O2SAT 98–100
--- NOTE | 2024-04-14 04:57 | PC.NURSE ---
pt is refusing to change out of soiled underwear and shower, stating they will dry... they aren't soiled i don't want to take them off. the patients briefs as well as bed sheets are soiled and the patient is refusing hygiene measures. this nurse as well as the occup therapist have tried to educate and redirect the patient and the patient is adamantly refusing all hygiene measures. the patient was offered briefs and scrubs and the patient got agitated with the redirections attempts telling staff to fuck off, i don't want your help . this nurse changed the patients bedding while the patient was in the restroom but the patient is still wearing soiled undergarments and refusing to remove them.
[2024-04-14] MEDS: heparin 5,000 unit/mL INJ 1 mL 5000 UNIT SUBCUT ×2 (05:14→17:35)
[2024-04-14 05:31] LABS: Alanine Aminotransferase < 5 U/L (0-41); Albumin Level 3.9 g/dL (3.5-5.2); Alkaline Phosphatase 71 U/L (40-130); Aspartate Amino Transferase 11 U/L (0-40); Blood Urea Nitrogen 35 mg/dL (8-23); Calcium 8.9 mg/dL (8.5-10.5); Carbon Dioxide 28 mmol/L (22-29); Chloride 101 mmol/L (98-107); Globulin 2.4 g/dL (1.3-4.6); Glomerular Filtration Rate 14.7 mL/min (90-130); Glucose 114 mg/dL (65-115); Osmolality Calculated 295 mOsm/kg (285-295); Sodium 138 mmol/L (136-145); Total Bilirubin 0.2 mg/dL (0.15-1.2); Total Protein 6.3 g/dL (6.6-8.7)
[2024-04-14 05:35] LABS: Anion Gap 14.1 (5-19); Creatinine Clr Calc Pharmacy 16.4686; Potassium 5.1 mmol/L (3.5-5.1)
--- NOTE | 2024-04-14 08:11 | PM.PN ---
Subjective Subjective: feels well. had dialysis yesterday. no n/v/f/c/garcia/d/leg pains Medications: Reviewed: Yes Medication Review Details: Current Medications Acetaminophen (Acetaminophen 325 Mg Tablet) 650 mg PO Q6H PRN PRN Reason: Mild/Mod Pain Or Temp >/= 101 Amlodipine Besylate (Amlodipine 10 Mg Tablet) 10 mg PO DAILY [facility] Last Admin: 04/13/24 09:09 Dose: 10 mg Aspirin (Aspirin 81 Mg Ec Tablet) 81 mg PO DAILY [facility] Last Admin: 04/13/24 09:09 Dose: 81 mg Atorvastatin Calcium (Atorvastatin 40 Mg Tablet) 40 mg PO BEDTIME [facility] Last Admin: 04/13/24 20:13 Dose: 40 mg Calcium Acetate (Calcium Acetate 667 Mg Capsule) 667 mg PO TIDWM [facility] Last Admin: 04/13/24 17:12 Dose: 667 mg Carvedilol (Carvedilol 12.5 Mg Tablet) 12.5 mg PO BID [facility] Last Admin: 04/13/24 17:12 Dose: 12.5 mg Epoetin Shashi (Epoetin Shashi 10,000 Unit/Ml Inj) 10,000 unit SUBCUT WEEKLY [facility] Ferrous Gluconate (Ferrous Gluconate 324 Mg Tablet) 324 mg PO BIDWM [facility] Last Admin: 04/13/24 17:12 Dose: 324 mg Folic Acid (Folic Acid 1 Mg Tablet) 1 mg PO DAILY [facility] Last Admin: 04/13/24 09:09 Dose: 1 mg Heparin Sodium (Porcine) (Heparin 5,000 Unit/Ml Inj 1 Ml) 5,000 unit SUBCUT Q12H [facility] Last Admin: 04/14/24 05:14 Dose: 5,000 unit Sodium Chloride (Sodium Chloride 0.9%) 1,000 mls @ 0 mls/hr IV .Q0M PRN PRN Reason: hypotension or symptomatic Losartan Potassium (Losartan 50 Mg Tablet) 50 mg PO DAILY [facility] Last Admin: 04/13/24 09:10 Dose: 50 mg Multivitamins (U-Gjedqkg-Kflidqa C Tablet) 1 each PO DAILY [facility] Last Admin: 04/13/24 09:08 Dose: 1 each Ondansetron HCl (Ondansetron 2 Mg/Ml Sdv 2 Ml) 4 mg IVP Q8H PRN PRN Reason: vomiting, or N/V if npo Vitals/I&O/Wt Last Vital Signs Temp 98.3 F 04/14/24 04:00 Pulse 79 04/14/24 04:00 Resp 20 H 04/14/24 04:00 BP 132/71 04/14/24 04:00 Pulse Ox 98 04/14/24 04:00 O2 Del Method Room Air 04/14/24 04:00 04/13/24 04/14/24 04/14/24 22:59 06:59 14:59 Intake Total 770 / 1430 170 / 1600 Output Total 400 / 2768 150 / 2918 Balance 370 / -1338 20 / -1318 Weight last 48 hrs Weight 65.091 kg Weight 65.6 kg Weight 66.848 kg Physical Exam Narrative: comfortable , NARD vs noted- bp improved heent- nc/at, eomi, anicteric neck no jvp Right ACW permacath lungs-clear b/l heart b/l abdomen soft, + bs ext- no edema neuro- awake, alert, eating, MS much improved pulses + b/l seen and examined w/ RN- telehealth visit Data 04/13/24 05:07 04/14/24 04:35 A&P Assessment and plan (1) CKD (chronic kidney disease): Qualifiers: Chronic kidney disease stage: stage 5, not on chronic dialysis Qualified Code(s): N18.5 - Chronic kidney disease, stage 5 Plan 68 yr old man 1. CKD stage 5- s/p permacath and HD on 04/10, 04/11/24, and 04/13. -repeat HD tomorrow -he will need an outpt HD slot 2.echo w/ ef 44%- HF mildly reduced EF, grade 1/4 diastolic dysfunction 3. bp -monitor w/ arb, amlodipine and dialysis. improving 4. metabolic acidosis- improved w/ hd. 5. anemia- he has a high iron sat- no iv iron -await spep, sife, b12, folate low- give po 6. renal bone mineral metabolism-start [facility] w/ dialysis for secondary hyperparathyroidism -hold phos binder seen and examined w/ RN- telehealth visit informed consent for telehealth obtained from pt Attestations Medical Necessity Statement*: esrd, per hospitalist Time Spent in Patient Care: 16 - 35 minutes Coding Level of Care Code Acute Code for Chg Fwd Diagnoses Stage 5 chronic kidney disease not on chronic dialysis N18.5 Chronic kidney disease stage: stage 5, not on chronic dialysis
[2024-04-14] MEDS: losartan 50 mg Tablet PO (08:33)
[2024-04-14] MEDS: folic acid 1 mg Tablet PO (08:33)
[2024-04-14] MEDS: carvedilol 12.5 mg Tablet PO ×2 (08:33→17:35)
[2024-04-14] MEDS: b-complex-vitamin c Tablet 1 EACH PO (08:33)
[2024-04-14] MEDS: aspirin 81 mg EC Tablet PO (08:33)
[2024-04-14] MEDS: ferrous gluconate 324 mg Tablet PO ×2 (08:33→17:35)
[2024-04-14] MEDS: amlodipine 10 mg Tablet PO (08:34)
[2024-04-14 12:30] LABS: PROTEIN, TOTAL 6.1 g/dL (6.1-8.1)
--- NOTE | 2024-04-14 14:35 | PM.PN ---
Subjective Subjective: No acute events overnight. Patient has remained hemodynamically stable and afebrile. Laying comfortably in bed. Denies any nausea, vomiting, headache. Vitals/I&O/Wt Last Vital Signs Temp 97.9 F 04/14/24 12:00 Pulse 68 04/14/24 12:00 Resp 18 04/14/24 12:00 BP 152/73 04/14/24 12:00 Pulse Ox 98 04/14/24 12:00 O2 Del Method Room Air 04/14/24 12:00 04/13/24 04/14/24 04/14/24 22:59 06:59 14:59 Intake Total 770 / 1430 170 / 1600 960 / 960 Output Total 400 / 2768 150 / 2918 Balance 370 / -1338 20 / -1318 960 / 960 Weight last 48 hrs Weight 65.091 kg Weight 65.6 kg Weight 66.848 kg Physical Exam Narrative: General: Alert oriented x3, patient seen laying in bed breathing comfortably on room air. HEENT: Normocephalic, atraumatic, EOMI, Cardio: Regular rate rhythm, normal S1-S2 Respiratory: Clear to auscultation bilaterally. No rhonchi GI: Abdomen soft, nontender, nondistended, bowel sounds + Extremities: No edema bilateral lower extremities Data 04/13/24 05:07 04/14/24 04:35 A&P Assessment and plan (1) ESRD needing dialysis: MIKHAIL on CKD. Patient was on dialysis before but discontinued because of loss of insurance. Post temporary dialysis catheter placement. Appreciate nephrology recommendations. Received 2 cycles of dialysis. Plan for holding over the weekend to assess further requirement of dialysis 2 days or 3 days a week. Monitor urine output. Medical reconciliation done for nephrotoxic drugs. (2) CKD (chronic kidney disease): Qualifiers: Chronic kidney disease stage: stage 5, not on chronic dialysis Qualified Code(s): N18.5 - Chronic kidney disease, stage 5 (3) Hypertension: Goal blood pressure less than 140/90 mmHg. Continue with home dose of amlodipine. Blood pressure still elevated. Add losartan 50 mg oral daily. If needed will add hydralazine as for goal blood pressures. (4) Cardiomyopathy: Last echocardiogram shows an EF of 43%, grade 1 diastolic dysfunction with mildly elevated filling pressures with echocardiogram showing improvement in EF of 32 to 43%. Last myocardial perfusion scan showed small sized perfusion abnormality of mild severity of mild to apical inferior, mild to apical inferior lateral wall at rest with subtle reversibility in the apical lateral wall. Patient denies any current chest pain. Appreciate recent A1c, check lipid panel. Start on aspirin 81 mg daily, atorvastatin 40 mg daily. Depending on the heart rate we will plan to add low-dose beta-[place] within next 24 hours. (5) Diabetes: History of type 2 diabetes mellitus. Currently A1c of 4.7. Hold off on any further treatment. Qualifiers: Diabetes mellitus type: type 2 Diabetes mellitus parts counterman insulin use: without parts counterman use Diabetes mellitus complication status: without complication Qualified Code(s): E11.9 - Type 2 diabetes mellitus without complications (6) Acute kidney failure: Plan Anemia: Most likely anemia of chronic disease. Appreciate iron panel, check vitamin B12 folate level. Post epidural in the morning today. Start on oral iron supplementation. Full code Renal dialysis diet Heparin 5000 every 12 hourly for DVT prophylaxis Plan for the day: Blood pressure is better today. Continue with amlodipine, losartan and Coreg. Appreciate nephrology recommendations. Patient will need long-term dialysis. Case management alerted for chair time. Monitor BMP daily. Discharge plan: Plan to discharge home with possible home health once chair time is available. Discussed in detail with the patient he is agreeable. Patient was on [facility] hosp[facility] prior to hospitalization. Discussed possible hospice again with the patient. Also discussed hospice would mean no dialysis. He verbalized understanding and does not want to go ahead with hospice anymore he would want to pursue dialysis going forward. Attestations Medical Necessity Statement*: Requested hospitalization for management of MIKHAIL and CKD requiring hemodialysis while outpatient dialysis chair time is sought Diagnoses ESRD needing dialysis N18.6; Z99.2 Stage 5 chronic kidney disease not on chronic dialysis N18.5 Chronic kidney disease stage: stage 5, not on chronic dialysis Hypertension I10 Cardiomyopathy I42.9 Type 2 diabetes mellitus without complication, without long-term current use of insulin E11.9 Diabetes mellitus type: type 2 Diabetes mellitus parts counterman insulin use: without residential use Diabetes mellitus complication status: without complication Acute kidney failure N17.9
[2024-04-14] MEDS: atorvastatin 40 mg Tablet PO (21:10)
[2024-04-15] VITALS (8 sets, daily range): BP systolic 116–146; BP diastolic 59–79; PULSE 68–76; RESP 16–20; TEMP 36.4–36.8; O2SAT 97–100
[2024-04-15] MEDS: heparin 5,000 unit/mL INJ 1 mL 5000 UNIT SUBCUT ×2 (04:36→17:12)
[2024-04-15 06:11] LABS: Alanine Aminotransferase 6 U/L (0-41); Albumin Level 3.8 g/dL (3.5-5.2); Alkaline Phosphatase 72 U/L (40-130); Anion Gap 17.8 (5-19); Aspartate Amino Transferase 12 U/L (0-40); Blood Urea Nitrogen 57 mg/dL (8-23); Calcium 8.5 mg/dL (8.5-10.5); Carbon Dioxide 25 mmol/L (22-29); Chloride 98 mmol/L (98-107); Globulin 2.4 g/dL (1.3-4.6); Glomerular Filtration Rate 9.8 mL/min (90-130); Glucose 116 mg/dL (65-115); Osmolality Calculated 299 mOsm/kg (285-295); Potassium 4.8 mmol/L (3.5-5.1); Sodium 136 mmol/L (136-145); Total Bilirubin 0.2 mg/dL (0.15-1.2); Total Protein 6.2 g/dL (6.6-8.7)
--- NOTE | 2024-04-15 07:33 | P.PN_ITS ---
Subjective 2 Subjective: more lethargic today, confused. denies any complaints. states he is eating and drinking well. no n/v/f/c/garcia/d Medications: Reviewed: Yes Medication Review Details: Current Medications Acetaminophen (Acetaminophen 325 Mg Tablet) 650 mg PO Q6H PRN PRN Reason: Mild/Mod Pain Or Temp >/= 101 Amlodipine Besylate (Amlodipine 10 Mg Tablet) 10 mg PO DAILY [facility] Last Admin: 04/14/24 08:34 Dose: 10 mg Aspirin (Aspirin 81 Mg Ec Tablet) 81 mg PO DAILY [facility] Last Admin: 04/14/24 08:33 Dose: 81 mg Atorvastatin Calcium (Atorvastatin 40 Mg Tablet) 40 mg PO BEDTIME [facility] Last Admin: 04/14/24 21:10 Dose: 40 mg Carvedilol (Carvedilol 12.5 Mg Tablet) 12.5 mg PO BID [facility] Last Admin: 04/14/24 17:35 Dose: 12.5 mg Epoetin Shashi (Epoetin Shashi 10,000 Unit/Ml Inj) 10,000 unit SUBCUT WEEKLY [facility] Ferrous Gluconate (Ferrous Gluconate 324 Mg Tablet) 324 mg PO BIDWM [facility] Last Admin: 04/14/24 17:35 Dose: 324 mg Folic Acid (Folic Acid 1 Mg Tablet) 1 mg PO DAILY [facility] Last Admin: 04/14/24 08:33 Dose: 1 mg Heparin Sodium (Porcine) (Heparin 5,000 Unit/Ml Inj 1 Ml) 5,000 unit SUBCUT Q12H [facility] Last Admin: 04/15/24 04:36 Dose: 5,000 unit Sodium Chloride (Sodium Chloride 0.9%) 1,000 mls @ 0 mls/hr IV .Q0M PRN PRN Reason: hypotension or symptomatic Losartan Potassium (Losartan 50 Mg Tablet) 50 mg PO DAILY [facility] Last Admin: 04/14/24 08:33 Dose: 50 mg Multivitamins (D-Igcnksi-Mmtills C Tablet) 1 each PO DAILY [facility] Last Admin: 04/14/24 08:33 Dose: 1 each Ondansetron HCl (Ondansetron 2 Mg/Ml Sdv 2 Ml) 4 mg IVP Q8H PRN PRN Reason: vomiting, or N/V if npo Vitals/I&O/Wt Last Vital Signs Temp 98.0 F 04/15/24 04:00 Pulse 68 04/15/24 04:00 Resp 18 05/30/24 04:00 BP 124/75 04/15/24 04:00 Pulse Ox 97 04/15/24 04:00 O2 Del Method Room Air 04/15/24 04:00 04/14/24 04/15/24 04/15/24 22:59 06:59 14:59 Intake Total 720 / 1680 Output Total 100 / 100 Balance 620 / 1580 Weight last 48 hrs Weight 66.253 kg Weight 65.091 kg Weight 65.6 kg Physical Exam 2 Narrative: comfortable , NARD vs stable heent- nc/at, eomi, anicteric neck no jvp Right ACW permacath lungs-clear b/l heart b/l abdomen soft, + bs ext- no edema neuro- awake, alert, tired, moves all extremities pulses + b/l seen and examined w/ RN- telehealth visit Data 04/13/24 05:07 04/15/24 05:17 Micro: Microbiology 04/09/24 23:18 Blood Culture - Final Blood NO GROWTH AFTER 5 DAYS 04/09/24 23:15 Blood Culture - Final Blood NO GROWTH AFTER 5 DAYS A&P Assessment and plan (1) CKD (chronic kidney disease): Qualifiers: Chronic kidney disease stage: stage 5, not on chronic dialysis Qualified Code(s): N18.5 - Chronic kidney disease, stage 5 Plan 68 yr old man 1. CKD stage 5- s/p permacath and HD on 04/10, 04/11/24, and 04/13. -repeat HD today -he will need an outpt HD slot 2.echo w/ ef 44%- HF mildly reduced EF, grade 1/4 diastolic dysfunction 3. bp -monitor w/ arb, amlodipine and dialysis. improving dec meds 4. metabolic acidosis- improved w/ hd. 5. anemia- he has a high iron sat- no iv iron -await spep, sife, b12, folate low- give po 6. renal bone mineral metabolism-start [facility] w/ dialysis for secondary hyperparathyroidism -hold phos binder 7. Discharge planning- needs a dialysis slot. also, i do not think that patient can independently take care of himself, would consider rehab on dc seen and examined w/ RN- telehealth visit informed consent for telehealth obtained from pt Attestations 2 Medical Necessity Statement*: esrd- needs a dialysis slot. also some degree of dementiae- would look for a rehab facility- i am uncertain that pt can take care of himself at home Time Spent in Patient Care: 16 - 35 minutes Coding Level of Care Code Acute Code for Chg Fwd Diagnoses Stage 5 chronic kidney disease not on chronic dialysis N18.5 Chronic kidney disease stage: stage 5, not on chronic dialysis
[2024-04-15] MEDS: losartan 50 mg Tablet PO (08:25)
[2024-04-15] MEDS: amlodipine 5 mg Tablet PO (08:26)
[2024-04-15] MEDS: b-complex-vitamin c Tablet 1 EACH PO (08:26)
[2024-04-15] MEDS: ferrous gluconate 324 mg Tablet PO ×2 (08:26→17:12)
[2024-04-15] MEDS: aspirin 81 mg EC Tablet PO (08:26)
[2024-04-15] MEDS: folic acid 1 mg Tablet PO (08:26)
[2024-04-15] MEDS: carvedilol 6.25 mg Tablet PO ×2 (08:26→17:12)
[2024-04-15] MEDS: heparin, porcine 1,000 unit/mL INJ 10 mL 10000 UNIT HE (13:08)
[2024-04-15] MEDS: heparin, porcine 1,000 unit/mL INJ 10 mL 10000 UNIT INTRACATH (13:10)
--- NOTE | 2024-04-15 14:19 | P.PN_ITS ---
Subjective 2 Subjective: No acute events overnight. Still awaiting chair time. Getting dialysis today. Denies any new complaints. Vitals/I&O/Wt Last Vital Signs Temp 98.2 F 04/15/24 08:02 Pulse 68 04/15/24 08:02 Resp 16 04/15/24 08:02 BP 124/75 04/15/24 08:25 Pulse Ox 100 04/15/24 08:02 O2 Del Method Room Air 04/15/24 08:02 04/14/24 04/15/24 04/15/24 22:59 06:59 14:59 Intake Total 720 / 1680 120 / 120 Output Total 100 / 100 Balance 620 / 1580 120 / 120 Weight last 48 hrs Weight 66.253 kg Weight 65.091 kg Physical Exam 2 Narrative: General: Alert oriented x3, patient seen laying in bed breathing comfortably on room air. HEENT: Normocephalic, atraumatic, EOMI, Cardio: Regular rate rhythm, normal S1-S2 Respiratory: Clear to auscultation bilaterally. No rhonchi GI: Abdomen soft, nontender, nondistended, bowel sounds + Extremities: No edema bilateral lower extremities Data 04/13/24 05:07 04/15/24 05:17 Micro: Microbiology 04/09/24 23:18 Blood Culture - Final Blood NO GROWTH AFTER 5 DAYS 04/09/24 23:15 Blood Culture - Final Blood NO GROWTH AFTER 5 DAYS A&P Assessment and plan (1) ESRD needing dialysis: MIKHAIL on CKD. Patient was on dialysis before but discontinued because of loss of insurance. Post temporary dialysis catheter placement. Appreciate nephrology recommendations. Received 2 cycles of dialysis. Plan for holding over the weekend to assess further requirement of dialysis 2 days or 3 days a week. Monitor urine output. Medical reconciliation done for nephrotoxic drugs. (2) CKD (chronic kidney disease): Qualifiers: Chronic kidney disease stage: stage 5, not on chronic dialysis Qualified Code(s): N18.5 - Chronic kidney disease, stage 5 (3) Hypertension: Goal blood pressure less than 140/90 mmHg. Continue with home dose of amlodipine. Blood pressure still elevated. Add losartan 50 mg oral daily. If needed will add hydralazine as for goal blood pressures. (4) Cardiomyopathy: Last echocardiogram shows an EF of 43%, grade 1 diastolic dysfunction with mildly elevated filling pressures with echocardiogram showing improvement in EF of 32 to 43%. Last myocardial perfusion scan showed small sized perfusion abnormality of mild severity of mild to apical inferior, mild to apical inferior lateral wall at rest with subtle reversibility in the apical lateral wall. Patient denies any current chest pain. Appreciate recent A1c, check lipid panel. Start on aspirin 81 mg daily, atorvastatin 40 mg daily. Depending on the heart rate we will plan to add low-dose beta-[place] within next 24 hours. (5) Diabetes: History of type 2 diabetes mellitus. Currently A1c of 4.7. Hold off on any further treatment. Qualifiers: Diabetes mellitus type: type 2 Diabetes mellitus terminal make up operator insulin use: without terminal make up operator use Diabetes mellitus complication status: without complication Qualified Code(s): E11.9 - Type 2 diabetes mellitus without complications (6) Acute kidney failure: Plan Anemia: Most likely anemia of chronic disease. Appreciate iron panel, check vitamin B12 folate level. Post epidural in the morning today. Start on oral iron supplementation. Full code Renal dialysis diet Heparin 5000 every 12 hourly for DVT prophylaxis Plan for the day: Appreciate CMP. Patient slightly confused today. Plan for dialysis today. Monitor BMP daily. Discharge plan: Plan to discharge home with possible home health once chair time is available. Discussed in detail with the patient he is agreeable. Patient was on [facility] hosp[facility] prior to hospitalization. Discussed possible hospice again with the patient. Also discussed hospice would mean no dialysis. He verbalized understanding and does not want to go ahead with hospice anymore he would want to pursue dialysis going forward. Attestations 2 Medical Necessity Statement*: Requires further hospitalization in a patient with end-stage renal disease on new hemodialysis while outpatient chair time is awaited Diagnoses ESRD needing dialysis N18.6; Z99.2 Stage 5 chronic kidney disease not on chronic dialysis N18.5 Chronic kidney disease stage: stage 5, not on chronic dialysis Hypertension I10 Cardiomyopathy I42.9 Type 2 diabetes mellitus without complication, without long-term current use of insulin E11.9 Diabetes mellitus type: type 2 Diabetes mellitus terminal make up operator insulin use: without correction use Diabetes mellitus complication status: without complication Acute kidney failure N17.9
[2024-04-15 15:46] LABS: ALBUMIN 3.9 g/dL (3.8-4.8); ALPHA 1 GLOBULIN 0.3 g/dL (0.2-0.3); ALPHA 2 GLOBULIN 0.7 g/dL (0.5-0.9); BETA 1 GLOBULIN 0.3 g/dL (0.4-0.6); BETA 2 GLOBULIN 0.3 g/dL (0.2-0.5); GAMMA GLOBULIN 0.6 g/dL (0.8-1.7)
[2024-04-15] MEDS: atorvastatin 40 mg Tablet PO (20:43)
[2024-04-16] VITALS (8 sets, daily range): BP systolic 117–147; BP diastolic 62–71; PULSE 66–76; RESP 14–17; TEMP 36.4–36.9; O2SAT 96–100
[2024-04-16] MEDS: heparin 5,000 unit/mL INJ 1 mL 5000 UNIT SUBCUT ×2 (04:14→17:09)
[2024-04-16 05:25] LABS: Basophils # 0.1 10^3/uL (0.0-0.1); Basophils % 0.9 %; Eosinophils # 0.4 10^3/uL (0.0-0.8); Eosinophils % 5.3 %; Hematocrit 28.3 % (37-53); Lymphocytes # 1.4 10^3/uL (0.8-4.8); Lymphocytes % 20.1 %; Mean Corpuscular HGB Conc 31.1 g/dL (30-55); Mean Corpuscular Hemoglobin 29.8 pg (27-33); Mean Corpuscular Volume 95.9 fl (82-101); Mean Platelet Volume 9.9 fL (7.4-10.4); Monocytes # 0.7 10^3/uL (0.2-0.9); Monocytes % 9.8 %; Neutrophils # 4.44 10^3/uL (1.8-7.7); Neutrophils % 63.6 %; Nucleated Red Blood Cells % 0 %; Platelet Count 185 10^3/cmm (157-399); Red Blood Count 2.95 10^6/uL (3.85-5.65); Red Cell Distribution Width 15.9 % (12.1-15.1); White Blood Count 6.97 10^3/uL (3.29-11.43)
[2024-04-16 05:47] LABS: Phosphorus 4.3 mg/dL (2.5-4.5)
[2024-04-16 05:49] LABS: Alanine Aminotransferase 10 U/L (0-41); Albumin Level 3.9 g/dL (3.5-5.2); Alkaline Phosphatase 76 U/L (40-130); Anion Gap 15.9 (5-19); Aspartate Amino Transferase 14 U/L (0-40); Blood Urea Nitrogen 48 mg/dL (8-23); Calcium 8.5 mg/dL (8.5-10.5); Carbon Dioxide 27 mmol/L (22-29); Chloride 100 mmol/L (98-107); Globulin 1.8 g/dL (1.3-4.6); Glomerular Filtration Rate 13.5 mL/min (90-130); Glucose 107 mg/dL (65-115); Osmolality Calculated 299 mOsm/kg (285-295); Potassium 4.9 mmol/L (3.5-5.1); Sodium 138 mmol/L (136-145); Total Bilirubin 0.3 mg/dL (0.15-1.2); Total Protein 5.7 g/dL (6.6-8.7)
[2024-04-16 05:56] LABS: Creatinine Clr Calc Pharmacy 15.3186
[2024-04-16] MEDS: b-complex-vitamin c Tablet 1 EACH PO (08:58)
[2024-04-16] MEDS: carvedilol 6.25 mg Tablet PO ×2 (08:58→17:09)
[2024-04-16] MEDS: losartan 50 mg Tablet PO (08:58)
[2024-04-16] MEDS: aspirin 81 mg EC Tablet PO (08:59)
[2024-04-16] MEDS: ferrous gluconate 324 mg Tablet PO ×2 (08:59→17:09)
[2024-04-16] MEDS: folic acid 1 mg Tablet PO (08:59)
[2024-04-16] MEDS: amlodipine 5 mg Tablet PO (08:59)
--- NOTE | 2024-04-16 09:27 | PC.SOCIAL ---
IMM Update Pg. 2 of IMM updated and reviewed with patient, who verbalized understanding. Copy provided.
--- NOTE | 2024-04-16 10:29 | PM.PN ---
Subjective Subjective: feels better. tolerated dialysis well yesterday. no n/v/f/c/garcia/d. MS improving Medications: Reviewed: Yes Medication Review Details: Current Medications Acetaminophen (Acetaminophen 325 Mg Tablet) 650 mg PO Q6H PRN PRN Reason: Mild/Mod Pain Or Temp >/= 101 Amlodipine Besylate (Amlodipine 5 Mg Tablet) 5 mg PO DAILY [facility] Last Admin: 04/16/24 08:59 Dose: 5 mg Aspirin (Aspirin 81 Mg Ec Tablet) 81 mg PO DAILY [facility] Last Admin: 04/16/24 08:59 Dose: 81 mg Atorvastatin Calcium (Atorvastatin 40 Mg Tablet) 40 mg PO BEDTIME [facility] Last Admin: 04/15/24 20:43 Dose: 40 mg Carvedilol (Carvedilol 6.25 Mg Tablet) 6.25 mg PO BID [facility] Last Admin: 04/16/24 08:58 Dose: 6.25 mg Epoetin Shashi (Epoetin Shashi 10,000 Unit/Ml Inj) 10,000 unit SUBCUT WEEKLY [facility] Ferrous Gluconate (Ferrous Gluconate 324 Mg Tablet) 324 mg PO BIDWM [facility] Last Admin: 04/16/24 08:59 Dose: 324 mg Folic Acid (Folic Acid 1 Mg Tablet) 1 mg PO DAILY [facility] Last Admin: 04/16/24 08:59 Dose: 1 mg Heparin Sodium (Porcine) (Heparin 5,000 Unit/Ml Inj 1 Ml) 5,000 unit SUBCUT Q12H [facility] Last Admin: 04/16/24 04:14 Dose: 5,000 unit Sodium Chloride (Sodium Chloride 0.9%) 1,000 mls @ 0 mls/hr IV .Q0M PRN PRN Reason: hypotension or symptomatic Losartan Potassium (Losartan 50 Mg Tablet) 50 mg PO DAILY [facility] Last Admin: 04/16/24 08:58 Dose: 50 mg Multivitamins (T-Dauwggv-Gyeyrsq C Tablet) 1 each PO DAILY [facility] Last Admin: 04/16/24 08:58 Dose: 1 each Ondansetron HCl (Ondansetron 2 Mg/Ml Sdv 2 Ml) 4 mg IVP Q8H PRN PRN Reason: vomiting, or N/V if npo Paricalcitol (Paricalcitol 2 Mcg/Ml Sdv 1 Ml) 2 mcg IV DIALYSIS [facility] Last Admin: 04/16/24 10:23 Dose: Not Given Vitals/I&O/Wt Last Vital Signs Temp 98.3 F 04/16/24 07:48 Pulse 66 04/16/24 07:48 Resp 16 04/16/24 07:48 BP 123/63 04/16/24 08:58 Pulse Ox 99 04/16/24 07:48 O2 Del Method Room Air 04/16/24 07:48 04/15/24 04/16/24 04/16/24 22:59 06:59 14:59 Intake Total 120 / 860 240 / 240 Output Total 100 / 1442 100 / 1542 Balance -100 / -702 20 / -682 240 / 240 Weight last 48 hrs Weight 64.8 kg Weight 66.253 kg Physical Exam Narrative: comfortable , NARD vs stable heent- nc/at, eomi, anicteric neck no jvp Right ACW permacath lungs-clear b/l heart b/l abdomen soft, + bs ext- no edema neuro- awake, alert, more oriented, moves all extremities pulses + b/l seen and examined w/ RN- telehealth visit Data 04/16/24 05:04 04/16/24 05:04 A&P Assessment and plan (1) CKD (chronic kidney disease): see below Qualifiers: Chronic kidney disease stage: stage 5, not on chronic dialysis Qualified Code(s): N18.5 - Chronic kidney disease, stage 5 Plan 68 yr old man 1. CKD stage 5- s/p permacath and HD on 04/10, 04/11/24, and 04/13, 04/15 -he has a spot TTS to start next Friday. repeat HD tomorrow 2.echo w/ ef 44%- HF mildly reduced EF, grade 1/4 diastolic dysfunction 3. bp -monitor w/ arb, coreg. hold amlodipine. BP improving w/ HD 4. metabolic acidosis- improved w/ hd. 5. anemia- he has a high iron sat- no iv iron - spep noted, sife pending ,- folate low- give po 6. renal bone mineral metabolism-start Zemplar w/ dialysis for secondary hyperparathyroidism -hold phos binder 7. pt states that he wants to continue on dialysis. He does not want dialysis seen and examined w/ RN- telehealth visit informed consent for telehealth obtained from pt Attestations Medical Necessity Statement*: esrd, anemia Time Spent in Patient Care: 16 - 35 minutes Coding Level of Care Code Acute Code for Chg Fwd Diagnoses Stage 5 chronic kidney disease not on chronic dialysis N18.5 Chronic kidney disease stage: stage 5, not on chronic dialysis
--- NOTE | 2024-04-16 14:09 | P.PN_ITS ---
Subjective 2 Subjective: No acute events overnight. Has remained medically stable and afebrile. Denies any new complaints. Underwent dialysis yesterday which she tolerated well. Vitals/I&O/Wt Last Vital Signs Temp 98.3 F 04/16/24 12:00 Pulse 70 04/16/24 12:00 Resp 14 04/16/24 12:00 BP 143/66 04/16/24 12:00 Pulse Ox 99 04/16/24 12:00 O2 Del Method Room Air 04/16/24 12:00 04/15/24 04/16/24 04/16/24 22:59 06:59 14:59 Intake Total 120 / 860 480 / 480 Output Total 100 / 1442 100 / 1542 Balance -100 / -702 20 / -682 480 / 480 Weight last 48 hrs Weight 64.8 kg Weight 66.253 kg Physical Exam 2 Narrative: General: Alert oriented x3, patient seen laying in bed breathing comfortably on room air. HEENT: Normocephalic, atraumatic, EOMI, Cardio: Regular rate rhythm, normal S1-S2 Respiratory: Clear to auscultation bilaterally. No rhonchi GI: Abdomen soft, nontender, nondistended, bowel sounds + Extremities: No edema bilateral lower extremities Data 04/16/24 05:04 04/16/24 05:04 A&P Assessment and plan (1) ESRD needing dialysis: MIKHAIL on CKD. Patient was on dialysis before but discontinued because of loss of insurance. Post temporary dialysis catheter placement. Appreciate nephrology recommendations. Received 2 cycles of dialysis. Plan for holding over the weekend to assess further requirement of dialysis 2 days or 3 days a week. Monitor urine output. Medical reconciliation done for nephrotoxic drugs. (2) CKD (chronic kidney disease): Qualifiers: Chronic kidney disease stage: stage 5, not on chronic dialysis Qualified Code(s): N18.5 - Chronic kidney disease, stage 5 (3) Hypertension: Goal blood pressure less than 140/90 mmHg. Continue with home dose of amlodipine. Blood pressure still elevated. Add losartan 50 mg oral daily. If needed will add hydralazine as for goal blood pressures. (4) Cardiomyopathy: Last echocardiogram shows an EF of 43%, grade 1 diastolic dysfunction with mildly elevated filling pressures with echocardiogram showing improvement in EF of 32 to 43%. Last myocardial perfusion scan showed small sized perfusion abnormality of mild severity of mild to apical inferior, mild to apical inferior lateral wall at rest with subtle reversibility in the apical lateral wall. Patient denies any current chest pain. Appreciate recent A1c, check lipid panel. Start on aspirin 81 mg daily, atorvastatin 40 mg daily. Depending on the heart rate we will plan to add low-dose beta-[place] within next 24 hours. (5) Diabetes: History of type 2 diabetes mellitus. Currently A1c of 4.7. Hold off on any further treatment. Qualifiers: Diabetes mellitus type: type 2 Diabetes mellitus terminal block assembler insulin use: without terminal block assembler use Diabetes mellitus complication status: without complication Qualified Code(s): E11.9 - Type 2 diabetes mellitus without complications (6) Acute kidney failure: Plan Anemia: Most likely anemia of chronic disease. Appreciate iron panel, check vitamin B12 folate level. Post epidural in the morning today. Start on oral iron supplementation. Full code Renal dialysis diet Heparin 5000 every 12 hourly for DVT prophylaxis Plan for the day: CMP stable. Appreciate nephrology recommendations. Repeat dialysis in a.m. Monitor CMP. Patient has received dialysis chair time on Friday, and Friday which will only start next week. Discharge plan: Plan to discharge home with possible home health and transportation for twice a week dialysis after dialysis tomorrow as chair time only starts next week. Attestations 2 Medical Necessity Statement*: Requires further hospitalization while outpatient dialysis chair time is awaited in a patient with new hemodialysis for end-stage renal disease Diagnoses ESRD needing dialysis N18.6; Z99.2 Stage 5 chronic kidney disease not on chronic dialysis N18.5 Chronic kidney disease stage: stage 5, not on chronic dialysis Hypertension I10 Cardiomyopathy I42.9 Type 2 diabetes mellitus without complication, without long-term current use of insulin E11.9 Diabetes mellitus type: type 2 Diabetes mellitus terminal block assembler insulin use: without retirement use Diabetes mellitus complication status: without complication Acute kidney failure N17.9
[2024-04-16] MEDS: atorvastatin 40 mg Tablet PO (20:36)
[2024-04-17 04:00] VITALS: BP 155/73; PULSE 69; RESP 17; TEMP 36.9; O2SAT 99
[2024-04-17] MEDS: heparin 5,000 unit/mL INJ 1 mL 5000 UNIT SUBCUT (04:05)
[2024-04-17 06:18] LABS: Alanine Aminotransferase 11 U/L (0-41); Albumin Level 3.7 g/dL (3.5-5.2); Alkaline Phosphatase 77 U/L (40-130); Anion Gap 17.8 (5-19); Aspartate Amino Transferase 14 U/L (0-40); Blood Urea Nitrogen 64 mg/dL (8-23); Calcium 8.7 mg/dL (8.5-10.5); Carbon Dioxide 25 mmol/L (22-29); Chloride 100 mmol/L (98-107); Creatinine Clr Calc Pharmacy 13.0072; Globulin 2.3 g/dL (1.3-4.6); Glomerular Filtration Rate 10.9 mL/min (90-130); Glucose 109 mg/dL (65-115); Osmolality Calculated 305 mOsm/kg (285-295); Phosphorus 4.6 mg/dL (2.5-4.5); Potassium 4.8 mmol/L (3.5-5.1); Sodium 138 mmol/L (136-145); Total Bilirubin 0.2 mg/dL (0.15-1.2)
[2024-04-17 07:44] VITALS: BP 146/65; PULSE 69; RESP 17; TEMP 36.7; O2SAT 99
[2024-04-17 08:57] VITALS: BP 146/65
[2024-04-17] MEDS: aspirin 81 mg EC Tablet PO (08:57)
[2024-04-17] MEDS: ferrous gluconate 324 mg Tablet PO (08:57)
[2024-04-17] MEDS: folic acid 1 mg Tablet PO (08:57)
[2024-04-17] MEDS: losartan 50 mg Tablet PO (08:57)
[2024-04-17] MEDS: carvedilol 6.25 mg Tablet PO (08:57)
[2024-04-17] MEDS: b-complex-vitamin c Tablet 1 EACH PO (08:58)
[2024-04-17] MEDS: epoetin alfa 10,000 unit/mL INJ 10000 UNIT SUBCUT (10:11)
[2024-04-17] MEDS: heparin, porcine 1,000 unit/mL INJ 10 mL 10000 UNIT HE (10:12)
[2024-04-17] MEDS: heparin, porcine 1,000 unit/mL INJ 10 mL 10000 UNIT INTRACATH (10:13)
--- NOTE | 2024-04-17 11:10 | PM.PN ---
Subjective Subjective: seen on dialysis, feels well. no n/v/f/c/garcia/d Medications: Reviewed: Yes Medication Review Details: Current Medications Acetaminophen (Acetaminophen 325 Mg Tablet) 650 mg PO Q6H PRN PRN Reason: Mild/Mod Pain Or Temp >/= 101 Aspirin (Aspirin 81 Mg Ec Tablet) 81 mg PO DAILY [facility] Last Admin: 04/17/24 08:57 Dose: 81 mg Atorvastatin Calcium (Atorvastatin 40 Mg Tablet) 40 mg PO BEDTIME [facility] Last Admin: 04/16/24 20:36 Dose: 40 mg Carvedilol (Carvedilol 6.25 Mg Tablet) 6.25 mg PO BID [facility] Last Admin: 04/17/24 08:57 Dose: 6.25 mg Epoetin Shashi (Epoetin Shasih 10,000 Unit/Ml Inj) 10,000 unit SUBCUT DIALYSIS [facility] Last Admin: 04/17/24 10:11 Dose: 10,000 unit Ferrous Gluconate (Ferrous Gluconate 324 Mg Tablet) 324 mg PO BIDWM [facility] Last Admin: 04/17/24 08:57 Dose: 324 mg Folic Acid (Folic Acid 1 Mg Tablet) 1 mg PO DAILY [facility] Last Admin: 04/17/24 08:57 Dose: 1 mg Heparin Sodium (Porcine) (Heparin 5,000 Unit/Ml Inj 1 Ml) 5,000 unit SUBCUT Q12H [facility] Last Admin: 04/17/24 04:05 Dose: 5,000 unit Sodium Chloride (Sodium Chloride 0.9%) 1,000 mls @ 0 mls/hr IV .Q0M PRN PRN Reason: hypotension or symptomatic Losartan Potassium (Losartan 50 Mg Tablet) 50 mg PO DAILY [facility] Last Admin: 04/17/24 08:57 Dose: 50 mg Multivitamins (E-Ijbxbny-Yggnlyh C Tablet) 1 each PO DAILY [facility] Last Admin: 04/17/24 08:58 Dose: 1 each Ondansetron HCl (Ondansetron 2 Mg/Ml Sdv 2 Ml) 4 mg IVP Q8H PRN PRN Reason: vomiting, or N/V if npo Paricalcitol (Paricalcitol 2 Mcg/Ml Sdv 1 Ml) 2 mcg IV DIALYSIS [facility] Last Admin: 04/16/24 10:23 Dose: Not Given Vitals/I&O/Wt Last Vital Signs Temp 98.1 F 04/17/24 07:44 Pulse 69 04/17/24 07:44 Resp 17 04/17/24 07:44 BP 146/65 04/17/24 08:57 Pulse Ox 99 04/17/24 07:44 O2 Del Method Room Air 04/17/24 07:44 04/16/24 04/17/24 04/17/24 22:59 06:59 14:59 Intake Total 120 / 120 Output Total 350 / 350 400 / 750 Balance -350 / 130 -400 / -270 120 / 120 Weight last 48 hrs Weight 68.538 kg Weight 64.8 kg Physical Exam Narrative: comfortable , NARD vs stable heent- nc/at, eomi, anicteric neck no jvp Right ACW permacath lungs-clear b/l heart b/l abdomen soft, + bs ext- no edema neuro- awake, alert, oriented, moves all extremities pulses + b/l seen and examined w/ RN- telehealth visit Data 04/16/24 05:04 04/17/24 05:41 A&P Assessment and plan (1) CKD (chronic kidney disease): see below Qualifiers: Chronic kidney disease stage: stage 5, not on chronic dialysis Qualified Code(s): N18.5 - Chronic kidney disease, stage 5 Plan 68 yr old man 1. CKD stage 5- s/p permacath and HD on 04/10, 04/11/24, and 04/13, 04/15 -he has a spot TTS to start next Friday. -on hd now 3 hrs, 2 k 2.echo w/ ef 44%- HF mildly reduced EF, grade 1/4 diastolic dysfunction 3. bp -monitor w/ arb, coreg. BP improving w/ HD and meds. decrease EDW as tolerated 4. anemia- he has a high iron sat- no iv iron - spep noted, sife pending - folate low- give po 5. renal bone mineral metabolism-start Zemplar w/ dialysis for secondary hyperparathyroidism -hold phos binder seen and examined w/ RN- telehealth visit informed consent for telehealth obtained from pt Attestations Medical Necessity Statement*: esrd - hd now Time Spent in Patient Care: 16 - 35 minutes Coding Level of Care Code Acute Code for Chg Fwd Diagnoses Stage 5 chronic kidney disease not on chronic dialysis N18.5 Chronic kidney disease stage: stage 5, not on chronic dialysis
--- NOTE | 2024-04-17 12:17 | PM.DCS ---
Discharge Providers Date of Admission: 04/10/24 04:00 Date of Discharge: April 17, 2024 Attending Provider at Admission: Laxmi Herring MD Attending Provider at Discharge: Kyree Donovan MD Consults: Tele nephrology Surgery: Dr. Wayne Biswas Diagnoses at Discharge Discharge Diagnosis (1) CKD (chronic kidney disease): Status: Chronic Qualifiers: Chronic kidney disease stage: stage 5, not on chronic dialysis Qualified Code(s): N18.5 - Chronic kidney disease, stage 5 (2) Hypertension: Status: Acute (3) Cardiomyopathy: Status: Acute (4) ESRD needing dialysis: Status: Acute Permanent problem details: Hemodialysis started 02/23 (5) Poor social situation: Status: Acute Reason for Visit Reason for Visit: N/V, Sent from [facility] Brief History: History as per HPI: Rboert Montano is a 68 year old male With past medical history end-stage renal disease previously on dialysis and then stopped, diabetes, hypertension, history of COVID-19 presented to the hospital today with complaint of nausea vomiting and lightheadedness. He says he has been off balance and not steady. Denies fevers, abdominal pain, chest pain, shortness of breath, cough. He has been off dialysis for 6 months. He says since his bilirubin normalized and has a very distinct smell of his urine. No altered mental status no focal motor deficits. Hospital Course Hospital Course Patient was admitted to the hospital further evaluation and management with concerns for renal failure. Surgery was consulted and tunneled catheter was placed. Nephrology was consulted and started on hemodialysis. On further review it seems patient was on dialysis in the past but had been off because of financial constraints and was transitioned to hospice. After further goals of care discussion patient did not want to go ahead with hospice and wanted to pursue further dialysis. Outpatient chair time has been arranged. He has been discharged in hemodynamically stable condition advised to follow-up with outpatient dialysis 3 times a week. His antihypertensives have been adjusted. Physical Exam Narrative: General: Alert oriented x3, patient seen laying in bed breathing comfortably on room air. HEENT: Normocephalic, atraumatic, EOMI, Cardio: Regular rate rhythm, normal S1-S2 Respiratory: Clear to auscultation bilaterally. No rhonchi GI: Abdomen soft, nontender, nondistended, bowel sounds + Extremities: No edema bilateral lower extremities Discharge Data Studies Completed and Pending Completed Studies During Hospitalization Category Date Time Status CT head wo con* [id number] Stat Cat Scan 04/09/24 21:50 Completed XR chest 1V portable [id number] Routine Exams 04/10/24 10:22 Completed XR chest 1V portable [id number] Stat Exams 04/10/24 04:50 Completed CV. echo complete* [id number] Routine Ultrasound 04/10/24 03:56 Completed US renal BI* [id number] Routine Ultrasound 04/10/24 03:56 Completed Pending at discharge Category Date Time Status Comprehensive Metabolic Panel AM LABS Lab 04/18/24 04:00 Ordered Immunofixation Serum Routine Lab 04/13/24 07:53 Received Phosphorus AM LABS Lab 04/18/24 04:00 Ordered Radiology Impressions Head CT 04/09/24 21:50 IMPRESSION: 1. No acute intracranial pathology. 2. Senescent changes. Renal Ultrasound 04/10/24 03:56 IMPRESSION: 1. Bilateral small echogenic kidneys suggestive of chronic renal medical parenchymal disease. 2. No hydronephrosis on either side. Simple cyst in the left kidney. C-Arm Fluoroscopy 04/10/24 07:41 IMPRESSION: Intraoperative imaging during dialysis catheter placement. Chest X-Ray 04/10/24 10:22 IMPRESSION: Right internal jugular dialysis catheter in satisfactory position with no complications. Laboratory Results WBC 6.97 10^3/uL (3.29-11.43) 04/16/24 05:04 RBC 2.95 10^6/uL (3.85-5.65) L 04/16/24 05:04 Hgb 8.80 g/dL (11.27-16.99) L 04/16/24 05:04 Hct 28.3 % (37-53) L 04/16/24 05:04 MCV 95.9 fl (82-101) 04/16/24 05:04 MCH 29.8 pg (27-33) 04/16/24 05:04 MCHC 31.1 g/dL (30-55) 04/16/24 05:04 RDW 15.9 % (12.1-15.1) H 04/16/24 05:04 Plt Count 185 10^3/cmm (157-399) 04/16/24 05:04 MPV 9.9 fL (7.4-10.4) 04/16/24 05:04 Neut % (Auto) 63.6 % 04/16/24 05:04 Lymph % (Auto) 20.1 % 04/16/24 05:04 [place] % (Auto) 9.8 % 04/16/24 05:04 Eos % (Auto) 5.3 % 04/16/24 05:04 Baso % (Auto) 0.9 % 04/16/24 05:04 Neut # (Auto) 4.44 10^3/uL (1.8-7.7) 04/16/24 05:04 Lymph # (Auto) 1.4 10^3/uL (0.8-4.8) 04/16/24 05:04 [place] # (Auto) 0.7 10^3/uL (0.2-0.9) 04/16/24 05:04 Eos # (Auto) 0.4 10^3/uL (0.0-0.8) 04/16/24 05:04 Baso # (Auto) 0.1 10^3/uL (0.0-0.1) 04/16/24 05:04 Nucleated RBC % (auto) 0 % 04/16/24 05:04 Nucleated RBCs # 0.0 /100WBC 04/16/24 05:04 PT 13.60 SECONDS (12.1-14.9) 04/09/24 23:15 INR 1.01 (0.8-1.2) 04/09/24 23:15 APTT 25.1 SECONDS (23.9-36.7) 04/09/24 23:15 Specimen Type Venous 04/10/24 04:22 Sample Site Radial, right 04/10/24 04:22 ABG pH 7.23 (7.35-7.45) L 04/10/24 04:22 ABG pCO2 43.1 mmHg (35-45) 04/10/24 04:22 ABG pO2 28.2 mmHg (80.0-100.0) L* 04/10/24 04:22 ABG PO2/FiO2 Ratio 0 04/10/24 04:22 ABG HCO3 18.1 mmol/L (22-26) L 04/10/24 04:22 ABG O2 Saturation 50.2 04/10/24 04:22 ABG Base Excess -8.9 mmol/L (-2.0-2.0) L 04/10/24 04:22 Yusuf Test Pos 04/10/24 04:22 A-a O2 Gradient Not Reportable 04/10/24 04:22 Hematocrit 26.1 % (42-52) L 04/10/24 04:22 Hgb O2 Saturation 49.4 % (95-100) L 04/10/24 04:22 Carboxyhemoglobin 1.1 %THgb (0.4-20.1) 04/10/24 04:22 Methemoglobin 0.7 % (0.4-1.5) 04/10/24 04:22 Total Hemoglobin 8.5 g/dL (14-18) L 04/10/24 04:22 Sodium 146.0 mmol/L (131-143) H 04/10/24 04:22 Potassium 4.6 mmol/L (3.5-5.0) 04/10/24 04:22 Glucose 168.0 mg/dL (70-115) H 04/10/24 04:22 Ionized Calcium 1.1 mmol/L (1.1-1.4) 04/10/24 04:22 O2 Delivery Device None 04/10/24 04:22 FiO2 21.0 % 04/10/24 04:22 Gear Lapping Machine Operator ID [email or web address] 04/10/24 04:22 Sodium 138 mmol/L (136-145) 04/17/24 05:41 Potassium 4.8 mmol/L (3.5-5.1) 04/17/24 05:41 Chloride 100 mmol/L (98-107) 04/17/24 05:41 Carbon Dioxide 25 mmol/L (22-29) 04/17/24 05:41 Anion Gap 17.8 (5-19) 04/17/24 05:41 BUN 64 mg/dL (8-23) H 04/17/24 05:41 Creatinine 5.3 mg/dL (0.7-1.2) H 04/17/24 05:41 GFR Calculation 10.9 mL/min (90-130) L 04/17/24 05:41 Glucose 109 mg/dL (65-115) 04/17/24 05:41 Estimat Average Glucose 88 04/09/24 23:15 Hemoglobin A1c 4.7 % (4.0-6.0) 04/09/24 23:15 Calculated Osmolality 305 mOsm/kg (285-295) H 04/17/24 05:41 Lactic Acid 0.9 mmol/L (0.5-2.2) 04/10/24 06:41 Uric Acid 7.5 mg/dL (3.4-7.0) H 04/09/24 23:15 Calcium 8.7 mg/dL (8.5-10.5) 04/17/24 05:41 Phosphorus 4.6 mg/dL (2.5-4.5) H 04/17/24 05:41 Magnesium 1.8 mg/dL (1.7-2.3) 04/13/24 05:07 Iron 99 ug/dL (59-158) 04/11/24 19:30 TIBC 170 mcg/dl 04/11/24 19:30 % Saturation 58.2 % (20-50) H 04/11/24 19:30 Unsat Iron Binding 71 ug/dL (112-347) L 04/11/24 19:30 Ferritin 344 ng/mL (30-400) 04/11/24 19:30 Total Bilirubin 0.2 mg/dL (0.15-1.2) 04/17/24 05:41 AST 14 U/L (0-40) 04/17/24 05:41 ALT 11 U/L (0-41) 04/17/24 05:41 Alkaline Phosphatase 77 U/L (40-130) 04/17/24 05:41 C-Reactive Protein 3.0 mg/L (0.0-4.9) 04/09/24 23:15 Total Protein 6.0 g/dL (6.6-8.7) L 04/17/24 05:41 Albumin 3.7 g/dL (3.5-5.2) 04/17/24 05:41 Globulin 2.3 g/dL (1.3-4.6) 04/17/24 05:41 Jseih-4-Bnspzqmcc 0.3 g/dL (0.2-0.3) 04/13/24 05:07 Uodey-9-Nwiaqngth 0.7 g/dL (0.5-0.9) 04/13/24 05:07 Jmfn-5-Gvvxmcww 0.3 g/dL (0.4-0.6) L 04/13/24 05:07 Fpkh-2-Gyxvuoli 0.3 g/dL (0.2-0.5) 04/13/24 05:07 Gamma Globulins 0.6 g/dL (0.8-1.7) L 04/13/24 05:07 Abnorm Protein Band 1 Not Reportable 04/13/24 05:07 25-OH Vitamin D Total 26 ng/mL (30-100) L 04/09/24 23:15 Folate 3.6 ng/mL (4.5-32.2) L 04/13/24 05:07 TSH 3.00 uIU/mL (0.27-4.20) 04/09/24 23:15 PTH Intact 387.7 pg/mL (15-65) H 04/09/24 23:15 Calcium (PTH Intact) 7.7 mg/dL (8.5-10.5) L 04/09/24 23:15 Urine Color Yellow (Yellow) 04/12/24 20:24 Urine Appearance Clear (CLEAR) 04/12/24 20:24 Urine pH 7 (5-7) 04/12/24 20:24 Ur Specific [place] 1.005 (1.005-1.030) 04/12/24 20:24 Urine Protein 1+ (Negative) H 04/12/24 20:24 Urine Glucose (UA) 2+ (Normal) H 04/12/24 20:24 Urine Ketones Negative (Negative) 04/12/24 20:24 Urine Blood Neg (Negative) 04/12/24 20:24 Urine Nitrate Negative (Negative) 04/12/24 20:24 Urine Bilirubin Neg (Negative) 04/12/24 20:24 Urine Urobilinogen Neg mg/dL (Negative) 04/12/24 20:24 Ur Leukocyte Esterase Negative (Negative) 04/12/24 20:24 Urine RBC 0-4 /hpf (0-2) H 04/12/24 20:24 Urine WBC 0-4 /hpf (0-5) H 04/12/24 20:24 Ur Squamous Epith Cells 0-4 /hpf (0-5) H 04/12/24 20:24 Amorphous Sediment Not Reportable 04/12/24 20:24 Urine Bacteria 1+ /hpf (NONE) H 04/12/24 20:24 Urine Mucus Trace /hpf 04/12/24 20:24 Urine Sperm 1+ /hpf 04/12/24 20:24 U Abnormal Prot Band 2 Not Reportable 04/13/24 05:07 U Abnormal Prot Band 3 Not Reportable 04/13/24 05:07 Pro Electrophoresis Int See note 04/13/24 05:07 Hep Bs Antigen Non-reactive (Nonreactive) 04/10/24 03:15 Hep Bs Antibody 25.7 (11.5-1000) 04/10/24 03:15 Hep B Core Total Ab Non-reactive (Nonreactive) 04/10/24 03:15 Hepatitis C Antibody Non-reactive (Nonreactive) 04/09/24 23:15 Vitals Last Vital Signs Temp 98.1 F 04/17/24 07:44 Pulse 69 04/17/24 07:44 Resp 17 04/17/24 07:44 BP 146/65 04/17/24 08:57 Pulse Ox 99 04/17/24 07:44 O2 Del Method Room Air 04/17/24 07:44 Discharge Plan Discharge Patient Disposition: Home Condition: Stable Prescriptions: New aspirin 81 mg Tablet,Delayed Release (Dr/Ec) 81 mg PO DAILY Qty: 30 0RF atorvastatin 40 mg Tablet 40 mg PO BEDTIME Qty: 30 0RF ferrous gluconate 324 mg (37.5 mg iron) Tablet 324 mg PO BIDWM Qty: 60 0RF carvedilol 6.25 mg Tablet 6.25 mg PO BID Qty: 60 0RF losartan 50 mg Tablet 50 mg PO DAILY Qty: 30 0RF folic acid 1 mg Tablet 1 mg PO DAILY Qty: 30 0RF Continued red yeast rice 600 mg capsule 600 mg PO DAILY Rx Instructions: give with meal/snack colloidal minerals 1 dose as directed DAILY cholecalciferol (vitamin D3) 125 mcg (5,000 unit) capsule 125 mcg PO DAILY 30 Days Qty: 30 1RF cetirizine 10 mg tablet 10 mg PO DAILY PRN (Reason: ALLERGIES) ketorolac 0.5 % drops 1 drp ophthalmic (eye) QID Discontinued diltiazem HCl 60 mg capsule,extended release 12 hr 60 mg PO BID Discharge Orders: Discharge Order (Routine); Ordered 04/17/24 Ordered By: Kyree Donovan Referrals: [facility] [Other] - 04/20/24 6:45 am (Medicaid rides have been setup on ,Th,Sat from 04/20/24-07/15/24. You will be picked up at home at 5:30a-6:15am, they will take you to your HemoDialysis appointments & pick you up there at 1100 & take you back home.) [facility]TM- Medicaid Transport [Other] Ron Galvez MD [Physician] - 04/28/24 10:35 am Hamilton Rosales [Referring] - 04/20/24 1:40 pm Discharge Diet: Usual diet and As Directed Discharge Activity: Resume usual activity and Increase activity as tolerated Patient Instructions: Dialysis Diet (DC), Hemodialysis (DC), Opioid Safety Activity Restrictions/Additional Instructions: Renal dialysis diet Goal BP less than 140/90 mmhg. Follow up with dialysis on set appointment. For blood pressures going forward take losartan 50 mg daily, Coreg 6.25 mg twice daily. Discharge Attestations Time Spent in Discharge Care*: greater than 30 min Specific Discharge Activities: educating patient, discussing with pcp/other providers, discussing with bilingual case manager/social workers/dc planners, documenting/other paperwork and evaluating patient/reviewing data Status at Discharge: Cognitive status at discharge: cognitively intact, Behavioral status at discharge: cooperative, Functional status at discharge: uses cane/walker, Overall status at discharge: patient is progressing back to baseline Quality Metrics Clinical Quality Measures [ No reported AMI, CVA or VTE this stay] Coding Level of Care Code 85425 Total time (in minutes) for Discharge: 60 Diagnoses Stage 5 chronic kidney disease not on chronic dialysis N18.5 Chronic kidney disease stage: stage 5, not on chronic dialysis Hypertension I10 Cardiomyopathy I42.9 ESRD needing dialysis N18.6; Z99.2 Poor social situation Z65.9
[2024-04-17 12:52] VITALS: BP 142/70; PULSE 70; RESP 18; TEMP 36.9
[2024-04-17 15:20] VITALS: BP 102/60; PULSE 57; RESP 18; TEMP 36.9
[2024-04-17 15:44] VITALS: BP 146/65; PULSE 69; RESP 16; TEMP 36.7; O2SAT 99
--- NOTE | 2024-04-17 16:20 | PC.NURSE ---
Late Entry: Pt was alert and oriented at the time of discharge. Nurse and dr provided patient with verbal safety education and encouraged him to have someone drive him home. Patient was very adamant about driving himself home and not wanting anyone to touch him or take him home. Nurse called primary contact number in chart to see if someone could come get him with no answer. Pt demanded to be put in a wheelchair and taken to his car. Nurse educated him on new medications and discharge information before leaving.
[2024-04-17 19:20] LABS: Immunofixation Serum Normal pattern.
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
== END 2024-04-17 14:45 | disposition home or self-care (01) | DRG 674 ==
LOC: ER 04-10 04:00 → MEDSURG 04-10 04:21
PROVIDERS: Emergency Medicine; Internal Medicine Nephrology; Surgery; Admitting Provider Internal Medicine; Emergency Provider Emergency Medicine; Visit Provider Student in an Organized Health Care Education/Training Program
PROC: 0JH63XZ Insertion of Tunneled Vascular Access Device into Chest Subcutaneous Tissue and Fascia, Percutaneous Approach (ICD-10-PCS; principal; 2024-04-10 07:40)
DX: N17.9 Acute kidney failure, unspecified (principal); E87.20 Acidosis, unspecified; I12.0 Hypertensive chronic kidney disease with stage 5 chronic kidney disease or end stage renal disease; I25.5 Ischemic cardiomyopathy; Z99.2 Dependence on renal dialysis; Z91.190 Patient's noncompliance with other medical treatment and regimen due to financial hardship; E11.22 Type 2 diabetes mellitus with diabetic chronic kidney disease; E21.3 Hyperparathyroidism, unspecified; D63.1 Anemia in chronic kidney disease; I95.1 Orthostatic hypotension; Z86.718 Personal history of other venous thrombosis and embolism; N18.6 End stage renal disease
CPT/HCPCS: 36415; 36600; 70450; 71045; 76000; 76770; 77001; 80051; 80053; 81001; 82306; 82310; 82330; 82728; 82746; 82805; 83036; 83540; 83550; 83605; 83735; 83970; 84100; 84155; 84165; 84443; 84550; 85025; 85610; 85730; 86140; 86334; 86705; 86706; 86803; 87040; 87340; 90935; 93005; 93306; 94664; 96360; 96372; 97116; 97161; 97530; 99285; J0360; J0690; J1644; J2704; J3010; J7030; J7120; Q3014; Q4081

== ENCOUNTER 2024-04-17 15:36 | Observation (INO) | payer MEDICARE, MEDICAID, SELFPAY ==
[2024-04-17] VITALS (7 sets, daily range): BP systolic 107–152; BP diastolic 49–78; PULSE 67–75; RESP 15–18; TEMP 36.6–37; O2SAT 96–99
--- NOTE | 2024-04-17 15:41 | XRR_ITS ---
PROCEDURE INFORMATION: Exam: XR Chest Exam date and time: 04/17/2024 3:52 PM Age: 68 years old Clinical indication: Cough and dyspnea; Prior surgery; Surgery date: 3-7 days post-operative; Patient HX: Dyspnea; Cough; AMS; Esrd; RT dialysis cath placement x 1 week ago TECHNIQUE: Imaging protocol: Radiologic exam of the chest. Views: 1 view. COMPARISON: CR (CHEST, ) 04/10/2024 10:25 AM FINDINGS: Lungs: No focal consolidation. Pleural spaces: No evidence of pneumothorax. No evidence of pleural effusion. Heart/Mediastinum: Cardiomediastinal silhouette is within normal limits. Right-sided dialysis catheter in place with tip in the region of the right atrium. There appears to be mild kinking of the catheter Bones/joints: No evidence of acute osseous abnormality. XR/XR chest 1V portable [id number] IMPRESSION: 1. No acute cardiopulmonary abnormality. 2. Right-sided dialysis catheter in place with tip in the region of the right atrium. There appears to be mild kinking of the catheter
--- NOTE | 2024-04-17 15:41 | ECG_ITS ---
[facility] Test Date: 2024-04-17 Pat Name: Robert Montano Department: Room: Gender: Male Site Worker: : 1955 Requested By: Wilmer Garcia Order Number: [id number] Walt MD: Dakota Denson M.D. Measurements Intervals [place] Rate: 73 P: 23 [place]: 144 QRS: 9 QRSD: 101 T: 102 QT: 410 QTc: 453 Interpretive Statements SINUS RHYTHM ST DEVIATION AND MODERATE T-WAVE ABNORMALITY, CONSIDER LATERAL ISCHEMIA [-0.1+ mV T-WAVE IN I/aVL/V5/V6] Compared to ECG 04/09/2024 22:47:23 Possible ischemia now present T-wave abnormality still present Electronically Signed On 04-18-2024 11:38:50 CDT by Dakota Denson M.D. [id number]
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
[2024-04-17 16:21] LABS: Basophils # 0.1 10^3/uL (0.0-0.1); Basophils % 0.6 %; Eosinophils # 0.2 10^3/uL (0.0-0.8); Eosinophils % 2.4 %; Hematocrit 30.4 % (37-53); Lymphocytes # 0.8 10^3/uL (0.8-4.8); Lymphocytes % 8.1 %; Mean Corpuscular HGB Conc 31.6 g/dL (30-55); Mean Corpuscular Hemoglobin 30.2 pg (27-33); Mean Corpuscular Volume 95.6 fl (82-101); Mean Platelet Volume 10.6 fL (7.4-10.4); Monocytes % 9.8 %; Neutrophils # 7.67 10^3/uL (1.8-7.7); Neutrophils % 78.7 %; Nucleated Red Blood Cells % 0 %; Platelet Count 217 10^3/cmm (157-399); Red Blood Count 3.18 10^6/uL (3.85-5.65); Red Cell Distribution Width 15.9 % (12.1-15.1); White Blood Count 9.74 10^3/uL (3.29-11.43)
[2024-04-17 16:40] LABS: Alanine Aminotransferase 12 U/L (0-41); Alkaline Phosphatase 87 U/L (40-130); Anion Gap 17.8 (5-19); Aspartate Amino Transferase 17 U/L (0-40); Blood Urea Nitrogen 40 mg/dL (8-23); Calcium 8.6 mg/dL (8.5-10.5); Carbon Dioxide 25 mmol/L (22-29); Chloride 100 mmol/L (98-107); Globulin 2.4 g/dL (1.3-4.6); Glomerular Filtration Rate 14.7 mL/min (90-130); Glucose 213 mg/dL (65-115); Osmolality Calculated 302 mOsm/kg (285-295); Potassium 4.8 mmol/L (3.5-5.1); Sodium 138 mmol/L (136-145); Total Bilirubin 0.2 mg/dL (0.15-1.2); Total Protein 6.4 g/dL (6.6-8.7)
[2024-04-17 16:45] LABS: Alcohol Level < 10 mg/dL (0-10); Creatinine Clr Calc Pharmacy 16.7642
[2024-04-17 16:47] LABS: Troponin(5th) Baseline 137 ng/L (0-15)
--- NOTE | 2024-04-17 17:32 | ECG_ITS ---
[facility] Test Date: 2024-04-17 Pat Name: Robert Montano Department: Room: Gender: Male Operation Agent: : 1955 Requested By: Wilmer Garcia Order Number: [id number] Reading MD: Dakota Denson M.D. Measurements Intervals [place] Rate: 70 P: 17 [place]: 146 QRS: 13 QRSD: 106 T: 103 QT: 418 QTc: 451 Interpretive Statements SINUS RHYTHM MODERATE T-WAVE ABNORMALITY, CONSIDER LATERAL ISCHEMIA [-0.1+ mV T-WAVE IN I/aVL/V5/V6] Compared to ECG 04/17/2024 16:17:16 No significant changes Electronically Signed On 04-18-2024 11:43:39 CDT by Dakota Denson M.D. [id number]
--- NOTE | 2024-04-17 17:32 | PC.NURSE ---
PER VERBAL ORDERS FROM DR. BHATT, THIS NURSE TRIED TO CONTACT FAMILY. PT FAMILY OUT OF STATE. PT FRIEND, JUAN KILGORE, CALLED AND A VOICEMAIL WAS LEFT FOR HIM TO CALL THE ER.
[2024-04-17 19:47] LABS: Troponin 5 2HR Delta 1.6 ABS# (0-10)
[2024-04-17 19:48] LABS: Troponin 5 2HR 138.6 ng/L (0-15)
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
--- NOTE | 2024-04-17 21:41 | ECG_ITS ---
[facility] Test Date: 2024-04-17 Pat Name: Robert Montano Department: Room: 250 Gender: Male Learning Development Specialist: : 1955 Requested By: Wilmer Garcia Order Number: [id number] Reading MD: Dakota Denson M.D. Measurements Intervals [place] Rate: 70 P: 37 KS: 138 QRS: 3 QRSD: 108 T: 118 QT: 422 QTc: 456 Interpretive Statements SINUS RHYTHM ST DEVIATION AND MODERATE T-WAVE ABNORMALITY, CONSIDER LATERAL ISCHEMIA [-0.1+ mV T-WAVE IN I/aVL/V5/V6] Compared to ECG 04/17/2024 17:32:51 No significant changes Electronically Signed On 04-18-2024 11:46:10 CDT by Dakota Denson M.D. [email or web address]
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
[2024-04-17 22:48] LABS: Troponin 5 6HR Delta -3.6 ng/L (0-12)
[2024-04-17 22:49] LABS: Troponin 5 6HR 133.4 ng/L (0-15)
[2024-04-18] VITALS (7 sets, daily range): BP systolic 140–163; BP diastolic 66–78; PULSE 63–69; RESP 15–19; TEMP 36.2–36.9; O2SAT 98–100
[2024-04-18 01:13] LABS: Vitamin B12 356 pg/mL (232-1245)
[2024-04-18 06:08] LABS: Basophils # 0.1 10^3/uL (0.0-0.1); Basophils % 0.9 %; Eosinophils # 0.3 10^3/uL (0.0-0.8); Eosinophils % 3.7 %; Hematocrit 29.3 % (37-53); Lymphocytes # 1.3 10^3/uL (0.8-4.8); Mean Corpuscular HGB Conc 31.1 g/dL (30-55); Mean Corpuscular Volume 96.7 fl (82-101); Mean Platelet Volume 11.2 fL (7.4-10.4); Monocytes # 0.7 10^3/uL (0.2-0.9); Monocytes % 8.7 %; Neutrophils % 69.4 %; Nucleated Red Blood Cells % 0 %; Platelet Count 223 10^3/cmm (157-399); Red Blood Count 3.03 10^6/uL (3.85-5.65); Red Cell Distribution Width 15.9 % (12.1-15.1); White Blood Count 7.78 10^3/uL (3.29-11.43)
[2024-04-18 06:25] LABS: Alanine Aminotransferase 11 U/L (0-41); Alkaline Phosphatase 88 U/L (40-130); Anion Gap 15.5 (5-19); Aspartate Amino Transferase 14 U/L (0-40); Blood Urea Nitrogen 51 mg/dL (8-23); Calcium 8.4 mg/dL (8.5-10.5); Carbon Dioxide 26 mmol/L (22-29); Chloride 102 mmol/L (98-107); Creatinine Clr Calc Pharmacy 15.2865; Globulin 2.3 g/dL (1.3-4.6); Glomerular Filtration Rate 13.2 mL/min (90-130); Glucose 104 mg/dL (65-115); Magnesium 2.1 mg/dL (1.7-2.3); Osmolality Calculated 302 mOsm/kg (285-295); Phosphorus 3.5 mg/dL (2.5-4.5); Potassium 4.5 mmol/L (3.5-5.1); Sodium 139 mmol/L (136-145); Total Bilirubin 0.2 mg/dL (0.15-1.2); Total Protein 6.3 g/dL (6.6-8.7)
[2024-04-18] MEDS: ferrous gluconate 324 mg Tablet PO ×2 (08:55→18:01)
[2024-04-18] MEDS: folic acid 1 mg Tablet PO (08:55)
[2024-04-18] MEDS: aspirin 81 mg EC Tablet PO (08:55)
[2024-04-18] MEDS: losartan 50 mg Tablet PO (08:55)
[2024-04-18] MEDS: carvedilol 6.25 mg Tablet PO ×2 (08:55→18:01)
--- NOTE | 2024-04-18 11:42 | PC.NURSE ---
Daughter Patients daughter called to check up on her dad. Patient gave me permission to give her information. Nell stated she lives in [place], I explained to her what was in ER report and the info [facility] nurse gave to me. I told her as soon I found out anymore information I would let her know. She also is in Healthcare.
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
--- NOTE | 2024-04-18 12:27 | PC.OT ---
OT orders received to evaluate and treat; per weekend protocol, OT evaluation to be administered on Friday, April 19.
[2024-04-18 14:31] LABS: Troponin T (5th) Once 131 ng/L (0-15)
[2024-04-18 15:47] LABS: Protein Urine 1+ (Negative); Urine Appearance Clear (CLEAR); Urine Color Yellow (Yellow); pH Urine 6 (5-7)
[2024-04-18 15:48] LABS: Add Urine Culture? No; Add Urine Microscopic? YES; Bacteria Urine TRACE /hpf; Bilirubin Urine Neg (Negative); Blood Urine Neg (Negative); Glucose Urine UA 1+ (Normal); Ketones Urine Negative (Negative); Leukocyte Esterase Urine Negative (Negative); Nitrate Urine Negative (Negative); Transitional Epi Cells Urine RARE /hpf; Urobilinogen Urine Norm (Negative)
[2024-04-18 15:52] LABS: Amphetamines Screen Urine Negative (Negative); Barbiturates Screen Urine Negative (Negative); Benzodiazepines Screen Urine Negative (Negative); Cocaine Screen Urine Negative (Negative); Opiate Screen Urine Negative (Negative); PCP Screen Urine Negative (Negative); THC Screen Urine Negative (Negative)
[2024-04-18] MEDS: atorvastatin 40 mg Tablet PO (20:07)
[2024-04-19 04:00] VITALS: BP 143/72; PULSE 65; RESP 15; TEMP 36.7; O2SAT 99
[2024-04-19 05:09] LABS: Basophils # 0.1 10^3/uL (0.0-0.1); Basophils % 1.2 %; Eosinophils # 0.3 10^3/uL (0.0-0.8); Eosinophils % 4.4 %; Hematocrit 28.3 % (37-53); Lymphocytes # 1.8 10^3/uL (0.8-4.8); Lymphocytes % 22.5 %; Mean Corpuscular HGB Conc 30.7 g/dL (30-55); Mean Corpuscular Hemoglobin 30.1 pg (27-33); Mean Corpuscular Volume 97.9 fl (82-101); Monocytes # 0.8 10^3/uL (0.2-0.9); Monocytes % 9.7 %; Neutrophils # 4.81 10^3/uL (1.8-7.7); Neutrophils % 61.8 %; Nucleated Red Blood Cells % 0 %; Platelet Count 219 10^3/cmm (157-399); Red Blood Count 2.89 10^6/uL (3.85-5.65); White Blood Count 7.77 10^3/uL (3.29-11.43)
[2024-04-19 05:24] LABS: Alanine Aminotransferase 11 U/L (0-41); Albumin Level 3.8 g/dL (3.5-5.2); Alkaline Phosphatase 79 U/L (40-130); Anion Gap 16.5 (5-19); Aspartate Amino Transferase 13 U/L (0-40); Blood Urea Nitrogen 61 mg/dL (8-23); Calcium 8.3 mg/dL (8.5-10.5); Carbon Dioxide 23 mmol/L (22-29); Chloride 101 mmol/L (98-107); Creatinine Clr Calc Pharmacy 13.6833; Globulin 2.1 g/dL (1.3-4.6); Glomerular Filtration Rate 11.7 mL/min (90-130); Glucose 103 mg/dL (65-115); Osmolality Calculated 300 mOsm/kg (285-295); Potassium 4.5 mmol/L (3.5-5.1); Sodium 136 mmol/L (136-145); Total Bilirubin 0.2 mg/dL (0.15-1.2); Total Protein 5.9 g/dL (6.6-8.7)
[2024-04-19 07:52] VITALS: BP 158/80; PULSE 63; RESP 18; TEMP 36.6; O2SAT 98
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
[2024-04-19] MEDS: ferrous gluconate 324 mg Tablet PO ×2 (08:17→17:57)
[2024-04-19] MEDS: folic acid 1 mg Tablet PO (08:17)
[2024-04-19] MEDS: losartan 50 mg Tablet PO (08:17)
[2024-04-19] MEDS: carvedilol 6.25 mg Tablet PO ×2 (08:17→17:57)
[2024-04-19] MEDS: aspirin 81 mg EC Tablet PO (08:17)
--- NOTE | 2024-04-19 09:13 | PC.CHAP ---
Pastoral Care Encounter/Spiritual Assessment Type of Contact [] Declined dragger out visit [] Patient/Family/Request visit [] Outpatient visit [] Follow-up visit [] Physician referral [] Code/Alert [x] Routine visit [] Staff referral [] Actively dying [] Patient sleeping [] Family support [] [] Out of room [] Palliative care [] [x] Receiving care in room [] Pre-surgical visit [] Trauma [] Long length of stay [] ICU visit [] Other: Relational/Emotional Strength [] Patient feels connected with others/family/visitors/staff [] Distress [] Loneliness/isolation [] Abandonment Spirituality of Patient [] Person of Twila [] Attends Yazidism of their Twila [] Believes in Prayer [] Reads Bible or Buddhist materials [] There are Spiritual issues to be addressed Patrol Guard Interventions [x] Prayer [] Active listening [] Non-anxious presence [] Spiritual/emotional support [] Crisis/trauma care [] Spiritual counseling [] Bereavement support [] Provided bereavement packet [] Provided Bible/devotional materials [] Provided toy/stuffed animal, coloring book to patient or family member [] Provided Communion [] Anointing/[place] [] Salvation [] Completed spiritual assessment [] Other: Impact on Illness or Injury [] Angry [] Fearful [] Anxious [] Often cries [] Exhaustion [] Unable to work [] Unable to attend protestant [] Unable to walk/stand [] Unable to read [] Unable to drive [] Unable to eat/drink [] Unable to sleep [] Unable to be with family [] Patient intubated [] Other: Summary Time spent with patient
--- NOTE | 2024-04-19 09:33 | PC.PHAR ---
PT ALTERED AND AGREED TO TAKING ALL HIS MEDICATIONS-VERIFIED WITH [facility] [place] [facility] WITH LAST FILL DATES.
--- NOTE | 2024-04-19 09:54 | PC.NURSE ---
notified hospitalist Pt refused her amlodipine this morning and she said she does not take the 25 mg of Metoprolol at night anymore coz her BP gets too low and her PCP said to dc it.
[2024-04-19 12:37] VITALS: BP 149/73; PULSE 65; RESP 20; TEMP 36.7; O2SAT 100
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
[2024-04-19 17:30] VITALS: BP 157/71; PULSE 63; RESP 18; TEMP 36.7; O2SAT 98
[2024-04-19 20:00] VITALS: BP 137/61; PULSE 66; RESP 20; TEMP 36.9; O2SAT 97
[2024-04-19] MEDS: atorvastatin 40 mg Tablet PO (21:06)
[2024-04-20] VITALS (9 sets, daily range): BP systolic 124–159; BP diastolic 61–79; PULSE 17–67; RESP 16–67; TEMP 36.2–36.9; O2SAT 97–99
[2024-04-20 04:39] LABS: Basophils # 0.1 10^3/uL (0.0-0.1); Basophils % 0.7 %; Eosinophils # 0.4 10^3/uL (0.0-0.8); Eosinophils % 5.1 %; Hematocrit 27.2 % (37-53); Lymphocytes # 1.8 10^3/uL (0.8-4.8); Lymphocytes % 25.4 %; Mean Corpuscular HGB Conc 31.6 g/dL (30-55); Mean Corpuscular Hemoglobin 30.3 pg (27-33); Mean Corpuscular Volume 95.8 fl (82-101); Mean Platelet Volume 10.6 fL (7.4-10.4); Monocytes # 0.8 10^3/uL (0.2-0.9); Neutrophils # 4.03 10^3/uL (1.8-7.7); Neutrophils % 57.4 %; Nucleated Red Blood Cells % 0 %; Platelet Count 221 10^3/cmm (157-399); Red Blood Count 2.84 10^6/uL (3.85-5.65); Red Cell Distribution Width 15.9 % (12.1-15.1); White Blood Count 7.02 10^3/uL (3.29-11.43)
[2024-04-20 05:06] LABS: Alanine Aminotransferase 12 U/L (0-41); Albumin Level 3.7 g/dL (3.5-5.2); Alkaline Phosphatase 80 U/L (40-130); Anion Gap 17.7 (5-19); Aspartate Amino Transferase 12 U/L (0-40); Blood Urea Nitrogen 71 mg/dL (8-23); Calcium 8.7 mg/dL (8.5-10.5); Carbon Dioxide 22 mmol/L (22-29); Chloride 104 mmol/L (98-107); Globulin 2.1 g/dL (1.3-4.6); Glomerular Filtration Rate 9.5 mL/min (90-130); Glucose 96 mg/dL (65-115); Osmolality Calculated 309 mOsm/kg (285-295); Potassium 4.7 mmol/L (3.5-5.1); Sodium 139 mmol/L (136-145); Total Bilirubin 0.2 mg/dL (0.15-1.2); Total Protein 5.8 g/dL (6.6-8.7)
[2024-04-20 05:28] LABS: Creatinine Clr Calc Pharmacy 11.5488
[2024-04-20] MEDS: ferrous gluconate 324 mg Tablet PO ×2 (08:54→18:04)
[2024-04-20] MEDS: carvedilol 6.25 mg Tablet PO ×2 (08:54→18:04)
[2024-04-20] MEDS: losartan 50 mg Tablet PO (08:54)
[2024-04-20] MEDS: aspirin 81 mg EC Tablet PO (08:54)
[2024-04-20] MEDS: folic acid 1 mg Tablet PO (08:54)
--- NOTE | 2024-04-20 09:34 | PC.CHAP ---
Pastoral Care Encounter/Spiritual Assessment Type of Contact [] Declined athletic equipment custodian visit [] Patient/Family/Request visit [] Outpatient visit [] Follow-up visit [] Physician referral [] Code/Alert [x] Routine visit [] Staff referral [] Actively dying [] Patient sleeping [] Family support [] [] Out of room [] Palliative care [] [] Receiving care in room [] Pre-surgical visit [] Trauma [] Long length of stay [] ICU visit [] Other: Relational/Emotional Strength [x] Patient feels connected with others/family/visitors/staff [] Distress [] Loneliness/isolation [] Abandonment Spirituality of Patient [x] Person of Twila [] Attends Tenriism of their Twila [x] Believes in Prayer [] Reads Bible or Oriental Orthodox materials [] There are Spiritual issues to be addressed Windows Mobile Developer Interventions [x] Prayer [x] Active listening [] Non-anxious presence [x] Spiritual/emotional support [] Crisis/trauma care [] Spiritual counseling [] Bereavement support [] Provided bereavement packet [] Provided Bible/devotional materials [] Provided toy/stuffed animal, coloring book to patient or family member [] Provided Communion [] Anointing/[place] [] Salvation [x] Completed spiritual assessment [] Other: Impact on Illness or Injury [] Angry [] Fearful [] Anxious [] Often cries [] Exhaustion [] Unable to work [] Unable to attend buddhism [] Unable to walk/stand [] Unable to read [] Unable to drive [] Unable to eat/drink [] Unable to sleep [] Unable to be with family [] Patient intubated [] Other: Summary Time spent with patient 5 min
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
[2024-04-20] MEDS: epoetin alfa 10,000 unit/mL INJ 10000 UNIT SUBCUT (11:50)
[2024-04-20] MEDS: heparin, porcine 1,000 unit/mL INJ 10 mL 1000 UNIT IV (12:15)
[2024-04-20] MEDS: albumin 12.5 GM/50 ML VIAL IV (13:11)
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
--- NOTE | 2024-04-20 13:17 | CTR_ITS ---
PROCEDURE INFORMATION: Exam: CT Head Without Contrast Exam date and time: 04/20/2024 8:09 PM Age: 68 years old Clinical indication: Other: Weakness; Additional info: R/O stroke TECHNIQUE: Imaging protocol: Computed tomography of the head without contrast. Radiation optimization: All CT scans at this facility use at least one of these dose optimization techniques: automated exposure control; mA and/or kV adjustment per patient size (includes targeted exams where dose is matched to clinical indication); or iterative reconstruction. COMPARISON: CT head wo con* [id number] 04/09/2024 10:00 PM RADIATION DOSE METRICS: Total DLP (mGy-cm): 1050 FINDINGS: Brain: There is prominent chronic periventricular white matter ischemic change. There is no evidence of mass effect, hemorrhage or infarct. Mild diffuse cerebral atrophy is noted. Old focal infarcts involve the cerebellar hemispheres bilaterally. Old lacunar infarcts involve the basal ganglia bilaterally. Chronic ischemic change also involves the wendy. Cerebral ventricles: No ventriculomegaly. No midline shift. Paranasal sinuses: Visualized sinuses are unremarkable. No fluid levels. Mastoid air cells: Visualized mastoid air cells are well aerated. Bones: Unremarkable. No acute fracture. Soft tissues: Unremarkable. CT/CT head wo con* [id number] IMPRESSION: 1. No acute findings. 2. Cerebral atrophy is noted along with chronic ischemic changes.
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
--- NOTE | 2024-04-20 18:30 | PC.NURSE ---
Called CT and no answer at 1730. Called again and was told that they are very busy and if CT is not emergent than they will have to do it later. They said does he even need it sense it was ordered so long ago . Patient was receiving dialysis when the order was placed and just finished dialysis around 1700. Nurse will let box blank machine feeder know that patient still needs to go to CT for imaging.
[2024-04-20] MEDS: atorvastatin 40 mg Tablet PO (20:50)
[2024-04-21] VITALS (7 sets, daily range): BP systolic 111–145; BP diastolic 65–73; PULSE 61–72; RESP 16–18; TEMP 36.8–37; O2SAT 97–99
--- NOTE | 2024-04-21 04:11 | PC.NURSE ---
Patient refusing blood draw at this time. Educated patient on need for hemodynamic monitoring during hospital stay. Notified Dr. Valle of patient refusal.
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
[2024-04-21] MEDS: carvedilol 6.25 mg Tablet PO ×2 (08:43→17:20)
[2024-04-21] MEDS: ferrous gluconate 324 mg Tablet PO ×2 (08:43→17:21)
[2024-04-21] MEDS: aspirin 81 mg EC Tablet PO (08:43)
[2024-04-21] MEDS: folic acid 1 mg Tablet PO (08:43)
[2024-04-21] MEDS: losartan 50 mg Tablet PO (08:43)
--- NOTE | 2024-04-21 08:47 | PC.NURSE ---
Patient absolutely refused to have SCDs on.
[2024-04-21 11:11] LABS: Anion Gap 18.1 (5-19); Blood Urea Nitrogen 41 mg/dL (8-23); Calcium 8.8 mg/dL (8.5-10.5); Carbon Dioxide 26 mmol/L (22-29); Chloride 99 mmol/L (98-107); Creatinine Clr Calc Pharmacy 15.1134; Glomerular Filtration Rate 13.2 mL/min (90-130); Glucose 211 mg/dL (65-115); Osmolality Calculated 304 mOsm/kg (285-295); Potassium 4.1 mmol/L (3.5-5.1); Sodium 139 mmol/L (136-145)
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
[2024-04-21] MEDS: atorvastatin 40 mg Tablet PO (19:57)
[2024-04-22] VITALS (10 sets, daily range): BP systolic 117–153; BP diastolic 62–77; PULSE 65–75; RESP 16–20; TEMP 36.4–37.5; O2SAT 96–99
[2024-04-22 05:03] LABS: Alanine Aminotransferase 11 U/L (0-41); Albumin Level 4.1 g/dL (3.5-5.2); Alkaline Phosphatase 87 U/L (40-130); Anion Gap 18.5 (5-19); Aspartate Amino Transferase 10 U/L (0-40); Blood Urea Nitrogen 48 mg/dL (8-23); Carbon Dioxide 24 mmol/L (22-29); Chloride 100 mmol/L (98-107); Globulin 2.3 g/dL (1.3-4.6); Glomerular Filtration Rate 11.7 mL/min (90-130); Glucose 102 mg/dL (65-115); Magnesium 2.1 mg/dL (1.7-2.3); Osmolality Calculated 299 mOsm/kg (285-295); Phosphorus 4.5 mg/dL (2.5-4.5); Potassium 4.5 mmol/L (3.5-5.1); Sodium 138 mmol/L (136-145); Total Bilirubin 0.2 mg/dL (0.15-1.2); Total Protein 6.4 g/dL (6.6-8.7)
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
--- NOTE | 2024-04-22 07:54 | PC.HD ---
Per regulated program manager's orders, heparin 1000 units loading dose administered at 0740 via arterial port of HD catheter.
[2024-04-22] MEDS: paricalcitol 2 mcg/mL SDV 1 mL 3 MCG IV (08:11)
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
[2024-04-22] MEDS: aspirin 81 mg EC Tablet PO (09:57)
[2024-04-22] MEDS: b-complex-vitamin c Tablet 1 EACH PO (09:57)
[2024-04-22] MEDS: folic acid 1 mg Tablet PO (09:57)
[2024-04-22] MEDS: citalopram 20 mg Tablet 10 MG PO (09:57)
[2024-04-22] MEDS: carvedilol 6.25 mg Tablet 3.125 MG PO ×2 (12:03→18:31)
[2024-04-22] MEDS: losartan 50 mg Tablet PO (12:04)
--- NOTE | 2024-04-22 12:59 | MR_ITS ---
WS: [id number] MRI HEAD WITHOUT CONTRAST TECHNIQUE: Sagittal T1, T2 axial, T2 axial FLAIR, axial and coronal T1 images, axial susceptibility w eighted imaging, axial diffusion weighted images, and coronal T2 images were obtained. CLINICAL INFORMATION: r/o stroke COMPARISON: CT 04/20/2024 FINDINGS: Small punctate focus of restricted diffusion in the LEFT hemipons compatible with acute ischemia. Thi s measures approximately 4 mm. Mild associated edema. No significant mass effect or midline shift. Advanced small vessel changes. Moderate parenchymal volume loss. Chronic lacunar infarcts in the bila teral basal ganglia and cristobal radiata. Chronic lacunar infarcts in the cerebellum. Chronic lacunar i nfarcts in the periventricular white matter. Chronic lacunar infarct in the RIGHT thalamus. Additiona l tiny chronic lacunar infarcts in the wendy. Moderate atrophy involving the brainstem. Moderate symmetric atrophy temporal lobes and hippocampal formations. Multiple tiny punctate foci of hemosiderin in the supratentorial white matter and cerebellum bilaterally. MR/MR head wo con* [id number] IMPRESSION: 1. Small punctate focus of acute ischemia in the LEFT hemipons measuring 4 mm. 2. Advanced small vessel changes with moderate parenchymal volume loss. 3. Multiple chronic lacunar infarcts in the periventricular white matter, chanelle na radiata, bilateral basal ganglia, RIGHT thalamus, and bilateral cerebellum. Chronic lacunar infarcts in the wendy. Moderate atrophy of the brainstem. 4. Numerous tiny punctate foci of hemosiderin on susceptibility-weighted image s involving both hemispheres and cerebellum consistent with chronic tiny microh emorrhages. 5. Moderate to advanced symmetric atrophy temporal lobes and hippocampal forma tions. Notified Laxmi Herring MD at 04/22/2024 2:57 PM.
--- NOTE | 2024-04-22 16:12 | P.CONIM_ITS ---
Providers/Reason For Consult 2 Consulting Physician/Specialty*: Tesfaye Okeefe MD neurology and epilepsy Reason for Consult*: Acute small right hemipons infarct measuring 4 mm and patient with a history of chronic strokes with hemosiderin deposits Attending Physician: Laxmi Herring MD Primary Care Provider: Hamilton Rosales History of Present Illness History of Present Illness Robert Montano is a 68 year old male with a history of chronic kidney disease and end-stage renal disease on hemodialysis, hypertension, type 2 diabetes mellitus, cardiomyopathy, depression and dementia. The patient apparently lives alone. Patient was admitted on 04/17/2024 secondary to worsening renal failure. The patient underwent a head MRI without contrast on 04/22/2024 which revealed: Small punctate focus of acute ischemia in the LEFT hemipons measuring 4 mm. 2. Advanced small vessel changes with moderate parenchymal volume loss. 3. Multiple chronic lacunar infarcts in the periventricular white matter, cristobal radiata, bilateral basal ganglia, RIGHT thalamus, and bilateral cerebellum. Chronic lacunar infarcts in the wendy. Moderate atrophy of the brainstem. 4. Numerous tiny punctate foci of hemosiderin on susceptibility-weighted images involving both hemispheres and cerebellum consistent with chronic tiny microhemorrhages. 5. Moderate to advanced symmetric atrophy temporal lobes and hippocampal formations. The patient was reported to fail his hospital assessment prior to discharge and therefore neurology consult was obtained. Patient was evaluated this afternoon. He was lying in bed in no apparent distress watching television. Patient denied any pain. He is alert and oriented to person, place, month, and year. Patient reported that he has been going to the bathroom with assistance. Neurological examination grossly nonfocal. Patient informed me he gets dialysis 3 days a week. 2D echocardiogram performed on 04/10/2024 revealed diffuse hypokinesis with ejection fraction of 43%. Metabolic lab revealed hemoglobin hematocrit of 8.6 and 27.2 respectively. Platelet count, and white count were within normal limits. Comprehensive metabolic panel revealed elevated creatinine of 6.0. Past medical history: Cardiomyopathy Chronic multiple infarcts End-stage renal disease on hemodialysis Dementia Depression Hypertension Type 2 diabetes mellitus Drug allergies: None Current medications: Plavix 75 mg p.o. daily Aspirin 81 mg p.o. every morning with food Carvedilol 6.25 mg p.o. twice daily Lipitor 40 mg p.o. nightly Vitamin D3 125 mcg p.o. daily Cetirizine 10 mg p.o. daily as needed for allergies Iron gluconate 324 mg p.o. twice daily Folic acid 1 mg p.o. daily Ketorolac eyedrops 4 times a day Losartan 50 mg p.o. q. Red yeast rice 600 mg capsules 1 p.o. daily Habits: None Family history: Negative for strokes per patient's history Review of Systems 2 General: Reports: 10 or more systems reviewed and unremarkable except in HPI and below Medications/Allergies Home Medications Medication Instructions Recorded Confirmed Last Taken Type cholecalciferol (vitamin D3) 125 125 mcg PO DAILY 30 days #30 caps 02/07/22 04/19/24 07/08/22 Rx mcg (5,000 unit) capsule colloidal minerals 1 dose as directed DAILY 05/13/22 04/19/24 05/14/22 History red yeast rice 600 mg capsule 600 mg PO DAILY 05/13/22 04/19/24 05/21/22 History cetirizine 10 mg tablet 10 mg PO DAILY PRN ALLERGIES 04/10/24 04/19/24 Unknown History ketorolac 0.5 % eye drops 1 drp ophthalmic (eye) QID 04/10/24 04/19/24 Unknown History aspirin 81 mg tablet,delayed 81 mg PO DAILY #30 tabs 04/17/24 04/19/24 Unknown Rx release atorvastatin 40 mg tablet 40 mg PO BEDTIME #30 tabs 04/17/24 04/19/24 Unknown Rx carvedilol 6.25 mg tablet 6.25 mg PO BID #60 tabs 04/17/24 04/19/24 Unknown Rx ferrous gluconate 324 mg (37.5 mg 324 mg PO BIDWM #60 tabs 04/17/24 04/19/24 Unknown Rx iron) tablet folic acid 1 mg tablet 1 mg PO DAILY #30 tabs 04/17/24 04/19/24 Unknown Rx losartan 50 mg tablet 50 mg PO DAILY #30 tabs 04/17/24 04/19/24 Unknown Rx Allergies Allergy/AdvReac Type Severity Reaction Status Date / Time No Known Allergies Allergy Verified 04/09/24 21:37 Current Medications Generic Name Dose Route Start Last Admin Trade Name Freq PRN Reason Stop Dose Admin Aspirin 81 mg 04/18/24 09:00 04/22/24 09:57 Aspirin 81 Mg Ec Tablet PO 81 mg DAILY MARQUEZ Administration Atorvastatin Calcium 40 mg 04/18/24 21:00 04/21/24 19:57 Atorvastatin 40 Mg Tablet PO 40 mg BEDTIME MARQUEZ Administration Carvedilol 3.125 mg 04/22/24 09:00 04/22/24 12:03 Carvedilol 6.25 Mg Tablet PO 3.125 mg BID MARQUEZ Administration Citalopram Hydrobromide 10 mg 04/22/24 09:00 04/22/24 09:57 Citalopram 20 Mg Tablet PO 10 mg DAILY MARQUEZ Administration Ferrous Gluconate 324 mg 04/18/24 08:00 04/22/24 08:00 Ferrous Gluconate 324 Mg Tablet PO Not Given BIDWM MARQUEZ Folic Acid 1 mg 04/18/24 09:00 04/22/24 09:57 Folic Acid 1 Mg Tablet PO 1 mg DAILY MARQUEZ Administration Losartan Potassium 50 mg 04/18/24 09:00 04/22/24 12:04 Losartan 50 Mg Tablet PO 50 mg DAILY MARQUEZ Administration Multivitamins 1 each 04/22/24 09:00 04/22/24 09:57 H-Clqoxeg-Baqjyky C Tablet PO 1 each DAILY MARQUEZ Administration PFSH Acute 2 PFSH: Medical History (Updated 04/22/24 @ 16:23 by Tesfaye Okeefe MD) Encounter for peritoneal dialysis catheter insertion MIKHAIL (acute kidney injury) Acute confusion History of COVID-19 DVT of lower extremity (deep venous thrombosis) Troponin level elevated Metabolic acidosis Pulmonary infiltrate on chest x-ray Tachycardia Elevated d-dimer Acute kidney injury superimposed on CKD CKD (chronic kidney disease) Fluid overload Acute kidney injury Hypertension Diabetes Surgical History Status post insertion of hemodialysis catheter No pertinent past surgical history Family History Other No significant family history Social History Smoking and tobacco/nicotine status: never used tobacco/nicotine Alcohol intake: never Substance/Drug Use: never Lives independently: Yes Household members: none Marital status details: Rather estranged with daughter Current occupational status: other Details: Recently employed, stopped working when started feeling unwell several wks Vitals/I&O/Wt Last Vital Signs Temp 98.6 F 04/22/24 11:45 Pulse 74 06/06/24 11:45 Resp 18 04/22/24 11:45 BP 121/65 04/22/24 12:04 Pulse Ox 99 04/22/24 11:45 O2 Del Method Room Air 04/22/24 11:45 04/22/24 04/22/24 04/22/24 06:59 14:59 22:59 Intake Total 120 / 1560 1120 / 1120 Output Total 2100 / 2100 Balance 120 / 1310 -980 / -980 Weight last 48 hrs Weight 142 lb 10.225 oz Weight 147 lb 1 oz Weight 146 lb 2 oz Weight 147 lb 11.355 oz Physical Exam 2 Narrative: The patient is alert and oriented to person place year and month. Patient was able to give me his complete name, date of and age. He follows commands. Patient was able to sit on the side of the bed with assistance. Patient reported that he has ambulated to the bathroom with nurses assistance. Head atraumatic. Neck supple. Cranial nerves II through XII grossly intact. Pupils equal round and reactive light and accommodation extraocular movements intact. Motor examination grossly nonfocal. Plantar responses flexor bilaterally there was no clonus. Sensory examination intact to touch. Throat clear. Lungs clear. Heart regular rhythm and rate. Extremities were negative for cyanosis. Data 04/20/24 04:09 04/22/24 04:23 A&P Assessment and plan (1) Posterior circulation stroke: Impression 1. Acute small punctate focus of acute ischemia in the LEFT hemipons measuring 4 mm. 2. Advanced small vessel changes with moderate parenchymal volume loss. 3. Multiple chronic lacunar infarcts in the periventricular white matter, cristobal radiata, bilateral basal ganglia, RIGHT thalamus, and bilateral cerebellum. 4. Chronic lacunar infarcts in the wendy. Moderate atrophy of the brainstem. 5. Numerous tiny punctate foci of hemosiderin on susceptibility-weighted images involving both hemispheres and cerebellum consistent with chronic tiny microhemorrhages. 6. Moderate to advanced symmetric atrophy temporal lobes and hippocampal formations. 7. Diffuse hypokinesis with ejection fraction 43% on 2D echocardiogram 04/10/2024 8. History of dementia 9. History of chronic renal disease on hemodialysis 10. Hypertension 11. Type 2 diabetes mellitus Plan: 1. Recommend discontinuing Plavix and continuing aspirin 81 mg p.o. every morning with food in view of the patient's MRI revealing numerous tiny punctate foci of hemosiderin on susceptibility-weighted images involving both hemispheres and cerebellum consistent with chronic tiny microhemorrhages 2. Neurologically patient appears stable at this time 3. Recommend obtaining carotid duplex study to assess for carotid or vertebral artery stenosis 4. Agree with Lipitor 5. Consider lab for thyroid profile (TSH, free T3, free T4), ammonia level, magnesium, FTA antibody, RPR, Lyme titer, serum protein electrophoresis to assess for amyloidosis (free light chains), aluminum level, APOE genotype if not recently performed 6. Recommend formal neuropsychological testing to assess whether patient is able to live independently with or without home health visits 7. Fall precautions Consult Attestations 2 Medical Necessity Statement: Patient evaluated by neurology for history of acute stroke Coding Level of Care Code Acute Code for Devin Murray Diagnoses Posterior circulation stroke I63.50
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
[2024-04-22] MEDS: ferrous gluconate 324 mg Tablet PO (18:32)
--- NOTE | 2024-04-22 18:40 | PC.NURSE ---
Notified Dr. Herring patient refuses a straight cath for stat urine culture. Dr. Herring acknowledged notification.
[2024-04-22] MEDS: atorvastatin 40 mg Tablet PO (20:07)
[2024-04-23 03:56] VITALS: BP 141/71; PULSE 73; RESP 20; TEMP 37.2; O2SAT 97
[2024-04-23 06:57] LABS: Alanine Aminotransferase 10 U/L (0-41); Albumin Level 3.9 g/dL (3.5-5.2); Alkaline Phosphatase 96 U/L (40-130); Anion Gap 19.2 (5-19); Aspartate Amino Transferase 10 U/L (0-40); Blood Urea Nitrogen 37 mg/dL (8-23); Calcium 8.8 mg/dL (8.5-10.5); Carbon Dioxide 24 mmol/L (22-29); Chloride 96 mmol/L (98-107); Creatinine Clr Calc Pharmacy 15.0876; Globulin 2.5 g/dL (1.3-4.6); Glomerular Filtration Rate 13.2 mL/min (90-130); Glucose 130 mg/dL (65-115); Magnesium 2.1 mg/dL (1.7-2.3); Osmolality Calculated 290 mOsm/kg (285-295); Phosphorus 4.4 mg/dL (2.5-4.5); Potassium 4.2 mmol/L (3.5-5.1); Sodium 135 mmol/L (136-145); Total Bilirubin 0.3 mg/dL (0.15-1.2); Total Protein 6.4 g/dL (6.6-8.7)
[2024-04-23 07:08] VITALS: BP 155/75; PULSE 73; RESP 15; TEMP 36.7; O2SAT 98
[2024-04-23 08:28] VITALS: BP 155/75
[2024-04-23] MEDS: clopidogrel 75 mg Tablet PO (08:28)
[2024-04-23] MEDS: b-complex-vitamin c Tablet 1 EACH PO (08:28)
[2024-04-23] MEDS: losartan 50 mg Tablet PO (08:28)
[2024-04-23] MEDS: ferrous gluconate 324 mg Tablet PO ×2 (08:28→17:15)
[2024-04-23] MEDS: carvedilol 6.25 mg Tablet 3.125 MG PO ×2 (08:28→17:15)
[2024-04-23] MEDS: citalopram 20 mg Tablet 10 MG PO (08:28)
[2024-04-23] MEDS: folic acid 1 mg Tablet PO (08:28)
[2024-04-23] MEDS: aspirin 81 mg EC Tablet PO (08:28)
--- NOTE | 2024-04-23 08:57 | MR_ITS ---
WS: [id number] MRA HEAD TECHNIQUE: Axial 3-D TOF images obtained with axial images and axial, sagittal, and coronal 2-D refor matted images. CLINICAL INFORMATION: stroke, assess [place] COMPARISON: None. FINDINGS: Distal vertebral arteries are patent. Basilar artery is patent. Normal vascularity to the S[employer]EN [employer] territo ry bilaterally. Moderate stenosis of the RIGHT P1-2 junction. Distal S[employer] remains patent. Both ICAs are patent at the skull base. Normal vascularity to the CAIN and MCA territories bilaterally . Patent anterior communicating artery. No evidence of high-grade proximal flow-limiting stenosis. Sc attered small punctate foci of hemosiderin described on the head MRI. MR/MR angio head wo con [id number] IMPRESSION: 1. No evidence of high-grade proximal flow-limiting stenosis or aneurysm. 2. Mild intracranial atheromatous disease. 3. Basilar artery is patent. 4. Moderate stenosis at the RIGHT P1-2 junction. Distal SCRE[employer] UN[employer]ER remains patent. 5. Scattered small punctate foci of hemosiderin described on the head MRI.
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
--- NOTE | 2024-04-23 10:27 | PC.SOCIAL ---
IMM Update pg 2 of IMM not updated @ this time as patient is in observation status.
[2024-04-23 11:22] VITALS: BP 148/71; PULSE 66; RESP 16; TEMP 36.9; O2SAT 98
[2024-04-23 15:25] VITALS: BP 149/70; PULSE 61; RESP 15; TEMP 36.9; O2SAT 100
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
[2024-04-23 20:00] VITALS: BP 153/70; PULSE 70; RESP 18; TEMP 36.9; O2SAT 100
[2024-04-23] MEDS: atorvastatin 40 mg Tablet PO (20:09)
[2024-04-24] VITALS (10 sets, daily range): BP systolic 124–155; BP diastolic 60–78; PULSE 60–77; RESP 15–18; TEMP 36.4–37.2; O2SAT 97–98
[2024-04-24 05:59] LABS: Basophils # 0.1 10^3/uL (0.0-0.1); Basophils % 0.5 %; Eosinophils # 0.1 10^3/uL (0.0-0.8); Hematocrit 30.5 % (37-53); Lymphocytes # 0.8 10^3/uL (0.8-4.8); Lymphocytes % 6.5 %; Mean Corpuscular HGB Conc 31.8 g/dL (30-55); Mean Corpuscular Hemoglobin 31.1 pg (27-33); Mean Corpuscular Volume 97.8 fl (82-101); Mean Platelet Volume 10.1 fL (7.4-10.4); Monocytes # 1.4 10^3/uL (0.2-0.9); Monocytes % 10.5 %; Neutrophils # 10.43 10^3/uL (1.8-7.7); Nucleated Red Blood Cells % 0 %; Platelet Count 235 10^3/cmm (157-399); Red Blood Count 3.12 10^6/uL (3.85-5.65); Red Cell Distribution Width 16.3 % (12.1-15.1); White Blood Count 12.86 10^3/uL (3.29-11.43)
[2024-04-24 06:15] LABS: Alanine Aminotransferase 9 U/L (0-41); Albumin Level 3.6 g/dL (3.5-5.2); Alkaline Phosphatase 90 U/L (40-130); Anion Gap 20.3 (5-19); Aspartate Amino Transferase 7 U/L (0-40); Blood Urea Nitrogen 49 mg/dL (8-23); Calcium 8.6 mg/dL (8.5-10.5); Carbon Dioxide 21 mmol/L (22-29); Chloride 96 mmol/L (98-107); Globulin 2.7 g/dL (1.3-4.6); Glucose 140 mg/dL (65-115); Magnesium 2.1 mg/dL (1.7-2.3); Osmolality Calculated 291 mOsm/kg (285-295); Phosphorus 4.7 mg/dL (2.5-4.5); Potassium 4.3 mmol/L (3.5-5.1); Sodium 133 mmol/L (136-145); Total Bilirubin 0.3 mg/dL (0.15-1.2); Total Protein 6.3 g/dL (6.6-8.7)
[2024-04-24] MEDS: carvedilol 6.25 mg Tablet 3.125 MG PO ×2 (08:30→18:04)
[2024-04-24] MEDS: aspirin 81 mg EC Tablet PO (08:31)
[2024-04-24] MEDS: folic acid 1 mg Tablet PO (08:31)
[2024-04-24] MEDS: losartan 50 mg Tablet PO (08:31)
[2024-04-24] MEDS: citalopram 20 mg Tablet 10 MG PO (08:31)
[2024-04-24] MEDS: b-complex-vitamin c Tablet 1 EACH PO (08:31)
[2024-04-24] MEDS: ferrous gluconate 324 mg Tablet PO (08:32)
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
--- NOTE | 2024-04-24 10:26 | PC.HD ---
Per materials director's orders, heparin 1000 units loading dose administered at 1016 via HD catheter prior to treatment initiation.
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
[2024-04-24] MEDS: paricalcitol 2 mcg/mL SDV 1 mL 3 MCG IV (11:25)
[2024-04-24] MEDS: epoetin alfa 10,000 unit/mL INJ 10000 UNIT SUBCUT (14:02)
--- NOTE | 2024-04-24 14:04 | PC.HD ---
Toward end of trx patient's BP dropped to 81/51. Dr. Khoury notified, who requested patient receive a 250 mL NSS bolus and treatment termination. Bolus administerd, treatment terminated. Patient's post-HD BP was 134/60. Vehicle Maintenance Supervisor updated. Net UF: 993 mL.
[2024-04-24] MEDS: piperacillin-tazobactam 3.375 GM in sodium chloride 0.9% (plus) 50 ML IV (14:57)
[2024-04-24] MEDS: atorvastatin 40 mg Tablet PO (20:14)
[2024-04-25] VITALS (7 sets, daily range): BP systolic 111–142; BP diastolic 61–71; PULSE 69–76; RESP 16–19; TEMP 37–37.2; O2SAT 96–99
[2024-04-25] MEDS: piperacillin-tazobactam 3.375 GM in sodium chloride 0.9% (plus) 50 ML IV ×2 (01:05→14:00)
[2024-04-25 05:18] LABS: Basophils # 0.1 10^3/uL (0.0-0.1); Basophils % 0.5 %; Eosinophils % 0.3 %; Hematocrit 30.8 % (37-53); Lymphocytes # 0.9 10^3/uL (0.8-4.8); Mean Corpuscular HGB Conc 31.8 g/dL (30-55); Mean Corpuscular Hemoglobin 30.5 pg (27-33); Mean Platelet Volume 10.2 fL (7.4-10.4); Monocytes # 1.7 10^3/uL (0.2-0.9); Monocytes % 11.6 %; Neutrophils # 12.05 10^3/uL (1.8-7.7); Neutrophils % 81.1 %; Nucleated Red Blood Cells % 0 %; Platelet Count 254 10^3/cmm (157-399); Red Blood Count 3.21 10^6/uL (3.85-5.65); Red Cell Distribution Width 16.1 % (12.1-15.1); White Blood Count 14.85 10^3/uL (3.29-11.43)
[2024-04-25 05:38] LABS: Anion Gap 18.6 (5-19); Blood Urea Nitrogen 39 mg/dL (8-23); Carbon Dioxide 26 mmol/L (22-29); Chloride 96 mmol/L (98-107); Creatinine Clr Calc Pharmacy 15.7991; Glomerular Filtration Rate 13.9 mL/min (90-130); Glucose 157 mg/dL (65-115); Magnesium 2.1 mg/dL (1.7-2.3); Osmolality Calculated 295 mOsm/kg (285-295); Potassium 4.6 mmol/L (3.5-5.1); Sodium 136 mmol/L (136-145)
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
[2024-04-25] MEDS: losartan 50 mg Tablet PO (09:41)
[2024-04-25] MEDS: citalopram 20 mg Tablet 10 MG PO (09:42)
[2024-04-25] MEDS: carvedilol 6.25 mg Tablet 3.125 MG PO ×2 (09:42→17:26)
[2024-04-25] MEDS: aspirin 81 mg EC Tablet PO (09:43)
[2024-04-25] MEDS: folic acid 1 mg Tablet PO (09:43)
[2024-04-25] MEDS: b-complex-vitamin c Tablet 1 EACH PO (09:43)
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
[2024-04-25] MEDS: atorvastatin 40 mg Tablet PO (20:17)
[2024-04-26] MEDS: piperacillin-tazobactam 3.375 GM in sodium chloride 0.9% (plus) 50 ML IV ×2 (01:04→14:04)
[2024-04-26 05:04] LABS: Basophils # 0.1 10^3/uL (0.0-0.1); Basophils % 0.5 %; Eosinophils # 0.2 10^3/uL (0.0-0.8); Eosinophils % 1.1 %; Hematocrit 28.8 % (37-53); Lymphocytes # 1.2 10^3/uL (0.8-4.8); Mean Corpuscular HGB Conc 32.3 g/dL (30-55); Mean Corpuscular Hemoglobin 31.2 pg (27-33); Mean Corpuscular Volume 96.6 fl (82-101); Mean Platelet Volume 10.3 fL (7.4-10.4); Monocytes # 1.3 10^3/uL (0.2-0.9); Neutrophils # 12.02 10^3/uL (1.8-7.7); Neutrophils % 80.9 %; Nucleated Red Blood Cells % 0 %; Platelet Count 257 10^3/cmm (157-399); Red Blood Count 2.98 10^6/uL (3.85-5.65); Red Cell Distribution Width 16.1 % (12.1-15.1); White Blood Count 14.84 10^3/uL (3.29-11.43)
[2024-04-26 05:07] VITALS: BP 146/71; PULSE 69; RESP 18; TEMP 37.1; O2SAT 97
[2024-04-26 05:29] LABS: Anion Gap 21.4 (5-19); Blood Urea Nitrogen 56 mg/dL (8-23); Carbon Dioxide 22 mmol/L (22-29); Chloride 96 mmol/L (98-107); Creatinine Clr Calc Pharmacy 12.1885; Glomerular Filtration Rate 10.2 mL/min (90-130); Glucose 135 mg/dL (65-115); Magnesium 2.1 mg/dL (1.7-2.3); Osmolality Calculated 298 mOsm/kg (285-295); Phosphorus 5.2 mg/dL (2.5-4.5); Potassium 4.4 mmol/L (3.5-5.1); Sodium 135 mmol/L (136-145)
[2024-04-26 07:01] VITALS: BP 137/72; PULSE 70; RESP 18; TEMP 36.9; O2SAT 97
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
[2024-04-26 09:03] VITALS: BP 137/72
[2024-04-26] MEDS: b-complex-vitamin c Tablet 1 EACH PO (09:03)
[2024-04-26] MEDS: sevelamer 800 mg Tablet PO ×3 (09:03→20:00)
[2024-04-26] MEDS: aspirin 81 mg EC Tablet PO (09:03)
[2024-04-26] MEDS: citalopram 20 mg Tablet 10 MG PO (09:03)
[2024-04-26] MEDS: losartan 50 mg Tablet PO (09:03)
[2024-04-26] MEDS: carvedilol 6.25 mg Tablet 3.125 MG PO ×2 (09:03→17:18)
[2024-04-26] MEDS: folic acid 1 mg Tablet PO (09:03)
[2024-04-26 12:00] VITALS: BP 160/76; PULSE 73; RESP 16; TEMP 36.8; O2SAT 99
--- NOTE | 2024-04-26 13:58 | PC.SOCIAL ---
IMM updated IMM dated and given to patient, copy placed in chart.
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
[2024-04-26 16:00] VITALS: BP 152/76; PULSE 68; RESP 18; TEMP 37.1; O2SAT 96
[2024-04-26 19:57] VITALS: BP 150/76; PULSE 72; RESP 16; TEMP 36.4; O2SAT 99
[2024-04-26] MEDS: atorvastatin 40 mg Tablet PO (20:00)
[2024-04-27] VITALS (8 sets, daily range): BP systolic 129–168; BP diastolic 68–84; PULSE 65–76; RESP 16–17; TEMP 36.1–37.3; O2SAT 96–98
[2024-04-27] MEDS: piperacillin-tazobactam 3.375 GM in sodium chloride 0.9% (plus) 50 ML IV ×2 (03:30→15:11)
[2024-04-27 05:32] LABS: Basophils # 0.1 10^3/uL (0.0-0.1); Basophils % 0.4 %; Eosinophils # 0.4 10^3/uL (0.0-0.8); Eosinophils % 2.7 %; Hematocrit 27.3 % (37-53); Lymphocytes # 1.3 10^3/uL (0.8-4.8); Lymphocytes % 10.3 %; Mean Corpuscular HGB Conc 32.2 g/dL (30-55); Mean Corpuscular Hemoglobin 30.1 pg (27-33); Mean Corpuscular Volume 93.5 fl (82-101); Mean Platelet Volume 10.5 fL (7.4-10.4); Monocytes # 1.2 10^3/uL (0.2-0.9); Monocytes % 9.1 %; Neutrophils # 10.03 10^3/uL (1.8-7.7); Neutrophils % 77.2 %; Nucleated Red Blood Cells % 0 %; Platelet Count 265 10^3/cmm (157-399); Red Blood Count 2.92 10^6/uL (3.85-5.65); Red Cell Distribution Width 15.9 % (12.1-15.1); White Blood Count 12.99 10^3/uL (3.29-11.43)
[2024-04-27 05:58] LABS: Alanine Aminotransferase 9 U/L (0-41); Albumin Level 3.7 g/dL (3.5-5.2); Alkaline Phosphatase 80 U/L (40-130); Anion Gap 20.4 (5-19); Aspartate Amino Transferase 7 U/L (0-40); Blood Urea Nitrogen 68 mg/dL (8-23); Calcium 8.7 mg/dL (8.5-10.5); Carbon Dioxide 23 mmol/L (22-29); Chloride 93 mmol/L (98-107); Globulin 2.6 g/dL (1.3-4.6); Glomerular Filtration Rate 9.1 mL/min (90-130); Glucose 106 mg/dL (65-115); Osmolality Calculated 294 mOsm/kg (285-295); Potassium 4.4 mmol/L (3.5-5.1); Sodium 132 mmol/L (136-145); Total Bilirubin 0.3 mg/dL (0.15-1.2); Total Protein 6.3 g/dL (6.6-8.7)
--- NOTE | 2024-04-27 07:40 | PC.HD ---
Patient's dialysis catheter running reversed, with elevated venous pressures. Unable to bring blood flow rate up to prescribed 350 mL/hour. Investment Manager notified, this RN is requesting someone look at patient's dialysis catheter for possible adjustment/replacement.
[2024-04-27] MEDS: carvedilol 6.25 mg Tablet 3.125 MG PO ×2 (11:03→17:49)
[2024-04-27] MEDS: citalopram 20 mg Tablet 10 MG PO (11:04)
[2024-04-27] MEDS: folic acid 1 mg Tablet PO (11:05)
[2024-04-27] MEDS: aspirin 81 mg EC Tablet PO (11:05)
[2024-04-27] MEDS: losartan 50 mg Tablet PO (11:05)
[2024-04-27] MEDS: b-complex-vitamin c Tablet 1 EACH PO (11:07)
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
[2024-04-27] MEDS: sevelamer 800 mg Tablet PO ×2 (15:12→20:45)
--- NOTE | 2024-04-27 16:26 | P.PN_ITS ---
Subjective 2 Subjective: Uneventful HD today Vitals/I&O/Wt Last Vital Signs Temp 98.5 F 04/27/24 11:03 Pulse 73 04/27/24 11:03 Resp 16 04/27/24 11:03 BP 129/72 04/27/24 11:05 Pulse Ox 98 04/27/24 11:03 O2 Del Method Room Air 04/27/24 00:49 O2 Flow Rate 97 04/24/24 00:00 04/27/24 04/27/24 04/27/24 06:59 14:59 22:59 Intake Total 240 / 1010 350 / 350 Output Total 2300 / 2300 Balance 240 / 1010 -1950 / -1950 Weight last 48 hrs Weight 65.5 kg Weight 66.848 kg Weight 66.877 kg Physical Exam 2 Const: COMMON NORMALS: no acute distress and alert Extremity: OTHER: no edema Neuro: SENSORIUM/ORIENTATION: Yes alert Data 04/27/24 04:13 04/27/24 04:13 Other data: seen via telemedicine with assitance of RN at bedside A&P Assessment and plan (1) ESRD needing dialysis: 1. CKD stage 5- s/p right IJ permacath, first HD 04/10/24 -HD TTS-he has an outpt spot TTS for HD. 2.echo w/ ef 44%- HF mildly reduced EF, grade 1/4 diastolic dysfunction 3. bp -currently well controlled 4. anemia, will receive epgoen at HD 5. UTI, on IV zosyn Next HD Plan see above. Attestations 2 Medical Necessity Statement*: per primary service Time Spent in Patient Care: less than 15 minutes Coding Level of Care Code Acute Code for Chg Fwd Diagnoses ESRD needing dialysis N18.6; Z99.2
[2024-04-27] MEDS: atorvastatin 40 mg Tablet PO (20:45)
[2024-04-28] VITALS (7 sets, daily range): BP systolic 124–154; BP diastolic 73–78; PULSE 64–81; RESP 16–17; TEMP 36.6–37.3; O2SAT 92–99
[2024-04-28] MEDS: piperacillin-tazobactam 3.375 GM in sodium chloride 0.9% (plus) 50 ML IV ×2 (01:21→13:30)
[2024-04-28] MEDS: losartan 50 mg Tablet PO (08:39)
[2024-04-28] MEDS: folic acid 1 mg Tablet PO (08:40)
[2024-04-28] MEDS: carvedilol 6.25 mg Tablet 3.125 MG PO ×2 (08:40→16:49)
[2024-04-28] MEDS: citalopram 20 mg Tablet 10 MG PO (08:41)
[2024-04-28] MEDS: sevelamer 800 mg Tablet PO ×3 (08:41→20:02)
[2024-04-28] MEDS: b-complex-vitamin c Tablet 1 EACH PO (08:41)
[2024-04-28] MEDS: aspirin 81 mg EC Tablet PO (08:42)
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
--- NOTE | 2024-04-28 11:48 | P.PN_ITS ---
Subjective 2 Subjective: no new issues Vitals/I&O/Wt Last Vital Signs Temp 98.9 F 04/28/24 07:14 Pulse 70 04/28/24 07:14 Resp 16 04/28/24 07:14 BP 135/75 04/28/24 08:39 Pulse Ox 92 04/28/24 07:14 O2 Del Method Room Air 04/28/24 07:14 O2 Flow Rate 97 04/24/24 00:00 04/27/24 04/28/24 04/28/24 22:59 06:59 14:59 Intake Total 650 / 1000 170 / 1170 236 / 236 Output Total 100 / 2400 200 / 2600 Balance 550 / -1400 -30 / -1430 236 / 236 Weight last 48 hrs Weight 66.361 kg Weight 65.5 kg Weight 66.848 kg Data 04/27/24 04:13 04/27/24 04:13 Other data: seen via telemedicine with assistance of RN at bedside A&P Assessment and plan (1) ESRD needing dialysis: 1. CKD stage 5- s/p right IJ permacath, first HD 04/10/24 -HD TTS-he has an outpt spot TTS for HD. 2.echo w/ ef 44%- HF mildly reduced EF, grade 1/4 diastolic dysfunction 3. bp -currently well controlled 4. anemia, will receive epgoen at HD 5. UTI, on IV zosyn Next HD tomorrow Plan see above. Attestations 2 Medical Necessity Statement*: per primary service Coding Level of Care Code Acute Code for Chg Fwd Diagnoses ESRD needing dialysis N18.6; Z99.2
[2024-04-28] MEDS: atorvastatin 40 mg Tablet PO (20:02)
[2024-04-29] VITALS (7 sets, daily range): BP systolic 122–173; BP diastolic 74–87; PULSE 66–82; RESP 15–18; TEMP 36.4–37.1; O2SAT 97–99
[2024-04-29] MEDS: piperacillin-tazobactam 3.375 GM in sodium chloride 0.9% (plus) 50 ML IV (02:07)
[2024-04-29 05:18] LABS: Basophils # 0.1 10^3/uL (0.0-0.1); Basophils % 0.8 %; Eosinophils # 0.5 10^3/uL (0.0-0.8); Eosinophils % 4.8 %; Hematocrit 29.2 % (37-53); Lymphocytes # 1.3 10^3/uL (0.8-4.8); Lymphocytes % 14.1 %; Mean Corpuscular HGB Conc 31.8 g/dL (30-55); Mean Corpuscular Hemoglobin 30.2 pg (27-33); Mean Corpuscular Volume 94.8 fl (82-101); Mean Platelet Volume 10.2 fL (7.4-10.4); Monocytes # 0.9 10^3/uL (0.2-0.9); Monocytes % 9.3 %; Neutrophils # 6.71 10^3/uL (1.8-7.7); Neutrophils % 70.6 %; Nucleated Red Blood Cells % 0 %; Platelet Count 279 10^3/cmm (157-399); Red Blood Count 3.08 10^6/uL (3.85-5.65); Red Cell Distribution Width 15.7 % (12.1-15.1); White Blood Count 9.52 10^3/uL (3.29-11.43)
[2024-04-29 05:35] LABS: Alanine Aminotransferase 7 U/L (0-41); Albumin Level 3.3 g/dL (3.5-5.2); Alkaline Phosphatase 73 U/L (40-130); Anion Gap 20.8 (5-19); Aspartate Amino Transferase 9 U/L (0-40); Blood Urea Nitrogen 59 mg/dL (8-23); Calcium 8.7 mg/dL (8.5-10.5); Carbon Dioxide 23 mmol/L (22-29); Chloride 98 mmol/L (98-107); Globulin 2.9 g/dL (1.3-4.6); Glomerular Filtration Rate 10.5 mL/min (90-130); Glucose 89 mg/dL (65-115); Osmolality Calculated 300 mOsm/kg (285-295); Potassium 4.8 mmol/L (3.5-5.1); Sodium 137 mmol/L (136-145); Total Bilirubin 0.2 mg/dL (0.15-1.2); Total Protein 6.2 g/dL (6.6-8.7)
[2024-04-29 06:21] LABS: Creatinine Clr Calc Pharmacy 12.5648
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
[2024-04-29] MEDS: aspirin 81 mg EC Tablet PO (08:38)
[2024-04-29] MEDS: citalopram 20 mg Tablet 10 MG PO (08:38)
[2024-04-29] MEDS: sevelamer 800 mg Tablet PO ×2 (08:38→18:06)
[2024-04-29] MEDS: folic acid 1 mg Tablet PO (08:38)
[2024-04-29] MEDS: b-complex-vitamin c Tablet 1 EACH PO (08:38)
[2024-04-29] MEDS: losartan 50 mg Tablet PO (08:38)
[2024-04-29] MEDS: carvedilol 6.25 mg Tablet 3.125 MG PO ×2 (08:38→18:05)
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
[2024-04-29] MEDS: heparin, porcine 1,000 unit/mL INJ 10 mL 1000 UNIT IV (15:00)
[2024-04-29] MEDS: atorvastatin 40 mg Tablet PO (20:06)
[2024-04-30] VITALS: BP 128/75; PULSE 72; RESP 17; TEMP 36.9; O2SAT 97
[2024-04-30 04:00] VITALS: BP 129/73; PULSE 69; RESP 17; TEMP 36.9; O2SAT 98
[2024-04-30 07:41] VITALS: BP 130/74; PULSE 71; RESP 16; TEMP 36.4; O2SAT 98
[2024-04-30] MEDS: carvedilol 6.25 mg Tablet 3.125 MG PO (08:38)
[2024-04-30 08:39] VITALS: BP 130/74
[2024-04-30] MEDS: sevelamer 800 mg Tablet PO (08:39)
[2024-04-30] MEDS: aspirin 81 mg EC Tablet PO (08:39)
[2024-04-30] MEDS: b-complex-vitamin c Tablet 1 EACH PO (08:39)
[2024-04-30] MEDS: losartan 50 mg Tablet 75 MG PO (08:39)
[2024-04-30] MEDS: folic acid 1 mg Tablet PO (08:39)
[2024-04-30] MEDS: citalopram 20 mg Tablet 10 MG PO (08:39)
--- NOTE | 2024-04-30 08:39 | PC.NURSE ---
Medication Note: Morning medications scanned after verification of pt. Initially pt refused medications after scanning due to wanting to eat breakfast first. Medications not given to pt at this time and left for pt to take after eating breakfast. This nurse attempted to give medications to pt after pt was finished with breakfast and pt refused medications again, physically shoving the medication cup out of this nurse's hand. After second refusal, this nurse spoke with Dr. Donovan outside of pts room and informed physician that pt had refused medications twice at this point. Dr. Donovan then stated, Then you try again. This is what we do with all of our pts Amy. This nurse then attempted for a third time after educating pt on importance of taking medications. After a forth attempt and pt stating, I do not want medications. Pt agreeable and took medications on his own.
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
[2024-04-30 11:39] VITALS: BP 144/79; PULSE 68; RESP 14; TEMP 36.6; O2SAT 94
[2024-04-30] MEDS: heparin, porcine 1,000 unit/mL INJ 10 mL 10000 UNIT INTRACATH (11:50)
[2024-04-30] MEDS: heparin, porcine 1,000 unit/mL INJ 10 mL 1000 UNIT IV (13:30)
[2024-04-30 15:24] LABS: SARS Covid-2 Antigen negative (Negative)
[2024-04-30 18:39] VITALS: BP 101/74; BP 102/67; PULSE 82; PULSE 93; RESP 18; TEMP 37
--- NOTE | 2024-04-30 18:48 | PC.HD ---
Pt's catheter is very positional and venous pressure fluctuates widely as a result. Patient is unable to lie still and relax causing SPORTS MANAGER to spike and stop blood pump. Pt educated, pt repositioned, and pt reminded frequently but he was unable to keep from moving and treatment had to be terminated as could not keep machine running. Dr Chery and Dr Donovan notified.
== END 2024-04-30 16:10 | disposition skilled nursing facility (03) ==
LOC: ER 20:21 → MEDSURG 20:31
PROVIDERS: Family Medicine; Internal Medicine; Internal Medicine Nephrology; Admitting Provider Internal Medicine; Emergency Provider Emergency Medicine; PCP Family Medicine; Visit Provider Student in an Organized Health Care Education/Training Program
DX: E11.22 Type 2 diabetes mellitus with diabetic chronic kidney disease (principal); I12.9 Hypertensive chronic kidney disease with stage 1 through stage 4 chronic kidney disease, or unspecified chronic kidney disease; N18.6 End stage renal disease; D63.1 Anemia in chronic kidney disease; Z99.2 Dependence on renal dialysis; Z60.9 Problem related to social environment, unspecified; N39.0 Urinary tract infection, site not specified; I63.50 Cerebral infarction due to unspecified occlusion or stenosis of unspecified cerebral artery; R77.8 Other specified abnormalities of plasma proteins; Z60.2 Problems related to living alone; G93.40 Encephalopathy, unspecified; Z86.16 Personal history of COVID-19; Z86.718 Personal history of other venous thrombosis and embolism; Z79.82 Long term (current) use of aspirin; R94.39 Abnormal result of other cardiovascular function study; I25.10 Atherosclerotic heart disease of native coronary artery without angina pectoris; I42.9 Cardiomyopathy, unspecified; F32.A Depression, unspecified; F03.90 Unspecified dementia, unspecified severity, without behavioral disturbance, psychotic disturbance, mood disturbance, and anxiety
CPT/HCPCS: 36415; 70450; 70544; 70551; 71045; 80048; 80053; 80306; 80307; 81001; 82607; 83605; 83735; 84100; 84484; 85025; 87040; 87086; 87426; 90935; 92507; 92523; 92526; 92610; 93005; 96372; 96374; 96375; 96376; 97116; 97161; 97167; 97530; 99285; G0378; J1644; J2501; J2543; P9047; Q3014; Q4081

== ENCOUNTER 2024-11-29 22:21 | Emergency (ER) | payer MEDICARE, MEDICAID, SELFPAY ==
--- NOTE | 2024-11-29 22:31 | XRR_ITS ---
PROCEDURE INFORMATION: Exam: XR Chest Exam date and time: 11/29/2024 10:34 PM Age: 69 years old Clinical indication: Injury or trauma; Fall; Blunt trauma (contusions or hematomas); Additional info: Dyspnea TECHNIQUE: Imaging protocol: Radiologic exam of the chest. Views: 1 view. COMPARISON: CR XR chest 1V portable [id number] 04/17/2024 3:52 PM FINDINGS: Tubes, catheters and devices: Dialysis catheter terminates in the distal superior vena cava. Lungs: Unremarkable. No consolidation. Pleural spaces: Unremarkable. No pleural effusion. No pneumothorax. Heart/Mediastinum: Unremarkable. No cardiomegaly. Bones/joints: Unremarkable. XR/XR chest 1V portable [id number] IMPRESSION: No acute chest pathology identified.
--- NOTE | 2024-11-29 22:33 | ECG_ITS ---
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 Measurements Intervals [place] Rate: 83 P: 43 OR: 147 QRS: -23 QRSD: 94 T: 91 QT: 398 QTc: 470 Interpretive Statements SINUS RHYTHM INFERIOR MYOCARDIAL INFARCTION , PROBABLY OLD [40+ ms Q WAVE AND/OR ST/T ABNORMALITY IN II/aVF] Compared to ECG 11/30/2024 00:42:43 Supraventricular rhythm no longer present Myocardial infarct finding still present Electronically Signed On 11-30-2024 23:58:24 [employer]ENT by Janeen Morales M.D. [email or web address]
[2024-11-29 22:39] VITALS: BP 148/107; PULSE 88; RESP 18; TEMP 36.4; O2SAT 91
--- NOTE | 2024-11-29 22:39 | CTR_ITS ---
PROCEDURE INFORMATION: Exam: CT Head Without Contrast Exam date and time: 11/29/2024 10:48 PM Age: 69 years old Clinical indication: Injury or trauma; Fall; Blunt trauma (contusions or hematomas); Additional info: Recent fall, head trauma, history of stroke TECHNIQUE: Imaging protocol: Computed tomography of the head without contrast. Radiation optimization: All CT scans at this facility use at least one of these dose optimization techniques: automated exposure control; mA and/or kV adjustment per patient size (includes targeted exams where dose is matched to clinical indication); or iterative reconstruction. COMPARISON: MR angio head wo con [id number] 04/23/2024 12:28 PM RADIATION DOSE METRICS: Total DLP (mGy-cm): 1131.14 FINDINGS: Brain: Negative for acute intracranial hemorrhage. No space-occupying intracranial mass.There is marked cerebral atrophy. There is marked diffuse heterogeneity of the white matter attenuation, consistent with severe chronic white matter ischemic changes. . Multifocal completed lacunar infarcts in bilateral basal ganglia and brainstem redemonstrated. Cerebral ventricles: No ventriculomegaly. Paranasal sinuses: Scattered mild mucosal thickening in the bilateral maxillary sinuses. Negative for air-fluid levels. Mastoid air cells: Visualized mastoid air cells are well aerated. Bones: Unremarkable. No acute fracture. Soft tissues: Unremarkable. CT/CT head wo con* [id number] IMPRESSION: No acute intracranial pathology visualized.
--- NOTE | 2024-11-29 22:42 | ED_ITS ---
HPI - SOB/Dyspnea 2 General: Chief Complaint: Shortness of Breath/Dyspnea Stated Complaint: sob,cough Time Seen by Provider: 11/29/24 22:26 History of Present Illness: HPI Narrative: Patient brought in by EMS for shortness of breath and cough. They said when they got to the long term and saw the patient he was satting about 82% on room air. Per EMS he does not have a history of COPD or CHF but does have end- stage renal disease on dialysis. They gave him a DuoNeb and albuterol treatment placed on 6 L of oxygen and his lungs cleared up and his O2 sat improved to the mid 90s. Related Data Home Medications Medication Instructions Recorded Confirmed colloidal minerals 1 dose as directed DAILY 05/13/22 04/19/24 red yeast rice 600 mg capsule 600 mg PO DAILY 05/13/22 04/19/24 cetirizine 10 mg tablet 10 mg PO DAILY PRN ALLERGIES 04/10/24 04/19/24 ketorolac 0.5 % eye drops 1 drp ophthalmic (eye) QID 04/10/24 04/19/24 Previous Rx's Medication Instructions Recorded cholecalciferol (vitamin D3) 125 125 mcg PO DAILY 30 days #30 caps 02/07/22 mcg (5,000 unit) capsule aspirin 81 mg tablet,delayed 81 mg PO DAILY #30 tabs 04/17/24 release atorvastatin 40 mg tablet 40 mg PO BEDTIME #30 tabs 04/17/24 carvedilol 6.25 mg tablet 6.25 mg PO BID #60 tabs 04/17/24 ferrous gluconate 324 mg (37.5 mg 324 mg PO BIDWM #60 tabs 04/17/24 iron) tablet folic acid 1 mg tablet 1 mg PO DAILY #30 tabs 04/17/24 alprazolam 0.5 mg tablet (Xanax) 0.25 mg (1/2 x 0.5 mg) PO BID PRN 04/30/24 anxiety #10 tabs losartan 50 mg tablet 75 mg (1.5 x 50 mg) PO DAILY #30 04/30/24 tabs sevelamer carbonate 800 mg tablet 800 mg PO TIDWM #90 tabs 04/30/24 Allergies Allergy/AdvReac Type Severity Reaction Status Date / Time No Known Allergies Allergy Verified 11/29/24 22:49 Review of Systems 2 General: Reports: 10 or more systems reviewed and unremarkable except in HPI and below PFSH ED 2 PFSH: Medical History Encounter for peritoneal dialysis catheter insertion MIKHAIL (acute kidney injury) Acute confusion History of COVID-19 DVT of lower extremity (deep venous thrombosis) Troponin level elevated Metabolic acidosis Pulmonary infiltrate on chest x-ray Tachycardia Elevated d-dimer Acute kidney injury superimposed on CKD CKD (chronic kidney disease) Fluid overload Acute kidney injury Hypertension Diabetes Surgical History Status post insertion of hemodialysis catheter No pertinent past surgical history Family History Other No significant family history Social History Smoking and tobacco/nicotine status: never used tobacco/nicotine Alcohol intake: never Substance/Drug Use: never Lives independently: Yes Household members: none Marital status details: Rather estranged with daughter Current occupational status: other Details: Recently employed, stopped working when started feeling unwell several wks Physical Exam 2 Const: COMMON NORMALS: no acute distress, average body habitus, patient oriented x3, no limitations, healthy appearing, alert and well nourished HENMT: COMMON NORMALS: normocephalic, atraumatic, hearing grossly normal bilaterally, Normal external nose present and moist oral mucous membranes H EAD & SCALP: normocephalic and atraumatic NOSE: Normal external nose present Eye: COMMON NORMALS: Equal, round and reactive pupils present, EOMs intact bilaterally, conjunctivae normal and no scleral icterus CONJUNCTIVA: Yes conjunctivae normal PUPIL: Yes Equal, round and reactive pupils present Neck/C-Spine: COMMON NORMALS: no JVD Chest: COMMONS NORMALS: normal inspection of the chest and normal palpation of entire chest wall Resp: COMMON NORMALS: normal respiratory effort, No retractions and No use of accessory muscles; negative for clear to auscultation bilaterally (Decreased breath sounds bilaterally) AUSCULTATION: not clear to auscultation bilaterally (Decreased breath sounds bilaterally) Cardio: COMMON NORMALS: no JVD, regular rate, regular rhythm, S1 normal heart sound present, S2 normal heart sound present, No gallops present (Cardio), No clicks present (Cardio), No murmurs present (Cardio) and No rub (Cardio) R ATE: regular rate RHYTHM: regular rhythm HEART SOUNDS: S1 normal heart sound present and S2 normal heart sound present GI: COMMON NORMALS: Normal to inspection, nondistended, normoactive bowel sounds present, Soft to palpation, non-tender, No hepatosplenomegaly present and no masses PALPATION: Yes Soft to palpation and Yes No hepatosplenomegaly present Extremity: NARRATIVE EXTREMITY EXAM: Equal strength in bilateral upper and lower extremities, no obvious focal deficit. Neuro: COMMON NORMALS: patient oriented x3 SENSORIUM/ORIENTATION: Yes alert Course 2 Vital Signs: Vital signs: Vital Signs Temperature 97.6 F 11/29/24 22:39 Pulse Rate 84 11/30/24 00:46 Respiratory Rate 17 11/30/24 00:37 Blood Pressure 165/95 11/30/24 00:30 Pulse Oximetry 96 11/30/24 00:37 Oxygen Delivery Me thod Nasal Cannula 11/30/24 00:37 Oxygen Flow Rate 3 11/30/24 00:37 MDM - SOB/Dyspnea Medical Decision Making Lab work revealed mildly elevated white count 15.4, elevated BUN/creatinine 36 and 4.7, patient is dialysis patient. Chest x-ray and head CT showed no acute intracranial pathology COVID RSV and flu were negative Medical Records I reviewed the patient's medical records. Lab Data I reviewed the patient's lab results. 11/29/24 23:20 11/29/24 23:20 Labs/Radiology: Radiology Impressions Chest X-Ray 11/29/24 22:31 IMPRESSION: No acute chest pathology identified. Head CT 11/29/24 22:39 IMPRESSION: No acute intracranial pathology visualized. Laboratory Results WBC 15.42 10^3/uL (3.29-11.43) H 11/29/24 23:20 RBC 3.58 10^6/uL (3.85-5.65) L 11/29/24 23:20 Hgb 11.30 g/dL (11.27-16.99) 11/29/24 23:20 Hct 35.5 % (37-53) L 11/29/24 23:20 MCV 99.2 fl (82-101) 11/29/24 23:20 MCH 31.6 pg (27-33) 11/29/24 23:20 MCHC 31.8 g/dL (30-55) 11/29/24 23:20 RDW 15.6 % (12.1-15.1) H 11/29/24 23:20 Plt Count 399 10^3/cmm (157-399) 11/29/24 23:20 MPV 9.2 fL (7.4-10.4) 11/29/24 23:20 Neut % (Auto) 81.6 % 11/29/24 23:20 Lymph % (Auto) 8.8 % 11/29/24 23:20 [place] % (Auto) 5.2 % 11/29/24 23:20 Eos % (Auto) 2.9 % 11/29/24 23:20 Baso % (Auto) 0.7 % 11/29/24 23:20 Neut # (Auto) 12.58 10^3/uL (1.8-7.7) H 11/29/24 23:20 Lymph # (Auto) 1.4 10^3/uL (0.8-4.8) 11/29/24 23:20 [place] # (Auto) 0.8 10^3/uL (0.2-0.9) 11/29/24 23:20 Eos # (Auto) 0.5 10^3/uL (0.0-0.8) 11/29/24 23:20 Baso # (Auto) 0.1 10^3/uL (0.0-0.1) 11/29/24 23:20 Nucleated RBC % (auto) 0 % 11/29/24 23:20 Nucleated RBCs # 0.0 /100WBC 11/29/24 23:20 Specimen Type Arterial 11/29/24 22:35 Sample Site Radial, left 11/29/24 22:35 ABG pH 7.44 (7.35-7.45) 11/29/24 22:35 ABG pCO2 41.5 mmHg (35-45) 11/29/24 22:35 ABG pO2 57.4 mmHg (80.0-100.0) L 11/29/24 22:35 ABG PO2/FiO2 Ratio 273 11/29/24 22:35 ABG HCO3 28.2 mmol/L (22-26) H 11/29/24 22:35 ABG O2 Saturation 90.7 11/29/24 22:35 ABG Base Excess 3.7 mmol/L (-2.0-2.0) H 11/29/24 22:35 Yusuf Test Pos 11/29/24 22:35 A-a O2 Gradient 5.6 mmHg (5-10) 11/29/24 22:35 Hematocrit 35.3 % (42-52) L 11/29/24 22:35 Hgb O2 Saturation 88.7 % (95-100) L 11/29/24 22:35 Carboxyhemoglobin 1.0 %THgb (0.4-20.1) 11/29/24 22:35 Methemoglobin 1.2 % (0.4-1.5) 11/29/24 22:35 Total Hemoglobin 11.5 g/dL (14-18) L 11/29/24 22:35 Sodium 141.0 mmol/L (131-143) 11/29/24 22:35 Potassium 4.2 mmol/L (3.5-5.0) 11/29/24 22:35 Glucose 156.0 mg/dL (70-115) H 11/29/24 22:35 Ionized Calcium 1.2 mmol/L (1.1-1.4) 11/29/24 22:35 O2 Delivery Device Room air 11/29/24 22:35 FiO2 21.0 % 11/29/24 22:35 Manager Agricultural ID Ed 11/29/24 22:35 Sodium 139 mmol/L (136-145) 11/29/24 23:20 Potassium 4.6 mmol/L (3.5-5.1) 11/29/24 23:20 Chloride 98 mmol/L (98-107) 11/29/24 23:20 Carbon Dioxide 27 mmol/L (22-29) 11/29/24 23:20 Anion Gap 18.6 (5-19) 11/29/24 23:20 BUN 36 mg/dL (8-23) H 11/29/24 23:20 Creatinine 4.7 mg/dL (0.7-1.2) H 11/29/24 23:20 GFR Calculation 12.5 mL/min (90-130) L 11/29/24 23:20 Glucose 159 mg/dL (65-115) H 11/29/24 23:20 Calculated Osmolality 300 mOsm/kg (285-295) H 11/29/24 23:20 Calcium 9.2 mg/dL (8.5-10.5) 11/29/24 23:20 Phosphorus 3.7 mg/dL (2.5-4.5) 11/29/24 23:20 Magnesium 2.2 mg/dL (1.7-2.3) 11/29/24 23:20 Total Bilirubin 0.3 mg/dL (0.15-1.2) 11/29/24 23:20 AST 13 U/L (0-40) 11/29/24 23:20 ALT 12 U/L (0-41) 11/29/24 23:20 Alkaline Phosphatase 104 U/L (40-130) 11/29/24 23:20 Troponin T Baseline 320 ng/L (0-15) H* 11/29/24 23:20 Troponin T 120 Minute 307.5 ng/L (0-15) H 11/30/24 01:05 Delta Troponin T -12.5 ABS# (0-10) L 11/30/24 01:05 Total Protein 6.4 g/dL (6.6-8.7) L 11/29/24 23:20 Albumin 3.6 g/dL (3.5-5.2) 11/29/24 23:20 Globulin 2.8 g/dL (1.3-4.6) 11/29/24 23:20 Coronavirus (PCR) Negative (Negative) 11/29/24 23:20 Influenza A (PCR) Negative (Negative) 11/29/24 23:20 Influenza Type B (PCR) Negative (Negative) 11/29/24 23:20 RSV (PCR) Negative (Negative) 11/29/24 23:20 All radiology interpretation(s) finalized by discharge Discharge Plan Discharge Patient Disposition: Home Clinical Impression: ESRD on dialysis Cough Qualifiers: Cough type: acute Qualified Code(s): R05.1 - Acute cough Condition: Stable Prescriptions: No Action red yeast rice 600 mg capsule 600 mg PO DAILY Rx Instructions: give with meal/snack colloidal minerals 1 dose as directed DAILY cholecalciferol (vitamin D3) 125 mcg (5,000 unit) capsule 125 mcg PO DAILY 30 Days Qty: 30 1RF cetirizine 10 mg tablet 10 mg PO DAILY PRN (Reason: ALLERGIES) ketorolac 0.5 % drops 1 drp ophthalmic (eye) QID atorvastatin 40 mg Tablet 40 mg PO BEDTIME Qty: 30 0RF carvedilol 6.25 mg Tablet 6.25 mg PO BID Qty: 60 0RF aspirin 81 mg Tablet,Delayed Release (Dr/Ec) 81 mg PO DAILY Qty: 30 0RF ferrous gluconate 324 mg (37.5 mg iron) Tablet 324 mg PO BIDWM Qty: 60 0RF folic acid 1 mg Tablet 1 mg PO DAILY Qty: 30 0RF sevelamer carbonate 800 mg Tablet 800 mg PO TIDWM Qty: 90 0RF losartan 50 mg Tablet 75 mg PO DAILY Qty: 30 0RF Xanax 0.5 mg tablet 0.25 mg PO BID PRN (Reason: anxiety) Qty: 10 0RF Discharge Orders: Discharge ED (Routine); Ordered 11/30/24 Ordered By: Sathish Mcmillan Referrals: Hamilton Rosales [Primary Care Provider] - 1 week Patient Instructions: Acute Cough (ED), End Stage Kidney Disease (ED) Activity Restrictions/Additional Instructions: Thank you for choosing [facility] for your healthcare needs today. Please realize that you were seen in the emergency department and that we are providing you with an emergency medical screening exam and this may not be a complete and all exclusive of all testing and/or medical workup we may need to determine your element or severity of your illness. It is very important that you follow-up as instructed with your primary care provider or specialist for the additional evaluation and to discuss your medical treatment plan. You may return to the emergency department should you have concerns or if your condition changes or worsens in any way. Coding Level of Care Code ED Relief Driller for Devin Murray
[2024-11-29 22:45] LABS: ABG PCO2 41.5 mmHg (35-45); ABG PH Result 7.44 (7.35-7.45); Alveolar-Arterial Oxygen Gradi 5.6 mmHg (5-10); Arterial Blood Gas Hematocrit 35.3 % (42-52); Base Excess ABG 3.7 mmol/L (-2.0-2.0); Blood Gas Allen Test Pos; Blood Gas Sample Type Arterial; HCO3 ABG 28.2 mmol/L (22-26); HGB O2 Sat 88.7 % (95-100); Ionized Calcium Level - ABG 1.2 mmol/L (1.1-1.4); Methemoglobin 1.2 % (0.4-1.5); Oxygen Saturation ABG 90.7; PO2 ABG 57.4 mmHg (80.0-100.0); Potassium Level - ABG 4.2 mmol/L (3.5-5.0); Total Hemoglobin 11.5 g/dL (14-18)
[2024-11-29 22:46] LABS: Blood Gas Operator Identificat ED; Blood Gas Sample Site Radial, left; Oxygen Device ROOM AIR; PO2 FiO2 Ratio Arterial Blood 273
[2024-11-29 22:49] VITALS: BP 163/99; PULSE 84; RESP 16; O2SAT 92
[2024-11-29 23:26] LABS: Basophils # 0.1 10^3/uL (0.0-0.1); Basophils % 0.7 %; Eosinophils # 0.5 10^3/uL (0.0-0.8); Eosinophils % 2.9 %; Hematocrit 35.5 % (37-53); Lymphocytes # 1.4 10^3/uL (0.8-4.8); Lymphocytes % 8.8 %; Mean Corpuscular HGB Conc 31.8 g/dL (30-55); Mean Corpuscular Hemoglobin 31.6 pg (27-33); Mean Corpuscular Volume 99.2 fl (82-101); Mean Platelet Volume 9.2 fL (7.4-10.4); Monocytes # 0.8 10^3/uL (0.2-0.9); Monocytes % 5.2 %; Neutrophils # 12.58 10^3/uL (1.8-7.7); Neutrophils % 81.6 %; Nucleated Red Blood Cells % 0 %; Platelet Count 399 10^3/cmm (157-399); Red Blood Count 3.58 10^6/uL (3.85-5.65); Red Cell Distribution Width 15.6 % (12.1-15.1); White Blood Count 15.42 10^3/uL (3.29-11.43)
[2024-11-29 23:44] LABS: Troponin(5th) Baseline 320 ng/L (0-15)
[2024-11-29 23:45] LABS: Alanine Aminotransferase 12 U/L (0-41); Albumin Level 3.6 g/dL (3.5-5.2); Alkaline Phosphatase 104 U/L (40-130); Anion Gap 18.6 (5-19); Aspartate Amino Transferase 13 U/L (0-40); Blood Urea Nitrogen 36 mg/dL (8-23); Calcium 9.2 mg/dL (8.5-10.5); Carbon Dioxide 27 mmol/L (22-29); Chloride 98 mmol/L (98-107); Creatinine Clr Calc Pharmacy 13.8394; Globulin 2.8 g/dL (1.3-4.6); Glomerular Filtration Rate 12.5 mL/min (90-130); Glucose 159 mg/dL (65-115); Magnesium 2.2 mg/dL (1.7-2.3); Osmolality Calculated 300 mOsm/kg (285-295); Phosphorus 3.7 mg/dL (2.5-4.5); Potassium 4.6 mmol/L (3.5-5.1); Sodium 139 mmol/L (136-145); Total Bilirubin 0.3 mg/dL (0.15-1.2); Total Protein 6.4 g/dL (6.6-8.7)
[2024-11-29 23:49] VITALS: BP 166/95; PULSE 83; RESP 18; O2SAT 93
[2024-11-30] VITALS (8 sets, daily range): BP systolic 159–166; BP diastolic 92–96; PULSE 83–89; RESP 15–21; O2SAT 89–96
[2024-11-30 00:04] LABS: Covid PCR NEGATIVE (Negative); Influenza A NEGATIVE (Negative); Influenza B NEGATIVE (Negative); Respiratory Syncytial Virus Ce NEGATIVE (Negative)
[2024-11-30] MEDS: ipratropium-albuterol 3 mL Neb INHALATION (00:36)
--- NOTE | 2024-11-30 00:42 | ECG_ITS ---
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
[2024-11-30 01:32] LABS: Troponin 5 2HR Delta -12.5 ABS# (0-10)
[2024-11-30 01:34] LABS: Troponin 5 2HR 307.5 ng/L (0-15)
== END 2024-11-30 03:42 | disposition home or self-care (01) ==
PROVIDERS: Emergency Provider Emergency Medicine; PCP Family Medicine
DX: E11.22 Type 2 diabetes mellitus with diabetic chronic kidney disease (principal); I12.0 Hypertensive chronic kidney disease with stage 5 chronic kidney disease or end stage renal disease; N18.6 End stage renal disease; Z99.2 Dependence on renal dialysis; Z11.52 Encounter for screening for COVID-19; Z79.82 Long term (current) use of aspirin
CPT/HCPCS: 36600; 70450; 71045; 80051; 80053; 82330; 82805; 83735; 84100; 84484; 85025; 87040; 87637; 93005; 94640; 99285

== ENCOUNTER 2024-12-04 05:26 | Emergency (ER) | payer MEDICARE, MEDICAID, SELFPAY ==
[2024-12-04 05:27] VITALS: BP 157/83; PULSE 87; RESP 16; TEMP 36.7; O2SAT 95; BMI 19.4
--- NOTE | 2024-12-04 05:31 | XRR_ITS ---
PROCEDURE INFORMATION: Exam: XR Chest Exam date and time: 12/04/2024 5:33 AM Age: 69 years old Clinical indication: Patient HX: EMS arrival from [facility] for possible aspiration. Patient has cough. ; Additional info: Cough, possible aspiration TECHNIQUE: Imaging protocol: Radiologic exam of the chest. Views: 1 view. COMPARISON: CR (CHEST, ) 11/29/2024 10:34 PM FINDINGS: Tubes, catheters and devices: Tunneled hemodialysis catheter terminates at the cavoatrial junction. Lungs: Unremarkable. No consolidation. Pleural spaces: Unremarkable. No pleural effusion. No pneumothorax. Heart/Mediastinum: Unremarkable. No cardiomegaly. Bones/joints: Unremarkable. XR/XR chest 1V portable [id number] IMPRESSION: 1. Negative for interval changes. 2. No definite focal pneumonia seen.
--- NOTE | 2024-12-04 05:32 | ED_ITS ---
Documented by User: Sathish Mcmillan DO 12/04/24 05:38 HPI - General Adult 2 General: Chief complaint: Upper Respiratory Infection Stated complaint: COUGH Time Seen by Provider: 12/04/24 05:31 History of Present Illness: Patient sent over from [facility] secondary to a cough. Nursing stated that he may have aspirated today on some food during lunch. Has been coughing frequently ever since. Patient denies any complaints. Related Data Home Medications Medication Instructions Recorded Confirmed red yeast rice 600 mg capsule 600 mg PO DAILY 05/13/22 12/04/24 cetirizine 10 mg tablet 10 mg PO DAILY PRN ALLERGIES 04/10/24 12/04/24 cephalexin 500 mg capsule 500 mg PO BID 12/04/24 12/04/24 megestrol 40 mg tablet 40 mg PO DAILY 12/04/24 12/04/24 sertraline 100 mg tablet 100 mg PO DAILY 12/04/24 12/04/24 Previous Rx's Medication Instructions Recorded cholecalciferol (vitamin D3) 125 125 mcg PO DAILY 30 days #30 caps 02/07/22 mcg (5,000 unit) capsule aspirin 81 mg tablet,delayed 81 mg PO DAILY #30 tabs 04/17/24 release atorvastatin 40 mg tablet 40 mg PO BEDTIME #30 tabs 04/17/24 carvedilol 6.25 mg tablet 6.25 mg PO BID #60 tabs 04/17/24 ferrous gluconate 324 mg (37.5 mg 324 mg PO BIDWM #60 tabs 04/17/24 iron) tablet folic acid 1 mg tablet 1 mg PO DAILY #30 tabs 04/17/24 losartan 50 mg tablet 75 mg (1.5 x 50 mg) PO DAILY #30 04/30/24 tabs Allergies Allergy/AdvReac Type Severity Reaction Status Date / Time No Known Allergies Allergy Verified 12/04/24 05:32 Review of Systems 2 General: Reports: 10 or more systems reviewed and unremarkable except in HPI and below PFSH ED 2 PFSH: Medical History Encounter for peritoneal dialysis catheter insertion MIKHAIL (acute kidney injury) Acute confusion History of COVID-19 DVT of lower extremity (deep venous thrombosis) Troponin level elevated Metabolic acidosis Pulmonary infiltrate on chest x-ray Tachycardia Elevated d-dimer Acute kidney injury superimposed on CKD CKD (chronic kidney disease) Fluid overload Acute kidney injury Hypertension Diabetes Surgical History Status post insertion of hemodialysis catheter No pertinent past surgical history Family History Other No significant family history Social History Smoking and tobacco/nicotine status: never used tobacco/nicotine Alcohol intake: never Substance/Drug Use: never Lives independently: Yes Household members: none Marital status details: Rather estranged with daughter Current occupational status: other Details: Recently employed, stopped working when started feeling unwell several wks Physical Exam 2 Const: COMMON NORMALS: no acute distress, average body habitus, no limitations, healthy appearing, alert and well nourished HENMT: COMMON NORMALS: normocephalic, atraumatic, hearing grossly normal bilaterally, external ears normal, Normal external nose present and moist oral mucous membranes HEAD & SCALP: normocephalic and atraumatic NOSE: Normal external nose present EXTERNAL EAR: Yes external ears normal Neck/C-Spine: COMMON NORMALS: full ROM, no lymphadenopathy, supple, no meningeal signs, no JVD and Thyroid normal THYROID: Thyroid normal Chest: COMMONS NORMALS: normal inspection of the chest and normal palpation of entire chest wall Resp: COMMON NORMALS: normal respiratory effort, No retractions and No use of accessory muscles; negative for clear to auscultation bilaterally (Decreased breath sounds bilaterally) AUSCULTATION: not clear to auscultation bilaterally (Decreased breath sounds bilaterally) Cardio: COMMON NORMALS: no JVD, regular rate, regular rhythm, S1 normal heart sound present, S2 normal heart sound present, No gallops present (Cardio), No clicks present (Cardio), No murmurs present (Cardio) and No rub (Cardio) R ATE: regular rate RHYTHM: regular rhythm HEART SOUNDS: S1 normal heart sound present and S2 normal heart sound present GI: COMMON NORMALS: Normal to inspection, nondistended, normoactive bowel sounds present, Soft to palpation, non-tender, No hepatosplenomegaly present and no masses PALPATION: Yes Soft to palpation and Yes No hepatosplenomegaly present Neuro: SENSORIUM/ORIENTATION: Yes alert MENINGEAL SIGNS: Yes no meningeal signs Course 2 Vital Signs: Vital signs: Vital Signs Temperature 98.0 F 12/04/24 05:27 Pulse Rate 79 12/04/24 12:44 Respiratory Rate 16 12/04/24 05:27 Blood Pressure 157/83 12/04/24 06:14 Pulse Oximetry 96 12/04/24 12:44 Oxygen Delivery Me thod Room Air 12/04/24 06:14 [facility] - General Adult Medical Records I reviewed the patient's medical records. Lab Data I reviewed the patient's lab results. 12/04/24 05:42 12/04/24 05:42 Radiology Impressions Chest X-Ray 12/04/24 05:31 IMPRESSION: 1. Negative for interval changes. 2. No definite focal pneumonia seen. Laboratory Results WBC 9.73 10^3/uL (3.29-11.43) 12/04/24 05:42 RBC 3.18 10^6/uL (3.85-5.65) L 12/04/24 05:42 Hgb 10.10 g/dL (11.27-16.99) L 12/04/24 05:42 Hct 32.6 % (37-53) L 12/04/24 05:42 MCV 102.5 fl (82-101) H 12/04/24 05:42 MCH 31.8 pg (27-33) 12/04/24 05:42 MCHC 31.0 g/dL (30-55) 12/04/24 05:42 RDW 15.9 % (12.1-15.1) H 12/04/24 05:42 Plt Count 371 10^3/cmm (157-399) 12/04/24 05:42 MPV 10.1 fL (7.4-10.4) 12/04/24 05:42 Neut % (Auto) 77.2 % 12/04/24 05:42 Lymph % (Auto) 9.1 % 12/04/24 05:42 [place] % (Auto) 7.1 % 12/04/24 05:42 Eos % (Auto) 5.0 % 12/04/24 05:42 Baso % (Auto) 1.2 % 12/04/24 05:42 Neut # (Auto) 7.50 10^3/uL (1.8-7.7) 12/04/24 05:42 Lymph # (Auto) 0.9 10^3/uL (0.8-4.8) 12/04/24 05:42 [place] # (Auto) 0.7 10^3/uL (0.2-0.9) 12/04/24 05:42 Eos # (Auto) 0.5 10^3/uL (0.0-0.8) 12/04/24 05:42 Baso # (Auto) 0.1 10^3/uL (0.0-0.1) 12/04/24 05:42 Nucleated RBC % (auto) 0 % 12/04/24 05:42 Nucleated RBCs # 0.0 /100WBC 12/04/24 05:42 Sodium 138 mmol/L (136-145) 12/04/24 05:42 Potassium 4.3 mmol/L (3.5-5.1) 12/04/24 05:42 Chloride 97 mmol/L (98-107) L 12/04/24 05:42 Carbon Dioxide 27 mmol/L (22-29) 12/04/24 05:42 Anion Gap 18.3 (5-19) 12/04/24 05:42 BUN 42 mg/dL (8-23) H 12/04/24 05:42 Creatinine 4.6 mg/dL (0.7-1.2) H 12/04/24 05:42 GFR Calculation 12.8 mL/min (90-130) L 12/04/24 05:42 Glucose 176 mg/dL (65-115) H 12/04/24 05:42 Calculated Osmolality 301 mOsm/kg (285-295) H 12/04/24 05:42 Calcium 9.0 mg/dL (8.5-10.5) 12/04/24 05:42 Total Bilirubin 0.3 mg/dL (0.15-1.2) 12/04/24 05:42 AST 16 U/L (0-40) 12/04/24 05:42 ALT 13 U/L (0-41) 12/04/24 05:42 Alkaline Phosphatase 89 U/L (40-130) 12/04/24 05:42 Total Protein 6.5 g/dL (6.6-8.7) L 12/04/24 05:42 Albumin 3.1 g/dL (3.5-5.2) L 12/04/24 05:42 Globulin 3.4 g/dL (1.3-4.6) 12/04/24 05:42 Coronavirus (PCR) Negative (Negative) 12/04/24 06:58 Influenza A (PCR) Negative (Negative) 12/04/24 06:58 Influenza Type B (PCR) Negative (Negative) 12/04/24 06:58 RSV (PCR) Negative (Negative) 12/04/24 06:58 All radiology interpretation(s) finalized by discharge Discharge Plan Discharge Patient Disposition: Home Clinical Impression: Cardiomyopathy, Dementia, Stroke, ESRD on dialysis Cough Qualifiers: Cough type: acute Qualified Code(s): R05.1 - Acute cough Condition: Stable Prescriptions: No Action red yeast rice 600 mg capsule 600 mg PO DAILY Rx Instructions: give with meal/snack cholecalciferol (vitamin D3) 125 mcg (5,000 unit) capsule 125 mcg PO DAILY 30 Days Qty: 30 1RF cetirizine 10 mg tablet 10 mg PO DAILY PRN (Reason: ALLERGIES) atorvastatin 40 mg Tablet 40 mg PO BEDTIME Qty: 30 0RF carvedilol 6.25 mg Tablet 6.25 mg PO BID Qty: 60 0RF aspirin 81 mg Tablet,Delayed Release (Dr/Ec) 81 mg PO DAILY Qty: 30 0RF ferrous gluconate 324 mg (37.5 mg iron) Tablet 324 mg PO BIDWM Qty: 60 0RF folic acid 1 mg Tablet 1 mg PO DAILY Qty: 30 0RF losartan 50 mg Tablet 75 mg PO DAILY Qty: 30 0RF sertraline 100 mg tablet 100 mg PO DAILY cephalexin 500 mg capsule 500 mg PO BID megestrol 40 mg tablet 40 mg PO DAILY Discharge Orders: Discharge ED (Routine); Ordered 12/04/24 Ordered By: Wilmer Pichardo Referrals: Hamilton Rosales [Primary Care Provider] - Patient Instructions: Opioid Safety, Pain Management Activity Restrictions/Additional Instructions: Thank you for choosing [facility] for your healthcare needs today. It is very important that you follow up as instructed or that you return to the Emergency Department should you have concerns or if your condition changes or worsens in any way. You were seen in the emergency room with complaint of cough. Evaluation emergency room shows no sign of pneumonia or infection. Follow-up with your primary care doctor. If this persists you may need to have a swallow study at some point. This can be done as an outpatient. Sign Out Sign Out Data: Patient Sign Out occurred on 12/04/24 at 06:36. Patient's care was discussed, and care was transferred from Sathish Mcmillan DO to Wilmer Pichardo DO. Coding Level of Care Code ED Shell Machine Operator for Chg Fwd Documented by User: Wilmer Pichardo DO 12/04/24 14:28 HPI - General Adult 2 General: Chief complaint: Upper Respiratory Infection Stated complaint: COUGH Time Seen by Provider: 12/04/24 05:31 Related Data Home Medications Medication Instructions Recorded Confirmed red yeast rice 600 mg capsule 600 mg PO DAILY 05/13/22 12/04/24 cetirizine 10 mg tablet 10 mg PO DAILY PRN ALLERGIES 04/10/24 12/04/24 cephalexin 500 mg capsule 500 mg PO BID 12/04/24 12/04/24 megestrol 40 mg tablet 40 mg PO DAILY 12/04/24 12/04/24 sertraline 100 mg tablet 100 mg PO DAILY 12/04/24 12/04/24 Previous Rx's Medication Instructions Recorded cholecalciferol (vitamin D3) 125 125 mcg PO DAILY 30 days #30 caps 02/07/22 mcg (5,000 unit) capsule aspirin 81 mg tablet,delayed 81 mg PO DAILY #30 tabs 04/17/24 release atorvastatin 40 mg tablet 40 mg PO BEDTIME #30 tabs 04/17/24 carvedilol 6.25 mg tablet 6.25 mg PO BID #60 tabs 04/17/24 ferrous gluconate 324 mg (37.5 mg 324 mg PO BIDWM #60 tabs 04/17/24 iron) tablet folic acid 1 mg tablet 1 mg PO DAILY #30 tabs 04/17/24 losartan 50 mg tablet 75 mg (1.5 x 50 mg) PO DAILY #30 04/30/24 tabs Allergies Allergy/AdvReac Type Severity Reaction Status Date / Time No Known Allergies Allergy Verified 12/04/24 05:32 PFSH ED 2 PFSH: Medical History Encounter for peritoneal dialysis catheter insertion MIKHAIL (acute kidney injury) Acute confusion History of COVID-19 DVT of lower extremity (deep venous thrombosis) Troponin level elevated Metabolic acidosis Pulmonary infiltrate on chest x-ray Tachycardia Elevated d-dimer Acute kidney injury superimposed on CKD CKD (chronic kidney disease) Fluid overload Acute kidney injury Hypertension Diabetes Surgical History Status post insertion of hemodialysis catheter No pertinent past surgical history Family History Other No significant family history Social History Smoking and tobacco/nicotine status: never used tobacco/nicotine Alcohol intake: never Substance/Drug Use: never Lives independently: Yes Household members: none Marital status details: Rather estranged with daughter Current occupational status: other Details: Recently employed, stopped working when started feeling unwell several wks Course 2 Vital Signs: Vital signs: Vital Signs Temperature 98.0 F 12/04/24 05:27 Pulse Rate 79 12/04/24 12:44 Respiratory Rate 16 12/04/24 05:27 Blood Pressure 157/83 12/04/24 06:14 Pulse Oximetry 96 12/04/24 12:44 Oxygen Delivery Me thod Room Air 12/04/24 06:14 MDM - General Adult Medical Decision Making Care assumed at change of shift chest x-ray negative laboratory test at baseline. Creatinine is actually better than his usual creatinine his potassium is well-controlled patient has a end-stage renal disease he is due for dialysis today. Based on the labs and his overall condition at this point I think he could return to the [facility] advised him to reschedule his dialysis for Mondays since he rested today. Lab Data 12/04/24 05:42 12/04/24 05:42 Radiology Impressions Chest X-Ray 12/04/24 05:31 IMPRESSION: 1. Negative for interval changes. 2. No definite focal pneumonia seen. Laboratory Results WBC 9.73 10^3/uL (3.29-11.43) 12/04/24 05:42 RBC 3.18 10^6/uL (3.85-5.65) L 12/04/24 05:42 Hgb 10.10 g/dL (11.27-16.99) L 12/04/24 05:42 Hct 32.6 % (37-53) L 12/04/24 05:42 MCV 102.5 fl (82-101) H 12/04/24 05:42 MCH 31.8 pg (27-33) 12/04/24 05:42 MCHC 31.0 g/dL (30-55) 12/04/24 05:42 RDW 15.9 % (12.1-15.1) H 12/04/24 05:42 Plt Count 371 10^3/cmm (157-399) 12/04/24 05:42 MPV 10.1 fL (7.4-10.4) 12/04/24 05:42 Neut % (Auto) 77.2 % 12/04/24 05:42 Lymph % (Auto) 9.1 % 12/04/24 05:42 [place] % (Auto) 7.1 % 12/04/24 05:42 Eos % (Auto) 5.0 % 12/04/24 05:42 Baso % (Auto) 1.2 % 12/04/24 05:42 Neut # (Auto) 7.50 10^3/uL (1.8-7.7) 12/04/24 05:42 Lymph # (Auto) 0.9 10^3/uL (0.8-4.8) 12/04/24 05:42 [place] # (Auto) 0.7 10^3/uL (0.2-0.9) 12/04/24 05:42 Eos # (Auto) 0.5 10^3/uL (0.0-0.8) 12/04/24 05:42 Baso # (Auto) 0.1 10^3/uL (0.0-0.1) 12/04/24 05:42 Nucleated RBC % (auto) 0 % 12/04/24 05:42 Nucleated RBCs # 0.0 /100WBC 12/04/24 05:42 Sodium 138 mmol/L (136-145) 12/04/24 05:42 Potassium 4.3 mmol/L (3.5-5.1) 12/04/24 05:42 Chloride 97 mmol/L (98-107) L 12/04/24 05:42 Carbon Dioxide 27 mmol/L (22-29) 12/04/24 05:42 Anion Gap 18.3 (5-19) 12/04/24 05:42 BUN 42 mg/dL (8-23) H 12/04/24 05:42 Creatinine 4.6 mg/dL (0.7-1.2) H 12/04/24 05:42 GFR Calculation 12.8 mL/min (90-130) L 12/04/24 05:42 Glucose 176 mg/dL (65-115) H 12/04/24 05:42 Calculated Osmolality 301 mOsm/kg (285-295) H 12/04/24 05:42 Calcium 9.0 mg/dL (8.5-10.5) 12/04/24 05:42 Total Bilirubin 0.3 mg/dL (0.15-1.2) 12/04/24 05:42 AST 16 U/L (0-40) 12/04/24 05:42 ALT 13 U/L (0-41) 12/04/24 05:42 Alkaline Phosphatase 89 U/L (40-130) 12/04/24 05:42 Total Protein 6.5 g/dL (6.6-8.7) L 12/04/24 05:42 Albumin 3.1 g/dL (3.5-5.2) L 12/04/24 05:42 Globulin 3.4 g/dL (1.3-4.6) 12/04/24 05:42 Coronavirus (PCR) Negative (Negative) 12/04/24 06:58 Influenza A (PCR) Negative (Negative) 12/04/24 06:58 Influenza Type B (PCR) Negative (Negative) 12/04/24 06:58 RSV (PCR) Negative (Negative) 12/04/24 06:58 Discharge Plan Discharge Patient Disposition: Home Clinical Impression: Cardiomyopathy, Dementia, Stroke, ESRD on dialysis Cough Qualifiers: Cough type: acute Qualified Code(s): R05.1 - Acute cough Condition: Stable Prescriptions: No Action red yeast rice 600 mg capsule 600 mg PO DAILY Rx Instructions: give with meal/snack cholecalciferol (vitamin D3) 125 mcg (5,000 unit) capsule 125 mcg PO DAILY 30 Days Qty: 30 1RF cetirizine 10 mg tablet 10 mg PO DAILY PRN (Reason: ALLERGIES) atorvastatin 40 mg Tablet 40 mg PO BEDTIME Qty: 30 0RF carvedilol 6.25 mg Tablet 6.25 mg PO BID Qty: 60 0RF aspirin 81 mg Tablet,Delayed Release (Dr/Ec) 81 mg PO DAILY Qty: 30 0RF ferrous gluconate 324 mg (37.5 mg iron) Tablet 324 mg PO BIDWM Qty: 60 0RF folic acid 1 mg Tablet 1 mg PO DAILY Qty: 30 0RF losartan 50 mg Tablet 75 mg PO DAILY Qty: 30 0RF sertraline 100 mg tablet 100 mg PO DAILY cephalexin 500 mg capsule 500 mg PO BID megestrol 40 mg tablet 40 mg PO DAILY Discharge Orders: Discharge ED (Routine); Ordered 12/04/24 Ordered By: Wilmer Pichardo Referrals: Hamilton Rosales [Primary Care Provider] - Patient Instructions: Opioid Safety, Pain Management Activity Restrictions/Additional Instructions: Thank you for choosing [facility] for your healthcare needs today. It is very important that you follow up as instructed or that you return to the Emergency Department should you have concerns or if your condition changes or worsens in any way. You were seen in the emergency room with complaint of cough. Evaluation emergency room shows no sign of pneumonia or infection. Follow-up with your primary care doctor. If this persists you may need to have a swallow study at some point. This can be done as an outpatient. Sign Out Sign Out Data: Patient Sign Out occurred on 12/04/24 at 06:36. Patient's care was discussed, and care was transferred from Sathish Mcmillan DO to Wilmer Pichardo DO. Coding Level of Care Code ED Shell Machine Operator for Devin Murray
[2024-12-04 05:47] LABS: Basophils # 0.1 10^3/uL (0.0-0.1); Basophils % 1.2 %; Eosinophils # 0.5 10^3/uL (0.0-0.8); Hematocrit 32.6 % (37-53); Lymphocytes # 0.9 10^3/uL (0.8-4.8); Lymphocytes % 9.1 %; Mean Corpuscular Hemoglobin 31.8 pg (27-33); Mean Corpuscular Volume 102.5 fl (82-101); Mean Platelet Volume 10.1 fL (7.4-10.4); Monocytes # 0.7 10^3/uL (0.2-0.9); Monocytes % 7.1 %; Neutrophils % 77.2 %; Nucleated Red Blood Cells % 0 %; Platelet Count 371 10^3/cmm (157-399); Red Blood Count 3.18 10^6/uL (3.85-5.65); Red Cell Distribution Width 15.9 % (12.1-15.1); White Blood Count 9.73 10^3/uL (3.29-11.43)
[2024-12-04 06:04] LABS: Alanine Aminotransferase 13 U/L (0-41); Albumin Level 3.1 g/dL (3.5-5.2); Alkaline Phosphatase 89 U/L (40-130); Anion Gap 18.3 (5-19); Aspartate Amino Transferase 16 U/L (0-40); Blood Urea Nitrogen 42 mg/dL (8-23); Carbon Dioxide 27 mmol/L (22-29); Chloride 97 mmol/L (98-107); Creatinine Clr Calc Pharmacy 13.7003; Globulin 3.4 g/dL (1.3-4.6); Glomerular Filtration Rate 12.8 mL/min (90-130); Glucose 176 mg/dL (65-115); Osmolality Calculated 301 mOsm/kg (285-295); Potassium 4.3 mmol/L (3.5-5.1); Sodium 138 mmol/L (136-145); Total Bilirubin 0.3 mg/dL (0.15-1.2); Total Protein 6.5 g/dL (6.6-8.7)
[2024-12-04 06:14] VITALS: BP 157/83; PULSE 82; O2SAT 96
--- NOTE | 2024-12-04 06:45 | ECG_ITS ---
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
[2024-12-04 08:13] LABS: Covid PCR NEGATIVE (Negative); Influenza A NEGATIVE (Negative); Influenza B NEGATIVE (Negative); Respiratory Syncytial Virus Ce NEGATIVE (Negative)
[2024-12-04 12:44] VITALS: PULSE 79; O2SAT 96
== END 2024-12-04 12:47 | disposition home or self-care (01) ==
PROVIDERS: Emergency Medicine; Emergency Provider Family Medicine; PCP Family Medicine
DX: I42.9 Cardiomyopathy, unspecified (principal); F03.90 Unspecified dementia, unspecified severity, without behavioral disturbance, psychotic disturbance, mood disturbance, and anxiety; I63.9 Cerebral infarction, unspecified; E11.22 Type 2 diabetes mellitus with diabetic chronic kidney disease; I12.0 Hypertensive chronic kidney disease with stage 5 chronic kidney disease or end stage renal disease; N18.6 End stage renal disease; Z99.2 Dependence on renal dialysis; Z79.82 Long term (current) use of aspirin; R05.1 Acute cough
CPT/HCPCS: 71045; 80053; 85025; 87637; 93005; 99285